=== PATIENT | male | born 1965 | race Caucasian/White ===

== ENCOUNTER → 2017-01-09 | Outpatient (REF) | payer MEDICAID, OTHER ==
[~2017-01-09] MED LIST: No Home Meds; OXYC-299 PO; PERCOCET PO; TYLE325T5 PO; aspirin PO
== END ==
LOC: M LAB REF 12:21
PROVIDERS: ATTEND Psychiatry & Neurology Psychiatry
DX: Z51.81 Encounter for therapeutic drug level monitoring (principal)

== ENCOUNTER → 2017-09-05 | Outpatient (CLI) | payer MEDICAID, OTHER ==
[~2017-09-05] MED LIST changes: +OXYC-141 PO; -OXYC-299 PO
[2017-09-05 12:06] LABS: BASO # 0.1 10^3/uL (0.0-0.2); BASO % 0.7 % (0.0-1.0); EOS # 0.6 10^3/uL (0.0-0.50); EOS % 6.8 % (0.0-3.0); IMMATURE GRANULOCYTE % 0.2 % (0-0); LYMPH # 1.8 10^3/uL (1.5-4.5); LYMPH % 22.2 % (24.0-44.0); MEAN CORPUSCULAR HEMOGLOBIN 31.8 pg (27.0-33.0); MEAN CORPUSCULAR HGB CONC 33.2 g/dl (32.0-36.5); MEAN CORPUSCULAR VOLUME 95.7 fl (80.0-96.0); MONO # 0.6 10^3/uL (0.0-0.8); MONO % 6.8 % (0.0-5.0); NEUTROPHILS # 5.2 10^3/uL (1.8-7.7); NEUTROPHILS % 63.3 % (36.0-66.0); PLATELET COUNT, AUTOMATED 208 10^3/uL (150-450); RED CELL DISTRIBUTION WIDTH 12.8 % (11.5-14.5); WHITE BLOOD COUNT 8.1 10^3/uL (4.0-10.0)
[2017-09-05 12:43] LABS: ALBUMIN/GLOBULIN RATIO 1.14 (1.00-1.93); ALKALINE PHOSPHATASE 110 U/L (45-117); ALT/SGPT 19 U/L (12-78); ANION GAP 2 MEQ/L (8-16); AST/SGOT 12 U/L (15-37); BILIRUBIN,TOTAL 0.2 MG/DL (0.2-1.0); BLOOD UREA NITROGEN 6 MG/DL (7-18); CALCIUM LEVEL 9.8 MG/DL (8.5-10.1); CARBON DIOXIDE LEVEL 31 MEQ/L (21-32); CHLORIDE LEVEL 105 MEQ/L (98-107); CHOLESTEROL LEVEL 160 MG/DL (<200); CREATININE FOR GFR 0.93 MG/DL (0.70-1.30); FREE T4 0.75 NG/DL (0.76-1.46); GLOMERULAR FILTRATION RATE > 60.0 (>60); GLUCOSE, FASTING 79 MG/DL (70-105); SODIUM LEVEL 138 MEQ/L (136-145); TOTAL PROTEIN 7.5 GM/DL (6.4-8.2); TRIGLYCERIDES LEVEL 214 MG/DL (<150)
--- NOTE | 2017-09-06 03:23 | REP ---
Clinical: Chest pain . Comparison: 05/30/2016 . Technique: PA and lateral. Findings: The mediastinum and cardiac silhouette are normal. The lung tamayo are clear and without acute consolidation, effusion, or pneumothorax. The skeletal structures are intact and normal. Impression: 1. No acute cardiopulmonary process. Signed by Clinton Lopez MD 09/06/2017 03:15 A
[2017-09-08 00:06] LABS: HSV TYPE I IgM AB <1:10 titer (<1:10); HSV TYPE II IgM ABY <1:10 titer (<1:10)
== END ==
LOC: M LRY 08:01
PROVIDERS: ATTEND Nurse Practitioner Adult Health
DX: R06.02 Shortness of breath (principal); Z87.891 Personal history of nicotine dependence; F10.21 Alcohol dependence, in remission; Z79.899 Other long term (current) drug therapy; E55.9 Vitamin D deficiency, unspecified; E78.00 Pure hypercholesterolemia, unspecified; Z11.3 Encounter for screening for infections with a predominantly sexual mode of transmission

== ENCOUNTER → 2018-05-27 | Outpatient (CLI) | payer OTHER | LOC: M SLEEP HO 10:01 | DX: G47.33 Obstructive sleep apnea (adult) (pediatric) (principal) ==

== ENCOUNTER → 2018-09-03 | Outpatient (CLI) | payer OTHER | LOC: M LRY 10:44 | DX: M25.572 Pain in left ankle and joints of left foot (principal) | CPT/HCPCS: 73610 ==

== ENCOUNTER → 2019-01-16 | Outpatient (REF) | payer MEDICAID ==
[~2019-01-16] MED LIST changes: +BUSP10TA PO; +CELE20TA PO; +CITA-230 PO; +LITH1TAB PO; +LITH45TASA PO; +OLAN10TA2 PO; +OMEP20CA3 PO; +PROP10TA56 PO; +TRAZO50TA PO
[2019-01-16 18:56] LABS: ALBUMIN 4.2 GM/DL (3.2-5.2); ALT/SGPT 24 U/L (12-78); BILIRUBIN,TOTAL 0.5 MG/DL (0.2-1.0); BLOOD UREA NITROGEN 7 MG/DL (7-18); CALCIUM LEVEL 9.4 MG/DL (8.5-10.1); CARBON DIOXIDE LEVEL 28 MEQ/L (21-32); CHLORIDE LEVEL 104 MEQ/L (98-107); CHOLESTEROL LEVEL 154 MG/DL (<200); CHOLESTEROL RISK RATIO 4.812 (<5); CREATININE FOR GFR 0.88 MG/DL (0.70-1.30); GLOMERULAR FILTRATION RATE > 60.0 (>56); GLUCOSE, FASTING 83 MG/DL (70-100); HDL CHOLESTEROL 32 MG/DL (>40); LDL CHOLESTEROL 96 MG/DL (<100); NON-HDL-C 122 MG/DL; POTASSIUM SERUM 4.9 MEQ/L (3.5-5.1); SODIUM LEVEL 137 MEQ/L (136-145); TOTAL 25(OH) VITAMIN D 18.5 NG/ML (30.0-100.0); TOTAL PROTEIN 7.6 GM/DL (6.4-8.2); TRIGLYCERIDES LEVEL 132 MG/DL (<150)
== END ==
LOC: M LAB REF 16:53
PROVIDERS: ATTEND Nurse Practitioner Family
DX: Z13.9 Encounter for screening, unspecified (principal)

== ENCOUNTER → 2019-02-13 | Outpatient (CLI) | payer OTHER | LOC: M LAB 11:43 | PROVIDERS: ATTEND Registered Nurse | DX: F31.31 Bipolar disorder, current episode depressed, mild (principal); Z51.81 Encounter for therapeutic drug level monitoring; Z13.9 Encounter for screening, unspecified ==

== ENCOUNTER → 2019-09-08 | Outpatient (CLI) | payer OTHER ==
[~2019-09-08] MED LIST changes: -CITA-230 PO; +CITA20TA7 PO; -OMEP20CA3 PO; +OMEP20CA4 PO; +TRAZ1TAB10 PO; -TRAZO50TA PO
[2019-09-08 10:33] LABS: BASO # 0.1 10^3/uL (0.0-0.2); BASO % 1.1 % (0.0-1.0); EOS # 0.2 10^3/uL (0.0-0.5); EOS % 2.4 % (0.0-3.0); HEMATOCRIT 44.4 % (42.0-52.0); HEMOGLOBIN 14.7 g/dl (13.5-17.5); LYMPH # 2.3 10^3/uL (1.5-5.0); LYMPH % 23.1 % (24.0-44.0); MEAN CORPUSCULAR HEMOGLOBIN 33.5 pg (27.0-33.0); MEAN CORPUSCULAR HGB CONC 33.1 g/dl (32.0-36.5); MEAN CORPUSCULAR VOLUME 101.1 fl (80.0-96.0); MONO # 0.7 10^3/uL (0.0-0.8); MONO % 7.4 % (0.0-5.0); NEUTROPHILS # 6.4 10^3/uL (1.5-8.5); NEUTROPHILS % 65.7 % (36.0-66.0); PLATELET COUNT, AUTOMATED 319 10^3/uL (150-450); RED BLOOD COUNT 4.39 10^6/uL (4.30-6.10); WHITE BLOOD COUNT 9.8 10^3/uL (4.0-10.0)
[2019-09-08 11:04] LABS: ALBUMIN 4.2 GM/DL (3.2-5.2); ALT/SGPT 16 U/L (12-78); BILIRUBIN,DIRECT 0.1 MG/DL (0.0-0.2); BILIRUBIN,TOTAL 0.5 MG/DL (0.2-1.0); BLOOD UREA NITROGEN 10 MG/DL (7-18); CALCIUM LEVEL 10.3 MG/DL (8.5-10.1); CARBON DIOXIDE LEVEL 29 MEQ/L (21-32); CHLORIDE LEVEL 104 MEQ/L (98-107); CHOLESTEROL LEVEL 186 MG/DL (<200); CHOLESTEROL RISK RATIO 3.049 (<5); CREATININE FOR GFR 0.93 MG/DL (0.70-1.30); GLOMERULAR FILTRATION RATE > 60.0 (>56); GLUCOSE, FASTING 92 MG/DL (70-100); HDL CHOLESTEROL 61 MG/DL (>40); LDL CHOLESTEROL 105 MG/DL (<100); LITHIUM LEVEL 0.99 MEQ/L (0.60-1.20); NON-HDL-C 125 MG/DL; POTASSIUM SERUM 5.5 MEQ/L (3.5-5.1); SODIUM LEVEL 138 MEQ/L (136-145); TOTAL PROTEIN 8.1 GM/DL (6.4-8.2); TRIGLYCERIDES LEVEL 101 MG/DL (<150)
[2019-09-08 11:07] LABS: TOTAL 25(OH) VITAMIN D 48.7 NG/ML (30.0-100.0)
[2019-09-08 11:10] LABS: VITAMIN B12 LEVEL 334 PG/ML (247-911)
[2019-09-08 12:46] LABS: HEMOGLOBIN A1c 4.9 %
== END ==
LOC: M LAB 09:55
PROVIDERS: ATTEND Nurse Practitioner Psychiatric/Mental Health
DX: Z51.81 Encounter for therapeutic drug level monitoring (principal); Z13.9 Encounter for screening, unspecified

== ENCOUNTER → 2020-01-28 | Outpatient (CLI) | payer OTHER ==
[~2020-01-28] MED LIST changes: +OMEP1CAP73 PO; -OMEP20CA4 PO
[2020-01-28 11:18] LABS: BASO # 0.1 10^3/uL (0.0-0.2); BASO % 1.1 % (0.0-1.0); EOS # 0.2 10^3/uL (0.0-0.5); EOS % 2.8 % (0.0-3.0); HEMATOCRIT 39.3 % (42.0-52.0); HEMOGLOBIN 13.3 g/dl (13.5-17.5); LYMPH # 1.6 10^3/uL (1.5-5.0); LYMPH % 19.5 % (24.0-44.0); MEAN CORPUSCULAR HEMOGLOBIN 35.2 pg (27.0-33.0); MEAN CORPUSCULAR HGB CONC 33.8 g/dl (32.0-36.5); MONO # 0.6 10^3/uL (0.0-0.8); MONO % 7.8 % (0.0-5.0); NEUTROPHILS # 5.6 10^3/uL (1.5-8.5); NEUTROPHILS % 68.6 % (36.0-66.0); PLATELET COUNT, AUTOMATED 280 10^3/uL (150-450); RED BLOOD COUNT 3.78 10^6/uL (4.30-6.10); WHITE BLOOD COUNT 8.2 10^3/uL (4.0-10.0)
[2020-01-28 11:45] LABS: ALBUMIN 3.8 GM/DL (3.2-5.2); ALT/SGPT 24 U/L (12-78); BILIRUBIN,DIRECT 0.2 MG/DL (0.0-0.2); BILIRUBIN,TOTAL 0.7 MG/DL (0.2-1.0); BLOOD UREA NITROGEN 7 MG/DL (7-18); CALCIUM LEVEL 9.3 MG/DL (8.5-10.1); CARBON DIOXIDE LEVEL 28 MEQ/L (21-32); CHLORIDE LEVEL 108 MEQ/L (98-107); CHOLESTEROL LEVEL 154 MG/DL (<200); CHOLESTEROL RISK RATIO 2.369 (<5); CREATININE FOR GFR 0.69 MG/DL (0.70-1.30); GLOMERULAR FILTRATION RATE > 60.0 (>56); GLUCOSE, FASTING 74 MG/DL (70-100); HDL CHOLESTEROL 65 MG/DL (>40); LDL CHOLESTEROL 77 MG/DL (<100); NON-HDL-C 89 MG/DL; POTASSIUM SERUM 4.6 MEQ/L (3.5-5.1); SODIUM LEVEL 140 MEQ/L (136-145); THYROID STIMULATING HORMONE 0.955 uIU/ML (0.358-3.740); TOTAL PROTEIN 7.2 GM/DL (6.4-8.2); TRIGLYCERIDES LEVEL 59 MG/DL (<150)
[2020-01-28 11:46] LABS: HEMOGLOBIN A1c 4.3 %
[2020-01-28 11:47] LABS: TOTAL 25(OH) VITAMIN D 24.5 NG/ML (30.0-100.0)
[2020-01-28 11:48] LABS: VITAMIN B12 LEVEL 335 PG/ML (247-911)
== END ==
LOC: M LAB 09:25
PROVIDERS: ATTEND Nurse Practitioner Psychiatric/Mental Health
DX: F31.31 Bipolar disorder, current episode depressed, mild (principal); Z79.899 Other long term (current) drug therapy

== ENCOUNTER → 2020-05-03 | Outpatient (CLI) | payer OTHER ==
[~2020-05-03] MED LIST changes: +BUPR1TAB52 PO; +BUSP30TA PO
[2020-05-03 09:11] LABS: BASO # 0.1 10^3/uL (0.0-0.2); BASO % 1.4 % (0.0-1.0); EOS # 0.4 10^3/uL (0.0-0.5); EOS % 6.1 % (0.0-3.0); HEMATOCRIT 41.9 % (42.0-52.0); HEMOGLOBIN 13.8 g/dl (13.5-17.5); LYMPH # 1.8 10^3/uL (1.5-5.0); LYMPH % 27.7 % (24.0-44.0); MEAN CORPUSCULAR HEMOGLOBIN 32.5 pg (27.0-33.0); MEAN CORPUSCULAR HGB CONC 32.9 g/dl (32.0-36.5); MEAN CORPUSCULAR VOLUME 98.8 fl (80.0-96.0); MONO # 0.5 10^3/uL (0.0-0.8); NEUTROPHILS # 3.6 10^3/uL (1.5-8.5); NEUTROPHILS % 56.5 % (36.0-66.0); PLATELET COUNT, AUTOMATED 239 10^3/uL (150-450); RED BLOOD COUNT 4.24 10^6/uL (4.30-6.10); WHITE BLOOD COUNT 6.4 10^3/uL (4.0-10.0)
[2020-05-03 09:43] LABS: ALBUMIN 3.7 GM/DL (3.2-5.2); ALT/SGPT 328 U/L (12-78); BILIRUBIN,DIRECT 0.1 MG/DL (0.0-0.2); BILIRUBIN,TOTAL 0.3 MG/DL (0.2-1.0); BLOOD UREA NITROGEN 5 MG/DL (7-18); CALCIUM LEVEL 8.7 MG/DL (8.5-10.1); CARBON DIOXIDE LEVEL 27 MEQ/L (21-32); CHLORIDE LEVEL 109 MEQ/L (98-107); CHOLESTEROL LEVEL 123 MG/DL (<200); CHOLESTEROL RISK RATIO 3.514 (<5); CREATININE FOR GFR 0.78 MG/DL (0.70-1.30); GLOMERULAR FILTRATION RATE > 60.0 (>56); GLUCOSE, FASTING 87 MG/DL (70-100); HDL CHOLESTEROL 35 MG/DL (>40); LDL CHOLESTEROL 68 MG/DL (<100); LITHIUM LEVEL 1.03 MEQ/L (0.60-1.20); NON-HDL-C 88 MG/DL; POTASSIUM SERUM 4.2 MEQ/L (3.5-5.1); SODIUM LEVEL 141 MEQ/L (136-145); TOTAL PROTEIN 7.2 GM/DL (6.4-8.2); TRIGLYCERIDES LEVEL 98 MG/DL (<150)
[2020-05-03 10:10] LABS: HEMOGLOBIN A1c 4.6 %
[2020-05-03 10:31] LABS: TOTAL 25(OH) VITAMIN D 48.8 NG/ML (30.0-100.0); VITAMIN B12 LEVEL 709 PG/ML (247-911)
== END ==
LOC: M LAB 08:09
PROVIDERS: ATTEND Nurse Practitioner Psychiatric/Mental Health
DX: Z51.81 Encounter for therapeutic drug level monitoring (principal); Z79.899 Other long term (current) drug therapy; F31.81 Bipolar II disorder

== ENCOUNTER 2020-05-11 16:51 | Emergency (ER) | payer OTHER ==
[~2020-05-11] VITALS: Ht 180.3 cm; Wt 78.2 kg
[~2020-05-11 16:51] MED LIST changes: -BUPR1TAB52 PO; -BUSP30TA PO
[2020-05-11] MEDS ORDERED: BUSP30TA PO (17:45)
[2020-05-11] MEDS ORDERED: BUPR1TAB52 PO (17:45)
[2020-05-11 17:55] LABS: BASO # 0.1 10^3/uL (0.0-0.2); EOS # 0.6 10^3/uL (0.0-0.5); EOS % 7.4 % (0.0-3.0); HEMATOCRIT 39.6 % (42.0-52.0); HEMOGLOBIN 13.3 g/dl (13.5-17.5); LYMPH # 3.1 10^3/uL (1.5-5.0); LYMPH % 38.4 % (24.0-44.0); MEAN CORPUSCULAR HEMOGLOBIN 32.7 pg (27.0-33.0); MEAN CORPUSCULAR HGB CONC 33.6 g/dl (32.0-36.5); MEAN CORPUSCULAR VOLUME 97.3 fl (80.0-96.0); MONO # 0.6 10^3/uL (0.0-0.8); MONO % 7.2 % (0.0-5.0); NEUTROPHILS # 3.7 10^3/uL (1.5-8.5); NEUTROPHILS % 45.9 % (36.0-66.0); PLATELET COUNT, AUTOMATED 177 10^3/uL (150-450); RED BLOOD COUNT 4.07 10^6/uL (4.30-6.10)
[2020-05-11 18:09] LABS: INR 1.23; PROTHROMBIN TIME 15.2 SECONDS (11.8-14.0)
[2020-05-11 18:10] LABS: PARTIAL THROMBOPLASTIN TIME 30.6 SECONDS (25.0-38.4)
[2020-05-11 18:10] LABS: CK-MB VALUE MASS 1.2 NG/ML (<3.6); CPK CREATINE PHOSPHOKINASE 77 U/L (39-308); MB/CK RELATIVE INDEX 1.56 (< OR =4); TROPONIN I < 0.02 NG/ML (< 0.10)
[2020-05-11 18:15] VITALS: BP 114/63
[2020-05-11 18:16] LABS: ALBUMIN 3.6 GM/DL (3.2-5.2); ALT/SGPT 306 U/L (12-78); BILIRUBIN,DIRECT 0.2 MG/DL (0.0-0.2); BILIRUBIN,TOTAL 0.5 MG/DL (0.2-1.0); BLOOD UREA NITROGEN 8 MG/DL (7-18); CALCIUM LEVEL 9.3 MG/DL (8.5-10.1); CARBON DIOXIDE LEVEL 23 MEQ/L (21-32); CHLORIDE LEVEL 107 MEQ/L (98-107); CREATININE FOR GFR 0.71 MG/DL (0.70-1.30); FREE T4 0.96 NG/DL (0.76-1.46); GLOMERULAR FILTRATION RATE > 60.0 (>56); GLUCOSE, FASTING 84 MG/DL (70-100); LIPASE 547 U/L (73-393); LITHIUM LEVEL 0.85 MEQ/L (0.60-1.20); MAGNESIUM LEVEL 1.9 MG/DL (1.8-2.4); NT-PRO BNP 100 PG/ML (<125); POTASSIUM SERUM 4.1 MEQ/L (3.5-5.1); SODIUM LEVEL 140 MEQ/L (136-145); TOTAL PROTEIN 6.8 GM/DL (6.4-8.2)
--- NOTE | 2020-05-12 03:45 | REP ---
CHEST PORTABLE: REASON: Chest pain. FINDINGS: The technique utilized in obtaining the radiograph has magnified the cardiac silhouette and accentuated the interstitial markings. The superior mediastinal structures are midline. The cardiac silhouette is unremarkable in size, shape, and position. The diaphragmatic surfaces of the lungs are regular, and the costophrenic angles are clear. The pulmonary tamayo are clear. The imaged osseous structures are intact. IMPRESSION: There is no acute cardiopulmonary disease. Electronically Signed by Savage Rivera DO 05/12/2020 08:40 A
--- NOTE | 2020-05-12 09:40 | ECGEPIP ---
[facility] - ED Test Date: 2020-05-11 Pat Name: JAMIL MCDONNELL Department: Room: - Gender: Male Transport Assistant: ROSA : 1965 Requested By: GAEL Alvarez Order Number: [id number] Reading MD: Kam Simmons Measurements Intervals [place] Rate: 71 P: 55 FL: 172 QRS: 56 QRSD: 118 T: 40 QT: 428 QTc: 467 Interpretive Statements SINUS RHYTHM INCOMPLETE RIGHT BUNDLE BRANCH BLOCK SIMILAR TO 11/26/18 Electronically Signed on 05-12-2020 9:40:41 EDT by Kam Simmons
== END 2020-05-11 18:25 | disposition left against medical advice (07) ==
LOC: M ED 16:51 → EDBD 16:51 → M ED 18:25
DX: R07.9 Chest pain, unspecified (principal); R55 Syncope and collapse; I45.19 Other right bundle-branch block; J44.9 Chronic obstructive pulmonary disease, unspecified; F31.9 Bipolar disorder, unspecified; K21.9 Gastro-esophageal reflux disease without esophagitis; Z79.899 Other long term (current) drug therapy; F17.210 Nicotine dependence, cigarettes, uncomplicated

== ENCOUNTER 2020-06-17 21:15 | Emergency (ER) | payer OTHER ==
[~2020-06-17 21:15] MED LIST changes: +BUPR1TAB52 PO; +BUSP30TA PO
[2020-06-17] MEDS ORDERED: ACETAMINOPHEN 325 MG TAB As Ordered ONE (21:36)
[2020-06-17] MEDS ORDERED: IBUPROFEN 600MG TAB As Ordered ONE (21:36)
[2020-06-17] MEDS ORDERED: ONDANSETRON 4MG/2ML VIAL As Ordered ONE (21:36)
[2020-06-18] MEDS ORDERED: ISOVUE-370 76% 100ML VIAL ONE (00:43)
[2020-06-18] MEDS ORDERED: CIPROFLOXACIN/D5W 400 MG/200 ML BAG (J0744) As Ordered ONE (01:39)
[2020-06-18] MEDS ORDERED: CIPROFLOXACIN/D5W 400 MG/200 ML BAG (J0744) ONE (01:39)
[2020-07-20 14:46] LABS: INR 1.66; PARTIAL THROMBOPLASTIN TIME 42.8 SECONDS (25.0-38.4); PROTHROMBIN TIME 19.9 SECONDS (11.8-14.0)
[2020-07-20 14:59] LABS: HEMATOCRIT 37.1 % (42.0-52.0); HEMOGLOBIN 12.8 g/dl (13.5-17.5); MEAN CORPUSCULAR HGB CONC 34.5 g/dl (32.0-36.5); MEAN CORPUSCULAR VOLUME 101.4 fl (80.0-96.0); PLATELET COUNT, AUTOMATED 132 10^3/uL (150-450); RED BLOOD COUNT 3.66 10^6/uL (4.30-6.10); WHITE BLOOD COUNT 18.2 10^3/uL (4.0-10.0)
[2020-07-20 15:03] LABS: ANISOCYTOSIS 1+; LYMPHOCYTES 4 % (16-44); MONOCYTES 4 % (0-5); NEUTROPHILS 79 % (28-66); PLATELET ESTIMATE DECREASED (NORMAL)
[2020-07-25 12:24] LABS: APPEARANCE, URINE CLEAR (CLEAR); BACTERIA, URINE AUTO NEGATIVE (NEGATIVE); BILIRUBIN, URINE AUTO NEGATIVE (NEGATIVE); BLOOD, URINE BLOOD NEGATIVE (NEGATIVE); COLOR, URINE AMBER (YELLOW); GLUCOSE, URINE (UA) AUTO NEGATIVE (NEGATIVE); KETONE, URINE AUTO NEGATIVE (NEGATIVE); LEUKOCYTE ESTERASE, URINE AUTO NEGATIVE (NEGATIVE); NITRITE, URINE AUTO NEGATIVE (NEGATIVE); PROTEIN, URINE AUTO 1+ mg/dL (NEGATIVE); RBC, URINE AUTO 1 /HPF (0-3); SPECIFIC GRAVITY URINE AUTO 1.012 (1.002-1.035); SQUAMOUS EPITHELIAL CELL UR AU 0 /HPF (0-6); WBC, URINE AUTO 1 /HPF (0-3)
[2020-07-25 14:19] LABS: BASO % 0.4 % (0.0-1.0); EOS % 0.1 % (0.0-3.0); HEMATOCRIT 37.8 % (42.0-52.0); HEMOGLOBIN 12.9 g/dl (13.5-17.5); LYMPH # 0.2 10^3/uL (1.5-5.0); LYMPH % 2.2 % (24.0-44.0); MEAN CORPUSCULAR HEMOGLOBIN 34.3 pg (27.0-33.0); MEAN CORPUSCULAR HGB CONC 34.1 g/dl (32.0-36.5); MEAN CORPUSCULAR VOLUME 100.5 fl (80.0-96.0); MONO % 0.4 % (0.0-5.0); NEUTROPHILS # 6.5 10^3/uL (1.5-8.5); NEUTROPHILS % 96.6 % (36.0-66.0); PLATELET COUNT, AUTOMATED 138 10^3/uL (150-450); RED BLOOD COUNT 3.76 10^6/uL (4.30-6.10); WHITE BLOOD COUNT 6.7 10^3/uL (4.0-10.0)
[2020-08-02 12:26] LABS: ALBUMIN 3.4 GM/DL (3.2-5.2); ALT/SGPT 242 U/L (12-78); BILIRUBIN,TOTAL 1.4 MG/DL (0.2-1.0); BLOOD UREA NITROGEN 14 MG/DL (7-18); CALCIUM LEVEL 9.3 MG/DL (8.5-10.1); CARBON DIOXIDE LEVEL 25 MEQ/L (21-32); CHLORIDE LEVEL 103 MEQ/L (98-107); CREATININE FOR GFR 1.17 MG/DL (0.70-1.30); FERRITIN 705 NG/ML (26-388); FOLATE 9.4 NG/ML (>5.4); GLOMERULAR FILTRATION RATE > 60.0 (>56); GLUCOSE, FASTING 85 MG/DL (70-100); HEPATITIS A ANTIBODY IGM NEGATIVE (NEGATIVE); HEPATITIS B CORE ANTIBODY IGM NEGATIVE (NEGATIVE); HEPATITIS B SURFACE ANTIGEN NEGATIVE (NEGATIVE); HEPATITIS C VIRUS ABY INDEX > 11.0 INDEX (<0.8); IRON (FE) 10 UG/DL (65-175); PERCENT SATURATION 3.6 % (19.7-50.0); POTASSIUM SERUM 4.5 MEQ/L (3.5-5.1); SODIUM LEVEL 134 MEQ/L (136-145); TOTAL IRON BINDING CAPACITY 278 UG/DL (250-450); TOTAL PROTEIN 6.5 GM/DL (6.4-8.2); VITAMIN B12 LEVEL 743 PG/ML (247-911)
--- NOTE | 2020-08-09 10:16 | REP ---
RENAL ULTRASOUND: HISTORY: Acute renal insufficiency. TECHNIQUE: Real time, high scale and color evaluation using curved array transducer. FINDINGS: The bilateral kidneys are normal in contour, size, echogenicity and reniform shape. Increased central sinus fat suggests age related changes. No hydronephrosis, nephrolithiasis, cystic or renal mass lesion. The right kidney measures 12.6 x 5.6 x 4.4 cm. The left kidney measures 12.3 x 5.4 x 6.3 cm. The prostate gland measures 3.7 x 2.0 x 4.3 (16.2 cm2). The bladder is incompletely distended but grossly normal in appearance. IMPRESSION: Normal renal ultrasound. No hydronephrosis. MTDD
[2020-08-27 12:49] LABS: CALCIUM LEVEL 9.8 MG/DL (8.5-10.1); CREATININE FOR GFR 1.58 MG/DL (0.70-1.30); GLOMERULAR FILTRATION RATE 49.3 (>56); POTASSIUM SERUM 3.5 MEQ/L (3.5-5.1)
[2020-08-27 12:50] LABS: ALBUMIN 3.4 GM/DL (3.2-5.2); BILIRUBIN,DIRECT 1.3 MG/DL (0.0-0.2); BILIRUBIN,TOTAL 1.8 MG/DL (0.2-1.0); TOTAL PROTEIN 6.6 GM/DL (6.4-8.2)
== END 2020-06-18 07:45 | disposition left against medical advice (07) ==
LOC: M ED 21:15
DX: R50.9 Fever, unspecified (principal); D72.825 Bandemia; R16.0 Hepatomegaly, not elsewhere classified; R82.89 Other abnormal findings on cytological and histological examination of urine; L40.9 Psoriasis, unspecified; K21.9 Gastro-esophageal reflux disease without esophagitis; F32.89 Other specified depressive episodes; Z79.899 Other long term (current) drug therapy; F12.10 Cannabis abuse, uncomplicated; Z53.21 Procedure and treatment not carried out due to patient leaving prior to being seen by health care provider
CPT/HCPCS: 71046; 76705; 76775; 80048; 80053; 80076; 80307; 81001; 82270; 82607; 82728; 82746; 83550; 83605; 83690; 85025; 85046; 85610; 85730; 86705; 86709; 86803; 87040; 87086; 87340; 87521; 99285; J0744; J2405; Q9967

== ENCOUNTER → 2020-08-09 | Outpatient (CLI) | payer OTHER ==
[~2020-08-09] MED LIST changes: +CITA20TA6 PO; +LISI-542 PO; +LITH600C PO; +MED REC COMMENT; +OMEP-218 PO; +PROP20TA72 PO; +TRAZ-189 PO; +TRAZ-257 PO
[2020-08-09 10:12] LABS: BASO # 0.1 10^3/uL (0.0-0.2); BASO % 1.3 % (0.0-1.0); EOS # 0.4 10^3/uL (0.0-0.5); HEMATOCRIT 38.6 % (42.0-52.0); LYMPH # 1.8 10^3/uL (1.5-5.0); LYMPH % 32.2 % (24.0-44.0); MEAN CORPUSCULAR HEMOGLOBIN 34.5 pg (27.0-33.0); MEAN CORPUSCULAR HGB CONC 33.7 g/dl (32.0-36.5); MEAN CORPUSCULAR VOLUME 102.4 fl (80.0-96.0); MONO # 0.6 10^3/uL (0.0-0.8); MONO % 11.6 % (0.0-5.0); NEUTROPHILS # 2.6 10^3/uL (1.5-8.5); NEUTROPHILS % 47.5 % (36.0-66.0); PLATELET COUNT, AUTOMATED 199 10^3/uL (150-450); RED BLOOD COUNT 3.77 10^6/uL (4.30-6.10); WHITE BLOOD COUNT 5.4 10^3/uL (4.0-10.0)
[2020-08-09 10:27] LABS: HEMOGLOBIN A1c 4.7 %
[2020-08-09 10:45] LABS: ALBUMIN 3.8 GM/DL (3.2-5.2); ALT/SGPT 384 U/L (12-78); BILIRUBIN,DIRECT 0.2 MG/DL (0.0-0.2); BILIRUBIN,TOTAL 0.5 MG/DL (0.2-1.0); BLOOD UREA NITROGEN 7 MG/DL (7-18); CALCIUM LEVEL 9.7 MG/DL (8.5-10.1); CARBON DIOXIDE LEVEL 25 MEQ/L (21-32); CHLORIDE LEVEL 106 MEQ/L (98-107); CHOLESTEROL LEVEL 150 MG/DL (<200); CREATININE FOR GFR 0.92 MG/DL (0.70-1.30); GLOMERULAR FILTRATION RATE > 60.0 (>56); GLUCOSE, FASTING 83 MG/DL (70-100); GLUCOSE,RANDOM 83 MG/DL (LESS THAN 200); HDL CHOLESTEROL 40 MG/DL (>40); LDL CHOLESTEROL 84 MG/DL (<100); LITHIUM LEVEL 0.37 MEQ/L (0.60-1.20); NON-HDL-C 110 MG/DL; PHOSPHORUS LEVEL 3.5 MG/DL (2.5-4.9); POTASSIUM SERUM 4.3 MEQ/L (3.5-5.1); SODIUM LEVEL 139 MEQ/L (136-145); TOTAL PROTEIN 7.3 GM/DL (6.4-8.2); TRIGLYCERIDES LEVEL 128 MG/DL (<150)
--- NOTE | 2020-08-10 06:18 | ECGEPIP ---
[facility] Test Date: 2020-08-09 Pat Name: JAMIL MCDONNELL Department: Room: - Gender: Male Phlebotomy Director: SERENITY : 1965 Requested By: Adela VAZQUEZ Order Number: [id number] Reading MD: Dhruv Wellington Measurements Intervals [place] Rate: 65 P: 60 LA: 155 QRS: 74 QRSD: 114 T: 50 QT: 401 QTc: 419 Interpretive Statements Normal sinus rhythm Incomplete right bundle branch block No significant change when compared to prior tracing of 05/11/2020 Electronically Signed on 08-10-2020 6:18:20 EDT by Dhruv Wellington
== END ==
LOC: M LAB 09:24
PROVIDERS: ATTEND Registered Nurse
DX: F31.10 Bipolar disorder, current episode manic without psychotic features, unspecified (principal); I45.10 Unspecified right bundle-branch block

== ENCOUNTER 2020-09-08 21:07 | Inpatient (IN) | payer MEDICAID, OTHER ==
[~2020-09-08] VITALS: Ht 180.3 cm; Wt 77.0 kg
[~2020-09-08 21:07] MED LIST changes: -CITA20TA6 PO; -LISI-542 PO; -LITH600C PO; -MED REC COMMENT; -OMEP-218 PO; -PROP20TA72 PO; -TRAZ-189 PO; -TRAZ-257 PO
[2020-09-08] MEDS ORDERED: PROP20TA72 PO (21:28)
[2020-09-08] MEDS ORDERED: TRAZ-257 PO (21:29)
[2020-09-08] MEDS ORDERED: NICOTINE 21MG/24HR 1 EA TRANSDERMAL TD ONE (22:00)
[2020-09-08 22:43] LABS: HEMATOCRIT 34.5 % (42.0-52.0); HEMOGLOBIN 11.4 g/dl (13.5-17.5); MEAN CORPUSCULAR HEMOGLOBIN 33.7 pg (27.0-33.0); MEAN CORPUSCULAR VOLUME 102.1 fl (80.0-96.0); PLATELET COUNT, AUTOMATED 151 10^3/uL (150-450); RED BLOOD COUNT 3.38 10^6/uL (4.30-6.10); WHITE BLOOD COUNT 8.2 10^3/uL (4.0-10.0)
[2020-09-08 23:09] LABS: AMPHETAMINES LEVEL URINE NEGATIVE (NEGATIVE); BARBITURATES URINE NEGATIVE (NEGATIVE); BENZODIAZEPINES URINE NEGATIVE (NEGATIVE); CANNABINOIDS URINE POSITIVE (NEGATIVE); COCAINE METABOLITE URINE NEGATIVE (NEGATIVE); METHADONE URINE NEGATIVE (NEGATIVE); OPIATES URINE NEGATIVE (NEGATIVE); PHENCYCLIDINE URINE NEGATIVE (NEGATIVE)
[2020-09-08 23:22] LABS: ACETAMINOPHEN LEVEL < 2.0 UG/ML (10.0-30.0); ALBUMIN 3.3 GM/DL (3.2-5.2); ALT/SGPT 72 U/L (12-78); BILIRUBIN,DIRECT 0.2 MG/DL (0.0-0.2); BILIRUBIN,TOTAL 0.3 MG/DL (0.2-1.0); BLOOD UREA NITROGEN 8 MG/DL (7-18); CALCIUM LEVEL 8.7 MG/DL (8.5-10.1); CARBON DIOXIDE LEVEL 23 MEQ/L (21-32); CHLORIDE LEVEL 108 MEQ/L (98-107); CREATININE FOR GFR 0.79 MG/DL (0.70-1.30); ETHYL ALCOHOL (ETHANOL) 0.368 % (0.000-0.010); GLOMERULAR FILTRATION RATE > 60.0 (>56); GLUCOSE, FASTING 92 MG/DL (70-100); POTASSIUM SERUM 3.7 MEQ/L (3.5-5.1); SALICYLATE LEVEL < 1.7 MG/DL (5.0-30.0); SODIUM LEVEL 140 MEQ/L (136-145); TOTAL PROTEIN 6.6 GM/DL (6.4-8.2)
[2020-09-09] MEDS ORDERED: LORazepam 2 MG TAB PO PRN ×2 (07:30→11:00)
[2020-09-09] MEDS ORDERED: busPIRone 10 MG TAB PO ONE (07:45)
[2020-09-09] MEDS ORDERED: PROPRANOLOL 20 MG TAB PO ONE (07:45)
[2020-09-09] MEDS ORDERED: CitaloPRAM (CeleXA) 20 MG TAB PO ONE (07:45)
[2020-09-09] MEDS ORDERED: LITHIUM CARBONATE 600 MG CAP PO ONE (07:45)
[2020-09-09] MEDS ORDERED: OMEPRAZOLE 20 MG CAP PO ONE (07:45)
[2020-09-09] MEDS ORDERED: LITH600C PO (08:01)
[2020-09-09] MEDS ORDERED: OMEP-218 PO (08:01)
[2020-09-09] MEDS ORDERED: PROP10TA56 PO (08:01)
[2020-09-09] MEDS ORDERED: LISI-542 PO (08:01)
[2020-09-09] MEDS ORDERED: BUPR1TAB52 PO (08:01)
[2020-09-09] MEDS ORDERED: OLAN10TA2 PO (08:01)
[2020-09-09] MEDS ORDERED: lisinopriL 5 MG TAB PO ONE (08:15)
[2020-09-09] MEDS ORDERED: buPROPion (WELLBUTRIN SR) 100 MG SR TAB PO ONE (08:15)
[2020-09-09 08:18] LABS: ETHYL ALCOHOL (ETHANOL) 0.153 % (0.000-0.010)
[2020-09-09] MEDS ORDERED: THIAMINE 100 MG TAB PO SCH (09:00)
[2020-09-09] MEDS ORDERED: MULTIVITAMINS/MINERALS THERAP 1 TAB PO SCH (09:00)
[2020-09-09] MEDS ORDERED: FOLIC ACID 1 MG TAB PO SCH (09:00)
[2020-09-09] MEDS: NICOTINE 21MG/24HR 1 EA TRANSDERMAL TD SCH (09:00)
[2020-09-09] MEDS ORDERED: MOM 30ML SUSPENSION UDC PO PRN (11:00)
[2020-09-09] MEDS ORDERED: ACETAMINOPHEN TAB 650MG DOSE (2X325MG) PO PRN (11:00)
[2020-09-09] MEDS ORDERED: traZODone 50 MG TAB PO PRN (11:00)
[2020-09-09] MEDS ORDERED: MAALOX 30 ML SUSP *UDC PO PRN (11:00)
[2020-09-09 11:38] LABS: LITHIUM LEVEL 0.49 MEQ/L (0.60-1.20)
[2020-09-09] MEDS: PROPRANOLOL 10 MG TAB PO SCH ×2 (16:14→20:17)
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
[2020-09-09 19:14] VITALS: BP 136/82
[2020-09-09] MEDS: LITHIUM CARBONATE 600 MG CAP PO SCH (20:14)
[2020-09-09] MEDS: busPIRone 10 MG TAB PO SCH (20:15)
[2020-09-09] MEDS: THIAMINE 100 MG TAB PO SCH (20:15)
[2020-09-09] MEDS: OMEPRAZOLE 20 MG CAP PO SCH (20:15)
[2020-09-09] MEDS ORDERED: OLANZapine 10 MG TAB PO SCH (21:00)
[2020-09-09] MEDS ORDERED: traZODone 100 MG TAB PO SCH (21:00)
[2020-09-09 23:00] VITALS: BP 136/82
[2020-09-10 05:03] VITALS: BP 136/82
[2020-09-10 06:23] VITALS: BP 136/91
[2020-09-10] MEDS: LITHIUM CARBONATE 600 MG CAP PO SCH (08:17)
[2020-09-10] MEDS: busPIRone 10 MG TAB PO SCH (08:17)
[2020-09-10] MEDS: OMEPRAZOLE 20 MG CAP PO SCH (08:18)
[2020-09-10 08:20] VITALS: BP 136/91
[2020-09-10] MEDS: PROPRANOLOL 10 MG TAB PO SCH (08:20)
[2020-09-10] MEDS: NICOTINE 21MG/24HR 1 EA TRANSDERMAL TD SCH (08:20)
[2020-09-10] MEDS ORDERED: MULTIVITAMINS/MINERALS THERAP 1 TAB PO SCH (09:00)
[2020-09-10] MEDS ORDERED: CitaloPRAM (CeleXA) 20 MG TAB PO SCH (09:00)
[2020-09-10] MEDS ORDERED: buPROPion (WELLBUTRIN SR) 100 MG SR TAB PO SCH (09:00)
[2020-09-10] MEDS ORDERED: lisinopriL 5 MG TAB PO SCH (09:00)
[2020-09-10] MEDS ORDERED: FOLIC ACID 1 MG TAB PO SCH (09:00)
[2020-09-10] MEDS: THIAMINE 100 MG TAB PO SCH (09:20)
[2020-09-10] MEDS ORDERED: PROP10TA56 PO (10:32)
[2020-09-10] MEDS ORDERED: LITH600C PO (10:32)
[2020-09-10] MEDS ORDERED: LISI-542 PO (10:32)
[2020-09-10] MEDS ORDERED: TRAZ-257 PO (10:32)
[2020-09-10] MEDS ORDERED: BUPR1TAB52 PO (10:32)
[2020-09-10] MEDS ORDERED: OLAN10TA2 PO (10:32)
[2020-09-10] MEDS ORDERED: BUSP30TA PO (10:32)
[2020-09-10] MEDS ORDERED: OMEP-218 PO (10:32)
[2020-09-10] MEDS ORDERED: CITA20TA7 PO (10:32)
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
[2020-09-11] MEDS ORDERED: FLUBLOK(EGG FREE)(QUAD)INFLUENZA VACC 0.5ML SYRINGE 18YRS & OLDER IM ONE (09:00)
== END 2020-09-10 11:20 | disposition home or self-care (01) | DRG 753 ==
LOC: M ED 21:07 → M ED INP 09-09 10:56 → M PSY 09-09 11:32
PROVIDERS: ADMIT Psychiatry & Neurology Addiction Medicine; ATTEND Psychiatry & Neurology Psychiatry
DX: F31.9 Bipolar disorder, unspecified (principal); F10.129 Alcohol abuse with intoxication, unspecified; F10.14 Alcohol abuse with alcohol-induced mood disorder; F12.10 Cannabis abuse, uncomplicated; F17.200 Nicotine dependence, unspecified, uncomplicated; F41.9 Anxiety disorder, unspecified; I10 Essential (primary) hypertension; K21.9 Gastro-esophageal reflux disease without esophagitis; Z87.81 Personal history of (healed) traumatic fracture

== ENCOUNTER 2020-09-12 15:32 | Emergency (ER) | payer MEDICAID, OTHER ==
[~2020-09-12] VITALS: Ht 180.3 cm; Wt 78.4 kg
[~2020-09-12 15:32] MED LIST changes: +LISI-542 PO; +LITH600C PO; +OMEP-218 PO; +PROP20TA72 PO; +TRAZ-257 PO
[2020-09-12 16:27] LABS: HEMATOCRIT 39.7 % (42.0-52.0); HEMOGLOBIN 13.1 g/dl (13.5-17.5); MEAN CORPUSCULAR HEMOGLOBIN 33.7 pg (27.0-33.0); MEAN CORPUSCULAR VOLUME 102.1 fl (80.0-96.0); PLATELET COUNT, AUTOMATED 200 10^3/uL (150-450); RED BLOOD COUNT 3.89 10^6/uL (4.30-6.10); WHITE BLOOD COUNT 9.9 10^3/uL (4.0-10.0)
[2020-09-12 16:52] LABS: AMPHETAMINES LEVEL URINE NEGATIVE (NEGATIVE); BARBITURATES URINE NEGATIVE (NEGATIVE); BENZODIAZEPINES URINE NEGATIVE (NEGATIVE); CANNABINOIDS URINE NEGATIVE (NEGATIVE); COCAINE METABOLITE URINE NEGATIVE (NEGATIVE); METHADONE URINE NEGATIVE (NEGATIVE); OPIATES URINE NEGATIVE (NEGATIVE); PHENCYCLIDINE URINE NEGATIVE (NEGATIVE)
[2020-09-12 17:16] LABS: ACETAMINOPHEN LEVEL < 2.0 UG/ML (10.0-30.0); ALBUMIN 3.9 GM/DL (3.2-5.2); ALT/SGPT 53 U/L (12-78); BILIRUBIN,DIRECT 0.2 MG/DL (0.0-0.2); BILIRUBIN,TOTAL 0.4 MG/DL (0.2-1.0); BLOOD UREA NITROGEN 10 MG/DL (7-18); CALCIUM LEVEL 8.6 MG/DL (8.5-10.1); CARBON DIOXIDE LEVEL 24 MEQ/L (21-32); CHLORIDE LEVEL 104 MEQ/L (98-107); ETHYL ALCOHOL (ETHANOL) 0.372 % (0.000-0.010); GLOMERULAR FILTRATION RATE > 60.0 (>56); GLUCOSE, FASTING 79 MG/DL (70-100); POTASSIUM SERUM 4.1 MEQ/L (3.5-5.1); SALICYLATE LEVEL 1.9 MG/DL (5.0-30.0); SODIUM LEVEL 136 MEQ/L (136-145); TOTAL PROTEIN 7.8 GM/DL (6.4-8.2)
[2020-09-12] MEDS ORDERED: LORazepam 2 MG TAB PO PRN (17:30)
[2020-09-12] MEDS: THIAMINE 100 MG TAB PO SCH (17:56)
[2020-09-12] MEDS: FOLIC ACID 1 MG TAB PO SCH (17:56)
[2020-09-12] MEDS: MULTIVITAMINS/MINERALS THERAP 1 TAB PO SCH (17:56)
[2020-09-12] MEDS ORDERED: BUPR1TAB52 PO (19:00)
[2020-09-12] MEDS ORDERED: NICOTINE 21MG/24HR 1 EA TRANSDERMAL TD ONE (19:00)
[2020-09-12] MEDS ORDERED: BUSP30TA PO (19:00)
[2020-09-12] MEDS ORDERED: CITA20TA6 PO (19:01)
[2020-09-12] MEDS ORDERED: LITH600C PO (19:01)
[2020-09-12] MEDS ORDERED: LISI-542 PO (19:01)
[2020-09-12] MEDS ORDERED: PROP10TA56 PO (19:01)
[2020-09-12] MEDS ORDERED: OMEP1CAP73 PO (19:01)
[2020-09-12] MEDS ORDERED: TRAZ-189 PO (19:01)
[2020-09-12] MEDS ORDERED: OLAN10TA2 PO (19:01)
[2020-09-12] MEDS ORDERED: OLANZapine 10 MG TAB PO ONE (20:45)
[2020-09-12] MEDS ORDERED: PROPRANOLOL 20 MG TAB PO ONE (20:45)
[2020-09-12] MEDS ORDERED: busPIRone 10 MG TAB PO ONE (20:45)
[2020-09-12] MEDS ORDERED: OMEPRAZOLE 20 MG CAP PO ONE (20:45)
[2020-09-12 20:58] LABS: LITHIUM LEVEL 0.89 MEQ/L (0.60-1.20)
[2020-09-12] MEDS ORDERED: LITHIUM CARBONATE 600 MG CAP PO ONE (21:45)
[2020-09-12] MEDS ORDERED: MED REC COMMENT (21:48)
[2020-09-12 21:53] VITALS: BP 121/58
[2020-09-13] MEDS: FOLIC ACID 1 MG TAB PO SCH (09:29)
[2020-09-13] MEDS: MULTIVITAMINS/MINERALS THERAP 1 TAB PO SCH (09:29)
[2020-09-13] MEDS: THIAMINE 100 MG TAB PO SCH ×2 (09:29→20:38)
[2020-09-13 23:51] VITALS: BP 179/99
--- NOTE | 2020-09-14 09:16 | ECGEPIP ---
[place] - ED Test Date: 2020-09-13 Pat Name: JAMIL MCDONNELL Department: Room: - Gender: Male Meter Reader: rona : 1965 Requested By: Kam Cazares Order Number: [id number] Reading MD: Galina Esposito Measurements Intervals [place] Rate: 91 P: 66 MD: 154 QRS: 72 QRSD: 110 T: 62 QT: 359 QTc: 443 Interpretive Statements SINUS RHYTHM IRBBB INCREASED RATE 08/09/20 Electronically Signed on 09-14-2020 9:15:58 EDT by Galina Esposito
== END 2020-09-14 00:01 | disposition short-term general hospital (02) ==
LOC: M ED 15:32
DX: R45.851 Suicidal ideations (principal); I10 Essential (primary) hypertension; J44.9 Chronic obstructive pulmonary disease, unspecified; F33.9 Major depressive disorder, recurrent, unspecified; F17.210 Nicotine dependence, cigarettes, uncomplicated
CPT/HCPCS: 36415; 80048; 80076; 80178; 80307; 84443; 85027; 93005; 99285; G0480; U0002

== ENCOUNTER 2020-12-16 18:52 | Emergency (ER) | payer OTHER ==
[~2020-12-16] VITALS: Ht 180.3 cm; Wt 77.3 kg
[~2020-12-16 18:52] MED LIST changes: +CITA20TA6 PO; -LISI-542 PO; +LISI-898 PO; +MED REC COMMENT; +TRAZ-189 PO
--- OUTSIDE RECORDS SUMMARY | 2020-12-16 18:56 | CCD ---
Author Author [facility] Organization [facility] Address Unknown Phone Unavailable Care Team Providers Care Dining Car Hop Name Role Phone Vashti LAUREANO MD Unavailable Unavailable Vashti LAUREANO MD Unavailable Unavailable Vashti LAUREANO MD Unavailable Unavailable Vashti LAUREANO MD Unavailable Unavailable Vashti LAUREANO MD Unavailable Unavailable Vashti LAUREANO MD Unavailable Unavailable Vashti LAUREANO MD Unavailable Unavailable Vashti LAUREANO MD Unavailable Unavailable Vashti LAUREANO MD Unavailable Unavailable Vashti LAUREANO MD Unavailable Unavailable Vashti LAUREANO MD Unavailable Unavailable Vashti LAUREANO MD Unavailable Unavailable Vashti LAUREANO MD Unavailable Unavailable Vashti LAUREANO MD Unavailable Unavailable Vashti LAUREANO MD Unavailable Unavailable Vashti LAUREANO MD Unavailable Unavailable Vashti LAUREANO MD Unavailable Unavailable Vashti LAUREANO MD Unavailable Unavailable Vashti LAUREANO MD Unavailable Unavailable Yusuf, Aleja STRAP SEWER STRAP SEWER Unavailable Unavailable Ashley Schmidt MD Unavailable Unavailable Ashley Schmidt MD Unavailable Unavailable Ashley Schmidt MD Unavailable Unavailable Ashley Schmidt MD Unavailable Unavailable Ashley Schmidt MD Unavailable Unavailable Ashley Schmidt MD Unavailable Unavailable Ashley Schmidt MD Unavailable Unavailable Ashley Schmidt MD Unavailable Unavailable Ashley Schmidt MD Unavailable Unavailable Ashley Schmidt MD Unavailable Unavailable Ashley Schmidt MD Unavailable Unavailable Ashley Schmidt MD Unavailable Unavailable Ashley Schmidt MD Unavailable Unavailable Ashley Schmidt MD Unavailable Unavailable Ashley Schmidt MD Unavailable Unavailable Ashley Schmidt MD Unavailable Unavailable Ashley Schmidt MD Unavailable Unavailable Ashley Schmidt MD Unavailable Unavailable Ashley Schmidt MD Unavailable Unavailable Yusuf, A Aleja STRAP SEWER Unavailable Unavailable Yusuf, A Aleja STRAP SEWER Unavailable Unavailable Yusuf, A Aleja STRAP SEWER Unavailable Unavailable Yusuf, A Aleja STRAP SEWER Unavailable Unavailable Yusuf, A Aleja STRAP SEWER Unavailable Unavailable Yusuf, A Aleja STRAP SEWER Unavailable Unavailable Yusuf, A Aleja STRAP SEWER Unavailable Unavailable Yusuf, A Aleja STRAP SEWER Unavailable Unavailable Yusuf, A Aleja STRAP SEWER Unavailable Unavailable Yusuf, A Aleja STRAP SEWER Unavailable Unavailable Yusuf, A Aleja STRAP SEWER Unavailable Unavailable Yusuf, A Aleja STRAP SEWER Unavailable Unavailable Yusuf, A Aleja STRAP SEWER Unavailable Unavailable Yusuf, A Aleja STRAP SEWER Unavailable Unavailable Yusuf, A Aleja STRAP SEWER Unavailable Unavailable Yusuf, A Aleja STRAP SEWER Unavailable Unavailable Yusuf, A Aleja STRAP SEWER Unavailable Unavailable Yusuf, A Aleja STRAP SEWER Unavailable Unavailable Yusuf, A Aleja STRAP SEWER Unavailable Unavailable Yusuf, A Aleja STRAP SEWER Unavailable Unavailable Yusuf, A Aleja STRAP SEWER Unavailable Unavailable Yusuf, A Aleja STRAP SEWER Unavailable Unavailable Yusuf, A Aleja STRAP SEWER Unavailable Unavailable Yusuf, A Aleja STRAP SEWER Unavailable Unavailable Yusuf, A Aleja STRAP SEWER Unavailable Unavailable Yusuf, A Aleja STRAP SEWER Unavailable Unavailable Yusuf, A Aleja STRAP SEWER Unavailable Unavailable Re-disclosure Warning The records that you are about to access may contain information from federally-assisted alcohol or drug abuse programs. If such information is present, then the following federally mandated warning applies: This information has been disclosed to you from records protected by federal confidentiality rules (42 CFR part 2). The federal rules prohibit you from making any further disclosure of this information unless further disclosure is expressly permitted by the written consent of the person to whom it pertains or as otherwise permitted by 42 CFR part 2. A general authorization for the release of medical or other information is NOT sufficient for this purpose. The Federal rules restrict any use of the information to criminally investigate or prosecute any alcohol or drug abuse patient.The records that you are about to access may contain highly sensitive health information, the redisclosure of which is protected by Article 27-F of the [facility] Public Health law. If you continue you may have access to information: Regarding HIV / AIDS; Provided by facilities licensed or operated by the [facility] Office of Mental Health; or Provided by the [facility] Office for People With Developmental Disabilities. If such information is present, then the following [facility] mandated warning applies: This information has been disclosed to you from confidential records which are protected by state law. State law prohibits you from making any further disclosure of this information without the specific written consent of the person to whom it pertains, or as otherwise permitted by law. Any unauthorized further disclosure in violation of state law may result in a fine or intermediate sentence or both. A general authorization for the release of medical or other information is NOT sufficient authorization for further disc losure. Allergies and Adverse Reactions Type Description Substance Reaction Status Data Source(s ) Drug Class NO KNOWN ALLERGIES NO KNOWN ALLERGIES [facility] Family History Family Member Name Family Member Gender Family Member Status Date o f Status Description Data Source(s) Unknown Male Problem [facility] ([facility] () Unknown Female Encounters Encounter Providers Location Date Indications Data Source(s ) Inpatient Attender: SUNI LAUREANO David nder: Ashley Schmidt MDAdmitter: Ashley Schmidt MD [id number] 09/14/2020 12:00:00 AM EDT - 09/16/2020 11:24:00 AM EDT Suicidal ideation without a plan, hx bipolar [facility] Suicidal ideation without a plan, hx bip olar Patient discharged. Outpatient Attender: HERMINIA BARROS 09/10/2020 10:10:00 A M EDT [facility] Outpatient Attender: Aleja BARROS 08/21/2020 07:3 1:01 PM EDT [facility] Outpatient Attender: HERMINIA BARROS 08/21/2020 07:31:00 P M EDT [facility] Outpatient Attender: Aleja BARROS 07/23/2020 11:0 5:02 AM EDT [facility] Outpatient Attender: HERMINIA BARROS 07/23/2020 11:05:01 A M EDT [facility] Outpatient Attender: Aleja BARROS 06/14/2020 08:4 0:01 AM EDT [facility] Outpatient Attender: HERMINIA BARROS 05/25/2020 10:56:01 A M EDT [facility] Outpatient Attender: Aleja BARROS 05/24/2020 09:1 6:00 AM EDT [facility] Outpatient Attender: Aleja BARROS 05/09/2020 12:0 4:04 AM EDT [facility] Outpatient Attender: HERMINIA BARROS 05/09/2020 12:04:01 A M EDT [facility] Outpatient Attender: HERMINIA BARROS 04/27/2020 07:40:58 P M EDT [facility] Outpatient Attender: Aleja BARROS 02/15/2020 03:3 7:59 PM EDT [facility] Outpatient Attender: HERMINIA Goldberg [facility] 02/11/2020 02:11:00 P M EDT [facility] Outpatient Attender: STRAP SEWERRosalba Goldberg [facility] 02/10/2020 10:13:01 A M EDT [facility] [address] [place] [phone] 01/27/2020 12:00:00 AM EDT eCW1 (Formerly [facility]) [facility] [address] [place] [phone] 01/09/2020 12:00:00 AM EST eCW1 (Formerly [facility]) Outpatient Attender: HERMINIA Yusuf [facility] 12/17/2019 09:01:05 P M EST [facility] [address] [place] [phone] 12/10/2019 12:00:00 AM EST eCW1 (Formerly [facility]) [facility] [address] [place] [phone] 12/09/2019 12:00:00 AM EST eCW1 (Formerly [facility]) [facility] [address] [place] [phone] 12/02/2019 12:00:00 AM EST eCW1 (Formerly [facility]) Outpatient Attender: Aleja Goldberg [facility] 11/14/2019 04:0 3:59 PM EST [facility] Outpatient Attender: STRAP SEWERRosalba Goldberg [facility] 10/30/2019 01:38:01 P M [facility] [address] [place] [phone] 10/30/2019 12:00:00 AM EST eCW1 (Formerly [facility]) Medications Medication Brand Name Start Date Product Form Dose Route Admi nistrative Instructions Pharmacy Instructions Status Indications Reaction Description Data Source(s) Thiamine 100 MG Oral Tablet Thiamine HCl 100 MG Oral T ablet (B-1) Thiamine HCl 100 MG Oral Tablet (B-1) 09/16/2020 12:00:00 AM EDT 100 mg Oral active Take 1 tablet by mouth daily [facility] Tab-A-Alena/Beta Carotene Oral Tablet [id number] 09/16/2020 12:00: 00 AM EDT 1 {tbl} Oral active Take 1 tablet by mouth d [facility] Hydroxyzine Hydrochloride 50 MG Oral Tab let hydrOXYzine HCl 50 MG Oral Tablet (ATARAX) hydrOXYzine HCl 50 MG Oral Tablet (ATARAX) 09/16/2020 12:00: 00 AM EDT 50 mg Oral active Take 1 tablet by mouth every 6 (six) hours as needed for Anxiety (Sleep) for up to 10 days [facility] Folic Acid 1 MG Oral Tablet Folic Acid 1 MG Oral Table t (FOLVITE) Folic Acid 1 MG Oral Tablet (FOLVITE) 09/16/2020 12:00:00 AM EDT 1 mg Oral active Take 1 tablet by mouth daily [facility] buspirone hydrochloride 10 MG Oral Table t busPIRone HCl 10 MG Oral Tablet (BUSPAR) busPIRone HCl 10 MG Oral Tablet (BUSPAR) 09/16/2020 12:00:00 AM EDT 10 mg Oral active Take 1 tablet by mouth T hree times daily [facility] multivitamin tablet 1 tablet [id number] 09/15/2020 09:00:00 AM EDT 1 {tbl} Oral active 1 tablet, Oral , Daily Standard, First dose on Sun09/15/20 at 0900, For 30 days [facility] Medication administered onsite Thiamine 100 MG Oral Tablet thiamine (B-1) tablet 100 mg thiamine (B-1) tablet 100 mg 09/15/2020 09:00:00 AM EDT 100 mg Oral active 100 mg, Oral, Daily Standard, First dose on Sun09/15/20 at 0900, For 30 days [facility] Medication administered onsite Folic Acid 1 MG Oral Tablet folic acid (FOLVITE) table t 1 mg folic acid (FOLVITE) tablet 1 mg 09/15/2020 09:00:00 AM EDT 1 mg Oral active 1 mg, Oral, Daily Standard, First dose on Sun09/15/20 at 0900, For 30 days [facility] Medication administered onsite olanzapine 10 MG Oral Tablet OLANZapine (ZYPREXA) tabl et 10 mg OLANZapine (ZYPREXA) tablet 10 mg 09/14/2020 10:00:00 PM EDT 10 mg Oral active 10 mg, Oral, Nightly, First dose on Sun09/14/20 at 2200, For 30 days [facility] Medication administered onsite Trazodone Hydrochloride 100 MG Oral Tablet trazodone ( DESYREL) tablet 200 mg trazodone (DESYREL) tablet 200 mg 09/14/2020 10:00:00 PM EDT 200 mg Oral active 200 mg, Oral, Nightl y, First dose on Sun09/14/20 at 2200, For 30 days [facility] Medication administered onsite [place] Carbonate 300 MG Oral Capsule lithium carbonat e capsule 300 mg lithium carbonate capsule 300 mg 09/14/2020 02:30:00 PM EDT 300 mg Oral active 300 mg, Oral, 2 Times Daily With Meals, First dose on Sun09/14/20 at 1430, For 30 days [facility] Medication administered onsite Citalopram 20 MG Oral Tablet citalopram (CELEXA) table t 20 mg citalopram (CELEXA) tablet 20 mg 09/14/2020 02:30:00 PM EDT 20 mg Oral active 20 mg, Oral, Daily Standard, First dose on Sun09/14/20 at 1430, For 30 days [facility] Medication administered onsite Propranolol Hydrochloride 20 MG Oral Tablet propranolo l (INDERAL) tablet 20 mg propranolol (INDERAL) tablet 20 mg 09/14/2020 02:30:00 PM EDT 20 mg Oral active 20 mg, Oral, Three Times Daily Standard, First dose on Sun09/14/20 at 1430, For 30 days
Check vital signs before administering
[facility] Medication administered onsite 12 HR Bupropion Hydrochloride 100 MG Ext ended Release Oral Tablet buPROPion (WELLBUTRIN SR) 12 hr tablet 100 mg buPROPion (WELLBUTRIN SR) 12 hr tablet 1 00 mg 09/14/2020 02:30:00 PM EDT 100 mg Oral active 100 mg, Oral, Daily Standard, First dose on Sun09/14/20 at 1430, For 30 days
Do not crush or chew
[facility] Medication administered onsite Lisinopril 20 MG Oral Tablet lisinopril (ZESTRIL) tabl et 40 mg lisinopril (ZESTRIL) tablet 40 mg 09/14/2020 09:00:00 AM EDT 40 mg Oral active 40 mg, Oral, Daily Standard, First dose on Sun09/14/20 at 0900, For 30 doses [facility] Medication administered onsite buspirone hydrochloride 10 MG Oral Tablet busPIRone (B USPAR) tablet 10 mg busPIRone (BUSPAR) tablet 10 mg 09/14/2020 09:00:00 AM EDT 10 mg O ral active 10 mg, Oral, Three Times Daily Standard, First dose on Sun09/14/20 at 0900, For 30 days [facility] Medication administered onsite pantoprazole 40 MG Delayed Release Oral Tablet pantoprazole (PROTONIX) EC tablet 40 mg pantoprazole (PROTONIX) EC tablet 40 mg 09/14/2020 09:00:00 AM E DT 40 mg Oral active 40 mg, Ora l, Daily Standard, First dose on Sun09/14/20 at 0900, For 30 days
Do not crush or chew The order for omperazole has been substituted with this P&T Committee approved formulary equivalent.
[facility] Medication administered onsite 24 HR Nicotine 0.875 MG/HR Transdermal P atch nicotine (NICODERM CQ) 21 MG/24HR 1 patch nicotine (NICODERM CQ) 21 MG/24HR 1 patch 09/14/2020 02:30:00 AM EDT 1 {patch} Transdermal active 1 patch, Transdermal, Administer over 24 Hours, Every 24 hours, First dose on Sun09/14/20 at 0230, For 30 days [facility] Medication administered onsite Hydroxyzine Hydrochloride 50 MG Oral Tablet hydrOXYzin e (ATARAX) tablet 50 mg hydrOXYzine (ATARAX) tablet 50 mg 09/14/2020 02:20:05 AM EDT 50 mg Oral active 50 mg, Oral, Every 6 hours PRN, Anxiety, Sleep, Starting Sun09/14/20 at 0220, For 30 days [facility] Medication administered onsite acetaminophen (TYLENOL) tablet 650 mg 09/14/2020 02:19:58 AM EDT 650 mg Oral active [Order 1 Start ] Name: acetaminophen (TYLENOL) tablet 650 mg Signed Summary: 650 mg, Oral, Every 4 hours PRN, Mild Pain (Pain Scale Score 1-3), Headaches, Starting Sun09/14/20 at 0219, For 30 days
MDD 4
[Order 1 End] [Order 2 Start] Name: acetaminophen (TYLENOL) tablet 650 mg Signed Summary: 650 mg, Oral, Every 4 hours PRN, Moderate Pain (Pain Scale Score 4- 6), Starting Sun09/14/20 at 021, For 30 days
MDD 4
[Order 2 End] [Order 3 Start] Name: acetaminophen (TYLENOL) tablet 650 mg Signed Summary: 650 mg, Oral, Every 4 hours PRN, Severe Pain (Pain Scale Score 7-10), Starting Sun09/14/20 at 0219, For 30 days
MDD 4
[Order 3 End] [facility] Medication administered onsite Folic Acid 1 MG Oral Tablet Folic Acid 1 MG 12/10/2019 12:00:00 AM EST active 1 tablet [facility]) Methotrexate 2.5 MG Oral Tablet Methotrexate 2.5 MG 12/10/2019 1 2:00:00 AM EST active as directed eCW1 ([facility]) Acitretin 25 MG Oral Capsule Acitretin 25 MG 12/09/2019 12:00:00 AM EST active 1 capsule with a meal eCW1 ( [facility]) Triamcinolone Acetonide 40 MG/ML UNK 12/02/2019 12:00:00 AM EST active 1.5 mL eCW ([facility]) [place] Tar 20 % UNK 12/02/2019 12:00:00 AM EST acti ve as directed eCW1 ([facility]) buspirone hydrochloride 30 MG Oral Tablet busPIRone (B USPAR) 30 MG tablet busPIRone (BUSPAR) 30 MG tablet 30 mg Oral aborte d Take 30 mg by mouth Two Times Daily [facility] 24 HR Nicotine 0.875 MG/HR Transdermal P atch Nicotine 21 MG/24HR Transdermal Patch 24 Hour (NICODERM CQ) Nicotine 21 MG/24HR Transdermal Patch 24 Hour (NICODERM CQ) 1 {patch} Transdermal aborted Place 1 patch onto the skin every 24 (twenty-four) hours [facility] Insurance Providers Payer name Policy type / Coverage type Policy ID Covered green party ID Covered green party's relationship to magallon Policy [place] Plan Information [facility] COMMUNITY PLAN [facility] [id number] [facility] I [id number] Self [id number] [facility] I [id number] Self [id number] [facility] RACIEL [id number] SP [id number] UNHC COMMUNITY PLAN MCDHMO [id number] SP [id number] Managed Care - [facility] Community Plan P [id number] S [id number] Medicaid S [id number] S [id number] [facility](MCAID) O [id number] S [id number] Managed Care - [facility] P [id number] S [id number] Medicaid S [id number] S [id number] [facility] RACIEL [id number] SP [id number] MEDICAID [id number] SP [id number] MEDICAID M [id number] S [id number] UNHC COMMUNITY PLAN MCDHMO [id number] SP [id number] Medicaid [facility] Healthcare S D [id number] SELF [id number] Managed Care - [facility] P [id number] S [id number] [facility](MCAID) O [id number] S [id number] Medicaid S [id number] S [id number] [facility] COMMUNITY PLAN MCDHMO [id number] SP [id number] [facility] Community Plan Commercial [id number] Self [id number] Medicaid Dental S [id number] S [id number] Managed Care [facility] P [id number] S [id number] UN COMMUNITY PLAN MCDHMO [id number] SP [id number] SELF PAY ONLY UNAVAILABLE SP UNAV AILABLE [facility] [id number] SP [id number] [facility] COMMUNITY PLAN MCDO [id number] SP [id number] MEDICAID [id number] SP [id number] SELF PAY ONLY [id number] SP [id number] [facility] Community Plan Commercial Self SELF PAY UNAVAILABLE SP UNAVAILA BLE [id number] Problems, Conditions, and Diagnoses Code Display Name Description Problem Type Effective Dates Data Source(s) L40.9 5257560 Psoriasis Problem 10/30/2019 12:00:00 AM ES T eCW1 ([facility]) Suicidal ideation without a plan, hx bip olar Suicidal ideation without a plan, hx bipolar Diagnosis 09/14/2020 01:41:00 AM [facility] Surgeries/Procedures Procedure Description Date Indications Data Source(s) DRUG SCREEN QUALITATIVE LITHIUM LITHIUM LEVEL Routine 020 6:10 AM EDT 09/15/2020 06:10:00 AM EDT [facility] COVID-19 PCR COVID-19 PCR Routine 09/14/2020 3:33 PM EDT 09/14/2020 03:33:00 PM EDT [facility] Injection, triamcinolone acetonide, not otherwise specified , 10 mg 12/02/2019 12:00:00 AM EST eCW1 ([facility]) THER/PROPH/DIAG INJ, SC/IM 12/02/2019 12:00:00 AM EST eCW1 ([facility]) Results ID Date Data Source [id number] 09/17/2020 11:49:24 AM EDT [facility] Name Value Range Interpretation Code Description Data Angelina rce(s) Supporting Document(s) Discharge Summary [facility] [id number]/[id number]L6CYaBPhWtOqRpLPEj lbm [file] ICAgICAgICAgICAgICAgICAgICAgICAgICAgICAgICAgICAgICAgICAgICAgICAgICAgICAgICAgICAg QBElVFIeOSHkXMCtSUGlXLFuEJBfIT0OOZXjHYQzMNZuAXSgGFXtQFEcTVTaHLWaYLIzJXPxNFQxMACm ICAgICAgICAgICAgICAgICAgICAgICAgICAgICAgIC WvIKQlROOpPMGcKMKzGPDjMTKmKFBhKPNiOGSrQTRkHF1RHKNlXUFkOGJaFUCjERViTDAnBBJdFDOdXW AgICAgICAgICAgICAgICAgICAgICAgICAgICAgICAgICAgICAgICAgICAgICAgICAgICAgICAgICAgIC OwHNKpLHHjYATtMEYwKT0DLPApUBYaZLBfUXFmSVCh ICAgICAgICAgICAgICAgICAgICAgICAgICAgICAgICAgICAgICAgICAgICAgICAgICAgICAgICAgICAg RNFfFSZmWCInEWWjNYAeEFVeEMQaZXGbDZ8KCRZqMXRaHKExREKaLAToSBBxDTOuFTBrZSXqNCOoJUYw ICAgICAgICAgICAgICAgICAgICAgICAgICAgICAgIC NrGVKaVUEtLVMnZMIhFYUmRNLiCQGlCYJhNUUpSMKvLSAkWK4YGCPeBSTfGTEhSVQiYUUzECCaZKGwHK AgICAgICAgICAgICAgICAgICAgICAgICAgICAgICAgICAgICAgICAgICAgICAgICAgICAgICAgICAgIC TxVOQwFWIcMUWvAUCtLPThXR6WKBHxEEYnBXRsRXBs ICAgICAgICAgICAgICAgICAgICAgICAgICAgICAgICAgICAgICAgICAgICAgICAgICAgICAgICAgICAg GKHzOOBpNQUwYVSkXJIpVIWfUQYcKGJwQDXzMV9UHUInGAVzMHWfBOTzCFLbUBJiQAEpFABaKIIlUGHr ICAgICAgICAgICAgICAgICAgICAgICAgICAgICAgIC CbXTOuNAFcCHGyKLZtGDDgUYSlCHRxFMMuBSOiEOZfZZGqSNOtLX8ZNMJqXQWdVSEmSKVbVUTwDECwNJ AgICAgICAgICAgICAgICAgICAgICAgICAgICAgICAgICAgICAgICAgICAgICAgICAgICAgICAgICAgIC PvDXLgFIVvDNYjBCJwVBCxNXWxYW6KHLFsXDDkMEGa ICAgICAgICAgICAgICAgICAgICAgICAgICAgICAgICAgICAgICAgICAgICAgICAgICAgICAgICAgICAg NVUlFCClXXZxGGYuPJSrDKUjQBFbPEDvIEBzVFStGY4UCA25nHOxc3R8YPOwMQ9sske/Ej8USBcpexKa yMQtKG1UKtEuQL0njy7EQbPbXJ4pbt8BVGgIRkJyG3 F5zKRkAQLtDSYDFtTkD76wOLuaFx79PAwaYOTnLaXlUSl3Jo0RHfTjL0ebWBZuJjF6NOZdHbJ8MHQdFv J2UOOfVuWmHILwTMJcIAKpXGRVIKR4GNXtKuVjDrKsWZKlWSrlOGGZDHLzPWKiKmHhPvChJHCuFX7ZLR DrD143eaGsXYUOFg6+BNwxqrTeFolVQcO3IIOyh2Qq UOn0KD8YFNQqTihuu9VcFqNvKSCVQWwjLU2QWUO3WADvVDRcVc1FAOCjL526hmHaDW5PNj9PIlHfXM4f ct3MKtMpJSZcVniXEqt7DJcbVT5QnRWfBZhZsLGfoONxS2NmF9DpvCCklTKaeRMOnF2zSR8gGYSwAPwd TlAgYXQgMTAvMjkvMjAyMCAxMToyNCBBTSkNCiAgL0 Zef1FwVhB7FCUaJkXhEAtqRWNwIyD3AI33rDfdKF7MNNSgYOXwBH85JOY6UWEtPq6HXz9JPnEkUG2rwv 5FKuGqBNFkSjpYFgo3ABvrKX3AzBBaO0XlzQNjg3tDWhFxF6JTEQT8PJNuWk1VQBCpMfDoXOOmLLzzYY 4vTNJjYKERnKyltdC7IN3UKZ3uguUaFF3CQhFqGi5n Jh9VYnTjB2GoG3JsMZIfOXJKUYsrVM5YHTdcBV7wAJ6Ul6GZmSMugM6guo8SROPpUAIqIbnajb5PVigm N1N7fYkzTIIiOSslIKQZOCadEY8TDTGqUAM5CLU2RPGqKDZLOhCpR54qSG3ZI2Qvc86aXhX7OPCzIsPl CCqwNK92gAhmqfPfnGCcuDrwTL7FSd6+DQplbmRvYm zXFnprPDOXJeDsWqURCjQrNCJgFBJbBHSdCtV7TvXgSq7WXSVySLHoAVHhPhHbYJTeJDGgPMlkBKCcFN doMjXmIOZkBVCsTX3RFyXbLDLeAbRbPExnDYYxHNLbeo0NHDEbZYGqZVA6DhKpQOAtOMBjSVbzSQSiAG F4ZDl8IOYkMVYkGS3FRaBuSQXvDXLhDWdpVVEhLVIl ii7FTTGbTSBjVzN6ErUfXVXbUOMfWVujMJIxJTD7TUOfFKPwIKWtLT1HMlKrUYSrFJH4BanmTUEeIMDa oa5TEOGeUTGrAETwVGZyEBUaSIQpNLxuALRiIHQ3PMk5QVNbLIChVD3ZSvXkQNCkGSGxXJBcWLLlZQNx mf7JVHZxWMBhLFq1AcJjSDCeMABvFEnjJAZxHJT3LL DwWUIgGJOaUS7WFyFsBTBwRaG6LDHpHEHsDBKpln6KPXHvKINwMeniOpHvSGNmQHRrQCydGZBoELA3Dl WkHCBtREBsEH9QFiPjVYJyTpC9OTWqRNPkHGXpcq2WEJRrIJZuUHZ8IZWoNVMzDEFoTTwnCXIqAVB5SO W8DZPzFZRrFK3EMvWbZSQsVrO9QMddDSFjQNTpag9Q ZMVrGYZnZmifVPLvBMHdMOLrHTrlJJJcUFPhNZyvMYWhLIGqXF3JNaSvLGWoEtI0JebaXGYnJQEaya1Y IYOiSHJzEYHpGNTxQRFqZZVdCUsqCAMrVTT1XRX4VKGzDXQgNU0ZOyJqGSSdPqWzFUvvAPOeEWGxro7V GXFxRWSqHQc8HaDvOWMdWXSqMVeaROBpIJQ5UWp3QX RnTMAjBM8WQwPpJOLyYeFdJvifPZEpLTJtuy4KGKOjSJTwMzIeEvBjSAHcMLBkJTqrWWQkNWU2PTM6CV WbFQFdQY6GTyXaVFGsKcd7PXahRGXaUDVwbs2LRNIhPYZ7HKX4VbGbKWJoAQEoPDhwBMEyNQP7FBWkGE HaYVMcIX3EAgTrDGWlQSh6OWmsBJCuMLRtxw5FVTQm JYR9GLl4RAKwOLVaDPHzGSjqCIFtHJTeTVT1URFzMXLnLG5MUfYpTCMiUPU3ZBsqMNStFNJqfh4AAVEr TWW4TEBxMoHfVRTjEWLfRAgzECRpDLSyLuI7MHGsSKHxLT1FAqKyKSOnSvZ6YIysVXUeGYJdkr5RDPNz UGM6JyDqRtDzKUXiFKIiOFeuTJLzAOYmCfC9WMEpSP LjME0ENbUiNMJsEhI7CaCmCZJjRJYpsz5OBHUrPOY1FyAnTEAjOUMsPJXoBCygUHNyFPE7XJO8MGGvGV MaFS4FEgHsJTWgFgT6PFjtWVGnMFGiql5WLUAyBFW3RUkfTSMjCFCtRJKwZPcrLAOpKIV3Nqd1BMIbBP RzGY3MPnRnGYDdGaSbWRhuSWFjGDAhta1NJPFjLMM1 GUZqWIAnXGHcXOJpEJyfYEHhJRelGFvoIOKqEERfTX5AEfMzSAVrEjI1TaMmIGPjBLSzku6LFZMnHPG1 WHbgUQZeKQOwLDKkQKvaYOKzDSdcLFq6XQCwWLYqTQ8ZHmOrHXYuVlVeGvJwXHOuTKWozn9LMOUjMEU0 KUjyUAPwXKOdSPHyPJlaANQpOAroSsP1BWPlOUFqVI 5BTuGhULMsTgMdLWmkWQNnYYBfdm5GAHGoMOP1TcDgGRFwKRMtBMJmCIa4bpSnkBBbTRu8TQ8QL4Tpmr OmTdDROo1Af144QMKjNVWuQu9LC6pySm0jEAOeQOEJHv7OAYc2TSTqEQBkKaPvUHWpKOA7SEBzLSOaKK HaU6V2S0WiKGm+EZhcVQQ4CuIzK7K2IEO6YnSfXARc EtPxXeIzFSH9ZkJ9HC9nEBVLNa6+KCfsaMPvpSdvTPQODrucEhtlJPaeMFBTZf0C ID Date Data Source [id number] 09/15/2020 07:19:41 AM EDT [facility] Name Value Range Interpretation Code Description Data Angelina rce(s) Supporting Document(s) [place] [Moles/volume] in Serum or Plasma 0.52 mmol/L 0.60-1.20 L [facility] ID Date Data Source [id number] 09/14/2020 04:53:37 PM EDT [facility] Name Value Range Interpretation Code Description Data Angelina rce(s) Supporting Document(s) History and Physical [facility] FWXLGr7mXpFEAtGd16/XJUywJVPav3CvSOinVMy2OEuyABIzB7TeXGT5wD6eCHK1ULrLXsEoRqWiFAB9 lbm [file] ICAgICAgICAgICAgICAgICAgICAgICAgICAgICAgICAgICAgICAgICAgICAgICAgICAgICAgICAgICAg ICAgICAgICAgICANCiAgICAgICAgICAgICAgICAgIC AgICAgICAgICAgICAgICAgICAgICAgICAgICAgICAgICAgICAgICAgICAgICAgICAgICAgICAgICAgIC AgICAgICAgICAgICAgICAgICAgICANCiAgICAgICAgICAgICAgICAgICAgICAgICAgICAgICAgICAgIC AgICAgICAgICAgICAgICAgICAgICAgICAgICAgICAg ICAgICAgICAgICAgICAgICAgICAgICAgICAgICAgICANCiAgICAgICAgICAgICAgICAgICAgICAgICAg ICAgICAgICAgICAgICAgICAgICAgICAgICAgICAgICAgICAgICAgICAgICAgICAgICAgICAgICAgICAg ICAgICAgICAgICAgICANCiAgICAgICAgICAgICAgIC AgICAgICAgICAgICAgICAgICAgICAgICAgICAgICAgICAgICAgICAgICAgICAgICAgICAgICAgICAgIC AgICAgICAgICAgICAgICAgICAgICAgICANCiAgICAgICAgICAgICAgICAgICAgICAgICAgICAgICAgIC AgICAgICAgICAgICAgICAgICAgICAgICAgICAgICAg ICAgICAgICAgICAgICAgICAgICAgICAgICAgICAgICAgICANCiAgICAgICAgICAgICAgICAgICAgICAg ICAgICAgICAgICAgICAgICAgICAgICAgICAgICAgICAgICAgICAgICAgICAgICAgICAgICAgICAgICAg ICAgICAgICAgICAgICAgICANCiAgICAgICAgICAgIC AgICAgICAgICAgICAgICAgICAgICAgICAgICAgICAgICAgICAgICAgICAgICAgICAgICAgICAgICAgIC AgICAgICAgICAgICAgICAgICAgICAgICAgICANCiAgICAgICAgICAgICAgICAgICAgICAgICAgICAgIC AgICAgICAgICAgICAgICAgICAgICAgICAgICAgICAg ICAgICAgICAgICAgICAgICAgICAgICAgICAgICAgICAgICAgICANCiAgICAgICAgICAgICAgICAgICAg ICAgICAgICAgICAgICAgICAgICAgICAgICAgICAgICAgICAgICAgICAgICAgICAgICAgICAgICAgICAg ICAgICAgICAgICAgICAgICAgICANCjw/tIUaC3macA TgtcH5T4njLi5QCu7OQD0fg3AaFRQfWIgczaXwVunPXcMeUUKuGxgNLfc7CQwjBL2QpPOpF0NaW8QdTP wsNY3LKNBwADBkpPUuFZMqARDrOuR8ZJLcDDgtUP6KfKBoZCtwVGZsCYSiIsOcTGFxWPYvSZOqUIYvNX FDVZFuXHHtYuDzCLEoYYYzPMskEDNWDFF0MBNfLzKc AJBbKNEoMtIhXVECQX3KCwGgU9LgtY44JJFfZZa+Jy9PPA8px8AjHCb2FGLtJJ3nqa5ZSBnOHoLsM0Vs imJ9CNI6QLPwXf2OTLSkRVOpeVB6BIPiFCWDBiBsF4NetG73PBYZDv5+OAiotpGpLraPTzQ1HMLjk4Rh ZTc3UX6FESUzMLf4jDCsJDWFAEV5PPl3vh9uEFIJHJ fwCYBYCSXstYEsVZ9nPa4zYPCkRBDjCdC4EOOCAN0HUYUxQPXvqHPgZWYzPHYXGP1JMRpyUFU3CFIgxv JkcEGoMIbpTM9JIEEntlXaRVAeKITDWRm+Ib9LLR2on0IpMJq6EeAeIH2pce2YRDhUHhXhT0X4nKFsG4 U6OSehHy8NISPpAWJhZEFzSYVACMfnDY1IGU4tnzS8 KB3LjLJhSMZrUFKeqSDgGFm4I11bbQPgYJkcEE4PELT+Arturo+Mc2JZVYfRPKyJZHnHhEsVAQTMcKaA8Up Q2CRd3YfW6PvGO20tIvnneXuNRvyEB6IYX4hQMNsTCYABA6YiTCrsS9fktA2GDAnOWZJHpQcS47llIEo LJPjRDBoGOZyGc2XFAQbV0YprnDpqOctbrYqUHYkVP QWRF4XYCxvilMjwUSzkBwgFE59rPvdDA2CGs4WHwAyOM9jxw3IqBRqRl6BQCR9Pa1FXLQuMUHvCXHyHK Z8OAErPqMgWEmdUMUeOPYpMOQ4UJZiNYBgWO4MCvChYGEbFJsoCicnUBIaNXRimb2PQVFlPLJ1IZA6EM QcRJEsPXGcJSqaXUAfEPRnHEX6JKPbMCIjBN7YAxDr BTLiMSF9ExjeBZUcFFVrwe0FXWVxOAUwKgq0BdVdHODfHPCnZKwiGTWcLUA4KcZ2MPXjATCeLX6PXjOf XKSdSJW1OWOzJZPjKFPywl9ZMTNtPFMyVAC3KlLjVIMzAUPoYSwmHTObITMuRqd3QHPvMWPuSX6VFuGx ERAfWACdAtddWWAhJMCwaw2ODLBuMJXlPkN8IwFdHW CjSHVsVHnzKCQrIIK3Rue7FQFlJWKdKL4NBfRvCFEcQLQ7JNWlBIMlGEGilh0QKPHlAGFmWYt8GNNeQL SgAZDaPNujPVJiTZCuASk5ICBqUKYsAL2SVlKsJJChZxH3HSzrPXPxDXAtyv1VPBYpSHPfGbznDKYtQW OcYROlNPmvKCFyGDN9TAk4PAQfSXZlOQ3NPxEwZZNb Lyu0YCLjRVQuZWKmqi5PIKWqAUBaPYQ8HTLmAGUkEEDtTPqiUANnGEFzSrp5ZNZqOBZjVW7MBcCsZSMd XoE6WDHmHTCqVIJrvv7YNHDaOFZjVmLzXTVoPEWlXHNuOIyiIIOkUYWdLKelZPMfBWVtBF4TKnEpRNPc SrAwNmpxEBBoTDQgwo7TEDPvAKLtNOT2QQZsIJOvXZ XnMCdqIBQtVXF7CmKfRWRkDZMbUQ1YAtOoSLMoZwB3DHEaJWVxSVVdsl2UKWBxJSMcNJgsGKRjICIbZA YgDCnuWKMhZKB5HuUgQRYdMBFaMS2GRxFmZUEkOjC6EOruMFPgRNXffo0ZNRSjVAGgGpT0ZPHuZZOqMU AiAEtaUMDbXIK3ENM1YQFqQPAsGD2OYnLlCBZtOEa8 WOEfVTGbGDZtfg3BGQZvJOM4CWo2WhSuCUMyBVPkIGstLBGvQGD5BBovKNWcUPRuJY5JDyBhCJPfIUvq TmzbTKUaGUBppl1AKSCkTTI4NXR6VATbJHNdPSElAXzwSJFoYMUlWPQ3WKSbEILmED5JOcBjUFObIMY1 MRhkUATsWSHuhl4ORSLyAEZ5WLW2RJYdKBGeVJQeQY flACLzQAKqFiubLFRpAGCfUT3VIaXvAGNrANL0KzCuTWUsWZGznx3WXUOhWLA4XpjoBgZlTLHlKOKtJV huKOZdBCT0BYY0OIOsAQKrBC7HEsBmAHFkFGllUlXyUDXoOPPsry8QQOHxVTC5LxCzPpViEHUyBBNuSJ hhIEYiOIT5PzO1LIRaXYBuUN1NXtEwOCMfNCx0TrYj USVhUANtyk5NASInZNX3IRYyPKRoZKOaTRClEYhtKVPhHAE1YkC1TAQeQGFnLO2MRaXiVPKaBYi3Hxvl KXMxOQMrjm6YRPShYHQ8VGYbRTVoGMLqGTJhXLubSQSwJOHbJNU9DZVkSMZrFV0TFbPgGXQxOiA7IEYj PNLsGZAwld4UnCYhpUnndt1CHGkPJz7UxTiwDNT9VJ omVv6qtZU4MhEdRREEVp5IyaEiAVDgREUEEQypCLUdUKO2YlXgOZGoTvD1YNU6TCVhS3QpTlKeIQRiVp B0CTycNfU4FZhpRxMzCoL6UpZ1MlBpJuYxMIS5B7WhRPMhOCVnRZC+LY0mHBs+Ww3Eh1EzfoG6doMbBC m3MXb4MP7FUMAZO4FSBy== ID Date Data Source [id number] 09/15/2020 06:07:53 AM EDT [facility] Name Value Range Interpretation Code Description Data Angelina rce(s) Supporting Document(s) Specimen source [Identifier] of Unspecified specimen [facility] SARS-CoV-2 RNA 2018 nCoV Real-Time RT-PCR: NOT DETECTED [facility] Assay Performed [facility] Patients first test for [facility] Patient employed in healthcare setting [facility] Patient has symptoms related to [facility] When did you start to experience these symptoms [Date and time] [Phen X] [facility] Patient was hospitalized because of this condition [facility] patient was admitted to ICU for [facility] Patient resides in a congregate care setting [facility] status [facility] ID Date Data Source [id number] 09/14/2020 03:33:00 PM EDT [facility] Name Value Range Interpretation Code Description Data Angelina rce(s) Supporting Document(s) SARS-CoV-2 RNA [facility] This lab was ordered by [facility] and reported by [facility]. ID Date Data Source [id number] 09/14/2020 01:56:32 PM EDT [facility] Name Value Range Interpretation Code Description Data Angelina rce(s) Supporting Document(s) History and Physical [facility] WCQWDy3bFpNSAoTa98/XTWdpGNCwr1FcGFzfXVt8CZxzQDBkS0TqEWK6tR1rYJO1ITkPOeJuCnVoQGE2 [facility] [file] AgICAgICAgICAgICAgICAgICAgICAgICAgICAgICAgICAgICAgICAgICAgICAgICAgICAgICAgICAgIC AgICAgICAgDQogICAgICAgICAgICAgICAgICAgICAg ICAgICAgICAgICAgICAgICAgICAgICAgICAgICAgICAgICAgICAgICAgICAgICAgICAgICAgICAgICAg ICAgICAgICAgICAgICAgICAgDQogICAgICAgICAgICAgICAgICAgICAgICAgICAgICAgICAgICAgICAg ICAgICAgICAgICAgICAgICAgICAgICAgICAgICAgIC AgICAgICAgICAgICAgICAgICAgICAgICAgICAgDQogICAgICAgICAgICAgICAgICAgICAgICAgICAgIC AgICAgICAgICAgICAgICAgICAgICAgICAgICAgICAgICAgICAgICAgICAgICAgICAgICAgICAgICAgIC AgICAgICAgICAgDQogICAgICAgICAgICAgICAgICAg ICAgICAgICAgICAgICAgICAgICAgICAgICAgICAgICAgICAgICAgICAgICAgICAgICAgICAgICAgICAg ICAgICAgICAgICAgICAgICAgICAgDQogICAgICAgICAgICAgICAgICAgICAgICAgICAgICAgICAgICAg ICAgICAgICAgICAgICAgICAgICAgICAgICAgICAgIC AgICAgICAgICAgICAgICAgICAgICAgICAgICAgICAgDQogICAgICAgICAgICAgICAgICAgICAgICAgIC AgICAgICAgICAgICAgICAgICAgICAgICAgICAgICAgICAgICAgICAgICAgICAgICAgICAgICAgICAgIC AgICAgICAgICAgICAgDQogICAgICAgICAgICAgICAg ICAgICAgICAgICAgICAgICAgICAgICAgICAgICAgICAgICAgICAgICAgICAgICAgICAgICAgICAgICAg ICAgICAgICAgICAgICAgICAgICAgICAgDQogICAgICAgICAgICAgICAgICAgICAgICAgICAgICAgICAg ICAgICAgICAgICAgICAgICAgICAgICAgICAgICAgIC AgICAgICAgICAgICAgICAgICAgICAgICAgICAgICAgICAgDQogICAgICAgICAgICAgICAgICAgICAgIC AgICAgICAgICAgICAgICAgICAgICAgICAgICAgICAgICAgICAgICAgICAgICAgICAgICAgICAgICAgIC NaDHHsHTWaOOGfQPLaUPPiMRz4N4arQVUoWWUkTE4c YFu0Ya2+JZbRZyIoHEG3vnPqdI1YBB6bp6ImUBcmJGRmm7CfYQy5BD2GXXLyYKsiOU7TAVvpck4ZAYXu ZVJojHKQv1tmEuLpPDB8AUPhRgefCU0UIYCzH1rufcOsQNCrCKRVUYllYTJWHOpuBQMNZCXgIXEbOxLo DSobTJ2Up7EfxTI0IBd+Hq0ZNE9ez7RrYUhuYMReLE 9dsi5QKWaXDyVeK9WaypQ2JUB8TBLtOv8CFYNcZDKapFRhRIHuSXTNIbUbJ6EfvC31NIQIDi3+DQplbm VkYyhYUhO6OSNev3QrMOp7OY7WOSUaUZf7xUHpOOKFOSB0CMIiCG1eWYWPeLHqOZGvEQVEBNX4KHFbNm F2ZwIdZqLlNCE7YEPrCK2yRZpeWN6RNKK1HFdnOXBz HDZcB3cHIqIaLRLfUzYycBvhFT1SSbSpL9SsqgRicOKeHNChHLEPCr1+PAuqrjMpDjiRFsS7UEJrf1Bl EIt1HZ3YMCMxHNilMU3QLQBoaV4oYSngRJ2QUsRgGyExMSJWFsPhE10xfCUyQTx1K7VoQaOqWOOqKxvv ZXMgPDwvTmFtZXMgWyBdDQogID4+ID4+FJhbQW1BUX xvqhVcZXAeVn7JQNYkSIFdZX4fUAHmZJWlY0K7pXyxSYKLJbRuV5bjmjznRC6xYRZnO748iNyhokJoIB A9CVAwId3UMVLmVGD4IHFreRBnOyXrNIETYEbsQL3TxZAmXRA6qC5pISqeTHEuMLYyC8hYMhGyuDicKX 51bGwgbnVsbCBdDQo+Yi7ABB4wn5LlQNl0heMdHIzv CZF8QFjdVTYaPXWjVNLsXOL0AEU2ZHMCUsWuUAMqKWHqCKpkMKVgHSRjxf4DXLWdHLEpNAG1HQAkOZOo LIKyFMbqXSMhSERzSFM2NLSePQWwXM4UUfFqOIFaKIBxESuqFVMnHRQtyp9WZNRhJRFmYkGkXpRrDEWv MHOoLYfeSJPaSCKxWzPcQXVmEINnZR2XAoWwEKNgMC XqKjztTUVbLFJwwi5ZLJXsXELeRxZ7ItDrGRDqZATaPCgeWDOdRCC2FKbdLMZgJVCvDB9TIuArYAJjEQ a1FELnLNBySHQsye0QWRJjXLYnRyTfSgQkROYtSCJeEPloQCGmBNZuCdOsHWNeCUMwKV7BUxVmEZCeIK AmWlPkGTXkQHFhew9QEBKfYNPrNlN8WSBnQPUiNOCs XKzeZCHaWAWfWwNdLDLiXDAlWV4JGxBoEXNyKTR3JDMsQHWwKUVfrs6OTCAtCWEmIZliCnUiSSQeMLFm TCsdFWBbRBF0ECMgSAGnMKUfVX1HWhHhFKFbIOD2HlZeNODgESQoue2MSTAhGIDqEvJ4UMJeOJMzGZIv WSfxUOOiAHA8TlAgDYNnGKEmAU4RBeYiNXOmHsa6Jl JaCRBdOYBwmi9AZEQnAUWpOTG1TINcIUVaULDzNYndGTCkBNY7BjYcABExFVRxXY2SAoOnXAByVam1QY RuTOClERLwux2FRXMeKKAuTGDyHRLgRMJuKLAeHZqsAPCmSGM9LEosWDMsRFLbFP9DLcQtXSYzYpq3Hf DtKAQcSAXvgp0NCRMnMVZgHZq4MYKbMSDfWSIsWNoc CJJoZNLxDRtsNJBgVWHjZA0EMaFeIKMtRlKrBFHlXDDuTAQjch4GMGYgSPJrICV0YbPlVXUeBURzFJdf DWWiPPLjKpN8UKGtFFUuQU5YNsZaWNAdYlEtBuMwIZPoSRTjkj6EYEXrICNlVoM1HLOgSLYiLZFrSDrf TPXpIQBiXarePVWbOLZtZK0NGxXvCDgxYEAHNln5SX akH5d5RSMeDo5BH1Rwt0YfZuZhMWXGRAtpWE6xskDyELVbBm8KM3jCEqjeJNx3PIY4RsQeXxK5PQxkVN FuUxF4GuvdZzq2ZDI5Kl9gBZCzRCH8MKGhSvHsLUKfHCIcMIWjArPsPLTtESznHxZ0WtXbXF4SSb3LCt R6JTD2wAWmJe5EHuH7HjWCUaCyXE7SHPy= ID Date Data Source [id number] 08/09/2020 09:33:00 AM EDT [facility] Name Value Range Interpretation Code Description Data Angelina rce(s) Supporting Document(s) HCT 38.6 % 42.0-52.0 L [facility] HGB 13.0 g/dL 13.5-17.5 L [facility] MCH 33.7 G/DL pg 32.0-36.5 N [facility] MCHC 34.5 PG % 27.0-33.0 H [facility] PLATELETS 199 10 10*3/mm3 150-450 N [facility] RBC 3.77 10 10*6/mm3 4.30-6.10 L [facility] RDW 12.3 % 11.5-14.5 N [facility] WBC TOTAL 5.4 4.0-10.0 N [facility] ID Date Data Source [id number] 08/09/2020 09:33:00 AM EDT [facility] Name Value Range Interpretation Code Description Data Angelina rce(s) Supporting Document(s) HGBA1C 4.7 % N [facility] ID Date Data Source [id number] 08/09/2020 09:33:00 AM EDT [facility] Name Value Range Interpretation Code Description Data Angelina rce(s) Supporting Document(s) VIT D25 TOT 54.0 ng/mL 30.0-100.0 N [facility] BG FASTING 83 mg/dL 70-100 N [facility] BG RANDOM 83 mg/dL LESS THAN 200 N [facility] TSH 2.350 microintl units/mL 0.358-3.740 N [facility] ID Date Data Source [id number] 07/10/2020 02:05:00 AM EDT [facility] Name Value Range Interpretation Code Description Data Angelina rce(s) Supporting Document(s) HCV RNA [facility] Qualitative Positive Negative Abnormal (applies to non-numeric results) [facility] Positive: HCV RNA Detected ID Date Data Source [id number] 07/10/2020 02:05:00 AM EDT [facility] Name Value Range Interpretation Code Description Data Angelina rce(s) Supporting Document(s) Please note [facility] The date recorded on the requisition ind icates the sample(s) receivedwere greater than 72 hours old upon arrival in our laboratory. ID Date Data Source [id number] 05/03/2020 08:27:00 AM EDT [facility] Name Value Range Interpretation Code Description Data Angelina rce(s) Supporting Document(s) VIT D25 TOT 48.8 ng/mL 30.0-100.0 N [facility] BG FASTING 87 mg/dL 70-100 N [facility] TSH 1.470 microintl units/mL 0.358-3.740 N [facility] ID Date Data Source [id number] 05/03/2020 08:27:00 AM EDT [facility] Name Value Range Interpretation Code Description Data Angelina rce(s) Supporting Document(s) HCT 41.9 % 42.0-52.0 L [facility] HGB 13.8 g/dL 13.5-17.5 N [facility] MCH 32.9 G/DL pg 32.0-36.5 N [facility] MCHC 32.5 PG % 27.0-33.0 N [facility] PLATELETS 239 10 10*3/mm3 150-450 N [facility] RBC 4.24 10 10*6/mm3 4.30-6.10 L [facility] RDW 12.0 % 11.5-14.5 [facility] WBC TOTAL 6.4 4.0-10.0 N [facility] ID Date Data Source [id number] 05/03/2020 08:27:00 AM EDT [facility] Name Value Range Interpretation Code Description Data Angelina rce(s) Supporting Document(s) HGBA1C 4.6 % N [facility] ID Date Data Source HEPATITIS PROFILE ACUTE 12/02/2019 12:00:00 AM EST eCW1 ([facility]) Name Value Range Interpretation Code Description Data Angelina rce(s) Supporting Document(s) NEGATIVE NEGATIVE HEPATITIS B CORE ANTIBODY IGM eCW1 ([facility]) NEGATIVE NEGATIVE HEPATITIS B SURFACE ANTIG EN eCW1 ([facility]) NEGATIVE NEGATIVE HEPATITIS A ANTIBODY IGM eCW1 ([facility]) ID Date Data Source HEPATITIS C ANTIBODY INDEX 12/02/2019 12:00:00 AM EST eCW1 ( [facility]) Name Value Range Interpretation Code Description Data Angelina rce(s) Supporting Document(s) < 0.0 <0.8 HEPATITIS C VIRUS ELIZABET IND EX eCW1 ([facility]) ID Date Data Source Comprehensive Metabolic Profile (CMP) 12/02/2019 12:00:00 AM EST eCW1 ([facility]) Name Value Range Interpretation Code Description Data Angelina rce(s) Supporting Document(s) 103 70-100 GLUCOSE, FASTING eCW1 ([facility]) 1.02 0.70-1.30 CREATININE FOR GFR eCW1 ([facility]) 6 7-18 BLOOD UREA NITROGEN eCW1 ([facility]) 4.3 3.5-5.1 POTASSIUM SERUM eCW1 ([facility]) 138 136-145 SODIUM LEVEL eCW1 ([facility]) > 60.0 >56 GLOMERULAR FILTRATION RATE eCW 1 ([facility]) 105 98-107 CHLORIDE LEVEL eCW1 ([facility]) 11 7-37 AST/SGOT eCW1 ([facility]) 20 12-78 ALT/SGPT eCW1 ([facility]) 9.5 8.5-10.1 CALCIUM LEVEL eCW1 ([facility]) 26 21-32 CARBON DIOXIDE LEVEL eCW1 ([facility]) 68 45-117 ALKALINE PHOSPHATASE eCW1 ([facility]) 7.9 6.4-8.2 TOTAL PROTEIN eCW1 ([facility]) 0.3 0.2-1.0 BILIRUBIN,TOTAL eCW1 ([facility]) 4.6 3.2-5.2 ALBUMIN eCW1 ([facility]) 1.39 1.00-1.93 ALBUMIN/GLOBULIN RATIO eCW1 ([facility]) ID Date Data Source CBC with Differential 12/02/2019 12:00:00 AM EST eCW1 ([facility]) Name Value Range Interpretation Code Description Data Angelina rce(s) Supporting Document(s) 14.5 13.5-17.5 HEMOGLOBIN eCW1 ([facility]) 8.3 4.0-10.0 WHITE BLOOD COUNT eCW1 ([facility]) 4.15 4.30-6.10 RED BLOOD COUNT eCW1 ([facility]) 102.7 80.0-96.0 MEAN CORPUSCULAR VOLUME e CW1 ([facility]) 34.9 27.0-33.0 MEAN CORPUSCULAR HEMOGLOB IN eCW1 ([facility]) 34.0 32.0-36.5 MEAN CORPUSCULAR HGB CONC eCW1 ([facility]) 42.6 42.0-52.0 HEMATOCRIT eCW1 ([facility]) 254 150-450 PLATELET COUNT, AUTOMATED eCW1 ([facility]) 56.7 36.0-66.0 NEUTROPHILS % eCW1 ([facility]) 11.4 11.5-14.5 RED CELL DISTRIBUTION WID TH eCW1 ([facility]) 30.5 24.0-44.0 LYMPH % eCW1 ([facility]) 3.6 0.0-3.0 EOS % eCW1 ([facility]) 7.8 0.0-5.0 MONO % eCW1 ([facility]) 1.0 0.0-1.0 BASO % eCW1 ([facility]) 0.3 0.0-0.5 EOS # eCW1 ([facility]) 0.6 0.0-0.8 MONO # eCW1 ([facility]) 2.5 1.5-5.0 LYMPH # eCW1 ([facility]) 4.7 1.5-8.5 NEUTROPHILS # eCW1 ([facility]) 0.1 0.0-0.2 BASO # eCW1 ([facility]) Procedure Social History Code Duration Value Status Description Data Source(s ) Alcohol intake 09/14/2020 12:00:00 AM EDT Current drinker of al cohol (finding) completed Current drinker of alcohol (finding) [facility] Cigarette pack-years 09/14/2020 12:00:00 AM EDT UNK completed [facility] Cigarettes smoked current (pack per day) - Reported 09/14/20 12:00:00 AM EDT UNK completed [facility] Smoking 09/14/2020 12:00:00 AM EDT Current every day smoker co mpleted Current every day smoker [facility] Vital Signs ID Date Data Source UNK Name Value Range Interpretation Code Description Data Source(s) Diastolic blood pressure 84 mm[Hg] 84 mm[Hg] eCW1 ([facility]) Systolic blood pressure 152 mm[Hg] 152 mm[Hg] e CW1 ([facility]) Body temperature 97.9 [degF] 97.9 [degF] eCW1 ( [facility]) Respiratory rate 18 /min 18 /min eCW1 ([facility]) Heart rate 82 /min 82 /min eCW1 ([facility]) Body mass index (BMI) [Ratio] 22.51 kg/m2 22.51 kg/m2 eCW1 ([facility]) Body height 71 [in_us] 71 [in_us] eCW1 ([facility] Body weight Measured 161.4 [lb_av] 161.4 [lb_av ] eCW1 ([facility]) ID Date Data Source [id number] 09/17/2020 11:49:24 AM [facility] Name Value Range Interpretation Code Description Data Source(s) WEIGHT RECORDED 169.6 lb 169.6 lb [facility] Body height Measured 71 in 71 in [facility] TRANSFER FROM [facility] Patient Treatment Plan of Care Planned Activity Planned Date Details Description Data Source (s) Thiamine 100 MG Oral Tablet 09/16/2020 12:00:00 AM [facility] Tab-A-Alena/Beta Carotene Oral Tablet 09/16/2020 12:00:00 AM [facility] Hydroxyzine Hydrochloride 50 MG Oral Tablet 09/16/2020 12:00:00 AM [facility] Folic Acid 1 MG Oral Tablet 09/16/2020 12:00:00 AM [facility] buspirone hydrochloride 10 MG Oral Tablet 09/16/2020 12:00:00 AM [facility] acetaminophen (TYLENOL) tablet 650 mg 09/14/2020 02:19:58 AM [facility] Folic Acid 1 MG Oral Tablet 12/10/2019 12:00:00 AM EST eCW1 ([facility]) Methotrexate 2.5 MG Oral Tablet 12/10/2019 12:00:00 AM EST eCW1 ([facility]) Acitretin 25 MG Oral Capsule 12/09/2019 12:00:00 AM EST eCW1 ([facility]) Triamcinolone Acetonide 40 MG/ML 12/02/2019 12:00:00 AM EST eCW1 ([facility]) [place] Tar 20 % 12/02/2019 12:00:00 AM EST eCW1 ([facility]) 24 HR Nicotine 0.875 MG/HR Transdermal Patch [facility] buspirone hydrochloride 30 MG Oral Tablet [facility]
[2020-12-16 20:13] LABS: HEMATOCRIT 40.3 % (42.0-52.0); HEMOGLOBIN 13.4 g/dl (13.5-17.5); MEAN CORPUSCULAR HEMOGLOBIN 33.8 pg (27.0-33.0); MEAN CORPUSCULAR HGB CONC 33.3 g/dl (32.0-36.5); MEAN CORPUSCULAR VOLUME 101.8 fl (80.0-96.0); PLATELET COUNT, AUTOMATED 186 10^3/uL (150-450); RED BLOOD COUNT 3.96 10^6/uL (4.30-6.10); WHITE BLOOD COUNT 9.6 10^3/uL (4.0-10.0)
[2020-12-16 20:55] LABS: ACETAMINOPHEN LEVEL < 2.0 UG/ML (10.0-30.0); ALT/SGPT 182 U/L (12-78); BILIRUBIN,DIRECT 0.2 MG/DL (0.0-0.2); BILIRUBIN,TOTAL 0.4 MG/DL (0.2-1.0); BLOOD UREA NITROGEN 5 MG/DL (7-18); CALCIUM LEVEL 9.5 MG/DL (8.5-10.1); CARBON DIOXIDE LEVEL 27 MEQ/L (21-32); CHLORIDE LEVEL 102 MEQ/L (98-107); CREATININE FOR GFR 0.85 MG/DL (0.70-1.30); ETHYL ALCOHOL (ETHANOL) 0.389 % (0.000-0.010); GLOMERULAR FILTRATION RATE > 60.0 (>56); GLUCOSE, FASTING 88 MG/DL (70-100); POTASSIUM SERUM 3.9 MEQ/L (3.5-5.1); SALICYLATE LEVEL < 1.7 MG/DL (5.0-30.0); SODIUM LEVEL 136 MEQ/L (136-145); TOTAL PROTEIN 7.7 GM/DL (6.4-8.2)
[2020-12-16] MEDS: THIAMINE 100 MG TAB PO SCH (21:00)
[2020-12-16] MEDS ORDERED: MULT-90 (21:05)
[2020-12-16] MEDS ORDERED: FOLI1TAB11 (21:05)
[2020-12-16] MEDS ORDERED: OMEP-218 PO (21:05)
[2020-12-16] MEDS ORDERED: TRAZ-257 PO (21:05)
[2020-12-16 21:10] LABS: AMPHETAMINES LEVEL URINE NEGATIVE (NEGATIVE); BARBITURATES URINE NEGATIVE (NEGATIVE); BENZODIAZEPINES URINE NEGATIVE (NEGATIVE); CANNABINOIDS URINE POSITIVE (NEGATIVE); COCAINE METABOLITE URINE NEGATIVE (NEGATIVE); METHADONE URINE NEGATIVE (NEGATIVE); OPIATES URINE NEGATIVE (NEGATIVE); PHENCYCLIDINE URINE NEGATIVE (NEGATIVE)
[2020-12-16] MEDS ORDERED: LORazepam 2 MG TAB PO PRN (23:45)
--- OUTSIDE RECORDS SUMMARY | 2020-12-17 03:04 | CCD ---
Author Author [facility] Organization [facility] Address Unknown Phone Unavailable Care Team Providers Care Transport Operations Inspector Name Role Phone Vashti LAUREANO MD Unavailable [...] Vashti LAUREANO MD Unavailable Unavailable Yusuf, Aleja JEWEL CORNER BRUSHING MACHINE OPERATOR JEWEL CORNER BRUSHING MACHINE OPERATOR Unavailable Unavailable Ashley Schmidt MD Unavailable Unavailable [...] Unavailable Unavailable Ashley Schmidt MD Unavailable Unavailable Aslhey Schmidt MD Unavailable Unavailable Ashley Schmidt MD Unavailable Unavailable Ashley Schmidt MD Unavailable Unavailable Ashley Schmidt MD Unavailable Unavailable Ashley Schmidt MD Unavailable Unavailable Yusuf, A Aleja JEWEL CORNER BRUSHING MACHINE OPERATOR Unavailable Unavailable Yusuf, A Aleja JEWEL CORNER BRUSHING MACHINE OPERATOR Unavailable Unavailable Yusuf, A Aleja JEWEL CORNER BRUSHING MACHINE OPERATOR Unavailable Unavailable Yusuf, A Aleja JEWEL CORNER BRUSHING MACHINE OPERATOR Unavailable Unavailable Yusuf, A Aleja JEWEL CORNER BRUSHING MACHINE OPERATOR Unavailable Unavailable Yusuf, A Aleja JEWEL CORNER BRUSHING MACHINE OPERATOR Unavailable Unavailable Yusuf, A Aleja JEWEL CORNER BRUSHING MACHINE OPERATOR Unavailable Unavailable Yusuf, A Aleja JEWEL CORNER BRUSHING MACHINE OPERATOR Unavailable Unavailable Yusuf, A Aleja JEWEL CORNER BRUSHING MACHINE OPERATOR Unavailable Unavailable Yusuf, A Aleja JEWEL CORNER BRUSHING MACHINE OPERATOR Unavailable Unavailable Yusuf, A Aleja JEWEL CORNER BRUSHING MACHINE OPERATOR Unavailable Unavailable Yusuf, A Aleja JEWEL CORNER BRUSHING MACHINE OPERATOR Unavailable Unavailable Yusuf, A Aleja JEWEL CORNER BRUSHING MACHINE OPERATOR Unavailable Unavailable Yusuf, A Aleja JEWEL CORNER BRUSHING MACHINE OPERATOR Unavailable Unavailable Yusuf, A Aleja JEWEL CORNER BRUSHING MACHINE OPERATOR Unavailable Unavailable Yusuf, A Aleja JEWEL CORNER BRUSHING MACHINE OPERATOR Unavailable Unavailable Yusuf, A Aleja JEWEL CORNER BRUSHING MACHINE OPERATOR Unavailable Unavailable Yusuf, A Aleja JEWEL CORNER BRUSHING MACHINE OPERATOR Unavailable Unavailable Yusuf, A Aleja JEWEL CORNER BRUSHING MACHINE OPERATOR Unavailable Unavailable Yusuf, A Aleja JEWEL CORNER BRUSHING MACHINE OPERATOR Unavailable Unavailable Yusuf, A Aleja JEWEL CORNER BRUSHING MACHINE OPERATOR Unavailable Unavailable Yusuf, A Aleja JEWEL CORNER BRUSHING MACHINE OPERATOR Unavailable Unavailable Yusuf, A Aleja JEWEL CORNER BRUSHING MACHINE OPERATOR Unavailable Unavailable Yusuf, A Aleja JEWEL CORNER BRUSHING MACHINE OPERATOR Unavailable Unavailable Yusuf, A Aleja JEWEL CORNER BRUSHING MACHINE OPERATOR Unavailable Unavailable Yusuf, A Aleja JEWEL CORNER BRUSHING MACHINE OPERATOR Unavailable Unavailable Yusuf, A Aleja JEWEL CORNER BRUSHING MACHINE OPERATOR Unavailable Unavailable Re-disclosure Warning The records that [...] is protected by Article 27-F of the [facility] Public Health law. If you continue you may have access to information: Regarding HIV / AIDS; Provided by facilities licensed or operated by the [facility] Office of Mental Health; or Provided by the [facility] Office for People With Developmental Disabilities. If such information is present, then the following [facility] mandated warning applies: This information has been [...] law may result in a fine or senior living sentence or both. A general authorization for the release of medical or other information is NOT sufficient authorization for further disc losure. Allergies and Adverse Reactions Type Description Substance Reaction Status Data Source(s ) Drug Class NO KNOWN ALLERGIES NO KNOWN ALLERGIES [facility] Family History Family Member Name Family Member [...] Suicidal ideation without a plan, hx bipolar [facility] Suicidal ideation without a plan, hx bip olar Patient discharged. Outpatient Attender: HERMINIA BARROS 09/10/2020 10:10:00 A M EDT [facility] Outpatient Attender: Aleja BARROS 08/21/2020 07:3 1:01 PM EDT [facility] Outpatient Attender: HERMINIA BARROS 08/21/2020 07:31:00 P M EDT [facility] Outpatient Attender: Aleja BARROS 07/23/2020 11:0 5:02 AM EDT [facility] Outpatient Attender: HERMINIA BARROS 07/23/2020 11:05:01 A M EDT [facility] Outpatient Attender: Aleja BARROS 06/14/2020 08:4 0:01 AM EDT [facility] Outpatient Attender: HERMINIA BARROS 05/25/2020 10:56:01 A M EDT [facility] Outpatient Attender: Aleja BARROS 05/24/2020 09:1 6:00 AM EDT [facility] Outpatient Attender: Aleja BARROS 05/09/2020 12:0 4:04 AM EDT [facility] Outpatient Attender: HERMINIA BARROS 05/09/2020 12:04:01 A M EDT [facility] Outpatient Attender: HERMINIA BARROS 04/27/2020 07:40:58 P M EDT [facility] Outpatient Attender: Aleja BARROS 02/15/2020 03:3 7:59 PM EDT [facility] Outpatient Attender: HERMINIA Goldberg [facility] 02/11/2020 02:11:00 P M EDT [facility] Outpatient Attender: JEWEL CORNER BRUSHING MACHINE OPERATORRosalba Goldberg [facility] 02/10/2020 10:13:01 A M EDT [facility] [address] [place] [phone] 01/27/2020 12:00:00 AM EDT eCW1 ([facility]) [facility] [address] [place] [phone] 01/09/2020 12:00:00 AM EST eCW1 ([facility]) Outpatient Attender: HERMINIA Yusuf [facility] 12/17/2019 09:01:05 P M EST [facility] [address] [place] [phone] 12/10/2019 12:00:00 AM EST eCW1 ([facility]) [facility] [address] [place] [phone] 12/09/2019 12:00:00 AM EST eCW1 ([facility]) [facility] [address] [place] [phone] 12/02/2019 12:00:00 AM EST eCW1 ([facility]) Outpatient Attender: Aleja Goldberg [facility] 11/14/2019 04:0 3:59 PM EST [facility] Outpatient Attender: JEWEL CORNER BRUSHING MACHINE OPERATORRosalba Goldberg [facility] 10/30/2019 01:38:01 P M [facility] [address] [place] [phone] 10/30/2019 12:00:00 AM EST eCW1 ([facility]) Medications Medication Brand Name Start Date Product Form Dose Route Admi nistrative Instructions Pharmacy Instructions Status Indications Reaction Description Data Source(s) Thiamine 100 MG Oral Tablet Thiamine HCl 100 MG Oral T ablet (B-1) Thiamine HCl 100 MG Oral Tablet (B-1) 09/16/2020 12:00:00 AM EDT 100 mg Oral active Take 1 tablet by mouth daily [facility] Tab-A-Alena/Beta Carotene Oral Tablet [id number] 09/16/2020 12:00: 00 AM EDT 1 {tbl} Oral active Take 1 tablet by mouth d [facility] Hydroxyzine Hydrochloride 50 MG Oral Tab let hydrOXYzine HCl 50 MG Oral Tablet (ATARAX) hydrOXYzine HCl 50 MG Oral Tablet (ATARAX) 09/16/2020 12:00: 00 AM EDT 50 mg Oral active Take 1 tablet by mouth every 6 (six) hours as needed for Anxiety (Sleep) for up to 10 days [facility] Folic Acid 1 MG Oral Tablet Folic Acid 1 MG Oral Table t (FOLVITE) Folic Acid 1 MG Oral Tablet (FOLVITE) 09/16/2020 12:00:00 AM EDT 1 mg Oral active Take 1 tablet by mouth daily [facility] buspirone hydrochloride 10 MG Oral Table t busPIRone HCl 10 MG Oral Tablet (BUSPAR) busPIRone HCl 10 MG Oral Tablet (BUSPAR) 09/16/2020 12:00:00 AM EDT 10 mg Oral active Take 1 tablet by mouth T hree times daily [facility] multivitamin tablet 1 tablet [id number] 09/15/2020 09:00:00 AM EDT 1 {tbl} Oral active 1 tablet, Oral , Daily Standard, First dose on Sun09/15/20 at 0900, For 30 days [facility] Medication administered onsite Thiamine 100 MG Oral Tablet thiamine (B-1) tablet 100 mg thiamine (B-1) tablet 100 mg 09/15/2020 09:00:00 AM EDT 100 mg Oral active 100 mg, Oral, Daily Standard, First dose on Sun09/15/20 at 0900, For 30 days [facility] Medication administered onsite Folic Acid 1 MG Oral Tablet folic acid (FOLVITE) table t 1 mg folic acid (FOLVITE) tablet 1 mg 09/15/2020 09:00:00 AM EDT 1 mg Oral active 1 mg, Oral, Daily Standard, First dose on Sun09/15/20 at 0900, For 30 days [facility] Medication administered onsite olanzapine 10 MG Oral Tablet OLANZapine (ZYPREXA) tabl et 10 mg OLANZapine (ZYPREXA) tablet 10 mg 09/14/2020 10:00:00 PM EDT 10 mg Oral active 10 mg, Oral, Nightly, First dose on Sun09/14/20 at 2200, For 30 days [facility] Medication administered onsite Trazodone Hydrochloride 100 MG Oral Tablet trazodone ( DESYREL) tablet 200 mg trazodone (DESYREL) tablet 200 mg 09/14/2020 10:00:00 PM EDT 200 mg Oral active 200 mg, Oral, Nightl y, First dose on Sun09/14/20 at 2200, For 30 days [facility] Medication administered onsite [employer] Carbonate 300 MG Oral Capsule lithium carbonat e capsule 300 mg lithium carbonate capsule 300 mg 09/14/2020 02:30:00 PM EDT 300 mg Oral active 300 mg, Oral, 2 Times Daily With Meals, First dose on Sun09/14/20 at 1430, For 30 days [facility] Medication administered onsite Citalopram 20 MG Oral Tablet citalopram (CELEXA) table t 20 mg citalopram (CELEXA) tablet 20 mg 09/14/2020 02:30:00 PM EDT 20 mg Oral active 20 mg, Oral, Daily Standard, First dose on Sun09/14/20 at 1430, For 30 days [facility] Medication administered onsite Propranolol Hydrochloride 20 MG Oral Tablet propranolo l (INDERAL) tablet 20 mg propranolol (INDERAL) tablet 20 mg 09/14/2020 02:30:00 PM EDT 20 mg Oral active 20 mg, Oral, Three Times Daily Standard, First dose on Sun09/14/20 at 1430, For 30 days
Check vital signs before administering
[facility] Medication administered onsite 12 HR Bupropion Hydrochloride 100 MG Ext ended Release Oral Tablet buPROPion (WELLBUTRIN SR) 12 hr tablet 100 mg buPROPion (WELLBUTRIN SR) 12 hr tablet 1 00 mg 09/14/2020 02:30:00 PM EDT 100 mg Oral active 100 mg, Oral, Daily Standard, First dose on Sun09/14/20 at 1430, For 30 days
Do not crush or chew
[facility] Medication administered onsite Lisinopril 20 MG Oral Tablet lisinopril (ZESTRIL) tabl et 40 mg lisinopril (ZESTRIL) tablet 40 mg 09/14/2020 09:00:00 AM EDT 40 mg Oral active 40 mg, Oral, Daily Standard, First dose on Sun09/14/20 at 0900, For 30 doses [facility] Medication administered onsite buspirone hydrochloride 10 MG Oral Tablet busPIRone (B USPAR) tablet 10 mg busPIRone (BUSPAR) tablet 10 mg 09/14/2020 09:00:00 AM EDT 10 mg O ral active 10 mg, Oral, Three Times Daily Standard, First dose on Sun09/14/20 at 0900, For 30 days [facility] Medication administered onsite pantoprazole 40 MG Delayed [...] with this P&T Committee approved formulary equivalent.
[facility] Medication administered onsite 24 HR Nicotine 0.875 MG/HR Transdermal P atch nicotine (NICODERM CQ) 21 MG/24HR 1 patch nicotine (NICODERM CQ) 21 MG/24HR 1 patch 09/14/2020 02:30:00 AM EDT 1 {patch} Transdermal active 1 patch, Transdermal, Administer over 24 Hours, Every 24 hours, First dose on Sun09/14/20 at 0230, For 30 days [facility] Medication administered onsite Hydroxyzine Hydrochloride 50 MG Oral Tablet hydrOXYzin e (ATARAX) tablet 50 mg hydrOXYzine (ATARAX) tablet 50 mg 09/14/2020 02:20:05 AM EDT 50 mg Oral active 50 mg, Oral, Every 6 hours PRN, Anxiety, Sleep, Starting Sun09/14/20 at 0220, For 30 days [facility] Medication administered onsite acetaminophen (TYLENOL) tablet 650 [...] 30 days
MDD 4
[Order 3 End] [facility] Medication administered onsite Folic Acid 1 MG Oral Tablet Folic Acid 1 MG 12/10/2019 12:00:00 AM EST active 1 tablet eCW1 ([facility]) Methotrexate 2.5 MG Oral Tablet Methotrexate 2.5 MG 12/10/2019 1 2:00:00 AM EST active as directed eCW1 ([facility]) Acitretin 25 MG Oral Capsule Acitretin 25 MG 12/09/2019 12:00:00 AM EST active 1 capsule with a meal eCW1 ( [facility]) Triamcinolone Acetonide 40 MG/ML UNK 12/02/2019 12:00:00 AM EST active 1.5 mL eCW ([facility]) [place] Tar 20 % UNK 12/02/2019 12:00:00 AM EST acti ve as directed eCW1 ([facility]) buspirone hydrochloride 30 MG Oral Tablet busPIRone (B USPAR) 30 MG tablet busPIRone (BUSPAR) 30 MG tablet 30 mg Oral aborte d Take 30 mg by mouth Two Times Daily [facility] 24 HR Nicotine 0.875 MG/HR Transdermal P atch Nicotine 21 MG/24HR Transdermal Patch 24 Hour (NICODERM CQ) Nicotine 21 MG/24HR Transdermal Patch 24 Hour (NICODERM CQ) 1 {patch} Transdermal aborted Place 1 patch onto the skin every 24 (twenty-four) hours [facility] Insurance Providers Payer name Policy type / Coverage type Policy ID Covered green party ID Covered green party's relationship to magallon Policy Mag[place]on Plan Information [facility] COMM[facility]ITY PLAN [facility] [id number] [facility] I [id number] Self [id number] [facility] I [id number] Self [id number] [facility] RACIEL [id number] SP [id number] UNHC COMMUNITY PLAN MCDHMO [id number] SP [id number] Managed Care - [facility] Community Plan P [id number] S [id number] Medicaid S [id number] S [id number] [facility]) O [id number] S [id number] Managed Care - [facility] P [id number] S [id number] Medicaid S [id number] S [id number] [facility] RACIEL [id number] SP [id number] MEDICAID [id number] SP [id number] MEDICAID M [id number] S [id number] UNHC COMMUNITY PLAN MCDHMO [id number] SP [id number] Medicaid [facility] Healthcare S D [id number] SELF [id number] Managed Care - [facility] P [id number] S [id number] [facility]) O [id number] S [id number] Medicaid S [id number] S [id number] [facility] COMMUNITY PLAN MCDHMO [id number] SP [id number] [facility] Community Plan Commercial [id number] Self [id number] Medicaid Dental S [id number] S [id number] Managed Care [facility] P [id number] S [id number] UN COMMUNITY PLAN MCDHMO [id number] SP [id number] SELF PAY ONLY UNAVAILABLE SP UNAV AILABLE [facility] [id number] SP [id number] [facility] COMMUNITY PLAN MCDO [id number] SP [id number] MEDICAID [id number] SP [id number] SELF PAY ONLY [id number] SP [id number] [facility] Community Plan Commercial Self SELF PAY UNAVAILABLE SP UNAVAILA BLE [id number] Problems, Conditions, and Diagnoses Code Display Name Description Problem Type Effective Dates Data Source(s) L40.9 [id number] Psoriasis Problem 10/30/2019 12:00:00 AM ES T eCW1 ([facility]) Suicidal ideation without a plan, hx bip olar Suicidal ideation without a plan, hx bipolar Diagnosis 09/14/2020 01:41:00 AM [facility] Surgeries/Procedures Procedure Description Date Indications Data Source(s) DRUG SCREEN QUALITATIVE LITHIUM LITHIUM LEVEL Routine 020 6:10 AM EDT 09/15/2020 06:10:[address] [facility] COVID-19 PCR COVID-19 PCR Routine 09/14/2020 3:33 PM EDT 09/14/2020 03:33:00 PM EDT [facility] Injection, triamcinolone acetonide, not otherwise specified , 10 mg 12/02/2019 12:00:00 AM EST eCW1 ([facility]) THER/PROPH/DIAG INJ, SC/IM 12/02/2019 12:00:00 AM EST eCW1 ([facility]) Results ID Date Data Source [id number] 09/17/2020 11:49:[address] [facility] Name Value Range Interpretation Code Description Data Angelina rce(s) Supporting Document(s) Discharge Summary [facility] YAANSz7nVxBVGbYv54/TTBxnGVAhg5AjCTgjBFu9HTfxZYKxG6OfRER7dW4wNSO9MLdGTsNcSmXoCCDc lbm [file] ICAgICAgICAgICAgICAgICAgICAgICAgICAgICAgICAgICAgICAgICAgICAgICAgICAgICAgICAgICAg OLVjONCvGOWxTNJfXAVaHNWpRXTbFX5JOTXuPWNvQGYcJYXaWPZwZERaEGKnZJWmAQDcEKQhXJXgDZJe ICAgICAgICAgICAgICAgICAgICAgICAgICAgICAgIC WkKTUpWIFcZUFsEGBoIRUlKAHfGUJlJQOuDAGwUCYqSM9DBARfBVTbYVAvRGAjRASbWPZmVCWjZAEaVG AgICAgICAgICAgICAgICAgICAgICAgICAgICAgICAgICAgICAgICAgICAgICAgICAgICAgICAgICAgIC FiWZQkEWCrAKUcBHOmZQ6PEYIzLCOpMKMeWMLaORHg ICAgICAgICAgICAgICAgICAgICAgICAgICAgICAgICAgICAgICAgICAgICAgICAgICAgICAgICAgICAg HICpITErZUBpGTOyNESeBBBgBRWbZYHtPB2BZXJuYQHyYVJoUVBrIOXdJQOlAAUqOGEwZYJsWLEeKINb ICAgICAgICAgICAgICAgICAgICAgICAgICAgICAgIC QaFTXjNKRvMMJiYVMnADHzYKVaAVTwVQEaBMUqUWVgUARdCY3LXNUfVTIxQPZvYRMtXOHhAGJzIRRuJC AgICAgICAgICAgICAgICAgICAgICAgICAgICAgICAgICAgICAgICAgICAgICAgICAgICAgICAgICAgIC JmDROgNBAcNWDyGKNzVOQqBJ5VWYRfONIcMSWbESVd ICAgICAgICAgICAgICAgICAgICAgICAgICAgICAgICAgICAgICAgICAgICAgICAgICAgICAgICAgICAg ELXyNFRxNFHkIBUiEYMtHSEoAMEiOYVzTYIjVS7FVAEiCWLuVTYsTFAgLEMdIMZzDDZxGFCfTARzOEYw ICAgICAgICAgICAgICAgICAgICAgICAgICAgICAgIC BzWBQgMRWtKJErNDVqKTXoRVWpSIHwPQBrBBOxGYTiUUVjRFDrYV7LURWzJJIxKSHlUDEjWQDuEWHrZF AgICAgICAgICAgICAgICAgICAgICAgICAgICAgICAgICAgICAgICAgICAgICAgICAgICAgICAgICAgIC HqRHRtXKFcCGWvTXLdREAhFSHlMS5AMWPzEVLzQUHc ICAgICAgICAgICAgICAgICAgICAgICAgICAgICAgICAgICAgICAgICAgICAgICAgICAgICAgICAgICAg RNVrPAUoJKBvBQGnMNKmXRPvEMPiHNRkSDGyPHAiCG7YFH36qSTyz4V1JUAjKW2dtuq/Lv3XXAvdrnTy kPGmMI0GYgXuCU7phw0ILwEbDL1kgl5JWAkDEsWcC1 E8tODgGJUwIGDKYvSrK06sMFwuGq40BVddUOEmXtHdJJf3Lu3SPgEdU5vbFILwAvE9ABEtLfG9HDGiDf Q1ZPTiLwOkTKRfYVHpJHAfDVGWWWS8PHCwAhBmBlRwRLJdARndCESBPRCyKVLfJdVcYkLrKFJvEY4KSK CjF173ycQnPEFDRp8+DVoytiObQjvNMkV4RBCog7Pr WIl3MC7WMRVnLvyxu1AmUnOvITIITLqoZS5YABK4XABjMULtSz9FBGScV990eaAxPC5KOg1KJeBdDE8t yl7JDhBvKMJwPnoKDux7QIkeVE3QpWWrGYqTlBStzFGsI7PdX9NvwBHcqIFheYQGtL5uWZ2qSEUqWNpu TlAgYXQgMTAvMjkvMjAyMCAxMToyNCBBTSkNCiAgL0 Ytw7KfUfQ6HOCeOlOhSBknHOFoOuX5UE76pYisBO8WRBLjPJRhLP18ANW4SSLfHo8NIb0PRhGrMX8sof 4ITaZiICSoEekDPbe2YYsyPO8KlYLoN8WeuXXvj5vPWdYzA5NRONZ4DJTyLs3GGIIiVsHyEHLrMFcqWL 6kKKJbKWNWuAiolpA6KK7RDH1hizHyME0OCoNzGx0e Wm3ZGeZpS5AuW4BcEJWmRDBFZSecYR3TAStvZG5fKC9Tf1IZuPEgsV6qdv6WIPFqJSBsHzydtv7NNdkk Y2T6xFdbVGMfWGsrZUIHOQtuPA5BYTXiYZW2TWH8HCJeXYORWhKgM41cRV5ZA7Odc28sPpL2SGPzCwUm AEorZR97hVuozvYbwFGvoBrnZK3MSu1+DQplbmRvYm nHYuvrLMMCOwUxKbTNBiLoJALnIHAiBFWoSoN2PqAfBg4CYPSuOZOnESCpQjYcHGJqYGKiCEsoQVUeXM nlJtKyROVyNKLxCP0ENpFcMFVdJbIjLIceOMKkFDBwdw1MCWHcEVMdFCD4CkIbABZjBQHvHWtbBFVsUD Y3GUa3ZPOgIEYlYW3BZnUnTNIiQTJyDLvsNCSvFZNn xd5BSJMdTYQyUfR9PaDuEVWgJPEyULhzKUIhGJG2CQWoEKOfBPIfYG4DExXzDUXgRZJ5MnpvMTOnNHHq bz2OQJUmSVDkNVIfVLXpXJAbCDSdOOetXPIrVQJ6BQu9FWOrAANiKH2UGbFmVRCqLSTfFKOnTPUwOXQr ns3DNLQhWPBgMRn8HpEdRQUrPMWvAJtiJSKeHRO8IR WtDJNtTOKzYQ2QYeCgYSAnZjP0FBRwGHHqITNbau7SEEMaCNPjBibuNyUvIUCaWQDkUAjhAFUlKNI5Ho FpHAIoPLEsRR4PCyLrGURhIcT7BDZqXFEcXGGakv7UWKLiOAZzZSU2UDRgMSVmODVkXMluFQPjDTT3QT N7SWIkHSFqGF2UTrTaWFAaVzQ8FKzxIGWhRNUbsk7A WRYqVYTzCqjgCOVzMJGuVQFhGWjgCBRdMZRzHZzdJPVdVJOuRR9ZZxFsWIAjBlR2JudcXDUuNTQkma4V WXHwDCJtWCIoJMGsGPDpGZZnGLrgSGFfYOT5XIV4XTAcHDWzCR1HTwAiNIBbCoFrJHbmFLHrOASlcp3V ZLBvVHVeBOc8HkVcTLQkEWGmISypFLLaQEJ2DOa8MN QsOLNkMM1WNhHlYULmEmCwBadiOWShNLMhhm4DPRIcUHJmDmEuLfUaXSBhDHRjWMdcKAPhCEM5XDX9GU XuDDMyRA3LIkDiEEHyDwu3NFadLSLpBBAhzy1FBINcTEV1AUG5PpWiMROnKFTnCXchDTZvGQO7DGKfCO GuEEVzPV8ZCkUqDETnPPt9KZkpGEZfXTPete7MMXSf AHR2ICz1CDNzXELqHOBhKPhvRCLeAZIbUSI9VBYoLRYzJZ4CSuHoTFCvAYD9MAbcHRTeBBZmsa7JPEIe PEK8LNZlPqSgJSJlFLRwNZexYFNdHUAjTnJ2VMWdMKKpGR2BIdMhXQIwChQ3QWcgLPPiYAEhju8EALHw FMU6ScQpJoMxDDSiYRIwRCsdPWKwEYGmJxR4WBCaXM CkLC1QQnIoOUDoZfV4UlCmWJThPFXgrr2JAMEvGBT6QuPzILOaLDTmVVQeAQdrAIPqNYM4UKO1MZNxWD ZoVT9HZhXsQASuTzV8DYzdLKZcUZEckk7KPRUkSAO9TWtoRLWoIFVaUSChIDsqNTArHQG7Cwp4KTRwAO ZwYK4YIoKkDAFuYyZpOYhsMGIyJOHobt1GDUVqFRJ8 XAYxIHWhQSRaALQsPSghZVKjWZtoYKniZHKmYFLnXB6LMmDeRIKoVxM9WlXzLLAwCARtxc2WRPMqTMI6 NUpgMQFsVUBbMHJtJTwrSPPhYEapFMz6QZKbISPuMI0GCpXaQPEnCtPnZkYbBYSoULKxdv4QREAwPDI9 WOijFPPnKDFxFTWtVRxjLZUcDEpaFqJ2BDHfQYIxQP 6EFrQzXWSuGuBiYLciTOSeZFRfyc2UIUZeBFT8LsKcFTHhTGFmLLJkVWm8xcEjuQBpNQy8VX5FT3Eyqp QvHlLDBh6Fy501MLTyJDFyTj1CN6shDu4yKHKdTJSUEg2BLAs5QSTbJBKbOzPaKNAbLET8KYWkWBQdDK XhB5C0S7PeJIy+EAwdKCH7NsDiZ3Y8FRU5FhHgTZBu LoCiQxPoIOM6JfM7ID3aZLDXMi0+YXaktHPrrHuqSMDBRmbcYbjjFHnoWGKAXr8Y ID Date Data Source [id number] 09/15/2020 07:19:[address] [facility] Name Value Range Interpretation Code Description Data Angelina rce(s) Supporting Document(s) [employer] [Moles/volume] in Serum or Plasma 0.52 mmol/L 0.60-1.20 L [facility] ID Date Data Source [id number] 09/14/2020 04:53:[address] [facility] Name Value Range Interpretation Code Description Data Angelina rce(s) Supporting Document(s) History and Physical [facility] FKEHYw6tGgABRgWd53/WLErtHVCix2AhIAwmRUp0HTcoNTWjQ2WvXLE0tQ9yQTX9DViTCbJdRqSbQYP7 lbm [file] ICAgICAgICAgICAgICAgICAgICAgICAgICAgICAgICAgICAgICAgICAgICAgICAgICAgICAgICAgICAg ICAgICAgICAgICANCiAgICAgICAgICAgICAgICAgIC AgICAgICAgICAgICAgICAgICAgICAgICAgICAgICAgICAgICAgICAgICAgICAgICAgICAgICAgICAgIC AgICAgICAgICAgICAgICAgICAgICANCiAgICAgICAgICAgICAgICAgICAgICAgICAgICAgICAgICAgIC AgICAgICAgICAgICAgICAgICAgICAgICAgICAgICAg ICAgICAgICAgICAgICAgICAgICAgICAgICAgICAgICANCiAgICAgICAgICAgICAgICAgICAgICAgICAg ICAgICAgICAgICAgICAgICAgICAgICAgICAgICAgICAgICAgICAgICAgICAgICAgICAgICAgICAgICAg ICAgICAgICAgICAgICANCiAgICAgICAgICAgICAgIC AgICAgICAgICAgICAgICAgICAgICAgICAgICAgICAgICAgICAgICAgICAgICAgICAgICAgICAgICAgIC AgICAgICAgICAgICAgICAgICAgICAgICANCiAgICAgICAgICAgICAgICAgICAgICAgICAgICAgICAgIC AgICAgICAgICAgICAgICAgICAgICAgICAgICAgICAg ICAgICAgICAgICAgICAgICAgICAgICAgICAgICAgICAgICANCiAgICAgICAgICAgICAgICAgICAgICAg ICAgICAgICAgICAgICAgICAgICAgICAgICAgICAgICAgICAgICAgICAgICAgICAgICAgICAgICAgICAg ICAgICAgICAgICAgICAgICANCiAgICAgICAgICAgIC AgICAgICAgICAgICAgICAgICAgICAgICAgICAgICAgICAgICAgICAgICAgICAgICAgICAgICAgICAgIC AgICAgICAgICAgICAgICAgICAgICAgICAgICANCiAgICAgICAgICAgICAgICAgICAgICAgICAgICAgIC AgICAgICAgICAgICAgICAgICAgICAgICAgICAgICAg ICAgICAgICAgICAgICAgICAgICAgICAgICAgICAgICAgICAgICANCiAgICAgICAgICAgICAgICAgICAg ICAgICAgICAgICAgICAgICAgICAgICAgICAgICAgICAgICAgICAgICAgICAgICAgICAgICAgICAgICAg ICAgICAgICAgICAgICAgICAgICANCjw/rJWdY7wwjF QyavM7N9awZl2GOu4YCV7ol6MyWTQbOPxcfnShImqOJiHgBSTmLggYPyg4KFvdSP0YbWErX8GzG0QwVI zpXR9ICMCpEAKkbJTaPWOwNQBuPoO0MFOeHNchNX2TrXXcNAwdJTVvECUbRrZmURSqUQTcNSIpZPYkZK TPXOFnAFQeFvCsSZMiGEKtVLnjSWYDKGW1YGUhAgLd OUTcOZHvKtGpJKIQWF6MCqSkM8NhjO00EUIdNYn+Ph1ATV0fy8RtRKd4OWVdEE6xqq3QYTiPEmWkB6Eu dfJ3IXP8UKNqFh3IFSMyQMSmqNF2ZJFvIWDFKqHtT9JsoE55ISOCNr4+SWraciCeEwlBEhJ2CMNnv4If CMr8PX9IYXFfMHf6tYDwOREGCBV2DMb8zf6aBIEVQK tdVPGWAGTlkJSqHK9cZx7sEDPcKSOpYwC5TJDVWH3SACQaATKkqRRvUUMiCFSKBQ9OBRfgVZK5UTQwwj FocQVdCFtzTE9HAHDlvuCfNIYgEJOTELk+Zf4LCA4xt5QoBCx6UyWhMJ7fio0GUOlLGfNcO1W7tSEvX9 I2CJkkTd8KXBVvPENfKYWvDWQFDErzBT2MZW6iomE3 MG2LgSLfEZUiBBGorOZjGAb4S27ifYOfEZinRV5CBBP+Arturo+Lx1OFUGeOZEqKWYhNiNvCZXPRjBqG4Zj K6WZj0JgB8KvUK15qOmepfDaGUmgAX1RIR0pIQXjJAGMKP1EcFInbQ7gitZ0SXWuMKKIWdVdX44ztDHz ZSYpXWStZRFpZw9ZQVNhB1ShsvDpcXuiqzMzLUSwGO FBQV8XHPihfxGifTLqpUcrFA25zJuyJQ9LYu5LScJmOO9alw4SdZLmTd1HPEL5Fo0DOVGnZTSbQPVkZI G0WKJjIqFvXUebBOPzGKApCPT5KXNxXWSqGO2CKcCcHKDmQOefCjlnVEGnGELdis4SFDKuTRD0RHO8VQ EqPVMmENLfNRsuVIFgXYFvNIH8WWWpULGdXK6UPkZj QVGkEGV3VkujNCOoSBZdim5DCIPpLLQkYxv1InTxQOHrQVVkVUjjGEVeVSH8SzP8HHJnDWTjBN6AYpQz KUZiCSG8VHUgEHJoJQYegm9PSQVnFQZcMWY8IeOnENKrERZmCTpuRFGpIKRzKws7IDReMBFyJW9IFnLs IVKkCAXoObzdSUBkGBVsfm5GPMMuTXAeFqH8GbXcVR WhXIEaRBfpCMPcJXL3Nkq5KCRfHVGjVJ5UBzPfXSPeKKN8SDNuYRAkRDOlol3AVURsCHYmAUq7RHBrJX HnXNKlBLfhCFIyAAVfLHu0NUZmNLDcLE2GDtZcKRNdLeP6FVixKTSfHJUqta6QZESwLZEbLopxUJFqQU BdNBDnOVwmKRIyJDS8OQr3IEKbEUSvHV8PNlDnCSHy Aaz0RXLtDRXsSIQrih8WPSOmGXTlCET3BGCrEUEcIYPtLRimSHAmTGTvFko6SOKkVCOlKG9ZRtMgYMNa GwH3CDIkUXMsPQEpeq6OTSMjJREeViWlDXGqVPWoDQRoKWrfNJZuCOJaCVdkWKYcKQFnOD6KDtFoFDWx KxCaJibyEIQoMNRcql7VTCYpFXIkETO3IYChLJPrAS YqENosWXNqLPQ0ZnStALCfKURpIY6CUrFfHVUqLcP3UGEkMMKrNKRaqk8RJJDmNORmCNtgAOXxTIDfGL PgEIioTHJjRPU3FmFpNJAzFSOrTL0KZyHpBLDvRuA3FQkxEFUnQMUjjs1BWCNbTEHuAwT0GNMoUQIyGH AgCNkiULRtIMI2NZN7ZTVvHHJdKJ3YOqYySDNtUJb3 YVBpJGOhNMJquj9LXNMrHIS6PWx5AbGfKZCcWNNrPEayCSFxDGT9GFdlJRHqHKDhJH2DFsZlJGOzLEhj QewiDECmHKOzgc7CLLJeWKI0ORG6AYXdAGZbTSDqWYsmMWGrJNTmLQR6PAIiOSMqLI5PIwDzKRPaCEM8 XJsgMFUdRTNagf7UHNXiJUB7QDZ7XTWkAEMnXCEpRO cnITQvYTEeZjehHOFkTMBgOO3OQfBrHQKiCGE5NvVkHMCeTAJthh0ECBUzGPD4DmueGmMlQKLhXWXbZC hzNBEnNGB2KVQ6ISGiZIXlGP6NVgOkJVHlRWzlWbKdLLAsZWPhml4ROVBoNQZ0VlEiHlGuMCQmAHUmLQ mePLHuUKA3QiG0UXVpWUMpCY3WMrJfEKOyRMg2BuVe ZWNsHQPgbm9MXLQzZQU1TESwZPWyVQAySWOqZRlfSHCgSFC8FpU5GBKiJCIyPO3TVzDgVGXhSYy8Mtdn VVHuDUJczh6FHCTyRAF2YJVwSWMoJYRdSUUvXFicUATcAUWpFWM9IJUrOBPlDR1IRuJyHEKnBvR6DPIp URIoRKRzkr9XkKZfbFtbmr5YJOxQNd9IuJljYZQ7XR cmTj9yqHZ6HzJoJVPKQb8IvzMhYFSzFSVTGLxrLTRvYYX0JuMvKBQyOqK6YWR0GJPlZ9FzJiGyTBDdOf E8SPxcBaU1KHaiIyPwCmS9SiG3SxAsWsSsVTK9J4FmFUKiFLVbUSZ+HO2gDEr+Bb3Wt3FvnaB6ahXoDE x6IBz9IR1IYVOJM1OSXr== ID Date Data Source [id number] 09/15/2020 06:07:[address] [facility] Name Value Range Interpretation Code Description Data Angelina rce(s) Supporting Document(s) Specimen source [Identifier] of Unspecified specimen [facility] SARS-CoV-2 RNA 2018 nCoV Real-Time RT-PCR: NOT DETECTED [facility] Assay Performed [facility] Patients first test for [facility] Patient employed in healthcare setting [facility] Patient has symptoms related to [facility] When did you start to experience these symptoms [Date and time] [Phen X] [facility] Patient was hospitalized because of this condition [facility] patient was admitted to ICU for [facility] Patient resides in a congregate care setting [facility] status [facility] ID Date Data Source [id number] 09/14/2020 03:33:[address] [facility] Name Value Range Interpretation Code Description Data Angelina rce(s) Supporting Document(s) SARS-CoV-2 RNA [facility] This lab was ordered by [facility] and reported by [facility]. ID Date Data Source [id number] 09/14/2020 01:56:[address] [facility] Name Value Range Interpretation Code Description Data Angelina rce(s) Supporting Document(s) History and Physical [facility] ACIWDf9zXpEVHjTf02/ICDqpJPBin3JrRPtyHPx3KMxuKLLkG2WlNFC0mX8xUYV6MCzEPhUvYnWvEBC3 [facility] [file] AgICAgICAgICAgICAgICAgICAgICAgICAgICAgICAgICAgICAgICAgICAgICAgICAgICAgICAgICAgIC AgICAgICAgDQogICAgICAgICAgICAgICAgICAgICAg ICAgICAgICAgICAgICAgICAgICAgICAgICAgICAgICAgICAgICAgICAgICAgICAgICAgICAgICAgICAg ICAgICAgICAgICAgICAgICAgDQogICAgICAgICAgICAgICAgICAgICAgICAgICAgICAgICAgICAgICAg ICAgICAgICAgICAgICAgICAgICAgICAgICAgICAgIC AgICAgICAgICAgICAgICAgICAgICAgICAgICAgDQogICAgICAgICAgICAgICAgICAgICAgICAgICAgIC AgICAgICAgICAgICAgICAgICAgICAgICAgICAgICAgICAgICAgICAgICAgICAgICAgICAgICAgICAgIC AgICAgICAgICAgDQogICAgICAgICAgICAgICAgICAg ICAgICAgICAgICAgICAgICAgICAgICAgICAgICAgICAgICAgICAgICAgICAgICAgICAgICAgICAgICAg ICAgICAgICAgICAgICAgICAgICAgDQogICAgICAgICAgICAgICAgICAgICAgICAgICAgICAgICAgICAg ICAgICAgICAgICAgICAgICAgICAgICAgICAgICAgIC AgICAgICAgICAgICAgICAgICAgICAgICAgICAgICAgDQogICAgICAgICAgICAgICAgICAgICAgICAgIC AgICAgICAgICAgICAgICAgICAgICAgICAgICAgICAgICAgICAgICAgICAgICAgICAgICAgICAgICAgIC AgICAgICAgICAgICAgDQogICAgICAgICAgICAgICAg ICAgICAgICAgICAgICAgICAgICAgICAgICAgICAgICAgICAgICAgICAgICAgICAgICAgICAgICAgICAg ICAgICAgICAgICAgICAgICAgICAgICAgDQogICAgICAgICAgICAgICAgICAgICAgICAgICAgICAgICAg ICAgICAgICAgICAgICAgICAgICAgICAgICAgICAgIC AgICAgICAgICAgICAgICAgICAgICAgICAgICAgICAgICAgDQogICAgICAgICAgICAgICAgICAgICAgIC AgICAgICAgICAgICAgICAgICAgICAgICAgICAgICAgICAgICAgICAgICAgICAgICAgICAgICAgICAgIC VkWGYjSTHcZIQfUXOzZULiUHo2K5olRACmVOSxTN9e JJs3Xt7+CDbWUiEpOCS1tzUclN7XUP8sy4RkGAcqFLUet2AmZNt0JP3XHKEoAPerBT6LFGuput6LQBOo EIBmwQBGx2qpBvZvYXP6YHIfYvgsNQ1CMPYpU3jbckJyUUXuPPFGGQmqMFPLQMgySNTSQURhPFTnDvQi WXmbEM6Ou2KbrMP2XId+Et7LXH7df9IzGNgbFGMqSG 8pob9XNJwNTnSaK8UizeS8ZVX4XJTcFd2UFZRvUKWbcUUkZJIbKKGBEzQnD3HeuB42ADFKDy3+DQplbm PbUulLOnS6IZHnz4NkYRn5AP5JGHToLQs3bMSvTLYIDYG8RBYcKN8nTVIRaNTbCVMkZEDOBLF3MRFrOc W5RdRpLzGlIGF3IJMsVL5qCBszZT9PBNA4AIkhUMAa VTZpB4dOZfRePGYiKhOxtEtxCK1BIaKnL4AfuhGspIBpHFUuPZUYFa2+HMiwvbKfCgrDUdV8CTDck2Sd DOv4UL9MPBWmVVkxPU2NCPQgaW6xYNcuXS5HHlXoKeWyXXZXWdJwV29vkCXpAKk1I2GqGoGeLNTuPeru ZXMgPDwvTmFtZXMgWyBdDQogID4+ID4+ZKdfSG1DGW ccgjVuHCReAn0XMHLeDTWwJN0mFXIkCCQeF9H6sWwuKOZLToGqI4tieplaEC8lZNRgO517eVvifqSdPK K2PGMjOv3QNFLnKOT6OMQvvVOcVzXtFDDJUXjlYJ5UrPZzJPA5pK4tEByhCGCyVHRoI1eCNhYoqTbeWM 51bGwgbnVsbCBdDQo+Tj7RAL7tj4IyWPk8knJrNLdf CNW0HCrhAYTgPSXlNYDbWPO9EUV6HUTVVkNpBYQgWCLkNFheKWQsVKNehh0LMQQtPFPfHGU6EUKaRKOt GFEiTEprAYTsPRJbRFW6BTXmIUMdAG1ZKaPtMZTkFGEjIMenJBHiGKCxkh1RGHFbWSBeQyDlNiRhOJVe YMTuLItaMDHoKVVbKdRtKLGrZIZvMD7ABeFqGIVjUK JqBdcvOSKnEHEmkf6WTGXuKMSiGmD2DrToKVFzITMpMFafNLWjFGG6GQhySRKwEPMvNS8ZCrEmTKXcXJ n9IRQiCWVuKUJvxx7HGJCqZIUwAsPpYfGtUPCiXJJcQYzrZFFvVVNiUaCjOQAlHDFrVF6WItWyJKTwLA AwVzGtOQRaHFYkyh5GBXExDYShUdD3FUSyPCOxZFVt ORbvBYZtMQFkIlAqXDHjOPRmTU0KPnQaYOJnVRW2LEUhBYZrUOSwcw3IAPAtMQUkTTdpHjNgBOBlRGBk TLiwWXAjSQK7JGBlUAWxWZDlKN4UKyOuUSMrMHR2HiIoKDVtYALrpq4BFOUhWMAqUcY0GAVnMIJoSPKe XSyfBLLfKCD0FsOnDZOhBJPsJM5FHsCyUMNtSbw4Zk YfJZJnYOMesc3WYGZxUBTxWCG7SNOwVTWeCCMpFClfVDHxICE2MdPlPCGfFRYtUP7ETxTmQPQmPme2CU JdDQNpPEAmup7ANADuULZlAYLaEMRmNXFrFJGgBVjwVMLyHJF2ISeiFKTkDZUaAE7TEtSjOGRdYab2To BuCCBePBXuff7ZJFNfUDHzXMl3KOMaTWFuBPOkNYso COWrKOXhCTiqFSRgOFMrJO4KRpWoBHGvNiMiKJFuUKOrKEAwti1BQYAyVEQsRXK6WgIeBPZkFNCrZSop IOFtPUJhPsI6EAIlZSSgBO0FSzBlEUNnBqWyTnGfTEEzFZBejr8EDDYzTMRyIjD0ECWwGAWvTQJjDZcw TDZzXLGzNnskFCMiPWExYE0GFbUgFNpeUQWCPsb4OY yvF4g8CCOkWm8WJ9Ywy9QyBtHiMBCUDWdmPM7mheVnAZSvWe4IY1lKAsqcNQl2FZH2ZnHhAzP5SDnvPK LcAqA7JlvyHkb0UET6Iy4bSHZyHHX9DZGcBrExLTMoCNPqTJIxIwSsKJQzDRqsFcT4NvHaZK3JNr5IAr R7ZJB5lRBdJl0MDvW7EuWASgRzLV1GFHe= ID Date Data Source [id number] 08/09/2020 09:33:00 AM EDT [facility] Name Value Range Interpretation Code Description Data Angelina rce(s) Supporting Document(s) HCT 38.6 % 42.0-52.0 L [facility] HGB 13.0 g/dL 13.5-17.5 L [facility] MCH 33.7 G/DL pg 32.0-36.5 N [facility] MCHC 34.5 PG % 27.0-33.0 H [facility] PLATELETS 199 10 10*3/mm3 150-450 N [facility] RBC 3.77 10 10*6/mm3 4.30-6.10 L [facility] RDW 12.3 % 11.5-14.5 N [facility] WBC TOTAL 5.4 4.0-10.0 N [facility] ID Date Data Source [id number] 08/09/2020 09:33:00 AM EDT [facility] Name Value Range Interpretation Code Description Data Angelina rce(s) Supporting Document(s) HGBA1C 4.7 % N [facility] ID Date Data Source [id number] 08/09/2020 09:33:00 AM EDT [facility] Name Value Range Interpretation Code Description Data Angelina rce(s) Supporting Document(s) VIT D25 TOT 54.0 ng/mL 30.0-100.0 N [facility] BG FASTING 83 mg/dL 70-100 N [facility] BG RANDOM 83 mg/dL LESS THAN 200 N [facility] TSH 2.350 microintl units/mL 0.358-3.[address] [facility] ID Date Data Source [id number] 07/10/2020 02:05:00 AM EDT [facility] Name Value Range Interpretation Code Description Data Angelina rce(s) Supporting Document(s) HCV RNA MAYNOR Qualitative Positive Negative Abnormal (applies to non-numeric results) [facility] Positive: HCV RNA Detected ID Date Data Source [id number] 07/10/2020 02:05:00 AM EDT [facility] Name Value Range Interpretation Code Description Data Angelina rce(s) Supporting Document(s) Please note [facility] The date recorded on the requisition ind icates the sample(s) receivedwere greater than 72 hours old upon arrival in our laboratory. ID Date Data Source [id number] 05/03/2020 08:27:00 AM EDT [facility] Name Value Range Interpretation Code Description Data Angelina rce(s) Supporting Document(s) VIT D25 TOT 48.8 ng/mL 30.0-100.0 N [facility] BG FASTING 87 mg/dL 70-100 N [facility] TSH 1.470 microintl units/mL 0.358-3.[address] [facility] ID Date Data Source [id number] 05/03/2020 08:27:00 AM EDT [facility] Name Value Range Interpretation Code Description Data Angelina rce(s) Supporting Document(s) HCT 41.9 % 42.0-52.0 L [facility] HGB 13.8 g/dL 13.5-17.5 N [facility] MCH 32.9 G/DL pg 32.0-36.5 N [facility] MCHC 32.5 PG % 27.0-33.0 N [facility] PLATELETS 239 10 10*3/mm3 150-450 N [facility] RBC 4.24 10 10*6/mm3 4.30-6.10 L [facility] RDW 12.0 % 11.5-14.5 [facility] WBC TOTAL 6.4 4.0-10.0 N [facility] ID Date Data Source [id number] 05/03/2020 08:27:00 AM EDT [facility] Name Value Range Interpretation Code Description Data Angelina rce(s) Supporting Document(s) HGBA1C 4.6 % N [facility] ID Date Data Source HEPATITIS PROFILE ACUTE 12/02/2019 12:00:00 AM EST eCW1 ([facility]) Name Value Range Interpretation Code Description Data Angelina rce(s) Supporting Document(s) NEGATIVE NEGATIVE HEPATITIS B CORE ANTIBODY IGM eCW1 ([facility]) NEGATIVE NEGATIVE HEPATITIS B SURFACE ANTIG EN eCW1 ([facility]) NEGATIVE NEGATIVE HEPATITIS A ANTIBODY IGM eCW1 ([facility]) ID Date Data Source HEPATITIS C ANTIBODY INDEX 12/02/2019 12:00:00 AM EST eCW1 ( [facility]) Name Value Range Interpretation Code Description Data Angelina rce(s) Supporting Document(s) < 0.0 <0.8 HEPATITIS C VIRUS ELIZABET IND EX eCW1 ([facility]) ID Date Data Source Comprehensive Metabolic Profile (CMP) 12/02/2019 12:00:00 AM EST eCW1 ([facility]) Name Value Range Interpretation Code Description Data Angelina rce(s) Supporting Document(s) 103 70-100 GLUCOSE, FASTING eCW1 ([facility]) 1.02 0.70-1.30 CREATININE FOR GFR eCW1 ([facility]) 6 7-18 BLOOD UREA NITROGEN eCW1 ([facility]) 4.3 3.5-5.1 POTASSIUM SERUM eCW1 ([facility]) 138 136-145 SODIUM LEVEL eCW1 ([facility]) > 60.0 >56 GLOMERULAR FILTRATION RATE eCW 1 ([facility]) 105 98-107 CHLORIDE LEVEL eCW1 ([facility]) 11 7-37 AST/SGOT eCW1 ([facility]) 20 12-78 ALT/SGPT eCW1 ([facility]) 9.5 8.5-10.1 CALCIUM LEVEL eCW1 ([facility]) 26 21-32 CARBON DIOXIDE LEVEL eCW1 ([facility]) 68 45-117 ALKALINE PHOSPHATASE eCW1 ([facility]) 7.9 6.4-8.2 TOTAL PROTEIN eCW1 ([facility]) 0.3 0.2-1.0 BILIRUBIN,TOTAL eCW1 ([facility]) 4.6 3.2-5.2 ALBUMIN eCW1 ([facility]) 1.39 1.00-1.93 ALBUMIN/GLOBULIN RATIO eCW1 ([facility]) ID Date Data Source CBC with Differential 12/02/2019 12:00:00 AM EST eCW1 ([facility]) Name Value Range Interpretation Code Description Data Angelina rce(s) Supporting Document(s) 14.5 13.5-17.5 HEMOGLOBIN eCW1 ([facility]) 8.3 4.0-10.0 WHITE BLOOD COUNT eCW1 ([facility]) 4.15 4.30-6.10 RED BLOOD COUNT eCW1 ([facility]) 102.7 80.0-96.0 MEAN CORPUSCULAR VOLUME e CW1 ([facility]) 34.9 27.0-33.0 MEAN CORPUSCULAR HEMOGLOB IN eCW1 ([facility]) 34.0 32.0-36.5 MEAN CORPUSCULAR HGB CONC eCW1 ([facility]) 42.6 42.0-52.0 HEMATOCRIT eCW1 ([facility]) 254 150-450 PLATELET COUNT, AUTOMATED eCW1 ([facility]) 56.7 36.0-66.0 NEUTROPHILS % eCW1 ([facility]) 11.4 11.5-14.5 RED CELL DISTRIBUTION WID TH eCW1 ([facility]) 30.5 24.0-44.0 LYMPH % eCW1 ([facility]) 3.6 0.0-3.0 EOS % eCW1 ([facility]) 7.8 0.0-5.0 MONO % eCW1 ([facility]) 1.0 0.0-1.0 BASO % eCW1 ([facility]) 0.3 0.0-0.5 EOS # eCW1 ([facility]) 0.6 0.0-0.8 MONO # eCW1 ([facility]) 2.5 1.5-5.0 LYMPH # eCW1 ([facility]) 4.7 1.5-8.5 NEUTROPHILS # eCW1 ([facility]) 0.1 0.0-0.2 BASO # eCW1 ([facility]) Procedure Social History Code Duration Value Status Description Data Source(s ) Alcohol intake 09/14/2020 12:00:00 AM EDT Current drinker of al cohol (finding) completed Current drinker of alcohol (finding) [facility] Cigarette pack-years 09/14/2020 12:00:00 AM EDT UNK completed [facility] Cigarettes smoked current (pack per day) - Reported 09/14/20 12:00:00 AM EDT UNK completed [facility] Smoking 09/14/2020 12:00:00 AM EDT Current every day smoker co mpleted Current every day smoker [facility] Vital Signs ID Date Data Source UNK Name Value Range Interpretation Code Description Data Source(s) Diastolic blood pressure 84 mm[Hg] 84 mm[Hg] eCW1 ([facility]) Systolic blood pressure 152 mm[Hg] 152 mm[Hg] e CW1 ([facility]) Body temperature 97.9 [degF] 97.9 [degF] eCW1 ( [facility]) Respiratory rate 18 /min 18 /min eCW1 ([facility] Heart rate 82 /min 82 /min eCW1 ([facility]) Body mass index (BMI) [Ratio] 22.51 kg/m2 22.51 kg/m2 eCW1 ([facility]) Body height 71 [in_us] 71 [in_us] eCW1 ([facility]) Body weight Measured 161.4 [lb_av] 161.4 [lb_av ] eCW1 ([facility]) ID Date Data Source [id number] 09/17/2020 11:49:24 AM [facility] Name Value Range Interpretation Code Description Data Source(s) WEIGHT RECORDED 169.6 lb 169.6 lb [facility] Body height Measured 71 in 71 in [facility] TRANSFER FROM [facility] Patient Treatment Plan of Care Planned Activity Planned Date Details Description Data Source (s) Thiamine 100 MG Oral Tablet 09/16/2020 12:00:00 AM [facility] Tab-A-Alena/Beta Carotene Oral Tablet 09/16/2020 12:00:00 AM [facility] Hydroxyzine Hydrochloride 50 MG Oral Tablet 09/16/2020 12:00:00 AM [facility] Folic Acid 1 MG Oral Tablet 09/16/2020 12:00:00 AM [facility] buspirone hydrochloride 10 MG Oral Tablet 09/16/2020 12:00:00 AM [facility] acetaminophen (TYLENOL) tablet 650 mg 09/14/2020 02:19:58 AM [facility] Folic Acid 1 MG Oral Tablet 12/10/2019 12:00:00 AM EST eCW1 ([facility]) Methotrexate 2.5 MG Oral Tablet 12/10/2019 12:00:00 AM EST eCW1 ([facility]) Acitretin 25 MG Oral Capsule 12/09/2019 12:00:00 AM EST eCW1 ([facility]) Triamcinolone Acetonide 40 MG/ML 12/02/2019 12:00:00 AM EST eCW1 ([facility]) [place] 20 % 12/02/2019 12:00:00 AM EST eCW1 ([facility]) 24 HR Nicotine 0.875 MG/HR Transdermal Patch [facility] buspirone hydrochloride 30 MG Oral Tablet [facility]
[2020-12-17 06:54] LABS: ETHYL ALCOHOL (ETHANOL) 0.144 % (0.000-0.010); LITHIUM LEVEL 0.71 MEQ/L (0.60-1.20)
[2020-12-17] MEDS ORDERED: NICOTINE 21MG/24HR 1 EA TRANSDERMAL TD ONE (08:00)
[2020-12-17] MEDS ORDERED: MULTIVITAMINS/MINERALS THERAP 1 TAB PO SCH (09:00)
[2020-12-17] MEDS ORDERED: FOLIC ACID 1 MG TAB PO SCH (09:00)
[2020-12-17] MEDS ORDERED: PROPRANOLOL 10 MG TAB PO ONE (09:15)
[2020-12-17] MEDS ORDERED: LITHIUM CARBONATE 600MG CAP PO ONE (09:15)
[2020-12-17] MEDS ORDERED: OMEPRAZOLE 20 MG CAP PO ONE (09:15)
[2020-12-17] MEDS ORDERED: lisinopriL 5 MG TAB PO ONE (09:15)
[2020-12-17] MEDS ORDERED: busPIRone 10 MG TAB PO ONE (09:15)
[2020-12-17 09:26] VITALS: BP 147/83
[2020-12-17 09:38] VITALS: BP 147/83
[2020-12-17] MEDS: THIAMINE 100 MG TAB PO SCH (09:38)
[2020-12-17] MEDS ORDERED: buPROPion (WELLBUTRIN SR) 100 MG SR TAB PO SCH (10:30)
== END 2020-12-17 13:08 | disposition home or self-care (01) ==
LOC: M ED 18:52
DX: F10.229 Alcohol dependence with intoxication, unspecified (principal); Y90.1 Blood alcohol level of 20-39 mg/100 ml; J44.9 Chronic obstructive pulmonary disease, unspecified; K21.9 Gastro-esophageal reflux disease without esophagitis; Z79.899 Other long term (current) drug therapy; F17.210 Nicotine dependence, cigarettes, uncomplicated
CPT/HCPCS: 36415; 80048; 80076; 80178; 80307; 84443; 85027; 99284; G0480

== ENCOUNTER 2021-03-16 18:19 | Emergency (ER) | payer OTHER ==
[~2021-03-16] VITALS: Ht 180.3 cm; Wt 75.0 kg
[~2021-03-16 18:19] MED LIST changes: +FOLI1TAB11; +MULT-90
[2021-03-16 18:37] LABS: HEMATOCRIT 42.2 % (42.0-52.0); HEMOGLOBIN 14.2 g/dl (13.5-17.5); MEAN CORPUSCULAR HEMOGLOBIN 33.6 pg (27.0-33.0); MEAN CORPUSCULAR HGB CONC 33.6 g/dl (32.0-36.5); PLATELET COUNT, AUTOMATED 208 10^3/uL (150-450); RED BLOOD COUNT 4.22 10^6/uL (4.30-6.10); WHITE BLOOD COUNT 10.2 10^3/uL (4.0-10.0)
[2021-03-16 18:56] LABS: AMPHETAMINES LEVEL URINE POSITIVE (NEGATIVE); BARBITURATES URINE NEGATIVE (NEGATIVE); BENZODIAZEPINES URINE NEGATIVE (NEGATIVE); CANNABINOIDS URINE POSITIVE (NEGATIVE); COCAINE METABOLITE URINE NEGATIVE (NEGATIVE); METHADONE URINE NEGATIVE (NEGATIVE); OPIATES URINE NEGATIVE (NEGATIVE); PHENCYCLIDINE URINE NEGATIVE (NEGATIVE)
[2021-03-16 19:07] LABS: ACETAMINOPHEN LEVEL < 2.0 UG/ML (10.0-30.0); ALBUMIN 3.9 GM/DL (3.2-5.2); ALT/SGPT 409 U/L (12-78); BILIRUBIN,DIRECT 0.2 MG/DL (0.0-0.2); BILIRUBIN,TOTAL 0.6 MG/DL (0.2-1.0); BLOOD UREA NITROGEN 13 MG/DL (7-18); CALCIUM LEVEL 9.8 MG/DL (8.5-10.1); CARBON DIOXIDE LEVEL 21 MEQ/L (21-32); CHLORIDE LEVEL 106 MEQ/L (98-107); CREATININE FOR GFR 0.83 MG/DL (0.70-1.30); ETHYL ALCOHOL (ETHANOL) 0.296 % (0.000-0.010); GLOMERULAR FILTRATION RATE > 60.0 (>56); GLUCOSE, FASTING 90 MG/DL (70-100); POTASSIUM SERUM 4.1 MEQ/L (3.5-5.1); SODIUM LEVEL 136 MEQ/L (136-145); TOTAL PROTEIN 7.9 GM/DL (6.4-8.2)
[2021-03-17] MEDS ORDERED: LORazepam 2 MG TAB PO PRN (01:40)
[2021-03-17 06:20] VITALS: BP 140/90
[2021-03-17] MEDS ORDERED: MULTIVITAMINS/MINERALS THERAP 1 TAB PO SCH (09:00)
[2021-03-17] MEDS ORDERED: FOLIC ACID 1 MG TAB PO SCH (09:00)
[2021-03-17] MEDS ORDERED: THIAMINE 100 MG TAB PO SCH (09:00)
== END 2021-03-17 06:22 | disposition home or self-care (01) ==
LOC: M ED 18:19
DX: F10.129 Alcohol abuse with intoxication, unspecified (principal); Y90.1 Blood alcohol level of 20-39 mg/100 ml; F17.210 Nicotine dependence, cigarettes, uncomplicated; F12.20 Cannabis dependence, uncomplicated; F15.20 Other stimulant dependence, uncomplicated

== ENCOUNTER → 2021-03-30 | Outpatient (CLI) | payer OTHER ==
[2021-03-30 15:47] LABS: HEMATOCRIT 42.4 % (42.0-52.0); HEMOGLOBIN 14.1 g/dl (13.5-17.5); MEAN CORPUSCULAR HEMOGLOBIN 32.9 pg (27.0-33.0); MEAN CORPUSCULAR HGB CONC 33.3 g/dl (32.0-36.5); MEAN CORPUSCULAR VOLUME 99.1 fl (80.0-96.0); PLATELET COUNT, AUTOMATED 208 10^3/uL (150-450); RED BLOOD COUNT 4.28 10^6/uL (4.30-6.10); WHITE BLOOD COUNT 9.2 10^3/uL (4.0-10.0)
[2021-03-30 16:09] LABS: HEMOGLOBIN A1c 4.7 %
[2021-03-30 16:12] LABS: ATYPICAL LYMPH 7 % (0-5); BASOPHILS 2 % (0-1); EOSINOPHILS 13 % (0-3); LYMPHOCYTES 37 % (16-44); MONOCYTES 5 % (0-5); NEUTROPHILS 35 % (28-66)
[2021-03-30 16:13] LABS: PLATELET ESTIMATE NORMAL (NORMAL)
[2021-03-30 16:32] LABS: ALBUMIN 3.9 GM/DL (3.2-5.2); ALT/SGPT 524 U/L (12-78); BILIRUBIN,DIRECT 0.2 MG/DL (0.0-0.2); BILIRUBIN,TOTAL 0.4 MG/DL (0.2-1.0); BLOOD UREA NITROGEN 8 MG/DL (7-18); CALCIUM LEVEL 9.4 MG/DL (8.5-10.1); CARBON DIOXIDE LEVEL 26 MEQ/L (21-32); CHLORIDE LEVEL 108 MEQ/L (98-107); CHOLESTEROL LEVEL 164 MG/DL (<200); CHOLESTEROL RISK RATIO 5.857 (<5); CREATININE FOR GFR 0.79 MG/DL (0.70-1.30); GLOMERULAR FILTRATION RATE > 60.0 (>56); GLUCOSE, FASTING 91 MG/DL (70-100); HDL CHOLESTEROL 28 MG/DL (>40); LDL CHOLESTEROL 86 MG/DL (<100); LITHIUM LEVEL 0.65 MEQ/L (0.60-1.20); NON-HDL-C 136 MG/DL; POTASSIUM SERUM 4.4 MEQ/L (3.5-5.1); SODIUM LEVEL 138 MEQ/L (136-145); TOTAL 25(OH) VITAMIN D 28.7 NG/ML (30.0-100.0); TOTAL PROTEIN 8.2 GM/DL (6.4-8.2); TRIGLYCERIDES LEVEL 248 MG/DL (<150)
== END ==
LOC: M LAB 15:08
PROVIDERS: ATTEND Registered Nurse
DX: F31.31 Bipolar disorder, current episode depressed, mild (principal); Z79.899 Other long term (current) drug therapy

== ENCOUNTER 2021-04-29 20:40 | Emergency (ER) | payer OTHER ==
[~2021-04-29] VITALS: Ht 172.7 cm; Wt 75.0 kg
[2021-04-29 21:47] LABS: HEMOGLOBIN 14.2 g/dl (13.5-17.5); MEAN CORPUSCULAR HEMOGLOBIN 33.4 pg (27.0-33.0); MEAN CORPUSCULAR HGB CONC 33.8 g/dl (32.0-36.5); MEAN CORPUSCULAR VOLUME 98.8 fl (80.0-96.0); PLATELET COUNT, AUTOMATED 162 10^3/uL (150-450); RED BLOOD COUNT 4.25 10^6/uL (4.30-6.10); WHITE BLOOD COUNT 8.3 10^3/uL (4.0-10.0)
[2021-04-29 22:09] LABS: AMPHETAMINES LEVEL URINE NEGATIVE (NEGATIVE); BARBITURATES URINE NEGATIVE (NEGATIVE); BENZODIAZEPINES URINE NEGATIVE (NEGATIVE); CANNABINOIDS URINE POSITIVE (NEGATIVE); COCAINE METABOLITE URINE NEGATIVE (NEGATIVE); METHADONE URINE NEGATIVE (NEGATIVE); OPIATES URINE NEGATIVE (NEGATIVE); PHENCYCLIDINE URINE NEGATIVE (NEGATIVE)
[2021-04-29 22:29] LABS: ACETAMINOPHEN LEVEL < 2.0 UG/ML (10.0-30.0); ALT/SGPT 33 U/L (12-78); BILIRUBIN,DIRECT 0.1 MG/DL (0.0-0.2); BILIRUBIN,TOTAL 0.3 MG/DL (0.2-1.0); BLOOD UREA NITROGEN 8 MG/DL (7-18); CALCIUM LEVEL 8.7 MG/DL (8.5-10.1); CARBON DIOXIDE LEVEL 24 MEQ/L (21-32); CHLORIDE LEVEL 111 MEQ/L (98-107); CREATININE FOR GFR 0.82 MG/DL (0.70-1.30); ETHYL ALCOHOL (ETHANOL) 0.392 % (0.000-0.010); GLOMERULAR FILTRATION RATE > 60.0 (>56); GLUCOSE, FASTING 91 MG/DL (70-100); POTASSIUM SERUM 3.7 MEQ/L (3.5-5.1); SALICYLATE LEVEL 4.7 MG/DL (5.0-30.0); SODIUM LEVEL 143 MEQ/L (136-145); TOTAL PROTEIN 8.3 GM/DL (6.4-8.2)
[2021-04-29] MEDS ORDERED: LORazepam 2 MG TAB PO PRN (23:10)
[2021-04-29] MEDS ORDERED: THIAMINE 100 MG TAB PO SCH (23:15)
[2021-04-30 08:31] VITALS: BP 154/89
[2021-04-30] MEDS ORDERED: FOLIC ACID 1 MG TAB PO SCH (09:00)
[2021-04-30] MEDS ORDERED: MULTIVITAMINS/MINERALS THERAP 1 TAB PO SCH (09:00)
== END 2021-04-30 08:32 | disposition home or self-care (01) ==
LOC: M ED 20:40
DX: F10.229 Alcohol dependence with intoxication, unspecified (principal); Y90.1 Blood alcohol level of 20-39 mg/100 ml; Z79.899 Other long term (current) drug therapy

== ENCOUNTER 2021-08-31 18:48 | Emergency (ER) | payer OTHER ==
[~2021-08-31] VITALS: Ht 182.9 cm; Wt 79.4 kg
[~2021-08-31 18:48] MED LIST changes: -OLAN10TA2 PO; +OLAN1TAB20 PO
--- OUTSIDE RECORDS SUMMARY | 2021-08-31 18:52 | CCD ---
Author Author [facility] Organization [facility] Address Unknown Phone Unavailable Care Team Providers Care Electronic Data Interchange Specialist Name Role Phone Laurita Jorgensen MD Unavailable Unavailable Laurita Jorgensen MD Unavailable Unavailable Laurita Jorgensen MD Unavailable Unavailable Laurita Jorgensen MD Unavailable Unavailable Laurita Jorgensen MD Unavailable Unavailable Laurita Jorgensen MD Unavailable Unavailable Laurita Jorgensen MD Unavailable Unavailable Laurita Jorgensen MD Unavailable Unavailable Laurita Jorgensen MD Unavailable Unavailable Laurita Jorgensen MD Unavailable Unavailable Laurita Jorgensen MD Unavailable Unavailable Laurita Jorgensen MD Unavailable Unavailable Laurita Jorgensen MD Unavailable Unavailable Laurita Jorgensen MD Unavailable Unavailable Laurita Jorgensen MD Unavailable Unavailable Laurita Jorgensen MD Unavailable Unavailable Laurita Jorgensen MD Unavailable Unavailable Laurita Jorgensen MD Unavailable Unavailable Laurita Jorgensen MD Unavailable Unavailable Laurita Jorgensen MD Unavailable Unavailable Laurita Jorgensen MD Unavailable Unavailable Laurita Jorgensen MD Unavailable Unavailable Laurita Jorgensen MD Unavailable Unavailable Laurita Jorgensen MD Unavailable Unavailable Laurita Jorgensen MD Unavailable Unavailable Laurita Jorgensen MD Unavailable Unavailable Laurita Jorgensen MD Unavailable Unavailable Laurita Jorgensen MD Unavailable Unavailable Laurita Jorgensen MD Unavailable Unavailable Laurita Jorgensen MD Unavailable Unavailable Laurita Jorgensen MD Unavailable Unavailable Laurita Jorgensen MD Unavailable Unavailable Laurita Jorgensen MD Unavailable Unavailable Laurita Jorgensen MD Unavailable Unavailable Laurita Jorgensen MD Unavailable Unavailable Laurita Jorgensen MD Unavailable Unavailable Laurita Jorgensen MD Unavailable Unavailable Laurita Jorgensen MD Unavailable Unavailable Laurita Jorgensen MD Unavailable Unavailable Laurita Jorgensen MD Unavailable Unavailable Laurita Jorgensen MD Unavailable Unavailable Laurita Jorgensen MD Unavailable Unavailable Laurita Jorgensen MD Unavailable Unavailable Laurita Jorgensen MD Unavailable Unavailable Laurita Jorgensen MD Unavailable Unavailable Laurita Jorgensen MD Unavailable Unavailable Laurita Jorgensen MD Unavailable Unavailable Laurita Jorgensen MD Unavailable Unavailable Laurita Jorgensen MD Unavailable Unavailable Laurita Jorgensen MD Unavailable Unavailable Laurita Jorgensen MD Unavailable Unavailable Laurita Jorgensen MD Unavailable Unavailable Laurita Jorgensen MD Unavailable Unavailable Laurita Jorgensen MD Unavailable Unavailable Laurita Jorgensen MD Unavailable Unavailable Laurita Jorgensen MD Unavailable Unavailable Laurita Jorgensen MD Unavailable Unavailable Laurita Jorgensen MD Unavailable Unavailable Laurita Jorgensen MD Unavailable Unavailable Laurita Jorgensen MD Unavailable Unavailable Laurita Jorgensen MD Unavailable Unavailable Laurita Jorgensen MD Unavailable Unavailable Laurita Jorgensen MD Unavailable Unavailable Laurita Jorgensen MD Unavailable Unavailable Laurita Jorgensen MD Unavailable Unavailable Laurita Jorgensen MD Unavailable Unavailable Laurita Jorgensen MD Unavailable Unavailable Laurita Jorgensen MD Unavailable Unavailable Laurita Jorgensen MD Unavailable Unavailable Laurita Jorgensen MD Unavailable Unavailable Laurita Jorgensen MD Unavailable Unavailable Laurita Jorgensen MD Unavailable Unavailable Laurita Jorgensen MD Unavailable Unavailable Laurita Jorgensen MD Unavailable Unavailable Laurita Jorgensen MD Unavailable Unavailable Laurita Jorgensen MD Unavailable Unavailable Laurita Jorgensen MD Unavailable Unavailable Laurita Jorgensen MD Unavailable Unavailable Laurita Jorgensen MD Unavailable Unavailable Laurita Jorgensen MD Unavailable Unavailable Laurita Jorgensen MD Unavailable Unavailable Laurita Jorgensen MD Unavailable Unavailable Laurita Jorgensen MD Unavailable Unavailable Laurita Jorgensen MD Unavailable Unavailable Laurita Jorgensen MD Unavailable Unavailable Laurita Jorgensen MD Unavailable Unavailable Laurita Jorgensen MD Unavailable Unavailable Laurita Jorgensen MD Unavailable Unavailable Laurita Jorgensen MD Unavailable Unavailable Laurita Jorgensen MD Unavailable Unavailable Laurita Jorgensen MD Unavailable Unavailable Laurita Jorgensen MD Unavailable Unavailable Laurita Jorgensen MD Unavailable Unavailable Aleja Goldberg PRODUCTION WEIGHER PRODUCTION WEIGHER Unavailable Unavailable Ashley Schmidt MD Unavailable Unavailable [...] Unavailable Unavailable Ashley Schmidt MD Unavailable Unavailable Vashti LAUREANO MD Unavailable [...] Unavailable Unavailable Vashti LAUREANO MD Unavailable Unavailable NIZAR, Vashti CULP MD Unavailable Unavailable Yusuf, A Aleja PRODUCTION WEIGHER Unavailable Unavailable Yusuf, A Aleja PRODUCTION WEIGHER Unavailable Unavailable Yusuf, A Aleja PRODUCTION WEIGHER Unavailable Unavailable Yusuf, A Aleja PRODUCTION WEIGHER Unavailable Unavailable Yusuf, A Aleja PRODUCTION WEIGHER Unavailable Unavailable Yusuf, A Aleja PRODUCTION WEIGHER Unavailable Unavailable Yusuf, A Aleja PRODUCTION WEIGHER Unavailable Unavailable Yusuf, A Aleja PRODUCTION WEIGHER Unavailable Unavailable Yusuf, A Aleja PRODUCTION WEIGHER Unavailable Unavailable Yusuf, A Aleja PRODUCTION WEIGHER Unavailable Unavailable Yusuf, A Aleja PRODUCTION WEIGHER Unavailable Unavailable Yusuf, A Aleja PRODUCTION WEIGHER Unavailable Unavailable Yusuf, A Aleja PRODUCTION WEIGHER Unavailable Unavailable Yusuf, A Aleja PRODUCTION WEIGHER Unavailable Unavailable Yusuf, A Aleja PRODUCTION WEIGHER Unavailable Unavailable Yusuf, A Aleja PRODUCTION WEIGHER Unavailable Unavailable Yusuf, A Aleja PRODUCTION WEIGHER Unavailable Unavailable Yusuf, A Aleja PRODUCTION WEIGHER Unavailable Unavailable Yusuf, A Aleja PRODUCTION WEIGHER Unavailable Unavailable Yusuf, A Aleja PRODUCTION WEIGHER Unavailable Unavailable Yusuf, A Aleja PRODUCTION WEIGHER Unavailable Unavailable Yusuf, A Aleja PRODUCTION WEIGHER Unavailable Unavailable Yusuf, A Aleja PRODUCTION WEIGHER Unavailable Unavailable Yusuf, A Aleja PRODUCTION WEIGHER Unavailable Unavailable Yusuf, A Aleja PRODUCTION WEIGHER Unavailable Unavailable Yusuf, A Aleja PRODUCTION WEIGHER Unavailable Unavailable Yusuf, A Aleja PRODUCTION WEIGHER Unavailable Unavailable Yusuf, A Aleja PRODUCTION WEIGHER Unavailable Unavailable Yusuf, A Aleja PRODUCTION WEIGHER Unavailable Unavailable Yusuf, A Aleja PRODUCTION WEIGHER Unavailable Unavailable Yusuf, A Aleja PRODUCTION WEIGHER Unavailable Unavailable Re-disclosure Warning The records that [...] is protected by Article 27-F of the [facility] Public Health law. If you continue you may have access to information: Regarding HIV / AIDS; Provided by facilities licensed or operated by the [facility] Office of Mental Health; or Provided by the [facility] Office for People With Developmental Disabilities. If such information is present, then the following [facility] mandated warning applies: This information has [...] law may result in a fine or prison sentence or both. A general authorization for the release of medical or other information is NOT sufficient authorization for further disc losure. Allergies and Adverse Reactions Type Description Substance Reaction Status Data Source(s ) Propensity to adverse reactions NO KNOWN ALLERGIES NO KNOWN ALLERGIES [facility] Allergy to substance Allergy to substance Allergy to substance [place] ([facility]) Family History Family Member Name Family Member Gender Family Member Status Date o f Status Description Data Source(s) Unknown Male Problem [facility] ([facility] () Unknown Female Encounters Encounter Providers Location Date Indications Data Source(s ) Telehealth Physchotherapy 30 Minutes with Patient [facility] 05/20/2021 12:00:00 AM EDT [place] ([facility]) Gerry Jorgensen MD: [address] [place] [phone], Ph. Attender: Gerry Jorgensen MD [facility] Medical 03/30/2021 12:00:00 AM EDT [facility] ([facility]) non-billable [facility] 03/22/2021 12:00:00 AM EDT [place] ([facility]) Inpatient Attender: SUNI Hernandez nder: Ashley Schmidt MDAdmitter: Ashley Schmidt MD [id number] 09/14/2020 12:00:00 AM EDT - 09/16/2020 11:24:00 AM EDT Suicidal ideation without a plan, hx bipolar [facility] Suicidal ideation without a plan, hx bip olar Patient discharged. Outpatient Attender: HERMINIA Goldberg [facility] 09/10/2020 10:10:00 A M EDT [facility] Outpatient Attender: Aleja Goldberg [facility] 08/21/2020 07:3 1:01 PM EDT [facility] Outpatient Attender: HERMINIA Goldberg [facility] 08/21/2020 07:31:00 P M EDT [facility] Outpatient Attender: Aleja Goldberg [facility] 07/23/2020 11:0 5:02 AM EDT [facility] Outpatient Attender: HERMINIA Goldberg [facility] 07/23/2020 11:05:01 A M EDT [facility] Immunizations Vaccine Date Status Description Data Source(s) COVID-19 VACCINE [facility] 03/31/2021 12:00:00 AM EDT completed [facility] Vaccine Series Complete: YESThis Data wa s Submitted to [facility] Via [employer]. Medications Medication Brand Name Start Date Product Form Dose Route Admi nistrative Instructions Pharmacy Instructions Status Indications Reaction Description Data Source(s) Tab-A-Alena/Beta Carotene Oral Tablet [id number] 09/16/2020 12:00: 00 AM EDT 1 {tbl} Oral active Take 1 tablet by mouth d [facility] Thiamine 100 MG Oral Tablet Thiamine HCl 100 MG Oral T ablet (B-1) Thiamine HCl 100 MG Oral Tablet (B-1) 09/16/2020 12:00:00 AM EDT 100 mg Oral active Take 1 tablet by mouth daily [facility] Hydroxyzine Hydrochloride 50 MG Oral Tab let hydrOXYzine HCl 50 MG Oral Tablet (ATARAX) hydrOXYzine HCl 50 MG Oral Tablet (ATARAX) 09/16/2020 12:00: 00 AM EDT 50 mg Oral active Take 1 tablet by mouth every 6 (six) hours as needed for Anxiety (Sleep) for up to 10 days [facility] Folic Acid 1 MG Oral Tablet Folic Acid 1 MG Oral Table t (FOLVITE) Folic Acid 1 MG Oral Tablet (FOLVITE) 09/16/2020 12:00:00 AM EDT 1 mg Oral active Take 1 tablet by mouth daily [facility] buspirone hydrochloride 10 MG Oral Table t busPIRone HCl 10 MG Oral Tablet (BUSPAR) busPIRone HCl 10 MG Oral Tablet (BUSPAR) 09/16/2020 12:00:00 AM EDT 10 mg Oral active Take 1 tablet by mouth T hree times daily [facility] Thiamine 100 MG Oral Tablet thiamine (B-1) tablet 100 mg thiamine (B-1) tablet 100 mg 09/15/2020 09:00:00 AM EDT 100 mg Oral active 100 mg, Oral, Daily Standard, First dose on Sun09/15/20 at 0900, For 30 days [facility] Medication administered onsite Folic Acid 1 MG Oral Tablet folic acid (FOLVITE) table t 1 mg folic acid (FOLVITE) tablet 1 mg 09/15/2020 09:00:00 AM EDT 1 mg Oral active 1 mg, Oral, Daily Standard, First dose on Sun09/15/20 at 0900, For 30 days [facility] Medication administered onsite multivitamin tablet 1 tablet [id number] 09/15/2020 09:00:00 AM EDT 1 {tbl} Oral active 1 tablet, Oral , Daily Standard, First dose on Sun09/15/20 at 0900, For 30 days [facility] Medication administered onsite Trazodone Hydrochloride 100 MG Oral Tablet trazodone ( DESYREL) tablet 200 mg trazodone (DESYREL) tablet 200 mg 09/14/2020 10:00:00 PM EDT 200 mg Oral active 200 mg, Oral, Nightl y, First dose on Sun09/14/20 at 2200, For 30 days [facility] Medication administered onsite olanzapine 10 MG Oral Tablet OLANZapine (ZYPREXA) tabl et 10 mg OLANZapine (ZYPREXA) tablet 10 mg 09/14/2020 10:00:00 PM EDT 10 mg Oral active 10 mg, Oral, Nightly, First dose on Sun09/14/20 at 2200, For 30 days [facility] Medication administered onsite Pratt Carbonate 300 MG Oral Capsule lithium carbonat e capsule 300 mg lithium carbonate capsule 300 mg 09/14/2020 02:30:00 PM EDT 300 mg Oral active 300 mg, Oral, 2 Times Daily With Meals, First dose on Sun09/14/20 at 1430, For 30 days [facility] Medication administered onsite Citalopram 20 MG Oral Tablet citalopram (CELEXA) table t 20 mg citalopram (CELEXA) tablet 20 mg 09/14/2020 02:30:00 PM EDT 20 mg Oral active 20 mg, Oral, Daily Standard, First dose on Sun09/14/20 at 1430, For 30 days [facility] Medication administered onsite Propranolol Hydrochloride 20 MG Oral Tablet propranolo l (INDERAL) tablet 20 mg propranolol (INDERAL) tablet 20 mg 09/14/2020 02:30:00 PM EDT 20 mg Oral active 20 mg, Oral, Three Times Daily Standard, First dose on Sun09/14/20 at 1430, For 30 days
Check vital signs before administering
[facility] Medication administered onsite 12 HR Bupropion Hydrochloride 100 MG Ext ended Release Oral Tablet buPROPion (WELLBUTRIN SR) 12 hr tablet 100 mg buPROPion (WELLBUTRIN SR) 12 hr tablet 1 00 mg 09/14/2020 02:30:00 PM EDT 100 mg Oral active 100 mg, Oral, Daily Standard, First dose on Sun09/14/20 at 1430, For 30 days
Do not crush or chew
[facility] Medication administered onsite pantoprazole 40 MG Delayed [...] with this P&T Committee approved formulary equivalent.
[facility] Medication administered onsite Lisinopril 20 MG Oral Tablet lisinopril (ZESTRIL) tabl et 40 mg lisinopril (ZESTRIL) tablet 40 mg 09/14/2020 09:00:00 AM EDT 40 mg Oral active 40 mg, Oral, Daily Standard, First dose on Sun09/14/20 at 0900, For 30 doses [facility] Medication administered onsite buspirone hydrochloride 10 MG Oral Tablet busPIRone (B USPAR) tablet 10 mg busPIRone (BUSPAR) tablet 10 mg 09/14/2020 09:00:00 AM EDT 10 mg O ral active 10 mg, Oral, Three Times Daily Standard, First dose on Sun09/14/20 at 0900, For 30 days [facility] Medication administered onsite 24 HR Nicotine 0.875 MG/HR Transdermal P atch nicotine (NICODERM CQ) 21 MG/24HR 1 patch nicotine (NICODERM CQ) 21 MG/24HR 1 patch 09/14/2020 02:30:00 AM EDT 1 {patch} Transdermal active 1 patch, Transdermal, Administer over 24 Hours, Every 24 hours, First dose on Sun09/14/20 at 0230, For 30 days [facility] Medication administered onsite Hydroxyzine Hydrochloride 50 MG Oral Tablet hydrOXYzin e (ATARAX) tablet 50 mg hydrOXYzine (ATARAX) tablet 50 mg 09/14/2020 02:20:05 AM EDT 50 mg Oral active 50 mg, Oral, Every 6 hours PRN, Anxiety, Sleep, Starting Sun09/14/20 at 0220, For 30 days [facility] Medication administered onsite acetaminophen (TYLENOL) tablet 650 [...] Scale Score 4- 6), Starting Sun09/14/20 at 0219, For 30 days
MDD 4
[Order 2 End] [Order 3 Start] Name: acetaminophen (TYLENOL) tablet 650 mg Signed Summary: 650 mg, Oral, Every 4 hours PRN, Severe Pain (Pain Scale Score 7-10), Starting Sun09/14/20 at 0219, For 30 days
MDD 4
[Order 3 End] [facility] Medication administered onsite buspirone hydrochloride 30 MG Oral Tablet busPIRone (B USPAR) 30 MG tablet busPIRone (BUSPAR) 30 MG tablet 30 mg Oral aborte d Take 30 mg by mouth Two Times Daily [facility] 24 HR Nicotine 0.875 MG/HR Transdermal P atch Nicotine 21 MG/24HR Transdermal Patch 24 Hour (NICODERM CQ) Nicotine 21 MG/24HR Transdermal Patch 24 Hour (NICODERM CQ) 1 {patch} Transdermal aborted Place 1 patch onto the skin every 24 (twenty-four) hours [facility] Insurance Providers Payer name Policy type / Coverage type Policy ID Covered republican ID Covered republican's relationship to magallon Policy [place] Plan Information Medicaid Dental S [id number] [facility] Community Plan Commercial [id number] Self [facility] COMM[facility] PLAN [facility] [id number] SP [id number] Medicaid [facility] Healthcare S D [id number] SELF [id number] Managed Care - [facility] P [id number] S [id number] Medicaid S [id number] Managed Care - [facility] Plan P [id number] S [id number] Managed Care - [facility] P [id number] S [id number] Medicaid S [id number] S [id number] [facility] I [id number] Self [id number] [facility] I [id number] Self [id number] D Managed Care [facility] P [id number] S [id number] [facility] COMMUNITY PLAN [facility] [id number] SP [id number] SELF PAY ONLY UNAVAILABLE SP UNAV AILABLE [facility] [id number] SP [id number] [facility] COMMUNITY PLAN [facility] [id number] SP [id number] MEDICAID [id number] SP [id number] SELF PAY ONLY [id number] SP [id number] SELF PAY UNAVAILABLE SP UNAVAILA BLE [facility] COMMUNITY PLAN MCDO [id number] SP [id number] [facility] [id number] SP [id number] [facility] [id number] SP [id number] [facility](MCAID) O [id number] S [id number] [facility] [id number] SP [id number] MEDICAID [id number] SP [id number] MEDICAID M [id number] S [id number] [facility](MCAID) O [id number] S [id number] Medicaid S [id number] S [id number] [facility] COMMUNITY PLAN [facility] [id number] [facility] Community Plan Commercial [id number] Self [id number] Problems, Conditions, and Diagnoses Code Display Name Description Problem Type Effective Dates Data Source(s) Suicidal ideation without a plan, hx bip olar Suicidal ideation without a plan, hx bipolar Diagnosis 09/14/2020 01:41:00 AM EDT [facility] [id number] Tobacco use Tobacco use Condition 09/23/2020 12:00:00 AM EST [facility] ([facility]) [id number] Tobacco use Tobacco use Condition 09/23/2020 12:00:00 AM EST [facility] ([facility]) Surgeries/Procedures Procedure Description Date Indications Data Source(s) Individual psychotherapy (regime/therapy) 05/20/2021 1 2:00:00 AM EDT [facility] ([facility]) Evaluation AND/OR management - established patient (procedur e) 05/16/2021 12:00:00 AM EDT [facility]) Evaluation AND/OR management - established patient (procedur e) 03/14/2021 12:00:00 AM EDT [facility] ([facility]) Evaluation AND/OR management - established patient (procedur e) 03/14/2021 12:00:00 AM EDT [facility] ([facility]) Individual psychotherapy (regime/therapy) 03/09/2021 1 2:00:00 AM EDT [facility] ([facility]) Individual psychotherapy (regime/therapy) 03/09/2021 1 2:00:00 AM EDT [facility] ([facility]) Evaluation AND/OR management - established patient (procedur e) 01/24/2021 12:00:00 AM EST [facility] ([facility]) Evaluation AND/OR management - established patient (procedur e) 01/24/2021 12:00:00 AM EST [facility]) Evaluation AND/OR management - established patient (procedur e) 12/27/2020 12:00:00 AM EST [facility] ([facility]) Evaluation AND/OR management - established patient (procedur e) 12/27/2020 12:00:00 AM EST [facility] ([facility]) Evaluation AND/OR management - established patient (procedur e) 11/24/2020 12:00:00 AM EST [facility] ([facility]) Evaluation AND/OR management - established patient (procedur e) 11/24/2020 12:00:00 AM EST [facility] ([facility]) Individual psychotherapy (regime/therapy) 11/22/2020 1 2:00:00 AM EST [facility] ([facility]) Individual psychotherapy (regime/therapy) 11/22/2020 1 2:00:00 AM EST [facility] ([facility]) Evaluation AND/OR management - established patient (procedur e) 10/11/2020 12:00:00 AM EST [facility] ([facility]) Evaluation AND/OR management - established patient (procedur e) 10/11/2020 12:00:00 AM EST [facility] ([facility]) Diagnostic psychiatric interview (procedure) 0 12:00:00 AM EST [facility] ([facility]) Diagnostic psychiatric interview (procedure) 0 12:00:00 AM EST [facility] ([facility]) Individual psychotherapy (regime/therapy) 09/21/2020 1 2:00:00 AM EST [facility] ([facility]) Individual psychotherapy (regime/therapy) 09/21/2020 1 2:00:00 AM [facility] DRUG SCREEN QUALITATIVE LITHIUM <td>LITHIUM LEVEL</td><td>Routine</td><td>09/15/2020 6:10 AM EDT</td><td></td><td> </td> 09/15/2020 06:10:00 AM [facility] COVID-19 PCR <td>COVID-19 PCR</td><td>Rou leah</td><td>09/14/2020 3:33 PM EDT</td><td></td><td> </td> 09/14/2020 03:33:00 PM EDT [facility] Evaluation AND/OR management - established patient (procedur e) 07/28/2020 12:00:00 AM EDT [facility] ([facility]) Evaluation AND/OR management - established patient (procedur e) 07/28/2020 12:00:00 AM EDT [facility] ([facility]) Results ID Date Data Source [id number] 09/17/2020 11:49:24 AM EDT [facility] Name Value Range Interpretation Code Description Data Angelina rce(s) Supporting Document(s) Discharge Summary [facility] [id number]/KWJipVPJae3LbQGlySLq0ZShxTYIqI5PyIBF4uO7gNNF9JUzGWiUwRdKnWBMu lbm [file] ICAgICAgICAgICAgICAgICAgICAgICAgICAgICAgICAgICAgICAgICAgICAgICAgICAgICAgICAgICAg ZNJrJGMeLDCuPUYqXQGyFFHwCSXrTO2NZXDtMCVsTPJcPDVcLOKpKOJgGKFfYYJcUCUtSNWkSPIhTMSd ICAgICAgICAgICAgICAgICAgICAgICAgICAgICAgIC BqTGTdEEDeFLWhQQFfWJFmMXKyWASrKPSgDJRhDDKtWQ4FCPJsQZPyJFWeHUAuVZFzNLHoXGUwXDPeYN AgICAgICAgICAgICAgICAgICAgICAgICAgICAgICAgICAgICAgICAgICAgICAgICAgICAgICAgICAgIC MyUAMjNLCnKTBuGZOsIW5TOSQpEEVuDWUbOORaNXVa ICAgICAgICAgICAgICAgICAgICAgICAgICAgICAgICAgICAgICAgICAgICAgICAgICAgICAgICAgICAg NYGaZYAwUILhZBOgIWRpUUGeNQAdQNQzFH4LPYMxFQRbYNZbALSaSVObAGGsIPQsXQOxNDNnODBvUNLp ICAgICAgICAgICAgICAgICAgICAgICAgICAgICAgIC RiQRAnLVZgRJWsYSSlHKUcMSKdLVGlDOYdNHRtANLpAEOmQD8RWKVbFWAvCNUpYAMdFVIzVODvNWJvLV AgICAgICAgICAgICAgICAgICAgICAgICAgICAgICAgICAgICAgICAgICAgICAgICAgICAgICAgICAgIC BrWETiQDSkXTUdZETcSYGuLH9UTGZvAAXmYRLeXXJk ICAgICAgICAgICAgICAgICAgICAgICAgICAgICAgICAgICAgICAgICAgICAgICAgICAgICAgICAgICAg GCTiQWDsAVYpDBLqKYWjLYKzIHRrXALxFYOeYZ5TJHCtANFgSPRdNBVqVRFdRNJgEWVpBNHmHWMfZHVb ICAgICAgICAgICAgICAgICAgICAgICAgICAgICAgIC LqTNBdISAuFPRuEUFbQWAiEGWwEFJwHKKqQDXeNDScLDHkVKQwSV7RTMAqKVGdOIOwLITzXAYmSTSoAE AgICAgICAgICAgICAgICAgICAgICAgICAgICAgICAgICAgICAgICAgICAgICAgICAgICAgICAgICAgIC OsFDKlOVGuMXWkBLBtIAFoBWAdRM5DYSCcYKHcGTVz ICAgICAgICAgICAgICAgICAgICAgICAgICAgICAgICAgICAgICAgICAgICAgICAgICAgICAgICAgICAg RENyVJWaBEGmGPFtEMOjFNBtIUOlIXOxPRFeYHYfEY9AXO26qEDjh1X5FOMsXX2gpge/Ek2EVJpredPi gAAcFV8MEjTcSP4xne4THfRcFZ6efc2PWHpORnNsT2 Y1sTLsEEDiJOANRmOgS80kVPceHc30GFebJIArZgNnOFn7Bi7ZSjZmC8enLHVwNnO4XRPdPsC4JTAsPw R0WTGvEwKgMMFhJKZgLSPnZXUXFGS7NYUvUrZrBzOeYSXpJUjyQWTCEQXrGDCcRcWxXiTuVGSaNE1AFA IoY934fwQvGQGENg9+RKkgwoQgIccCTrA7YLWmn7Xq HOt7LK6MPXDyCjggx5HhYiYhTROGXStfJM6JCPU1UKRgYLJdBh9OFUWoZ983jrDuMC3XTb3YImWoYX4n ue4WJiXpFOLsUtwTMug6JXdgWC4TeNMxHIcRkXBdtUCuZ3QxI3AdmMWzjLJicUUUwW5fLC3uXOZmNSwp TlAgYXQgMTAvMjkvMjAyMCAxMToyNCBBTSkNCiAgL0 Irm8YwZtH4VRFuXpYeXDokKUSeCqD4EB86zFulUG4QKQNdTQYbCB74JHJ3ADVmOl3JXa1MLeZkSG6idd 4HXoEwEGObOgrUOil8VXnyEL6IjNYoS1JrxHGsw6dUDkEtK4SYXSZ8RLArKx6USBUaEaEvRMNzEKawWL 2xAFNtDXDNzFryhsA9JL7AOI3tidNsJT9ZCmExOy6s Qh5BVsNbQ7YrB4PaQZWnQBLDSYryOX1YSBpmAX2zMP5Fg8HEfQYcbL1nfg4GEAHxOIQzZdmxyg2UJzif P5I7aYfmLJAfBVcrRQPMEVnuQM7JYFJkXAP7FIE6EMDoRVIFZdKqD42fGR8TG5Zna61uKgC2CASpTeYp UGhhFK18mVmiurOwkZVagBjkEQ8NMh1+DQplbmRvYm fVVpwfBZYSAqSjNaBTAsJdUREmGULaFGCwPyM0LiKyEs4WLZBaKTHhRZCbXyGaHHGyUXIwDSsaXCFkUD htAeZfFGClTLZyVY9NGeGsXYFeWxNdKIlpQZAoSWWweg1ZOSEgHFPxPKA1UpWbERCzBREyBVuoGXQmSD Z8JXe9FYUuVZIxLE8JOtJyHWAgHPHlIKmzIFTjBVQp sj2EFKRePOIhIeW1PaFfZGZbWKCxRMusCJLgTUN7IDIjLDCpOMJnJK5KFdOkBQOiMBH1IqfcXBGtHXNj gf4ZOBUaRQWpQMKpVVUlMOYuSEVaPPleFDAsFJH7WEq6EABvVXEhQQ6SHzItWDPuHLFlFWLaUUOwAQYb ap2HIBXvAHAeRKc6TjSdCDVvMRQiWDufCPVoUQE5PC MsAMKfEATrEU4VTvUnUMOvJeA0HLOuUDDhXSZqjx2HTAIoBVRxQswpXdJnBSPeHLOkVFxfHZNpVHC6Ta AbNURxQXBrEI4NUwVjNFNgOnA5EKUrATTbODYtec2ZRCYfOKJeLFH0EKCkZZIeLNOwRDqfREIuMCC4PZ B1PEXmAMPvXT9CBbGwVNWhYkW2DDysKLTtWRUkoe2A LQXsGMQuXwpoOHRjXWDhJCLtZIlhJMOgPYGfBXzgDGReCLTlZC7JKnEmACXxWhB9GuumUVCpPPJqxe4O DBJyHSYzOOEpZVFwDHKtKYFyQLceWWGiZRW8WJQ6SJXiWCUmON8YRtTwJOQqXbSiMCseTTMzMIDqjb7J WPTiYJGhINi6QvNlFLRsROUcOIshFXGhBSM1WGf8SO IlFDXdJW1XBlQsGHSqOyOlWywwJCNoTCPpyx6OPCKlDGGgEhOkMcTqPWWuTEIzJCdhMUJjXSK6CYV6LJ QfTZVeEB7YJeNsNELdXzi8ENbgODDpGFRfyg6LHDVdJAR4EVD4PlZeGWPtCAFoFSibVUHgSNU1QCRkVV EoAOYlEH2BUxPdLRJfZHy1VJynNXMrPMUwus0TGDJg CFR7SSc5NCFhHXOhBQWeLCzsLKYbCOYuGZT6FCFiASYxVF3HCbXeCAJkLNC5FQibFREaVVDzsp2UNDVx IQN3WXFkPeCiLQXqUNVpMUatAOMpPIGmGmL7WQUcAKJtBP6XHkBwJUHcMnO2HGujLUKpXPEvqg1UWHLn DVU6FbCeDjZgVAFkJZTeRRhbYMKtTXMnLzN0EUGdXK AtGF8SZtMtTOFxJfU4OgAaOGMfJXBuoy4QUDEqAWA5DcHfQKHqMYWcEIFfMEilHKOyITO7GEF9SKVzNJ IlXL5CWuXcGPNuFdA0NExgXLOlAOIqhv2NJUPcFBW7PWkwYMViQBSeOUGoGTuuLLDoLEY8Iax3HLPyCM BhFT5HVtHcDVTiBkMqNFssCSZcVDOxqa1TBMRpKRN5 RBBzWKEwMONbKNOlPPlrPOEmZUfqPZaaLWJfFAUrRH5EWzThPSFqOoS3KsWwBHCeWOEjwj3NGWEkCTQ7 EIppXXFxSZCfGHGhTEmdKKLgBZbaTIz6ISCsVJViKC2OMvSlJYZcEwVlScLkAOHvPTQgtb1XDFSmYFO1 SIdnJXApDIVwCMHsWIwkFLSrTLqiQdX2IKDqDKCpVC 8ENyXcLPZuVsGdDOseYBRxGQGhtw2KOFChBJE3MhUoTQKlBCEkGDXuXVp3wrFwbUHwBMt5JN5FK2Mste RrJlFLJm3Xo248GVDrOFQgUr4RW6agMc9bAXWrQXKKBh7KQUo8PEOtRQEdQcWeIHKuUPM6WNCiQBNpES JjU1H0C8StYTy+ZYbjUBC5BjOkL6V2EWD0TfUyVTNq XjAyXqBgXHW3EfO2FV6eWXRZCg4+PNinvWSooFndEVWTNloqKprnWTrrRVOJPc2R ID Date Data Source [id number] 09/15/2020 07:19:41 AM EDT [facility] Name Value Range Interpretation Code Description Data Angelina rce(s) Supporting Document(s) Pratt [Moles/volume] in Serum or Plasma 0.52 mmol/L 0.60-1.20 L [facility] ID Date Data Source [id number] 09/14/2020 04:53:37 PM EDT [facility] Name Value Range Interpretation Code Description Data Angelina rce(s) Supporting Document(s) History and Physical [facility] MTFVLd6lXzVLZkVi63/MNSaeESMzo5CpEVkyZDz0PEjkGETdV2RiEMM2eJ1iMTB7DMvYAwMkYuKhEXM0 lbm [file] ICAgICAgICAgICAgICAgICAgICAgICAgICAgICAgICAgICAgICAgICAgICAgICAgICAgICAgICAgICAg ICAgICAgICAgICANCiAgICAgICAgICAgICAgICAgIC AgICAgICAgICAgICAgICAgICAgICAgICAgICAgICAgICAgICAgICAgICAgICAgICAgICAgICAgICAgIC AgICAgICAgICAgICAgICAgICAgICANCiAgICAgICAgICAgICAgICAgICAgICAgICAgICAgICAgICAgIC AgICAgICAgICAgICAgICAgICAgICAgICAgICAgICAg ICAgICAgICAgICAgICAgICAgICAgICAgICAgICAgICANCiAgICAgICAgICAgICAgICAgICAgICAgICAg ICAgICAgICAgICAgICAgICAgICAgICAgICAgICAgICAgICAgICAgICAgICAgICAgICAgICAgICAgICAg ICAgICAgICAgICAgICANCiAgICAgICAgICAgICAgIC AgICAgICAgICAgICAgICAgICAgICAgICAgICAgICAgICAgICAgICAgICAgICAgICAgICAgICAgICAgIC AgICAgICAgICAgICAgICAgICAgICAgICANCiAgICAgICAgICAgICAgICAgICAgICAgICAgICAgICAgIC AgICAgICAgICAgICAgICAgICAgICAgICAgICAgICAg ICAgICAgICAgICAgICAgICAgICAgICAgICAgICAgICAgICANCiAgICAgICAgICAgICAgICAgICAgICAg ICAgICAgICAgICAgICAgICAgICAgICAgICAgICAgICAgICAgICAgICAgICAgICAgICAgICAgICAgICAg ICAgICAgICAgICAgICAgICANCiAgICAgICAgICAgIC AgICAgICAgICAgICAgICAgICAgICAgICAgICAgICAgICAgICAgICAgICAgICAgICAgICAgICAgICAgIC AgICAgICAgICAgICAgICAgICAgICAgICAgICANCiAgICAgICAgICAgICAgICAgICAgICAgICAgICAgIC AgICAgICAgICAgICAgICAgICAgICAgICAgICAgICAg ICAgICAgICAgICAgICAgICAgICAgICAgICAgICAgICAgICAgICANCiAgICAgICAgICAgICAgICAgICAg ICAgICAgICAgICAgICAgICAgICAgICAgICAgICAgICAgICAgICAgICAgICAgICAgICAgICAgICAgICAg ICAgICAgICAgICAgICAgICAgICANCjw/qVHtZ1isqX WohrT7Q8btRt2UNc5NVU1ij0NtQFZcJAstioUkYthGHyGmMKJmNiuKHbm2EEdcTM8UlDAlU5EbU5TsTL jxMY3TFKWkEAGfqLErZGMySLObHlU4LCMxKLsmVT4BuINfDJhdHMJuZCRuTmZiBZLyKDXlUQOwCBPaLB CYZVCxYXAhKkDeQBTuMIDgAQvkONFWCYA6UVLgBtDs HBOhKBBqGePjSDJZHP0ZHbIsU2LmuE55VXQeYLw+Lh1AML5xw0HyECi7DZPuTC5zyu2IJAbCMuMeZ2En poD9NSF6OKUyAb7BFAYhPMTclJR9OUQlJSHXPtRbD8EhrO99FKUOSw5+XThcoyWrCnkJTlW4FQMhj5Av FYf5WL1GGEVlNBu4mOEaBBCFLKI4NLo3uu0uDYHTTH cqBHBNJHUzrPQcIR6aBy4rBHScYNFoFfX4NIBPYQ0TYCBgLOXyqEZpDOFpHLBGSN5XPTonGOQ8PQAlzz OoxDYtNZheHX5QKROnjrPmQXJqHVEXYMq+Gv0UGX2ep2LqJCg8WnJzAS7etl2ZVRdWHeFiS3M6kVCbV0 Q6SXljZc1CAHBwMZKiCJPtUKHFLCeyET1HYW6ppcN7 OZ3JkVFwQNUpUMSuzWKmNCg8E87jaPTrMQjnSP3ISIV+Arturo+Ez6WUYZiACNoZZJxMqEuVLNAJpPoV5Oy B9VPs9JkQ4ChRK45zVsngdAnHXtdQY8XCP2fAGHzHFSAEO8VyRVpnK1ojmD5LKFaNQHHZxThY79gfXSu ZAZuMALqAIHwNd5DBNJnK9PfnaRwkLjrqsOnBDVoDV NHGI9VLGdabfThkYGaeVjjPK43pZoyFJ2UYh5KErXcVX1syf0PhINhMo8PBOT2Nq6YTJCnQTNxFXCmNV F1VMUsJoAqGAdmNTRzIBZdGUU1GCBaGZGpZB2TTnXiNMGjRAryZrbtEKLvGSNkjw7PYMVcAZD3UHI5YY EdOHBzCTAbEPrcVYGmAYDjQPB6DRTqIOZlFA4MTiGp XJVcLZO1RfcjUXZdQOVfmr3FQUXoMLWwJvl9ZuTfSOSkQCJhLOebNYFoTZK3ZzW8MQFxRVJbMJ3NNuCj KWFeGFG6GQIzEYCkXQNups6NTKXsWRLlQPE4QsHyHAMrHKPwFRdvBMZcFTNpNsp1DZZtASXrQU3WQeVd SKDrWAUaIrgyPLIyWYJslp7CHYYiQYUaZqA2OjTlFG GnVUMpVQpnNDVrRTX0Rga4MGJxFZAcXL6WCaOjFIWfMJW6SRJvHQAkSDKcbl8CVYOrUDJhHQm8AZTaXV OwTHSjPIedFAMpFWUjKRl4YIZzEDPdXU2SXgGfLIYgSjQ2THlaXSZnNDRzrh4PIEYwUSFiDdjuSHNyZA BtAKEiPCjsLZIhBED1AGt5IDQqURFjWI5WEfKnSJHm Xsx7WZHnAERzZDQpqn0DPKKtCVDoFJQ1NBRwEZSzWHQqPFbuVUXeVZEnUeg8GKDaATZlWB4QGzJoAAQa MtQ1LLPwSKCxGTDxnq6NNEOrHCCdXvHtVAVuMBLxFYAgDXilHGXcBESzUZpxXJHbHFIzLG3BCgRvXBVn WgEnIxbqFXKmBDQhkh5SGJAnRLUlHVA4XKMpXCRkNP WoOUibWZJiBPD3EfVhTYCuJWNkTC2LXmVeRXFfBfL6YSNfYKXrOIGkct4AJQCdUIFnSNroFTVkBUQrJY YjOAngJDBwGIA9CeWmFHFbQOJoIP6AHtVtCETpHfQ0BWuxLXJqIXJaie7WOAQzKANbDsH8RORlVDUfNK XqJWwuLVAmUHC9TPX8FEUhHFQkCB8NOjEdVRRtAQd3 ZTFbLSSsBGDlqz7JAKPcIZL4YXf5ThXwZNQfOUBnPHcsLAKrETK6WUnpCYYuXFPcYF0UOpRwRIVcNSxj XopuOHSaHFWsdu8ZVTMqVGM4XAB8CFScXLIwICYaJMjgESQzQKZtQDO0LCDyYZZhTF9AZnSnOBLkYHQ3 MQccBNOsSMGsex6RHURdAFH7WMI4IYEoDHQdJCIyCV lmYAPwGNAbOdclZCYdTZSlGA7LEpMrPAXpCNQ7DcDqCUIzKAIbvi7JMUXzHYQ5AtloElQtIEQaJLSnOF qdYHGkIPO5UQD3KGOyLPXyUK8XOiQrSYHzXIrkHzLpOHDnKBBbfj3LQUIfFQL4OxFpFxTeGUWbCPUnPK nyKKTaPNF5QbZ9XQBbAZHwWW6OAcTuIGYlJZj2BwDc HJFaMBUixg6QXTNnSPM3UGAcJGZxYFThYAKdQCpdMYVpTCM1UaW8UCVzMHYuNP1NSnJqOMRnKIi3Qakd XTSeYWDkqd7FRBYmOSZ3ZJBrKKPqGFPuWPTtKJezOZSrBPTtSPC9IQTrWGNnLQ4UTxDhAKVvYtU8PVNq SFQsKYRzbm5QvCZuoRquae8BOCbTAe6BmYzzRRU8UR ydRj6spQD2KlHnAUYRYu3RaxSsDFKpUOUMHPncIOCsSGE3BgHzJXDiOnR2UYA7NEFqF6FvJxBxVSWhBn Q8NOimDsY9JHfkLgPcFmU4OmS4NdPbTdPsQJG5Z6AoJAPzXEZbKXT+VS5dQSe+Zy5Od3HrkaE8xnQoET n7NYf1RM0SRZMSQ9XATn== ID Date Data Source [id number] 09/15/2020 06:07:53 AM EDT [facility] Name Value Range Interpretation Code Description Data Angelina rce(s) Supporting Document(s) Specimen source [Identifier] of Unspecified specimen [facility] SARS-CoV-2 RNA 2019 nCoV Real-Time RT-PCR: NOT DETECTED [facility] Assay Performed [facility] Patients first test for [facility] Patient employed in healthcare setting [facility] Patient has symptoms related to [facility] When did you start to experience these symptoms [Date and time] [Phen X] [facility] Patient was hospitalized because of this condition [facility] patient was admitted to ICU for [facility] Patient resides in a congregate care setting [facility] status [facility] ID Date Data Source [id number] 09/14/2020 03:33:00 PM EDT [facility] Name Value Range Interpretation Code Description Data Angelina rce(s) Supporting Document(s) SARS-CoV-2 RNA [facility] This lab was ordered by [facility] and reported by [facility]. ID Date Data Source [id number] 09/14/2020 01:56:32 PM EDT [facility] Name Value Range Interpretation Code Description Data Angelina rce(s) Supporting Document(s) History and Physical [facility] XYVZTn4mIqXTYlIx11/UIReyRLOin1VxTFycQKu1HUblMBMyJ4FkPBN4yL9wSUS7VHeAGwBzKiIbTVR4 [facility] [file] AgICAgICAgICAgICAgICAgICAgICAgICAgICAgICAgICAgICAgICAgICAgICAgICAgICAgICAgICAgIC AgICAgICAgDQogICAgICAgICAgICAgICAgICAgICAg ICAgICAgICAgICAgICAgICAgICAgICAgICAgICAgICAgICAgICAgICAgICAgICAgICAgICAgICAgICAg ICAgICAgICAgICAgICAgICAgDQogICAgICAgICAgICAgICAgICAgICAgICAgICAgICAgICAgICAgICAg ICAgICAgICAgICAgICAgICAgICAgICAgICAgICAgIC AgICAgICAgICAgICAgICAgICAgICAgICAgICAgDQogICAgICAgICAgICAgICAgICAgICAgICAgICAgIC AgICAgICAgICAgICAgICAgICAgICAgICAgICAgICAgICAgICAgICAgICAgICAgICAgICAgICAgICAgIC AgICAgICAgICAgDQogICAgICAgICAgICAgICAgICAg ICAgICAgICAgICAgICAgICAgICAgICAgICAgICAgICAgICAgICAgICAgICAgICAgICAgICAgICAgICAg ICAgICAgICAgICAgICAgICAgICAgDQogICAgICAgICAgICAgICAgICAgICAgICAgICAgICAgICAgICAg ICAgICAgICAgICAgICAgICAgICAgICAgICAgICAgIC AgICAgICAgICAgICAgICAgICAgICAgICAgICAgICAgDQogICAgICAgICAgICAgICAgICAgICAgICAgIC AgICAgICAgICAgICAgICAgICAgICAgICAgICAgICAgICAgICAgICAgICAgICAgICAgICAgICAgICAgIC AgICAgICAgICAgICAgDQogICAgICAgICAgICAgICAg ICAgICAgICAgICAgICAgICAgICAgICAgICAgICAgICAgICAgICAgICAgICAgICAgICAgICAgICAgICAg ICAgICAgICAgICAgICAgICAgICAgICAgDQogICAgICAgICAgICAgICAgICAgICAgICAgICAgICAgICAg ICAgICAgICAgICAgICAgICAgICAgICAgICAgICAgIC AgICAgICAgICAgICAgICAgICAgICAgICAgICAgICAgICAgDQogICAgICAgICAgICAgICAgICAgICAgIC AgICAgICAgICAgICAgICAgICAgICAgICAgICAgICAgICAgICAgICAgICAgICAgICAgICAgICAgICAgIC WeNVOlYZNsNHSdHNKaKADaACd2H1zjZRStAXXjDT4z MQj4Pt4+KUoSGkBuGIS4drKeqL7EQC3sf8LhLNzbVAQcz3WqZZt9QO6ZUKMnIQztQL7SWErgzi0NVKLg ZBJdiONEq0qbXjYdAIV4PHVdGwjgNW3DRHYcX3mzgvDkQLIqICDKQRcvQVGYSDoyIUVXBQMmVZPjPqYg KMphZV5Vy7KtuFS1JKc+Qz5INH2ft4LsZEliOEOoKA 4hnb0QDCbJLxFqW1HfrmC2CMI5IMKdYc0QPBVyPSJllAFtPACdINBMBsAzS2CzeX96XEOVRz8+DQplbm JbRuvUYiV1NAZuq4WxPQx8EJ7PSXUwAOa7aDUoFPBGWEA0WFQaGV7iZGYWhVJiKJZkDKTXHXP1GWGjSy B5EdFyCpTzXSV6ABRgZI7jKJvaFO2ZVON0KPhnMKPc SIVvZ8bTKjLlRBEuCqEplPgyAX2KUtOaX6ExyeAwjIEeFNKyAFSFSb5+UTgmcpMlJizOWcH3HYMvz2Of EUg3OY4DTYAlRBgbEN5ERTVvmV5uABquRR6AVrFwKyGfUNTVDtKfY01pcEVaYIm9E4OxSsVuLWDcMpfa ZXMgPDwvTmFtZXMgWyBdDQogID4+ID4+XKnyXF0VIH gjrxFyHEFxQb5XNVTuZARyTL3vCTBxQPOcL0H6eFmvKDSURzEpV4hhtkzvEV6rUVWgV077pBuqiyEtEN L2SRQxCx5CJTSnZLV2EHNuyNJiShXlHKOAUJfaTK9OnHKnGYY5jZ4aRYuuIOTjZZYeJ7oZQcEwvGufWY 51bGwgbnVsbCBdDQo+Gj0SBO3zg1MzLAf7giOeOAab WNA6PTdiJXZpZAAjXEEmMXP6LND1WFECBrJzVLQdUKJkARawRKYmYCXolf4XEGHmOISkBWE7BDQwZYBk HSHzHPncGWSnFNQvATY1MWThYIChMR5DQgZcIUIyVSZgSOzoHMSdUXKkin9CSSPyYARiZdUlUwVpIZWo JIJkTJspQAThMWOzMjRlARJdRTHmWY8ULtKxMFAuPY HoHtuaJKMlGLQfwt7KWFHeMUImXkP2QeJpPJHcYVYmARvmMDGjDNF3EIxeYIQaIJRcUK1WMaFjJXPpTO b5THLrUDFkUNCazl6JMJJxUBChYcTcGdEvPJGqAIYmVBrjWAJlLMBxXqXbOJMxEFZcHU3ZHaSvMSMvBM VrUgReURSxQFJxil1AFWXgTOQaAtY1JZGtUXFqXZNs ATmmPPNtFJOmFkUxAXMwTBLjMP6TWuImCUIcIEW5HXQvBKVgKCVcty0ZNNNnVJBkUMceVdFkYJCdJJYx HAbiHKKbORG8RINeTBBgRLLkVM3CUpUjWMNbCAO6AtYqEIUnTJTezk5QJOTbVLBsBfK4RXLwBJPuINIv JMrjDHGdQAA0BzMkTROxKIMxIN0VKsQyBKReWaf9Vs YzMBAyKMOtvn6EQVAuFHUxQGI6XPMoHFOiMSJiXVruCWRsZCS5BtTuALJoVEEtVI5XIpDjWPAhViq5NS KnUFCbIMNbhc3AQDZhHZDvUUVkCHVvPQNwXIOrSUsyWFLsNJO3UIewILUlNPVrTE2EVzAsYWAtLty4Ap IsEPFhRPUwar9JUOAsGKXcTYr8XQJqLIMiKDTeGSsq KSOjSIGeICbdNGLzDVIkYL4CRlYqUCVqRbCaAINwGNAdVGFmkq6IBGZlQBStYCP3ToKxRIJeFUYdMBrd TPGoJSPsGfB7QKNyMKZuQV9PFbCsCXVlIlAeKkCjSAPoQGZvgv5CEPUvBFQkVpX1TWBfTDWvZVPtYKrs KKHjHOYkJzfdOXIzURFeQG9TTpBvJByuOUKBSqx0KZ rjH9h9DWRfVy3WJ4Xzx8FaRcPkNXAXXUhiEP9fllSgBKAtFc8HO9vJEjkbEAt6YGE4JnNnWoD7CYzhGQ IfGtR6BedxCsc1ZVT1Ag8rLHAnDIH7GBObEqJhWGRjGVXyQCUpMoXzGGPgTScmVuV7VfSnVW9VEo5JSr O4MNI9nDUqTn1XOvC9XqXAUjLsNC6KRDc= ID Date Data Source [id number] 09/13/2020 09:57:00 PM EDT [facility]) Name Value Range Interpretation Code Description Data Angelina rce(s) Supporting Document(s) sars covid-19 amplification negative negative Sars Cov id-19 Amplification [facility]) ID Date Data Source [id number] 09/12/2020 04:05:00 PM EDT [facility]) Name Value Range Interpretation Code Description Data Angelina rce(s) Supporting Document(s) lithium level 0.89 mEq/L 0.60-1.20 Pratt Level [facility]) ID Date Data Source [id number] 09/12/2020 04:05:00 PM EDT [facility]) Name Value Range Interpretation Code Description Data Angelina rce(s) Supporting Document(s) thyroid stimulating hormone 1.850 uIU/mL 0.358-3.740 Thyroid Stimulating Hormone [facility]) ID Date Data Source [id number] 09/12/2020 04:05:00 PM EDT [place] ([facility]) Name Value Range Interpretation Code Description Data Angelina rce(s) Supporting Document(s) acetaminophen level < 2.0 10.0-30.0 Below low normal Acetaminop hen Level [facility]) ID Date Data Source [id number] 09/12/2020 04:05:00 PM EDT [facility]) Name Value Range Interpretation Code Description Data Angelina rce(s) Supporting Document(s) salicylate level 1.9 mg/dL 5.0-30.0 Below low normal Salicylate [place] [facility]) ID Date Data Source [id number] 09/12/2020 04:05:00 PM EDT [place] ([facility]) Name Value Range Interpretation Code Description Data Angelina rce(s) Supporting Document(s) ethyl alcohol (ethanol) 0.372 % 0.000-0.010 Above high normal Ethyl Alcohol (Ethanol) [place] ([facility]) ID Date Data Source [id number] 09/12/2020 04:05:00 PM EDT [facility]) Name Value Range Interpretation Code Description Data Angelina rce(s) Supporting Document(s) blood urea nitrogen 10 mg/dL 7-18 Blood Urea Nitro gen RAY ([facility]) glomerular filtration rate > 60.0 >56 Glomerula r Filtration Rate R[facility] ([facility]) glucose, fasting 79 mg/dL 70-100 Glucose, Fasting AT BERTA ([facility]) creatinine for GFR 0.90 mg/dL 0.70-1.30 Creatinine for GF R [facility] ([facility]) carbon dioxide level 24 mEq/L 21-32 Carbon Dioxide Level [place] ([facility]) potassium serum 4.1 mEq/L 3.5-5.1 Potassium Serum ATH NA ([facility]) sodium level 136 mEq/L 136-145 Sodium Level RAY (No [facility]) chloride level 104 mEq/L 98-107 Chloride Level RAY ([facility]) calcium level 8.6 mg/dL 8.5-10.1 Calcium Level RAY ( [facility]) anion gap 8 mEq/L 8-16 Anion Gap [facility] ([facility]) ID Date Data Source [id number] 09/12/2020 04:05:00 PM EDT [facility] ([facility]) Name Value Range Interpretation Code Description Data Angelina rce(s) Supporting Document(s) alkaline phosphatase 81 U/L 45-117 Alkaline Phosph atase [facility] ([facility]) ALT/SGPT 53 U/L 12-78 ALT/SGPT [facility] ([facility]) AST/SGOT 19 U/L 7-37 AST/SGOT [facility] ([facility]) albumin 3.9 gm/dL 3.2-5.2 Albumin [facility] ([facility]) bilirubin,total 0.4 mg/dL 0.2-1.0 Bilirubin,total ATHE ([facility]) bilirubin,direct 0.2 mg/dL 0.0-0.2 Bilirubin,direct AT BERTA [facility]) total protein 7.8 gm/dL 6.4-8.2 Total Protein RAY ( [facility]) albumin/globulin ratio Albumin/globu chidi Ratio RAY ([facility]) ID Date Data Source [id number] 09/12/2020 04:05:00 PM EDT [facility] ([facility]) Name Value Range Interpretation Code Description Data Angelian rce(s) Supporting Document(s) amphetamines level urine negative negative Amphetamine s Level Urine [facility] ([facility]) barbiturates urine negative negative Barbiturates Urin e RAY ([facility]) cannabinoids urine negative negative Cannabinoids Urin e RAY ([facility]) benzodiazepines urine negative negative Benzodiazepine s Urine R[facility] ([facility]) cocaine metabolite urine negative negative Cocaine Met abolite Urine [facility] ([facility]) phencyclidine urine negative negative Phencyclidine Ur ine RAY ([facility]) opiates urine negative negative Opiates Urine RAY ( [facility]) methadone urine negative negative Methadone Urine ATHE ([facility]) ID Date Data Source [id number] 09/12/2020 04:05:00 PM EDT [place] ([facility]) Name Value Range Interpretation Code Description Data Angelina rce(s) Supporting Document(s) white blood count 9.9 10 4.0-10.0 White Blood Count [facility] ([facility]) hemoglobin 13.1 g/dL 13.5-17.5 Below low normal Hemoglobin R[facility] ( [facility]) red blood count 3.89 10 4.30-6.10 Below low normal Red Blood Coun t RAY ([facility]) hematocrit 39.7 % 42.0-52.0 Below low normal Hematocrit [facility] ( [facility]) mean corpuscular HGB conc 33.0 g/dL 32.0-36.5 Mean Corpu scular HGB Conc [facility] ([facility]) mean corpuscular hemoglobin 33.7 pg 27.0-33.0 Above high no rmal Mean Corpuscular Hemoglobin [facility] ([facility]) mean corpuscular volume 102.1 fL 80.0-96.0 Above high normal Mean Corpuscular Volume [facility] ([facility]) red cell distribution width 12.0 % 11.5-14.5 Red Cell Distribution Width [facility] ([facility]) nucleated red blood cell % 0.0 % 0-0 Nucleated Red Blood Cell % [facility] ([facility]) platelet count, automated 200 10 150-450 Platelet C ount, Automated [facility] ([facility]) ID Date Data Source [id number] 08/09/2020 09:33:00 AM EDT [facility] Name Value Range Interpretation Code Description Data Angelina rce(s) Supporting Document(s) HCT 38.6 % 42.0-52.0 L [facility] HGB 13.0 g/dL 13.5-17.5 L [facility] MCH 33.7 G/DL pg 32.0-36.[address] [facility] MCHC 34.5 PG % 27.0-33.0 H [facility] PLATELETS 199 10 10*3/mm3 150-450 N [facility] RBC 3.77 10 10*6/mm3 4.30-6.10 L [facility] RDW 12.3 % 11.5-14.5 N [facility] WBC TOTAL 5.4 4.0-10.0 N [facility] ID Date Data Source [id number] 08/09/2020 09:33:00 AM EDT [facility] Name Value Range Interpretation Code Description Data Angelina rce(s) Supporting Document(s) HGBA1C 4.7 % N [facility] ID Date Data Source [id number] 08/09/2020 09:33:00 AM EDT [facility] Name Value Range Interpretation Code Description Data Angelina rce(s) Supporting Document(s) VIT D25 TOT 54.0 ng/mL 30.0-100.[address] [facility] BG FASTING 83 mg/dL 70-100 N [facility] BG RANDOM 83 mg/dL LESS THAN [address] [facility] TSH 2.350 microintl units/mL 0.358-3.740 N [facility] Procedure Social History Code Duration Value Status Description Data Source(s ) Alcohol intake 09/14/2020 12:00:00 AM EDT Current drinker of al cohol (finding) completed Current drinker of alcohol (finding) [facility] Cigarette pack-years 09/14/2020 12:00:00 AM EDT UNK [facility] Cigarettes smoked current (pack per day) - Reported 10/27/20 20 12:00:00 AM EDT UNK completed [facility] Smoking 09/14/2020 12:00:00 AM EDT Current every day smoker co mpleted Current every day smoker [facility] Vital Signs ID Date Data Source [id number] 09/17/2020 11:49:24 AM T [facility] Name Value Range Interpretation Code Description Data Source(s) WEIGHT RECORDED 169.6 lb 169.6 lb [facility] Body height Measured 71 in 71 in [facility] TRANSFER FROM [facility] Patient Treatment Plan of Care Planned Activity Planned Date Details Description Data Source (s) Thiamine 100 MG Oral Tablet 09/16/2020 12:00:00 AM [facility] Tab-A-Alena/Beta Carotene Oral Tablet 09/16/2020 12:00:00 AM [facility] Hydroxyzine Hydrochloride 50 MG Oral Tablet 09/16/2020 12:00:00 AM [facility] Folic Acid 1 MG Oral Tablet 09/16/2020 12:00:00 AM [facility] buspirone hydrochloride 10 MG Oral Tablet 09/16/2020 12:00:00 AM [facility] acetaminophen (TYLENOL) tablet 650 mg 09/14/2020 02:19:58 AM [facility] 24 HR Nicotine 0.875 MG/HR Transdermal Patch [facility] buspirone hydrochloride 30 MG Oral Tablet [facility]
--- OUTSIDE RECORDS SUMMARY | 2021-08-31 18:52 | CCD ---
Author Author Gilmer Ram Organization [facility] Address Unknown Phone Unavailable Care Team Providers [employer] Name Role Phone Mary Ram PCP Unavailable Allergies, Adverse Reactions, Alerts Allergy Substance Code C odeSystem Reaction Severity Critic ality Status Start Date nkda Moderate Active Medications Medication Medication Code Medication CodeSystem Start Date Stop Date Route Dose Status Fill Instructions propranolol 915733 RxNorm 2019-11-18 2020-01-12 oral 10 mg tablet completed for 30 day(s) Zyprexa 210765 RxNorm 2018-03-21 2018-05-20 oral 10 mg tablet completed for 30 day(s) trazodone 434093 RxNorm 2019-04-30 2019-05-30 oral 50 mg tablet completed for 30 day(s) lithium carbonate 19780722 RxNorm 2019-03-11 2019-04-10 or al 600 mg capsule completed for 30 day(s) propranolol 356265 RxNorm 2019-04-18 2019-05-18 oral 10 mg tablet completed for 30 day(s) Zyprexa 693829 RxNorm 2018-05-27 2018-07-26 oral 10 mg tablet completed for 30 day(s) propranolol 217063 RxNorm 2019-03-11 2019-04-10 oral 10 mg tablet completed for 30 day(s) lithium carbonate 19780722 RxNorm 2019-05-28 2019-08-13 or al 600 mg capsule completed for 30 day(s) propranolol 451197 RxNorm 2020-01-12 2020-02-11 oral 10 mg tablet completed for 30 day(s) trazodone 712739 RxNorm 2019-11-18 2020-04-11 oral 50 mg tablet active for 30 day(s) Celexa 202313 RxNorm 2020-01-12 2020-04-11 oral 20 mg tablet active for 30 day(s) olanzapine 944875 RxNorm 2019-03-11 2020-04-11 oral 10 mg tablet active for 30 day(s) trazodone 973358 RxNo 2019-06-25 2019-08-13 oral 50 mg tablet completed for 30 day(s) trazodone 583142 RxNorm 2019-03-11 2019-04-10 oral 50 mg tablet completed for 30 day(s) nicotine 020082 RxNorm 2019-02-11 2019-03-11 TD 21 mg/24 hr patch 24 hour completed for 30 day(s) lithium carbonate 19780722 RxNo 2019-04-18 2019-05-18 or al 600 mg capsule completed for 30 day(s) Celexa 713594 RxNo 2019-04-18 2020-01-12 oral 10 mg tablet completed for 30 day(s) [facility] 2019-11-07 oral 10 mg tablet completed for 30 day(s) lithium carbonate [facility]80722 [facility] 2019-11-18 2020-04-11 or al 600 mg capsule active for 30 day(s) buspirone 944751 [facility] 2018-09-24 2018-10-24 oral 10 mg tablet completed for 30 day(s) Wellbutrin SR 101870 [facility] 2019-12-08 2020-04-11 or al 100 mg tablet sustained-release 12 hr active for 30 day(s) bupropion HCl 889786 [facility] 2019-10-08 2019-11-07 or al 75 mg tablet completed for 30 day(s) buspirone 095998 RxNo 2018-05-27 2018-07-26 oral 10 mg tablet completed for 30 day(s) olanzapine 370452 [facility] 2018-09-24 2018-10-24 oral 10 mg tablet completed for 30 day(s) citalopram 219911 RxNo 2018-03-21 2019-03-11 oral 20 mg tablet completed buspirone 626791 RxNo 2019-02-11 2020-04-11 oral 30 mg tablet active for 30 day(s) bupropion HCl 203090 [facility] 2019-11-18 2019-12-08 or al 75 mg tablet completed for 30 day(s) citalopram 067090 RxNo 2019-03-11 2019-04-10 oral 10 mg tablet completed for 30 day(s) buspirone 925896 RxNorm 2018-03-21 2018-05-20 oral 10 mg tablet completed for 30 day(s) lithium carbonate 19780722 RxNorm 2019-10-08 2019-11-07 or al 600 mg capsule completed for 30 day(s) propranolol 301882 RxNorm 2019-05-28 2019-08-13 oral 10 mg tablet completed for 30 day(s) trazodone 204776 RxNorm 2019-10-08 2019-11-07 oral 50 mg tablet completed for 30 day(s) lithium carbonate 19780721 RxNorm 2018-03-21 2019-03-11 or al 450 mg tablet extended release com pleted trazodone 360717 RxNorm 2019-04-18 2019-04-30 oral 50 mg tablet completed for 30 day(s) Problems Problem Name Code CodeSy stem Alternate Code Alternate CodeSystem Start Date End Date Status Narrative Alcohol dependence, uncomplicated 7 33022307 SNOMED-CT 2018-01-28 Active Bipolar II disorder 97742473 SNOMED-CT 2018-01-28 Active Cannabis use disorder, Moderate 127137374 SNOMED-CT 2018-03-21 Active Bipolar disorder, current episode depressed, mild 05725229 SNOMED-CT 2019-01-08 Active Cannabis use disorder, Moderate 328147482 SNOMED-CT 2018-03-21 Active Tobacco use 446547270 S NOMED-CT 2020-09-23 Active Alcohol dependence, uncomplicated 7 59970562 SNOMED-CT 2018-01-28 Active Bipolar II disorder 50956107 SNOMED-CT 2018-01-28 Active Bipolar disorder, current episode depressed, mild 54740128 SNOMED-CT 2019-01-08 Active Relevant diagnostic tests/laboratory data Narrative No Information Procedures Procedure Name Code Code System Target Site Date of Procedure Status Service Delivery Location Device Cod e Device Name Device UID Psychotherapy, 45 minutes with patient [id number] SNOMED-CT () 2018-02-[address], [id number] Psychotherapy, 45 minutes with patient [id number] SNOMED-CT () 2018-03-[address], [id number] Psychotherapy, 45 minutes with patient [id number] SNOMED-CT () 2018-05-[address], [id number] Psychotherapy, 45 minutes with patient [id number] SNOMED-CT () 2018-08-[address], [id number] [id number] Psychotherapy, 45 minutes with patient [id number] SNOMED-CT () 2018-09-[address], [id number] Psychotherapy, 45 minutes with patient [id number] SNOMED-CT () 2018-10-[address], [id number] Psychotherapy, 45 minutes with patient [id number] SNOMED-CT () 2019-12-[address], [id number] Initial Psychiatric Evaluation [id number] SNOMED-CT () 2018-03-[address], [id number] [id number] Health Monitoring / Risk Reduction Counseling - Brief [id number] SNOMED-CT () 2018-12-[address], [id number] [id number] Health Monitoring / Risk Reduction Counseling - Interm ediate [id number] SNOMED-CT () 2018-03-[address], [id number] [id number] Health Monitoring / Risk Reduction Counseling - Interm ediate 420702612 SNOMED-CT () 2019-04-[address], [id number] [id number] Health Monitoring / Risk Reduction Counseling - Interm ediate 164184352 SNOMED-CT () 2019-10-[address], [id number] [id number] Est. Patient - E&M Intermediate [id number] SNOMED-CT () 2019-01-[address], [id number] [id number] Est. Patient - E&M Intermediate [id number] SNOMED-CT () 2019-02-[address], [id number] [phone] Est. Patient - E&M Intermediate [id number] SNOMED-CT () 2019-04-[address], [id number] [id number] Est. Patient - E&M Intermediate [id number] SNOMED-CT () 2019-05-[address], [id number] [id number] Est. Patient - E&M Intermediate [id number] SNOMED-CT () 2019-07-[address], [id number] [id number] Est. Patient - E&M Intermediate [id number] SNOMED-CT () 2019-10-[address], [id number] [id number] Est. Patient - E&M Intermediate 510472803 SNOMED-CT () 2019-12-[address], [id number] Est. Patient - E&M Intermediate [id number] SNOMED-CT () 2020-01-[address], [id number] [id number] Est. Patient - E&M Intermediate [id number] SNOMED-CT () 2021-03-[address], [id number] [id number] Est. Patient - E&M Intermediate [id number] SNOMED-CT () 2021-05-[address], [id number] [id number] Est. Patient - E&M Brief 107859833 SNOMED-CT () 2018-05-[address], [id number] Est. Patient - E&M Brief 070700630 SNOMED-CT () 2019-08-[address], [id number] [id number] Est. Patient - E&M Brief [id number] SNOMED-CT () 2020-05-[address], [id number] [id number] Est. Patient - E&M Brief [id number] SNOMED-CT () 2020-07-[address], [id number] [id number] Est. Patient - E&M Brief [id number] SNOMED-CT () 2020-10-[address], [id number] [phone] Est. Patient - E&M Brief [id number] SNOMED-CT () 2020-11-[address], [id number] [phone] Est. Patient - E&M Brief [id number] SNOMED-CT () 2020-12-[address], 393073201 [id number] Est. Patient - E&M Expanded [id number] SNOMED-CT () 2021-01-[address], [id number] [id number] Individual Psychotherapy [id number] SNOMED-CT () 2018-04-[address], [id number] [id number] Individual Psychotherapy [id number] SNOMED-CT () 2018-12-[address], [id number] [id number] Individual Psychotherapy [id number] SNOMED-CT () 2020-09-[address], [id number] [phone] Individual Psychotherapy [id number] SNOMED-CT () 2020-11-[address], [id number] [id number] Individual Psychotherapy [id number] SNOMED-CT () 2021-03-[address], 535574682 [id number] Individual Psychotherapy [id number] SNOMED-CT () 2021-05-[address], [id number] [phone] Individual Psychotherapy [id number] SNOMED-CT () 2018-02-[address], [id number] [id number] Individual Psychotherapy [id number] SNOMED-CT () 2018-03-[address], 402651175 [id number] Individual Psychotherapy [id number] SNOMED-CT () 2018-05-[address], [id number] Individual Psychotherapy [id number] SNOMED-CT () 2018-08-[address], 277724267 [id number] Individual Psychotherapy [id number] SNOMED-CT () 2018-09-24 [address], [id number] [id number] Individual Psychotherapy [id number] SNOMED-CT () 2018-10-[address], [id number] [id number] Individual Psychotherapy [id number] SNOMED-CT () 2019-12-[address], [id number] [id number] Psychiatric Diagnostic Evaluation without medical serv ices 556416184 SNOMED-CT () 2018-01-[address], [id number] [id number] Psychiatric Diagnostic Evaluation without medical serv ices [id number] SNOMED-CT () 2020-09-[address], [id number] SNOMED-CT () 2018-11-[address], 053491205 [id number] SNOMED-CT () 2018-12-[address], 209805786 [id number] SNOMED-CT () 2020-12-[address], [id number] SNOMED-CT () 2018-01-[address], [id number] [id number] Encounters/Encounter Diagnoses Encounter Name Encounter Code Diagnosis Code Diagnosis Name Diagnosis CodeSystem Date of Diagnosis Service Delivery L ocation Telehealth Physchotherapy 30 Minutes with Patient 29639 [id number] Bipolar disorder, current e pisode depressed, mild SNOMED-CT 2021-05-20 [facility] [address] [place] [address], [id number] Vital Signs Code CodeSystem Vitals Date Value 69737-4 LOINC BMI 2019-10-08 23.85 (lb/in2) 8302-2 LOINC Height 2019-10-08 71 [in_i] 8867-4 [facility] Heart Rate 2019-10-08 60 /min 80707-1 [facility] Weight 2019-10-08 171 [lb_av] 8462-4 [facility] Blood Press ure-Diastolic 2019-10-08 150 mm[HG] 8480-6 [facility] Blood Press ure-Systolic 2019-10-08 90 mm[HG] Social History Element Description Description Start Date End Date Code CodeSystem AdditionalInfo SexAssignedAtBirth Male 1965 M AdministrativeGender Hospital Discharge Instructions * Reason For Referral Medical Equipment * FDA Assessments * Goals Section Goals Planned DateTime Gilmer will effectively cope with stressors 2020-11-22
[2021-08-31] MEDS ORDERED: busPIRone 10 MG TAB PO ONE (19:45)
[2021-08-31 19:48] LABS: AMPHETAMINES LEVEL URINE NEGATIVE (NEGATIVE); BARBITURATES URINE NEGATIVE (NEGATIVE); BENZODIAZEPINES URINE NEGATIVE (NEGATIVE); CANNABINOIDS URINE POSITIVE (NEGATIVE); COCAINE METABOLITE URINE NEGATIVE (NEGATIVE); METHADONE URINE NEGATIVE (NEGATIVE); OPIATES URINE NEGATIVE (NEGATIVE); PHENCYCLIDINE URINE NEGATIVE (NEGATIVE)
[2021-08-31 20:41] LABS: HEMATOCRIT 42.5 % (42.0-52.0); HEMOGLOBIN 14.7 g/dl (13.5-17.5); MEAN CORPUSCULAR HEMOGLOBIN 33.3 pg (27.0-33.0); MEAN CORPUSCULAR HGB CONC 34.6 g/dl (32.0-36.5); MEAN CORPUSCULAR VOLUME 96.4 fl (80.0-96.0); PLATELET COUNT, AUTOMATED 187 10^3/uL (150-450); RED BLOOD COUNT 4.41 10^6/uL (4.30-6.10); WHITE BLOOD COUNT 10.2 10^3/uL (4.0-10.0)
[2021-08-31 21:03] LABS: ANISOCYTOSIS 1+; ATYPICAL LYMPH 16 % (0-5); BASOPHILS 1 % (0-1); EOSINOPHILS 5 % (0-3); LYMPHOCYTES 40 % (16-44); MONOCYTES 8 % (0-5); NEUTROPHILS 30 % (28-66); PLATELET ESTIMATE NORMAL (NORMAL)
[2021-08-31 21:05] LABS: HCG, SERUM QUALITATIVE NEGATIVE
--- OUTSIDE RECORDS SUMMARY | 2021-08-31 21:10 | CCD ---
Author Author [facility] Organization [facility] Address Unknown Phone Unavailable Care Team Providers Care Marine Architect Name Role Phone Laurita Jorgensen MD Unavailable [...] Unavailable Unavailable Laurita Jorgensen MD Unavailable Unavailable Lauriat Jorgensen MD Unavailable Unavailable Laurita Jorgensen MD Unavailable Unavailable Laurita Jorgensen MD Unavailable Unavailable Laurita Jorgensen MD Unavailable Unavailable Laurita Jorgensen MD Unavailable Unavailable Laurita Jorgensen MD Unavailable Unavailable Laurita Jorgensen MD Unavailable Unavailable Laurita Jorgensen MD Unavailable Unavailable Laurita Jorgensen MD Unavailable Unavailable Laurita Jorgensen MD Unavailable Unavailable Aleja Goldberg STUDENT FINANCE ADVISOR STUDENT FINANCE ADVISOR Unavailable Unavailable Ashley Schmidt MD Unavailable Unavailable [...] CULP MD Unavailable Unavailable Yusuf, A Aleja STUDENT FINANCE ADVISOR Unavailable Unavailable Yusuf, A Aleja STUDENT FINANCE ADVISOR Unavailable Unavailable Yusuf, A Aleja STUDENT FINANCE ADVISOR Unavailable Unavailable Yusuf, A Aleja STUDENT FINANCE ADVISOR Unavailable Unavailable Yusuf, A Aleja STUDENT FINANCE ADVISOR Unavailable Unavailable Yusuf, A Aleja STUDENT FINANCE ADVISOR Unavailable Unavailable Yusuf, A Aleja STUDENT FINANCE ADVISOR Unavailable Unavailable Yusuf, A Aleja STUDENT FINANCE ADVISOR Unavailable Unavailable Yusuf, A Aleja STUDENT FINANCE ADVISOR Unavailable Unavailable Yusuf, A Aleja STUDENT FINANCE ADVISOR Unavailable Unavailable Yusuf, A Aleja STUDENT FINANCE ADVISOR Unavailable Unavailable Yusuf, A Aleja STUDENT FINANCE ADVISOR Unavailable Unavailable Yusuf, A Aleja STUDENT FINANCE ADVISOR Unavailable Unavailable Yusuf, A Aleja STUDENT FINANCE ADVISOR Unavailable Unavailable Yusuf, A Aleja STUDENT FINANCE ADVISOR Unavailable Unavailable Yusuf, A Aleja STUDENT FINANCE ADVISOR Unavailable Unavailable Yusuf, A Aleja STUDENT FINANCE ADVISOR Unavailable Unavailable Yusuf, A Aleja STUDENT FINANCE ADVISOR Unavailable Unavailable Yusuf, A Aleja STUDENT FINANCE ADVISOR Unavailable Unavailable Yusuf, A Aleja STUDENT FINANCE ADVISOR Unavailable Unavailable Yusuf, A Aleja STUDENT FINANCE ADVISOR Unavailable Unavailable Yusuf, A Aleja STUDENT FINANCE ADVISOR Unavailable Unavailable Yusuf, A Aleja STUDENT FINANCE ADVISOR Unavailable Unavailable Yusuf, A Aleja STUDENT FINANCE ADVISOR Unavailable Unavailable Yusuf, A Aleja STUDENT FINANCE ADVISOR Unavailable Unavailable Yusuf, A Aleja STUDENT FINANCE ADVISOR Unavailable Unavailable Yusuf, A Aleja STUDENT FINANCE ADVISOR Unavailable Unavailable Yusuf, A Aleja STUDENT FINANCE ADVISOR Unavailable Unavailable Yusuf, A Aleja STUDENT FINANCE ADVISOR Unavailable Unavailable Yusuf, A Aleja STUDENT FINANCE ADVISOR Unavailable Unavailable Yusuf, A Aleja STUDENT FINANCE ADVISOR Unavailable Unavailable Re-disclosure Warning The records that [...] is protected by Article 27-F of the [place] [facility] law. If you continue you may have access to information: Regarding HIV / AIDS; Provided by facilities licensed or operated by the [facility] Office of Mental Health; or Provided by the [facility] Office for People With Developmental Disabilities. If such information is present, then the following [facility] mandated warning applies: This information has been [...] law may result in a fine or nursing home sentence or both. A general authorization for the release of medical or other information is NOT sufficient authorization for further disc losure. Allergies and Adverse Reactions Type Description Substance Reaction Status Data Source(s ) Propensity to adverse reactions NO KNOWN ALLERGIES NO KNOWN ALLERGIES [facility] Allergy to substance Allergy to substance Allergy to substance SEBEKA ([facility]) Family History Family Member Name Family Member Gender Family Member Status Date o f Status Description Data Source(s) Unknown Male Problem MEDENT ([facility] () Unknown Female Encounters Encounter Providers Location Date Indications Data Source(s ) Telehealth Physchotherapy 30 Minutes with Patient [facility] 05/20/2021 12:00:00 AM EDT Nilesh ([facility]) Gerry Jorgensen MD: [address] [place] [phone], Ph. Attender: Gerry Jorgensen MD [facility] Medical 03/30/2021 12:00:00 AM EDT RAY ([facility]) non-billable [facility] 03/22/2021 12:00:00 AM EDT [place]h ([facility]) Inpatient Attender: SUNI Hernandez nder: Ashley Schmidt MDAdmitter: Ashley Schmidt MD [id number] 09/14/2020 12:00:00 AM EDT - 09/16/2020 11:24:00 AM EDT Suicidal ideation without a plan, hx bipolar [facility] Suicidal ideation without a plan, hx bip olar Patient discharged. Outpatient Attender: HERMINIA Goldberg [facility] 09/10/2020 10:10:00 A M EDT [facility] Outpatient Attender: Aleja Goldberg [facility] 08/21/2020 07:3 1:01 PM EDT [facility] Outpatient Attender: HERMINIA Goldberg [facility] 08/21/2020 07:31:00 P M EDT [facility] Outpatient Attender: Aleja Goldberg [facility] 07/23/2020 11:0 5:02 AM EDT [facility] Outpatient Attender: HERMINIA Goldberg [facility] 07/23/2020 11:05:01 A M EDT [facility] Immunizations Vaccine Date Status Description Data Source(s) COVID-19 VACCINE [facility] 03/31/2021 12:00:00 AM EDT completed [employer] Vacc[employer] Series Complete: YESThis Data wa s Submitted to [facility] Via [employer]. Medications Medication Brand Name Start Date Product Form Dose Route Admi nistrative Instructions Pharmacy Instructions Status Indications Reaction Description Data Source(s) Tab-A-Alena/Beta Carotene Oral Tablet [id number] 09/16/2020 12:00: 00 AM EDT 1 {tbl} Oral active Take 1 tablet by mouth d [facility] Thiamine 100 MG Oral Tablet Thiamine HCl 100 MG Oral T ablet (B-1) Thiamine HCl 100 MG Oral Tablet (B-1) 09/16/2020 12:00:00 AM EDT 100 mg Oral active Take 1 tablet by mouth daily [facility] Hydroxyzine Hydrochloride 50 MG Oral Tab let hydrOXYzine HCl 50 MG Oral Tablet (ATARAX) hydrOXYzine HCl 50 MG Oral Tablet (ATARAX) 09/16/2020 12:00: 00 AM EDT 50 mg Oral active Take 1 tablet by mouth every 6 (six) hours as needed for Anxiety (Sleep) for up to 10 days [facility] Folic Acid 1 MG Oral Tablet Folic Acid 1 MG Oral Table t (FOLVITE) Folic Acid 1 MG Oral Tablet (FOLVITE) 09/16/2020 12:00:00 AM EDT 1 mg Oral active Take 1 tablet by mouth daily [facility] buspirone hydrochloride 10 MG Oral Table t busPIRone HCl 10 MG Oral Tablet (BUSPAR) busPIRone HCl 10 MG Oral Tablet (BUSPAR) 09/16/2020 12:00:00 AM EDT 10 mg Oral active Take 1 tablet by mouth T hree times daily [facility] Thiamine 100 MG Oral Tablet thiamine (B-1) tablet 100 mg thiamine (B-1) tablet 100 mg 09/15/2020 09:00:00 AM EDT 100 mg Oral active 100 mg, Oral, Daily Standard, First dose on Sun09/15/20 at 0900, For 30 days [facility] Medication administered onsite Folic Acid 1 MG Oral Tablet folic acid (FOLVITE) table t 1 mg folic acid (FOLVITE) tablet 1 mg 09/15/2020 09:00:00 AM EDT 1 mg Oral active 1 mg, Oral, Daily Standard, First dose on Sun09/15/20 at 0900, For 30 days [facility] Medication administered onsite multivitamin tablet 1 tablet [id number] 09/15/2020 09:00:00 AM EDT 1 {tbl} Oral active 1 tablet, Oral , Daily Standard, First dose on Sun09/15/20 at 0900, For 30 days [facility] Medication administered onsite Trazodone Hydrochloride 100 MG Oral Tablet trazodone ( DESYREL) tablet 200 mg trazodone (DESYREL) tablet 200 mg 09/14/2020 10:00:00 PM EDT 200 mg Oral active 200 mg, Oral, Nightl y, First dose on Sun09/14/20 at 2200, For 30 days [facility] Medication administered onsite olanzapine 10 MG Oral Tablet OLANZapine (ZYPREXA) tabl et 10 mg OLANZapine (ZYPREXA) tablet 10 mg 09/14/2020 10:00:00 PM EDT 10 mg Oral active 10 mg, Oral, Nightly, First dose on Sun09/14/20 at 2200, For 30 days [facility] Medication administered onsite Peculiar Carbonate 300 MG Oral Capsule lithium carbonat e capsule 300 mg lithium carbonate capsule 300 mg 09/14/2020 02:30:00 PM EDT 300 mg Oral active 300 mg, Oral, 2 Times Daily With Meals, First dose on Sun09/14/20 at 1430, For 30 days [facility] Medication administered onsite Citalopram 20 MG Oral Tablet citalopram (CELEXA) table t 20 mg citalopram (CELEXA) tablet 20 mg 09/14/2020 02:30:00 PM EDT 20 mg Oral active 20 mg, Oral, Daily Standard, First dose on Sun09/14/20 at 1430, For 30 days [facility] Medication administered onsite Propranolol Hydrochloride 20 MG Oral Tablet propranolo l (INDERAL) tablet 20 mg propranolol (INDERAL) tablet 20 mg 09/14/2020 02:30:00 PM EDT 20 mg Oral active 20 mg, Oral, Three Times Daily Standard, First dose on Sun09/14/20 at 1430, For 30 days
Check vital signs before administering
[facility] Medication administered onsite 12 HR Bupropion Hydrochloride 100 MG Ext ended Release Oral Tablet buPROPion (WELLBUTRIN SR) 12 hr tablet 100 mg buPROPion (WELLBUTRIN SR) 12 hr tablet 1 00 mg 09/14/2020 02:30:00 PM EDT 100 mg Oral active 100 mg, Oral, Daily Standard, First dose on Sun09/14/20 at 1430, For 30 days
Do not crush or chew
[facility] Medication administered onsite pantoprazole 40 MG [...] P&T Committee approved formulary equivalent.
[facility] Medication administered onsite Lisinopril 20 MG Oral Tablet lisinopril (ZESTRIL) tabl et 40 mg lisinopril (ZESTRIL) tablet 40 mg 09/14/2020 09:00:00 AM EDT 40 mg Oral active 40 mg, Oral, Daily Standard, First dose on Sun09/14/20 at 0900, For 30 doses [facility] Medication administered onsite buspirone hydrochloride 10 MG Oral Tablet busPIRone (B USPAR) tablet 10 mg busPIRone (BUSPAR) tablet 10 mg 09/14/2020 09:00:00 AM EDT 10 mg O ral active 10 mg, Oral, Three Times Daily Standard, First dose on Sun09/14/20 at 0900, For 30 days [facility] Medication administered onsite 24 HR Nicotine 0.875 MG/HR Transdermal P atch nicotine (NICODERM CQ) 21 MG/24HR 1 patch nicotine (NICODERM CQ) 21 MG/24HR 1 patch 09/14/2020 02:30:00 AM EDT 1 {patch} Transdermal active 1 patch, Transdermal, Administer over 24 Hours, Every 24 hours, First dose on Sun09/14/20 at 0230, For 30 days [facility] Medication administered onsite Hydroxyzine Hydrochloride 50 MG Oral Tablet hydrOXYzin e (ATARAX) tablet 50 mg hydrOXYzine (ATARAX) tablet 50 mg 09/14/2020 02:20:05 AM EDT 50 mg Oral active 50 mg, Oral, Every 6 hours PRN, Anxiety, Sleep, Starting Sun09/14/20 at 0220, For 30 days [facility] Medication administered onsite acetaminophen (TYLENOL) tablet [...]
MDD 4
[Order 3 End] [facility] Medication administered onsite buspirone hydrochloride 30 MG Oral Tablet busPIRone (B USPAR) 30 MG tablet busPIRone (BUSPAR) 30 MG tablet 30 mg Oral aborte d Take 30 mg by mouth Two Times Daily [facility] 24 HR Nicotine 0.875 MG/HR Transdermal P atch Nicotine 21 MG/24HR Transdermal Patch 24 Hour (NICODERM CQ) Nicotine 21 MG/24HR Transdermal Patch 24 Hour (NICODERM CQ) 1 {patch} Transdermal aborted Place 1 patch onto the skin every 24 (twenty-four) hours [facility] Insurance Providers Payer name Policy type / Coverage type Policy ID Covered green party ID Covered green party's relationship to magallon Policy [place] Plan Information Medicaid Dental S [id number] S [id number] [facility] Community Plan Commercial [id number] Self [facility] [id number] SP [id number] Medicaid [facility] Healthcare S D [id number] SELF [id number] Managed Care - [facility] P [id number] S [id number] Medicaid S [id number] S [id number] Managed Care - [facility] Plan P [id number] S [id number] Managed Care - [facility] P [id number] S [id number] Medicaid S [id number] S [id number] [facility] I [id number] Self [id number] [facility] I [id number] Self [id number] D Managed Care [facility] P [id number] S [id number] [facility] COMMUNITY PLAN [facility] [id number] SP [id number] SELF PAY ONLY UNAVAILABLE SP UNAV AILABLE [facility] RACIEL [id number] SP [id number] [facility] COMM[facility]ITY PLAN [facility] [id number] SP [id number] MEDICAID [id number] SP [id number] SELF PAY ONLY [id number] SP [id number] SELF PAY UNAVAILABLE SP UNAVAILA BLE [facility] COMMUNITY PLAN MCDO [id number] SP [id number] [facility] RACIEL [id number] SP [id number] [facility] PLAN [facility] [id number] SP [id number] [facility](MCAID) O [id number] S [id number] [facility] RACIEL [id number] SP [id number] MEDICAID [id number] SP [id number] MEDICAID M [id number] S [id number] [facility](MCAID) O [id number] S [id number] Medicaid S [id number] S [id number] [facility] COMMUNITY PLAN [facility] [id number] [facility] Community Plan Commercial [id number] Self [id number] Problems, Conditions, and Diagnoses Code Display Name Description Problem Type Effective Dates Data Source(s) Suicidal ideation without a plan, hx bip olar Suicidal ideation without a plan, hx bipolar Diagnosis 09/14/2020 01:41:00 AM EDT [facility] [id number] Tobacco use Tobacco use Condition 09/23/2020 12:00:00 AM EST [employer] ([facility]) [id number] Tobacco use Tobacco use Condition 09/23/2020 12:00:00 AM EST [employer] ([facility]) Surgeries/Procedures Procedure Description Date Indications Data Source(s) Individual psychotherapy (regime/therapy) 05/20/2021 1 2:00:00 AM EDT [facility] ([facility]) Evaluation AND/OR management - established patient (procedur e) 05/16/2021 12:00:00 AM EDT [facility] Evaluation AND/OR management - established patient (procedur e) 03/14/2021 12:00:00 AM EDT [facility] ([facility]) Evaluation AND/OR management - established patient (procedur e) 03/14/2021 12:00:00 AM EDT [facility] ([facility]) Individual psychotherapy (regime/therapy) 03/09/2021 1 2:00:00 AM EDT [facility] ([facility]) Individual psychotherapy (regime/therapy) 03/09/2021 1 2:00:00 AM EDT [facility] ([facility]) Evaluation AND/OR management - established patient (procedur e) 01/24/2021 12:00:00 AM EST [employer] ([facility]) Evaluation AND/OR management - established patient (procedur e) 01/24/2021 12:00:00 AM [facility]) Evaluation AND/OR management - established patient (procedur e) 12/27/2020 12:00:00 AM EST [employer] ([facility]) Evaluation AND/OR management - established patient (procedur e) 12/27/2020 12:00:00 AM EST [employer] ([facility]) Evaluation AND/OR management - established patient (procedur e) 11/24/2020 12:00:00 AM EST [employer] ([facility]) Evaluation AND/OR management - established patient (procedur e) 11/24/2020 12:00:00 AM EST [employer] ([facility]) Individual psychotherapy (regime/therapy) 11/22/2020 1 2:00:00 AM EST [employer] ([facility]) Individual psychotherapy (regime/therapy) 11/22/2020 1 2:00:00 AM EST [employer] ([facility]) Evaluation AND/OR management - established patient (procedur e) 10/11/2020 12:00:00 AM EST [employer] ([facility]) Evaluation AND/OR management - established patient (procedur e) 10/11/2020 12:00:00 AM EST [employer] ([facility]) Diagnostic psychiatric interview (procedure) 0 12:00:00 AM EST [facility] ([facility]) Diagnostic psychiatric interview (procedure) 0 12:00:00 AM EST [facility] ([facility]) Individual psychotherapy (regime/therapy) 09/21/2020 1 2:00:00 AM EST [employer] ([facility]) Individual psychotherapy (regime/therapy) 09/21/2020 1 2:00:00 AM [facility] DRUG SCREEN QUALITATIVE LITHIUM <td>LITHIUM LEVEL</td><td>Routine</td><td>09/15/2020 6:10 AM EDT</td><td></td><td> </td> 09/15/2020 06:10:00 AM [facility] COVID-19 PCR <td>COVID-19 PCR</td><td>Rou leah</td><td>09/14/2020 3:33 PM EDT</td><td></td><td> </td> 09/14/2020 03:33:00 PM EDT [facility] Evaluation AND/OR management - established patient (procedur e) 07/28/2020 12:00:00 AM EDT [facility] ([facility]) Evaluation AND/OR management - established patient (procedur e) 07/28/2020 12:00:00 AM EDT [facility] ([facility]) Results ID Date Data Source [id number] 09/17/2020 11:49:24 AM EDT [facility] Name Value Range Interpretation Code Description Data Angelina rce(s) Supporting Document(s) Discharge Summary [facility] YVCGXs4qDdHXNhMk17/JAWjpJTUak0LuCUanGFo5FRsrVZFcM1CcQVW1mC3lYHM5QYvCKgUmDdAhONRi lbm [file] ICAgICAgICAgICAgICAgICAgICAgICAgICAgICAgICAgICAgICAgICAgICAgICAgICAgICAgICAgICAg KJJcWAVfDZTxYDFlOPKdYSXpGZYnFL8EXWKqGFOwTXFbAMZjSUWqRRBtPLWiGEWiCRQdTSGvQQNkBIAj ICAgICAgICAgICAgICAgICAgICAgICAgICAgICAgIC KaJSFzDQMwIRKnXXPjGPPcXVHfWXSoUMVvACIiFXYbUA6RAZLwBRXrVOXdQOKeCIUqDGHiXWPmGIDmJW AgICAgICAgICAgICAgICAgICAgICAgICAgICAgICAgICAgICAgICAgICAgICAgICAgICAgICAgICAgIC YbETUnTNEdCOUcNMYpUI4NSYRdZWEvNAIjCXUbZGPu ICAgICAgICAgICAgICAgICAgICAgICAgICAgICAgICAgICAgICAgICAgICAgICAgICAgICAgICAgICAg YAVuSUUgYEPvTHTnLHFxJYXcQAVwCXVtEA0OPXMeWFKgMCUkILCoVFVnTYEnZWFnBKIpMZFsCFZcAMCd ICAgICAgICAgICAgICAgICAgICAgICAgICAgICAgIC DvRGUnDWQpRQYgOTKfKHQkNZUbHTHrOBFvNUXcHXUdHYFaBD6SBXWxUBTbTCBiFORnABFrGZJlOFUwFJ AgICAgICAgICAgICAgICAgICAgICAgICAgICAgICAgICAgICAgICAgICAgICAgICAgICAgICAgICAgIC RmQDVmGMSiKOHfHPGoDGVoBK0IRLWzNFNyOHZrZOWt ICAgICAgICAgICAgICAgICAgICAgICAgICAgICAgICAgICAgICAgICAgICAgICAgICAgICAgICAgICAg TWAvMUUvTKFcOLVnPAXoPOLfWBLsFIPiCKYsGM8TLKLxNGOzTLWnZUPzUQHeYMAmOTFxNFOmHDQsGIYe ICAgICAgICAgICAgICAgICAgICAgICAgICAgICAgIC JySYOyNPUlNKDhUXJsICDfNJLvOBPxOBWuYORgOSEvMSBmAZDhUH0BBZQzGYFnULVuLZErCIBiDUWmDQ AgICAgICAgICAgICAgICAgICAgICAgICAgICAgICAgICAgICAgICAgICAgICAgICAgICAgICAgICAgIC NfQAAyIHAyQWSgBIFiLJPgYPKnGF4XAQRmBETeFXWp ICAgICAgICAgICAgICAgICAgICAgICAgICAgICAgICAgICAgICAgICAgICAgICAgICAgICAgICAgICAg QCBuQRKsEFFaSBArOXNeLQEbUMAgSHQtWSVpJQWcAC1MWB78qZGem7A2AANqCT3ljkm/Vt9HIJbudvSt vYKyBT0XGuAkUP4ged8SXqUeGV9gpy2GILfWIvZwQ9 I7gBZqBVDiVADOZxOmI87bEIyzCn78PFweUJQpNoUbICh5Ae9WBvOaS1hcEWWyZuF6VMBePoS9WGScDu C2MZWgZhYiCIKvPZBiTKWzLGWFVSK2DJUfUhVtEsKlYEXmHFgcHZBXVIJlCMTqRlCsBkOyHRQdPZ2ROI KxN542jpUoKBRTYp6+MJutsbVpDheNIqC2AHZiw3Ia YOf0IG1NAEKuVsqyq0TqFvGwBZYKQGqpGM6UTRX1DNKrQXFhSa3FPXYyC690mwUsLG5MEc0EFkRfXF0z te3AYbPuSLChTcuNWgl0HIveZT2WzMTqXDtGiTFwlRTmE2EyC0CvgMRmzYEtaMNReX3cWW0nWSXtRGcj TlAgYXQgMTAvMjkvMjAyMCAxMToyNCBBTSkNCiAgL0 Wfw9TnIjU8EHJoFlZjDCwtVRBqTkO2HH79lXhxIX4OQPRoWLGeEO36HVK0WEIiEa0LVt6SHeChHX1msy 7NIyYzCCClTgnIUao7AOeuOJ8WyEQwL3AeoVRhw2cJOoBvI5NVFJS9QHJtJe7RPHXgXrAkBQQdHWhmGV 7yJZVnLGCVtCafctF2KG6QKL3sclIoIF4OCdUmQw6e Pf4KGfXlT8FbX1KeWWZaAXLASYeqEI6STBahCY4gLS2Lg3LKlQReeG3kmy6JCDWpACCqKixaun1CYubv D1E8mJsuIVBdOMefEJQDUJvzVN6HLOWxPPO1NHA5IWHcSSKMXxJcS73rSF4YO0Yys44lNaM6ZNOqHwAz PVagWY39bErjynQqvXBbtPwjUH0HFb2+DQplbmRvYm iRVyxlDDTFKoAeUoLYGyKeIMItTFTwSIKfEuF6DwWkTt6LBCSrWTWwHGOiClWyEQLcATZtOPrjASZxRN gqGqBqLKJiALDpLT8CPbSxIPQsPpEoMBlzTAYrPQOqjj7PADUgRZUoGNA0UaZzTVSjYJCsWTnfCVIaRW E6YEw8KPAvQUSpFN8QCgCqIKNmWMZfOTbjSFZcVSOp jp7PARLtXFKxAdI5RzVzGVIoYORvGTobKAYbTGG9QJXrDPYmLMZjJB1ALuXvCJDkJEJ6JchoJEMxUGEh iz9VVNYjQLLeHARsPXZpRJOsGSGxWFqsJRBcQWZ9KWk8NCWlDHHfYE5WMkBgCUXlGFNtLAAzDCEoLESv cy6PEOBoIRGeMNo7ViPqHTFiTHFuNJexFMQsSNZ2QR ByBZExGZVyHX6WUtPeFFKnEtT9SKFqDJWtIFExfu9GPMGtLPKeAbfvFeGyPWBpQLSiFAhpOSRmRLR6Ff RqAZKmZBNkEU4FXwLvYKGlEyO6OGDdJQAuCZOfbj0UJCEdICKbLLP9MUAlJYTiEYPnBLhbXKJvMTE7JA J6FVVrSFAnYJ1CCjUgZYGaTbS1NUgcSRKeDUMkau5G LXAbLUIyCknbLOJkDBZoXXKiAQniNEEdVTTdEPzzFOQqHXWgOP7LVmFgLQOfInN3NltuJQOtQKWxcv3E EEFfBPCxXECzUTMgNLOwINFlIHjjGWWuSAW0UNU5CCVcVWOrFH3YGdYyAKFsPaKiYEbiSGTpWIGenb8E GRPuZUPoHJf5JfXvUCOoPHSyKAqpZYBnKJL8TXt7SG LmWXFvPX7DKfDkPZFqGkJsShgdHYPwKNNpod3MCVGzFIPjXbZmTnQbGWZdMERvNZytLXCbNQI9OMI7WG AwKVHrKP5AVqAsYVYkEni2NGmnIGHdKJSjmq1OQDSeLRR9XXT6AwSpTNNdGLDyAApmDZUfOSC9PADtAC VoZDJzBH2KUoWaIXQaFJf8DGklNUMlRIRvqu6YUJYg VZD7WFj0PAMiWNUaESQuNKbaLCHlDIVwBHJ3IUBpRTJwIL7VHtExSPSmKLU6XVegQPEyKTJnbf2APGMm XMW6IKFuIhWiMPCtFWPoSGlmKSFdNSGlYyS3HFTuAKEyHD3IIkXvVSXwNqX0PRatKFDxOORqxz0OVFWf QNB0JmBkXgSmJPFfKAWkGEpcOFXhWWBfArL5MZIcCS KdXH0BFzWhEWOsPiW8BtMdRZXeSJUuxb6ZGEAmDDW2SeTeAHJwGCPiWHMmZTsjVVVvNRW0EFO8FSMvLX CdJO2PXdQgNMRgGdE4UOwsMNYiWEZgza7BCZXzJZC7RFnhEQZbOAUrKDFvSQuqWTVfGWH3Tfk9IQRgFA HtIC4JUsBwFUKrVeEjAFowZFTsCUJryf1PSVIcGPU0 QEDbKFJiDESvIPNrZCvkRFLmHWrgZVruLJQtIUOaYB3QQgYeBNQgCuF2BvHbTYCvHSOkch6HUUUfCBU1 OTwbXRDlMMIvFLXfQRfaXFIeKJgqYHz8NJShAUSePO9NFmScSCMiRkAjJeRyUCGcFQDwgo4YJFMrKNA6 SZrzJKXgNNEmDJRqEBfqEPXxKMwoUnD7ADUjVCMnCI 7TGoPmCIRiPtRsXPqtHUFnZNKuib4IDCFcAJO6IgQmLAWmIALeJAQzNNc5myRnlXJkPIr9CF6PJ3Fhjw ImMqEYDl5Fz179IJJkWAHoKn4GU9yhIh2mUCIsGSSTPk0STGk9SNOoJNCrGuZdVPUwKQV2GTAvYMQsYY VhV3H1I3OpJYb+HHgeQBG6UyVyG9N6CVT2SrRcKIVx AyPoLuSiFZC7KiL1GH4oJJHTIf6+SQotvJNssOerWDXCEhjuQysaEPhiQAXHIl9I ID Date Data Source [id number] 09/15/2020 07:19:41 AM EDT [facility] Name Value Range Interpretation Code Description Data Angelina rce(s) Supporting Document(s) Peculiar [Moles/volume] in Serum or Plasma 0.52 mmol/L 0.60-1.20 L [facility] ID Date Data Source [id number] 09/14/2020 04:53:37 PM EDT [facility] Name Value Range Interpretation Code Description Data Angelina rce(s) Supporting Document(s) History and Physical [facility] DHNDUx8eScLLWtUy74/LAZqxEJOfb8PfDMtxKSi1KNokJKPsA6MzRGK0oQ8eIIA8RFtTKzLwKkClFEW4 lbm [file] ICAgICAgICAgICAgICAgICAgICAgICAgICAgICAgICAgICAgICAgICAgICAgICAgICAgICAgICAgICAg ICAgICAgICAgICANCiAgICAgICAgICAgICAgICAgIC AgICAgICAgICAgICAgICAgICAgICAgICAgICAgICAgICAgICAgICAgICAgICAgICAgICAgICAgICAgIC AgICAgICAgICAgICAgICAgICAgICANCiAgICAgICAgICAgICAgICAgICAgICAgICAgICAgICAgICAgIC AgICAgICAgICAgICAgICAgICAgICAgICAgICAgICAg ICAgICAgICAgICAgICAgICAgICAgICAgICAgICAgICANCiAgICAgICAgICAgICAgICAgICAgICAgICAg ICAgICAgICAgICAgICAgICAgICAgICAgICAgICAgICAgICAgICAgICAgICAgICAgICAgICAgICAgICAg ICAgICAgICAgICAgICANCiAgICAgICAgICAgICAgIC AgICAgICAgICAgICAgICAgICAgICAgICAgICAgICAgICAgICAgICAgICAgICAgICAgICAgICAgICAgIC AgICAgICAgICAgICAgICAgICAgICAgICANCiAgICAgICAgICAgICAgICAgICAgICAgICAgICAgICAgIC AgICAgICAgICAgICAgICAgICAgICAgICAgICAgICAg ICAgICAgICAgICAgICAgICAgICAgICAgICAgICAgICAgICANCiAgICAgICAgICAgICAgICAgICAgICAg ICAgICAgICAgICAgICAgICAgICAgICAgICAgICAgICAgICAgICAgICAgICAgICAgICAgICAgICAgICAg ICAgICAgICAgICAgICAgICANCiAgICAgICAgICAgIC AgICAgICAgICAgICAgICAgICAgICAgICAgICAgICAgICAgICAgICAgICAgICAgICAgICAgICAgICAgIC AgICAgICAgICAgICAgICAgICAgICAgICAgICANCiAgICAgICAgICAgICAgICAgICAgICAgICAgICAgIC AgICAgICAgICAgICAgICAgICAgICAgICAgICAgICAg ICAgICAgICAgICAgICAgICAgICAgICAgICAgICAgICAgICAgICANCiAgICAgICAgICAgICAgICAgICAg ICAgICAgICAgICAgICAgICAgICAgICAgICAgICAgICAgICAgICAgICAgICAgICAgICAgICAgICAgICAg ICAgICAgICAgICAgICAgICAgICANCjw/eCJxX5nmqW UdxmK2B5ruLr8QUq6GUL0cr1XrTUJjPGcmzyMfZqpAYqKhWMUcSayVLcs3BCgkDI4KgMQrN5IyZ7CxHX vxBZ0GACDcTOGlwTMpVKXvQEIjEcV3SUKwIAnuRL3ZzGWxLBdvXYImYOSjThXvKGRtDZLqCMCuFGQkUE GKJBPrSSPqSiWrWWTwUDUiUNfhEXZPAUV6GDDwHjCz RHXaLXMySpLsCGRTKM1DBkAmS6RtaG33ADJtBJc+Fg6ZXM5ol0ZbKFm6BOZbQS4qgp3SNWhEErFyB6Yd kxK3TFB6LUNnCh1WUQUrXHGxoRD1HEKbNZJCQvOaU5UyoT17FNJOUn3+KLlnroUzSkyEGwU9BWSfq9Rw YSg7HY7GJGJxEWp1xBBjQYNJUTE7ORd1tk8sONMOUW yxNTZLHIDaiSNaTD3zLo7dETNxGUQxVeK5LXQVSO0MGXZzHJVliBEeJRFhWZHNYZ8JKDsyFAZ1QFEelv RpaVUbDNscGH9KBYPysuGpGVRsSWXLXFd+Bl8XXU6wm0XmTHy2OeHbPF2qeo9HGQaKHdQmG1N8nQZhP4 W7AYhpAf6WEYVdEIRrGUBjIFEWZKksBX8YXM2aayU6 GD0RcSGmEVWvUNDafSMkAGh0Q85qnEJeHNwqSL7JIKU+Arturo+Qe1GQCIgNFIwLDZeKdArTAPTQxNjZ8Zr U4ECg8RqB7OsVF23nXnabtWvIHqtJK6QNV4fDCCzUNEIPZ6XwAVdpX4oceV0KSGsLXHDTxSfZ26isKDr HMNcFIRpSIDoFf5FHKLzN2QscdFgxUuyjcLiHPNpRC UJAD3UGVhgziVquLKwvEjvYM86lHskFZ6JFp1CSvTgPA9xwi3MwAMsSm6NKAC8Ju4VJYLjXCIiDWSeGK O0UHKjHmJlGTawPTPyIKZoJBP5UUMyOQTmSN5TVsZxRLPjTRjhSqszCHFgTZHhqi2WNSExASG7QBI6GY AwNXDbSEAiOFlrHSPyTUYrPFH7QYApOHDjGS9EUnCb WFGbBOU4YafnMDDwEZPbij8PEQGrICFtIwc8TdKvGENpCFAiWGzyZLEhWKH8QzX6FVJrQIPyIE1LOiZl ZYFgZTL9PVEcVFKbGQMuhy1XGQVuPUBwGOC7XsYwCQEuIEFjXPsjMTHzRQPdUbv4RZVvUHOuDX5ZLkOp DLOrWLOyMvwbRVGiKBVqcz5MJVQhWBVyMzW1ElUcFK PsEADuKMnzNTVfRWL1Zua3RHVmQXGoLS7YHrWuOOAqAJV6MVWsGXDrBGZbzx6FFOZsDRCsCYn3MTAmLO DkEFXnUHwgPQWrWNToASk8QZOfOWLbLI1ZHfAlIMWbMjX1JOdxFLCvBOXaoe8KYBTxCGMmQbjrFUCeBV VxHTOtVXhjNGJeTDF4PDu9GZEdEVInKZ9SQfGuKOBd Wfw6VOWxKUYmXLZjtl2VVIQhAYKqLPL4LUSsOWMcBHHqKTypTSRnKIFpQct8PORfLMNrSD9KFiKjICRn ZlG4VQOtZFZlIWBidn7KVULlNPVjNbQoCPEjJKFrJHScQArhZMVuKDQwZUxgEIXoISXwTO8WEqFoRRMl AfSwEnfvOLBtTXHhry3CWNXaRGXrHJE7ZKKdVFFwIP NgCHewPCZwTOO7IbEjUUFkOKEqDR6YUdBwAZEhBnQ8BJUjOUErSSOrwh1DRKEsVEWnCVncAANoLUThAI ZiHHixOPLuNKF5UuLgBNQyKRLhGH6KJzFaVEUvZcA2MKfeAQNqGNQizz9PGWFvBEScQvE9HKVcOHBiXS OvVCglPMEdBXE6SUE5UCFeGZHlYZ4AQqSzFEKzGJe2 WNInHYMmQMWcbl3ETNHbVRE9YQo6XaIfGAMiSVAfZVltQFXvAMC9GBaoFAEyGHKePA2FGiTyHVSoXIyo LiwzHLZlQMMvue0DRTSqYDK1GHY0GJVyEHYvHTMuBVcjQZOnNYQqPAN7ADIiEMDeTU7DWqHjWACsABK1 VMmgRCIcEHLpfr3KGXIyOHN2WBG6MCHyZIWdTAFxIK grYIBtKYDfXleiUOWhMCFiLC5OBkWfANTcFNE4HdEaRCRzNJNdsw6KYIGoYOK1KdgnGmMdSCFjEDXzAH loEZZpMFG2BNV9KPEqHHIaBC6WIeRrAMJwZJhfWfQuRSTcZCPspq6XYRNmCSI0OgKbMqNcNKQvTGXgEQ eeZJTuEST7HkJ6TQXkOYJnNG2XHpNjRMQgCWk4JwTc KAEyGVPzyh9HCPYhVYU2MLQbJABzCZQeCUZyMRmwHWEdWPN1QqR1YNAtOYXsRB1RQmWqYELwWNy0Zejk HVEiONTnjc6TUVRmOXU5OHGrDMRsWKPsZLRhNTzfOROtCEUzGHN5BWWcVUMmNJ2ZXwGvGWNlEuE3PYSi RZDzSQXlbk7AmKPolUwghg9GIPqCFw6UgPwjYQH2EK zdKf8rkOZ2DnUsZDFNPe0XaiZfAZNyMYEYXGhsLIBhBPK1QqRgBNQtHhL8XZF3KJGuP5CyLzZdCUUfDc M9UHaiZxM1VTnyZxJvOaU3QlV7RwSrLsJyFYX1I1QjVEUdAZEtOUG+GM4nVUp+Vl0Nq0JqwjH8ohTdCA g8NAa7HQ7AVTSVX7GNDm== ID Date Data Source [id number] 09/15/2020 06:07:53 AM EDT [facility] Name Value Range Interpretation Code Description Data Angelina rce(s) Supporting Document(s) Specimen source [Identifier] of Unspecified specimen [facility] SARS-CoV-2 RNA 2019 nCoV Real-Time RT-PCR: NOT DETECTED [facility] Assay Performed [facility] Patients first test for [facility] Patient employed in healthcare setting [facility] Patient has symptoms related to [facility] When did you start to experience these symptoms [Date and time] [Phen X] [facility] Patient was hospitalized because of this condition [facility] patient was admitted to ICU for [facility] Patient resides in a congregate care setting [facility] status [facility] ID Date Data Source [id number] 09/14/2020 03:33:00 PM EDT [facility] Name Value Range Interpretation Code Description Data Angelina rce(s) Supporting Document(s) SARS-CoV-[address] [facility] This lab was ordered by [facility] and reported by [facility]. ID Date Data Source [id number] 09/14/2020 01:56:32 PM EDT [facility] Name Value Range Interpretation Code Description Data Angelina rce(s) Supporting Document(s) History and Physical [facility] CSTBVt2nHxNXZjKl76/LQVrlHCNpp9DaPGynLVc2IEgrCGPmQ7ZdHJD5dI6lXSE4GFbHCtPhNnOaBXX3 [facility] [file] AgICAgICAgICAgICAgICAgICAgICAgICAgICAgICAgICAgICAgICAgICAgICAgICAgICAgICAgICAgIC AgICAgICAgDQogICAgICAgICAgICAgICAgICAgICAg ICAgICAgICAgICAgICAgICAgICAgICAgICAgICAgICAgICAgICAgICAgICAgICAgICAgICAgICAgICAg ICAgICAgICAgICAgICAgICAgDQogICAgICAgICAgICAgICAgICAgICAgICAgICAgICAgICAgICAgICAg ICAgICAgICAgICAgICAgICAgICAgICAgICAgICAgIC AgICAgICAgICAgICAgICAgICAgICAgICAgICAgDQogICAgICAgICAgICAgICAgICAgICAgICAgICAgIC AgICAgICAgICAgICAgICAgICAgICAgICAgICAgICAgICAgICAgICAgICAgICAgICAgICAgICAgICAgIC AgICAgICAgICAgDQogICAgICAgICAgICAgICAgICAg ICAgICAgICAgICAgICAgICAgICAgICAgICAgICAgICAgICAgICAgICAgICAgICAgICAgICAgICAgICAg ICAgICAgICAgICAgICAgICAgICAgDQogICAgICAgICAgICAgICAgICAgICAgICAgICAgICAgICAgICAg ICAgICAgICAgICAgICAgICAgICAgICAgICAgICAgIC AgICAgICAgICAgICAgICAgICAgICAgICAgICAgICAgDQogICAgICAgICAgICAgICAgICAgICAgICAgIC AgICAgICAgICAgICAgICAgICAgICAgICAgICAgICAgICAgICAgICAgICAgICAgICAgICAgICAgICAgIC AgICAgICAgICAgICAgDQogICAgICAgICAgICAgICAg ICAgICAgICAgICAgICAgICAgICAgICAgICAgICAgICAgICAgICAgICAgICAgICAgICAgICAgICAgICAg ICAgICAgICAgICAgICAgICAgICAgICAgDQogICAgICAgICAgICAgICAgICAgICAgICAgICAgICAgICAg ICAgICAgICAgICAgICAgICAgICAgICAgICAgICAgIC AgICAgICAgICAgICAgICAgICAgICAgICAgICAgICAgICAgDQogICAgICAgICAgICAgICAgICAgICAgIC AgICAgICAgICAgICAgICAgICAgICAgICAgICAgICAgICAgICAgICAgICAgICAgICAgICAgICAgICAgIC HyZQGmYQMdARJsVWGuHSCvCTn9D9gcALDxRRJbTY8m EXb2Gt9+AOvONiUhMDX3pzNtuZ3INQ4hi4XvYNyoUCWua6VbANw5QK0NSMNlUKsjYG2YTBgfug5SZNDu WYVjlKLFa1bfBbYsZRF1SOEwWjcsKX1AOLEmF6kqlhMsHNGmETREDOqcYFOUUOfdLSKFRDDqFHFlKlFz FHsqTO3Ql0IbhFO0KIz+Eu8UHS0ki0SrIQpbMNZeTS 9zpg4VHLtVAvVmG3ChnvS0QCY6DPQtNq5DLDSeIVDkpJFeDYDzFUYXZtXzZ6UfyT15PXCXNp0+DQplbm ZjRgxPRaT0ZSDrc1HhTDk3FK9DJMYvGVv3xAHqHIGOUGD8PVLcYO2vQOUDrNCzKNCuVMHXTRU0RGZpAn X2PaMyCyGjEZD0WCDjCI2nXEpmSV7CNDC5TEwiNQQf MQPnU9qTPpYmSHTjVkAxoUywCD3YZlUvH7XazhQwgWZuZFMhOFNAPf6+KFsolaOwRyuIGtD7TWHlv8Oo VMb4LD5QUBXqNNlkJI7ZPDLuxZ7jPLajYJ9AAlTvYcVvRVFDSwQlM80avBNgQFo5T8VtZiOyGEFpWdiv ZXMgPDwvTmFtZXMgWyBdDQogID4+ID4+KVafKB3ITT jjxvRqXYOnKf4LYFUfXYSmTH4cNGSrXDZkS7T3pDcwFATSKvRlZ9frmfwlWU2tLTKaG494vImcjvWpAM Q5INSbQq8VEGCpFUV8RFCcyKIbZyQnKVOHBQqrSQ7TwTFwWBU3kV9eNRcxJXAlUVOaH5fOCxRcuFdmBG 51bGwgbnVsbCBdDQo+Nn1TDX8yf7ZnDEi2tyRrVKch TFO4IUzkIOYwCZKsHCWxVZD5LPL4UQDSUfZkEFBwPMXlFSkuIQDhJAXtiu3JQHRrHFRpHWL0ZIHmGLAo XRHkXAhsMGDxQLQnMHZ6CFImDEWsHM3DIdCfNBQjPJVcNAwpTEZtOFYoaw9DYYCoWYKlPsJnXxSjTFWf IUQqOGseOVVoBQTwXxOuFNZyNAHyZN3HIsHkPRZjDL LhRxdtUWNaPYKcgk6GNAIdRUAaVuE9RqMrXKLoJVHrKQteTXVjVZB9MVmkEZAtSWReAI1TLhYaPMDdEN k2IVVlOLXmZRPeeq9GMEFsTRVrXgAzJrPeTDIcCSEmXFovCNSaNWUvXpPxIZNtDERfPJ7FWjJqGSAtQM CpJoPxHGBoAVLgnm7VFKGcNNBtAmJ3ATKhVDEmZPPx YAjfWFIzPHLkXdTsSBPcUJTdBY1PSzJgNBYpKKW0HAMkCRYlYYAexn4EEKIjKSZtLQsnRrXcNVGyZFNt NSrkYBOiKQZ6DVOxYPMfHLTqWJ9TZzQpZLOmPRP7GxNdAHBiFWCavt6KXUMqUDMyWdT8BDDiLZCnTUKw RCgkEJMdCRG5FsJbYEKjHJGnEF1XCtIjWRXfSia4We LoLUAaRWDpiu1FLCPtVTBiFRC1GNLsNOMuYPEzBOtpAQBwMWV9CpNeNUWlFFSkTQ3PDqDuPHUhAhj3XU IwRMJfTXArki2GBUDwXJVjBIOmMKEcJNSrCXKhQBplJWHhRKQ7BYocRDSaUIUlYN8DBpYqBWWsOrn8Sa LgQLLlJABzmd1ESSNjGLDrUDu7XNXaEQPuIMLcMAvw EBSqVKBhGGtdPILdCDKtBM2EYhIgCZHpLxOwKCFyAAUnATZtyj0XJOKrTHLnCVS2YwUhQHCrHQBoSCwg JKJbREVhXwA7ANRnKDDiTZ7AErVbBCOhMuBlUlVsGLGjSIZisc8DLVSpTUHlZjE8FXWrWLPpUYAxJBur KPAzPEUhKzznXHYiCIVeZL6SPqPfOVdyLZRRTdx2LD zoK1u5TGKzFn8YN5Kvj1GnEcMxELASTOgkCL0cbzDbOLGzJj5XL7zJVgesAEx5DMY1MwOzQrG3EBemYY OgGcD7UlnqMrc7HZH8Nu0xWUWgPSH1QKJhYwLzIJLlUQSeHKKxCgVrZCLkVTmcUbT8YdPpCL5IZe6LTw X8TGI2mMPwZq8DJjZ1FpIMFeLvDL8QPIl= ID Date Data Source [id number] 09/13/2020 09:57:00 PM EDT [facility]) Name Value Range Interpretation Code Description Data Angelina rce(s) Supporting Document(s) sars covid-19 amplification negative negative Sars Cov id-19 Amplification [facility]) ID Date Data Source [id number] 09/12/2020 04:05:00 PM EDT [facility]) Name Value Range Interpretation Code Description Data Angelina rce(s) Supporting Document(s) lithium level 0.89 mEq/L 0.60-1.20 Peculiar Level [facility]) ID Date Data Source [id number] 09/12/2020 04:05:00 PM EDT [facility]) Name Value Range Interpretation Code Description Data Angelina rce(s) Supporting Document(s) thyroid stimulating hormone 1.850 uIU/mL 0.358-3.740 Thyroid Stimulating Hormone [facility]) ID Date Data Source [id number] 09/12/2020 04:05:00 PM EDT [facility] ([facility]) Name Value Range Interpretation Code Description Data Angelina rce(s) Supporting Document(s) acetaminophen level < 2.0 10.0-30.0 Below low normal Acetaminop hen Level [facility]) ID Date Data Source [id number] 09/12/2020 04:05:00 PM EDT [facility]) Name Value Range Interpretation Code Description Data Angelina rce(s) Supporting Document(s) salicylate level 1.9 mg/dL 5.0-30.0 Below low normal Salicylate [place] [facility]) ID Date Data Source [id number] 09/12/2020 04:05:00 PM EDT [facility] ([facility]) Name Value Range Interpretation Code Description Data Angelina rce(s) Supporting Document(s) ethyl alcohol (ethanol) 0.372 % 0.000-0.010 Above high normal Ethyl Alcohol (Ethanol) [facility] ([facility]) ID Date Data Source [id number] 09/12/2020 04:05:00 PM EDT [facility]) Name Value Range Interpretation Code Description Data Angelina rce(s) Supporting Document(s) blood urea nitrogen 10 mg/dL 7-18 Blood Urea Nitro gen RAY ([facility]) glomerular filtration rate > 60.0 >56 Glomerula r Filtration Rate RAY ([facility]) glucose, fasting 79 mg/dL 70-100 Glucose, Fasting AT BERTA ([facility]) creatinine for GFR 0.90 mg/dL 0.70-1.30 Creatinine for GF R RAY ([facility]) carbon dioxide level 24 mEq/L 21-32 Carbon Dioxide Level [place] ([facility]) potassium serum 4.1 mEq/L 3.5-5.1 Potassium Serum ATH NA ([facility]) sodium level 136 mEq/L 136-145 Sodium Level RAY (No [facility]) chloride level 104 mEq/L 98-107 Chloride Level RAY ([facility]) calcium level 8.6 mg/dL 8.5-10.1 Calcium Level RAY ( [facility]) anion gap 8 mEq/L 8-16 Anion Gap RAY ([facility]) ID Date Data Source [id number] 09/12/2020 04:05:00 PM EDT RAY ([facility]) Name Value Range Interpretation Code Description Data Angelina rce(s) Supporting Document(s) alkaline phosphatase 81 U/L 45-117 Alkaline Phosph atase RAY ([facility]) ALT/SGPT 53 U/L 12-78 ALT/SGPT RAY ([facility]) AST/SGOT 19 U/L 7-37 AST/SGOT RAY ([facility]) albumin 3.9 gm/dL 3.2-5.2 Albumin RAY ([facility]) bilirubin,total 0.4 mg/dL 0.2-1.0 Bilirubin,total ATHE ([facility]) bilirubin,direct 0.2 mg/dL 0.0-0.2 Bilirubin,direct AT BERTA [facility]) total protein 7.8 gm/dL 6.4-8.2 Total Protein RAY ( [facility]) albumin/globulin ratio Albumin/globu chidi Ratio RAY ([facility]) ID Date Data Source [id number] 09/12/2020 04:05:00 PM EDT RAY ([facility]) Name Value Range Interpretation Code Description Data Angelina rce(s) Supporting Document(s) amphetamines level urine negative negative Amphetamine s Level Urine RAY ([facility]) barbiturates urine negative negative Barbiturates Urin e RAY ([facility]) cannabinoids urine negative negative Cannabinoids Urin e RAY ([facility]) benzodiazepines urine negative negative Benzodiazepine s Urine RAY ([facility]) cocaine metabolite urine negative negative Cocaine Met abolite Urine RAY ([facility]) phencyclidine urine negative negative Phencyclidine Ur ine RAY ([facility]) opiates urine negative negative Opiates Urine RAY ( [facility]) methadone urine negative negative Methadone Urine ATHE ([facility]) ID Date Data Source [id number] 09/12/2020 04:05:00 PM EDT [facility] ([facility]) Name Value Range Interpretation Code Description Data Angelina rce(s) Supporting Document(s) white blood count 9.9 10 4.0-10.0 White Blood Count RAY ([facility]) hemoglobin 13.1 g/dL 13.5-17.5 Below low normal Hemoglobin RAY ( [facility]) red blood count 3.89 10 4.30-6.10 Below low normal Red Blood Coun t RAY ([facility]) hematocrit 39.7 % 42.0-52.0 Below low normal Hematocrit RAY ( [facility]) mean corpuscular HGB conc 33.0 g/dL 32.0-36.5 Mean Corpu scular HGB Conc RAY ([facility]) mean corpuscular hemoglobin 33.7 pg 27.0-33.0 Above high no rmal Mean Corpuscular Hemoglobin RAY ([facility]) mean corpuscular volume 102.1 fL 80.0-96.0 Above high normal Mean Corpuscular Volume RAY ([facility]) red cell distribution width 12.0 % 11.5-14.5 Red Cell Distribution Width RAY ([facility]) nucleated red blood cell % 0.0 % 0-0 Nucleated Red Blood Cell % RAY ([facility]) platelet count, automated 200 10 150-450 Platelet C ount, Automated RAY ([facility]) ID Date Data Source [id number] 08/09/2020 09:33:00 AM EDT [facility] Name Value Range Interpretation Code Description Data Angelina rce(s) Supporting Document(s) HCT 38.6 % 42.0-52.0 L [facility] HGB 13.0 g/dL 13.5-17.5 L [facility] MCH 33.7 G/DL pg 32.0-36.[address] [facility] MCHC 34.5 PG % 27.0-33.0 H [facility] PLATELETS 199 10 10*3/mm3 150-450 N [facility] RBC 3.77 10 10*6/mm3 4.30-6.10 L [facility] RDW 12.3 % 11.5-14.5 N [facility] WBC TOTAL 5.4 4.0-10.0 N [facility] ID Date Data Source [id number] 08/09/2020 09:33:00 AM EDT [facility] Name Value Range Interpretation Code Description Data Angelina rce(s) Supporting Document(s) HGBA1C 4.7 % N [facility] ID Date Data Source [id number] 08/09/2020 09:33:00 AM EDT [facility] Name Value Range Interpretation Code Description Data Angelina rce(s) Supporting Document(s) VIT D25 TOT 54.0 ng/mL 30.0-100.0 N [facility] BG FASTING 83 mg/dL 70-100 N [facility] BG RANDOM 83 mg/dL LESS THAN 200 N [facility] TSH 2.350 microintl units/mL 0.358-3.740 N [facility] Procedure Social History Code Duration Value Status Description Data Source(s ) Alcohol intake 09/14/2020 12:00:00 AM EDT Current drinker of al cohol (finding) completed Current drinker of alcohol (finding) [facility] Cigarette pack-years 09/14/2020 12:00:00 AM EDT UNK [facility] Cigarettes smoked current (pack per day) - Reported 10/27/20 20 12:00:00 AM EDT UNK completed [facility]spital Smoking 09/14/2020 12:00:00 AM EDT Current every day smoker co mpleted Current every day smoker [facility] Vital Signs ID Date Data Source [id number] 09/17/2020 11:49:24 AM T [facility] Name Value Range Interpretation Code Description Data Source(s) WEIGHT RECORDED 169.6 lb 169.6 lb [facility] Body height Measured 71 in 71 in [facility]st [facility] TRANSFER FROM [facility] Patient Treatment Plan of Care Planned Activity Planned Date Details Description Data Source (s) Thiamine 100 MG Oral Tablet 09/16/2020 12:00:00 AM [facility] Tab-A-Alena/Beta Carotene Oral Tablet 09/16/2020 12:00:00 AM [facility] Hydroxyzine Hydrochloride 50 MG Oral Tablet 09/16/2020 12:00:00 AM [facility] Folic Acid 1 MG Oral Tablet 09/16/2020 12:00:00 AM [facility] buspirone hydrochloride 10 MG Oral Tablet 09/16/2020 12:00:[address] [facility] acetaminophen (TYLENOL) tablet 650 mg 09/14/2020 02:19:58 AM [facility] 24 HR Nicotine 0.875 MG/HR Transdermal Patch [facility] buspirone hydrochloride 30 MG Oral Tablet [facility]
[2021-08-31 21:13] LABS: ACETAMINOPHEN LEVEL < 2.0 UG/ML (10.0-30.0); ALBUMIN 3.7 GM/DL (3.2-5.2); ALT/SGPT 238 U/L (12-78); BILIRUBIN,DIRECT 0.3 MG/DL (0.0-0.2); BILIRUBIN,TOTAL 0.6 MG/DL (0.2-1.0); BLOOD UREA NITROGEN 6 MG/DL (7-18); CALCIUM LEVEL 8.5 MG/DL (8.5-10.1); CARBON DIOXIDE LEVEL 23 MEQ/L (21-32); CHLORIDE LEVEL 106 MEQ/L (98-107); CPK CREATINE PHOSPHOKINASE 118 U/L (39-308); CREATININE FOR GFR 0.94 MG/DL (0.70-1.30); ETHYL ALCOHOL (ETHANOL) 0.375 % (0.000-0.010); GLOMERULAR FILTRATION RATE > 60.0 (>56); GLUCOSE, FASTING 97 MG/DL (70-100); POTASSIUM SERUM 3.7 MEQ/L (3.5-5.1); SALICYLATE LEVEL 3.6 MG/DL (5.0-30.0); SODIUM LEVEL 137 MEQ/L (136-145); TOTAL PROTEIN 8.3 GM/DL (6.4-8.2)
[2021-09-01] MEDS ORDERED: LITHIUM CARBONATE 600MG CAP PO SCH (09:00)
[2021-09-01] MEDS ORDERED: PROPRANOLOL 10 MG TAB PO SCH (09:00)
[2021-09-01] MEDS ORDERED: busPIRone 10 MG TAB PO SCH (09:00)
[2021-09-01] MEDS ORDERED: LITHIUM CARBONATE 300 MG CAP PO SCH (09:39)
[2021-09-01 09:47] VITALS: BP 150/96
[2021-09-01] MEDS ORDERED: MIRT-62 PO (11:32)
[2021-09-01] MEDS ORDERED: LITH300T2 PO (11:32)
[2021-09-01] MEDS ORDERED: HOME MED LIST COMPLETE! XX SCH (11:35)
[2021-09-01 12:05] VITALS: BP 157/96
== END 2021-09-01 12:08 | disposition home or self-care (01) ==
LOC: M ED 18:48
DX: F10.129 Alcohol abuse with intoxication, unspecified (principal); Y90.1 Blood alcohol level of 20-39 mg/100 ml; F31.9 Bipolar disorder, unspecified; Z79.899 Other long term (current) drug therapy

== ENCOUNTER 2021-09-07 08:28 | Inpatient (IN) | payer OTHER ==
[~2021-09-07] VITALS: Ht 180.3 cm; Wt 91.6 kg
[~2021-09-07 08:28] MED LIST changes: +LITH300T2 PO; +MIRT-62 PO
--- OUTSIDE RECORDS SUMMARY | 2021-09-07 08:34 | CCD ---
Author Author [facility] Organization [facility] Address Unknown Phone Unavailable Care Team Providers Care Director Stars Name Role Phone Laurita Jorgensen MD Unavailable [...] Unavailable Laurita Jorgensen MD Unavailable Unavailable Laurita Jogrensen MD Unavailable Unavailable Laurita Jorgensen MD Unavailable [...] Laurita Jorgensen MD Unavailable Unavailable Aleja Goldberg TREE WORKER TREE WORKER Unavailable Unavailable Ashley Schmidt MD Unavailable Unavailable [...] CULP MD Unavailable Unavailable Yusuf, A Aleja TREE WORKER Unavailable Unavailable Yusuf, A Aleja TREE WORKER Unavailable Unavailable Yusuf, A Aleja TREE WORKER Unavailable Unavailable Yusuf, A Aleja TREE WORKER Unavailable Unavailable Yusuf, A Aleja TREE WORKER Unavailable Unavailable Yusuf, A Aleja TREE WORKER Unavailable Unavailable Yusuf, A Aleja TREE WORKER Unavailable Unavailable Yusuf, A Aleja TREE WORKER Unavailable Unavailable Yusuf, A Aleja TREE WORKER Unavailable Unavailable Yusuf, A Aleja TREE WORKER Unavailable Unavailable Yusuf, A Aleja TREE WORKER Unavailable Unavailable Yusuf, A Aleja TREE WORKER Unavailable Unavailable Yusuf, A Aleja TREE WORKER Unavailable Unavailable Yusuf, A Aleja TREE WORKER Unavailable Unavailable Yusuf, A Aleja TREE WORKER Unavailable Unavailable Yusuf, A Aleja TREE WORKER Unavailable Unavailable Yusuf, A Aleja TREE WORKER Unavailable Unavailable Yusuf, A Aleja TREE WORKER Unavailable Unavailable Yusuf, A Aleja TREE WORKER Unavailable Unavailable Yusuf, A Aleja TREE WORKER Unavailable Unavailable Yusuf, A Aleja TREE WORKER Unavailable Unavailable Yusuf, A Aleja TREE WORKER Unavailable Unavailable Yusuf, A Aleja TREE WORKER Unavailable Unavailable Yusuf, A Aleja TREE WORKER Unavailable Unavailable Yusuf, A Aleja TREE WORKER Unavailable Unavailable Yusuf, A Aleja TREE WORKER Unavailable Unavailable Yusuf, A Aleja TREE WORKER Unavailable Unavailable Yusuf, A Aleja TREE WORKER Unavailable Unavailable Yusuf, A Aleja TREE WORKER Unavailable Unavailable Yusuf, A Aleja TREE WORKER Unavailable Unavailable Yusuf, A Aleja TREE WORKER Unavailable Unavailable Re-disclosure Warning The records that [...] is protected by Article 27-F of the [facility] Public Health law. If you continue you may have access to information: Regarding HIV / AIDS; Provided by facilities licensed or operated by the [facility] Office of Mental Health; or Provided by the [facility] Office for People With Developmental Disabilities. If such information is present, then the following [facility] mandated warning applies: This information has been [...] law may result in a fine or fpc sentence or both. A general authorization for the release of medical or other information is NOT sufficient authorization for further disc losure. Allergies and Adverse Reactions Type Description Substance Reaction Status Data Source(s ) Propensity to adverse reactions NO KNOWN ALLERGIES NO KNOWN ALLERGIES [facility] Allergy to substance Allergy to substance Allergy to substance [facility] ([facility]) Family History Family Member Name Family Member Gender Family Member Status Date o f Status Description Data Source(s) Unknown Male Problem [facility] ([facility] () Unknown Female Encounters Encounter Providers Location Date Indications Data Source(s ) Telehealth Physchotherapy 30 Minutes with Patient [facility] 05/20/2021 12:00:00 AM EDT [place] ([facility]) Gerry Jorgensen MD: [address] [place] [address] [phone], Ph. Attender: Gerry Jorgensen MD [facility] Medical 03/30/2021 12:00:00 AM EDT RAY ([facility]) non-billable [facility] 03/22/2021 12:00:00 AM EDT [facility] ([facility]) Inpatient Attender: SUNI Hernandez nder: Ashley Schmidt MDAdmitter: Ashley Schmidt MD [id number] 09/14/2020 12:00:00 AM EDT - 09/16/2020 11:24:00 AM EDT Suicidal ideation without a plan, hx bipolar [facility] Suicidal ideation without a plan, hx bip olar Patient discharged. Outpatient Attender: HERMINIA Goldberg [facility] 09/10/2020 10:10:00 A M EDT [facility] Outpatient Attender: Aleja Goldberg [facility] 08/21/2020 07:3 1:01 PM EDT [facility] Outpatient Attender: HERMINIA Goldberg [facility] 08/21/2020 07:31:00 P M EDT [facility] Outpatient Attender: Aleja Goldberg [facility] 07/23/2020 11:0 5:02 AM EDT [facility] Outpatient Attender: HERMINIA Goldberg [facility] 07/23/2020 11:05:01 A M EDT [facility] Immunizations Vaccine Date Status Description Data Source(s) COVID-19 VACCINE [facility] 03/31/2021 12:00:00 AM EDT completed [employer] Vaccine Series Complete: YESThis Data wa s Submitted to [facility] [employer]. Medications Medication Brand Name Start Date Product Form Dose Route Admi nistrative Instructions Pharmacy Instructions Status Indications Reaction Description Data Source(s) Tab-A-Alena/Beta Carotene Oral Tablet [id number] 09/16/2020 12:00: 00 AM EDT 1 {tbl} Oral active Take 1 tablet by mouth d [facility] Thiamine 100 MG Oral Tablet Thiamine HCl 100 MG Oral T ablet (B-1) Thiamine HCl 100 MG Oral Tablet (B-1) 09/16/2020 12:00:00 AM EDT 100 mg Oral active Take 1 tablet by mouth daily [facility] Hydroxyzine Hydrochloride 50 MG Oral Tab let hydrOXYzine HCl 50 MG Oral Tablet (ATARAX) hydrOXYzine HCl 50 MG Oral Tablet (ATARAX) 09/16/2020 12:00: 00 AM EDT 50 mg Oral active Take 1 tablet by mouth every 6 (six) hours as needed for Anxiety (Sleep) for up to 10 days [facility] Folic Acid 1 MG Oral Tablet Folic Acid 1 MG Oral Table t (FOLVITE) Folic Acid 1 MG Oral Tablet (FOLVITE) 09/16/2020 12:00:00 AM EDT 1 mg Oral active Take 1 tablet by mouth daily [facility] buspirone hydrochloride 10 MG Oral Table t busPIRone HCl 10 MG Oral Tablet (BUSPAR) busPIRone HCl 10 MG Oral Tablet (BUSPAR) 09/16/2020 12:00:00 AM EDT 10 mg Oral active Take 1 tablet by mouth T hree times daily [facility] Thiamine 100 MG Oral Tablet thiamine (B-1) tablet 100 mg thiamine (B-1) tablet 100 mg 09/15/2020 09:00:00 AM EDT 100 mg Oral active 100 mg, Oral, Daily Standard, First dose on Sun09/15/20 at 0900, For 30 days [facility] Medication administered onsite Folic Acid 1 MG Oral Tablet folic acid (FOLVITE) table t 1 mg folic acid (FOLVITE) tablet 1 mg 09/15/2020 09:00:00 AM EDT 1 mg Oral active 1 mg, Oral, Daily Standard, First dose on Sun09/15/20 at 0900, For 30 days [facility] Medication administered onsite multivitamin tablet 1 tablet [id number] 09/15/2020 09:00:00 AM EDT 1 {tbl} Oral active 1 tablet, Oral , Daily Standard, First dose on Sun09/15/20 at 0900, For 30 days [facility] Medication administered onsite Trazodone Hydrochloride 100 MG Oral Tablet trazodone ( DESYREL) tablet 200 mg trazodone (DESYREL) tablet 200 mg 09/14/2020 10:00:00 PM EDT 200 mg Oral active 200 mg, Oral, Nightl y, First dose on Sun09/14/20 at 2200, For 30 days [facility] Medication administered onsite olanzapine 10 MG Oral Tablet OLANZapine (ZYPREXA) tabl et 10 mg OLANZapine (ZYPREXA) tablet 10 mg 09/14/2020 10:00:00 PM EDT 10 mg Oral active 10 mg, Oral, Nightly, First dose on Sun09/14/20 at 2200, For 30 days [facility] Medication administered onsite Latimer Carbonate 300 MG Oral Capsule lithium carbonat e capsule 300 mg lithium carbonate capsule 300 mg 09/14/2020 02:30:00 PM EDT 300 mg Oral active 300 mg, Oral, 2 Times Daily With Meals, First dose on Sun09/14/20 at 1430, For 30 days [facility] Medication administered onsite Citalopram 20 MG Oral Tablet citalopram (CELEXA) table t 20 mg citalopram (CELEXA) tablet 20 mg 09/14/2020 02:30:00 PM EDT 20 mg Oral active 20 mg, Oral, Daily Standard, First dose on Sun09/14/20 at 1430, For 30 days [facility] Medication administered onsite Propranolol Hydrochloride 20 MG Oral Tablet propranolo l (INDERAL) tablet 20 mg propranolol (INDERAL) tablet 20 mg 09/14/2020 02:30:00 PM EDT 20 mg Oral active 20 mg, Oral, Three Times Daily Standard, First dose on Sun09/14/20 at 1430, For 30 days
Check vital signs before administering
[facility] Medication administered onsite 12 HR Bupropion Hydrochloride 100 MG Ext ended Release Oral Tablet buPROPion (WELLBUTRIN SR) 12 hr tablet 100 mg buPROPion (WELLBUTRIN SR) 12 hr tablet 1 00 mg 09/14/2020 02:30:00 PM EDT 100 mg Oral active 100 mg, Oral, Daily Standard, First dose on Sun09/14/20 at 1430, For 30 days
Do not crush or chew
[facility] Medication administered onsite pantoprazole 40 MG [...] with this P&T Committee approved formulary equivalent.
[facility] Medication administered onsite Lisinopril 20 MG Oral Tablet lisinopril (ZESTRIL) tabl et 40 mg lisinopril (ZESTRIL) tablet 40 mg 09/14/2020 09:00:00 AM EDT 40 mg Oral active 40 mg, Oral, Daily Standard, First dose on Sun09/14/20 at 0900, For 30 doses [facility] Medication administered onsite buspirone hydrochloride 10 MG Oral Tablet busPIRone (B USPAR) tablet 10 mg busPIRone (BUSPAR) tablet 10 mg 09/14/2020 09:00:00 AM EDT 10 mg O ral active 10 mg, Oral, Three Times Daily Standard, First dose on Sun09/14/20 at 0900, For 30 days [facility] Medication administered onsite 24 HR Nicotine 0.875 MG/HR Transdermal P atch nicotine (NICODERM CQ) 21 MG/24HR 1 patch nicotine (NICODERM CQ) 21 MG/24HR 1 patch 09/14/2020 02:30:00 AM EDT 1 {patch} Transdermal active 1 patch, Transdermal, Administer over 24 Hours, Every 24 hours, First dose on Sun09/14/20 at 0230, For 30 days [facility] Medication administered onsite Hydroxyzine Hydrochloride 50 MG Oral Tablet hydrOXYzin e (ATARAX) tablet 50 mg hydrOXYzine (ATARAX) tablet 50 mg 09/14/2020 02:20:05 AM EDT 50 mg Oral active 50 mg, Oral, Every 6 hours PRN, Anxiety, Sleep, Starting Sun09/14/20 at 0220, For 30 days [facility] Medication administered onsite acetaminophen (TYLENOL) tablet [...] 30 days
MDD 4
[Order 3 End] [facility] Medication administered onsite buspirone hydrochloride 30 MG Oral Tablet busPIRone (B USPAR) 30 MG tablet busPIRone (BUSPAR) 30 MG tablet 30 mg Oral aborte d Take 30 mg by mouth Two Times Daily [facility] 24 HR Nicotine 0.875 MG/HR Transdermal P atch Nicotine 21 MG/24HR Transdermal Patch 24 Hour (NICODERM CQ) Nicotine 21 MG/24HR Transdermal Patch 24 Hour (NICODERM CQ) 1 {patch} Transdermal aborted Place 1 patch onto the skin every 24 (twenty-four) hours [facility] Insurance Providers Payer name Policy type / Coverage type Policy ID Covered republican ID Covered republican's relationship to magallon Policy [place] Plan Information Medicaid Dental S [id number] [facility] Community Plan Commercial [id number] Self [facility] [id number] SP [id number] Medicaid [facility] S D [id number] SELF [id number] Managed Care - [facility] P [id number] S [id number] Medicaid S [id number] S [id number] Managed Care - [facility] Plan P [id number] S [id number] Managed Care - [facility] P [id number] S [id number] Medicaid S [id number] S [id number] [facility] I [id number] Self [id number] [facility] I [id number] Self [id number] D Managed Care [facility] P [id number] S [id number] [facility] COMM[facility] [id number] SP [id number] SELF PAY ONLY UNAVAILABLE SP UNAV AILABLE [facility]EL [id number] SP [id number] [facility] COMMUNITY PLAN [facility] [id number] SP [id number] MEDICAID [id number] SP [id number] SELF PAY ONLY [id number] SP [id number] SELF PAY UNAVAILABLE SP UNAVAILA BLE [facility] COMMUNITY PLAN MCDO [id number] SP [id number] [facility] RACIEL [id number] SP [id number] [facility] PLAN [facility] [id number] SP [id number](MCAID) O [id number] S [id number] [facility] RACIEL [id number] SP [id number] MEDICAID [id number] SP [id number] MEDICAID M [id number] S [id number] [facility](MCAID) O [id number] S [id number] Medicaid S [id number] S [id number] [facility] COMMUNITY [facility]AN [facility] [id number] [facility] Community Plan Commercial [id number] Self [id number] Problems, Conditions, and Diagnoses Code Display Name Description Problem Type Effective Dates Data Source(s) Suicidal ideation without a plan, hx bip olar Suicidal ideation without a plan, hx bipolar Diagnosis 09/14/2020 01:41:00 AM EDT [facility] [id number] Tobacco use Tobacco use Condition 09/23/2020 12:00:00 AM EST [employer] ([facility]) [id number] Tobacco use Tobacco use Condition 09/23/2020 12:00:00 AM EST [employer] ([facility]) Surgeries/Procedures Procedure Description Date Indications Data Source(s) Individual psychotherapy (regime/therapy) 05/20/2021 1 2:00:00 AM EDT [facility] ([facility]) Evaluation AND/OR management - established patient (procedur e) 05/16/2021 12:00:00 AM EDT [facility] Evaluation AND/OR management - established patient (procedur e) 03/14/2021 12:00:00 AM EDT [facility] ([facility]) Evaluation AND/OR management - established patient (procedur e) 03/14/2021 12:00:00 AM EDT [facility] ([facility]) Individual psychotherapy (regime/therapy) 03/09/2021 1 2:00:00 AM EDT [facility] ([facility]) Individual psychotherapy (regime/therapy) 03/09/2021 1 2:00:00 AM EDT [facility] ([facility]) Evaluation AND/OR management - established patient (procedur e) 01/24/2021 12:00:00 AM EST [facility] ([facility]) Evaluation AND/OR management - established patient (procedur e) 01/24/2021 12:00:00 AM EST [facility] ([facility]) Evaluation AND/OR management - established patient (procedur e) 12/27/2020 12:00:00 AM EST [employer] ([facility]) Evaluation AND/OR management - established patient (procedur e) 12/27/2020 12:00:00 AM EST [facility] ([facility]) Evaluation AND/OR management - established patient (procedur e) 11/24/2020 12:00:00 AM EST [facility] ([facility]) Evaluation AND/OR management - established patient (procedur e) 11/24/2020 12:00:00 AM EST [facility] ([facility]) Individual psychotherapy (regime/therapy) 11/22/2020 1 2:00:00 AM EST [employer] ([facility]) Individual psychotherapy (regime/therapy) 11/22/2020 1 2:00:00 AM EST [facility] ([facility]) Evaluation AND/OR management - established patient (procedur e) 10/11/2020 12:00:00 AM EST [facility] ([facility]) Evaluation AND/OR management - established patient (procedur e) 10/11/2020 12:00:00 AM EST [facility] ([facility]) Diagnostic psychiatric interview (procedure) 0 12:00:00 AM EST [facility] ([facility]) Diagnostic psychiatric interview (procedure) 0 12:00:00 AM EST [facility] ([facility]) Individual psychotherapy (regime/therapy) 09/21/2020 1 2:00:00 AM EST [facility] ([facility]) Individual psychotherapy (regime/therapy) 09/21/2020 1 2:00:00 AM [facility] DRUG SCREEN QUALITATIVE LITHIUM <td>LITHIUM LEVEL</td><td>Routine</td><td>09/15/2020 6:10 AM EDT</td><td></td><td> </td> 09/15/2020 06:10:00 AM [facility] COVID-19 PCR <td>COVID-19 PCR</td><td>Rou leah</td><td>09/14/2020 3:33 PM EDT</td><td></td><td> </td> 09/14/2020 03:33:00 PM EDT [facility] Evaluation AND/OR management - established patient (procedur e) 07/28/2020 12:00:00 AM EDT [facility] ([facility]) Evaluation AND/OR management - established patient (procedur e) 07/28/2020 12:00:00 AM EDT [facility] ([facility]) Results ID Date Data Source [id number] 09/17/2020 11:49:24 AM EDT [facility] Name Value Range Interpretation Code Description Data Angelina rce(s) Supporting Document(s) Discharge Summary [facility] MMSGQt4nLjHOZhBf11/WNWmdQZJhh2JfRBoiENi7CLawCEPyO0CdJNF4mP5kKNR2KSpWNwSfAqWdGTXf lbm [file] ICAgICAgICAgICAgICAgICAgICAgICAgICAgICAgICAgICAgICAgICAgICAgICAgICAgICAgICAgICAg KPNvHMAsPMFlVEUwYNPsRXMcAQLxQR8ORCBoZWWrCGEbIRNkDFIzHLUyKTSyIMTaSDXsEJHnXKHyJTWm ICAgICAgICAgICAgICAgICAgICAgICAgICAgICAgIC EtUDRzWMSnLPYjZTAkTOUqAUDfPYWtLJCoOTUxZKGbUT7CVQGtIKUeHBDyNKXnBPMsDAFwOBYwVCKnQJ AgICAgICAgICAgICAgICAgICAgICAgICAgICAgICAgICAgICAgICAgICAgICAgICAgICAgICAgICAgIC EpSTToBIFzIBNhCMJdWP3PTZKdSOAcSJTsRBSxSNTz ICAgICAgICAgICAgICAgICAgICAgICAgICAgICAgICAgICAgICAgICAgICAgICAgICAgICAgICAgICAg XQKvNXTrAFKxMACrGWXgVDYiVCYuQMAvEO9GRNDxOYSoVUJtIYXtXQXkDCGqYINhCWSqPXVqJOCvRAUf ICAgICAgICAgICAgICAgICAgICAgICAgICAgICAgIC LdTTXoJIBzLYNvUFHdPMKmAPOcSIIqDEUpJPGbYFPzIKYpZP9IWSXzTOJfKSWeQGGtMKBgRXUiQIDrMK AgICAgICAgICAgICAgICAgICAgICAgICAgICAgICAgICAgICAgICAgICAgICAgICAgICAgICAgICAgIC ZiBOZiSDHyZKSrHHNuQTSmEI1NEIFoGCStHEYoMALn ICAgICAgICAgICAgICAgICAgICAgICAgICAgICAgICAgICAgICAgICAgICAgICAgICAgICAgICAgICAg XHGrJVSlCNSiRKUrBXMfEJPkOOVqICCqXMAdED9WQTIoFVCaQMLaBDJwEGWqTBEvGBItZYCcRWQfHYNz ICAgICAgICAgICAgICAgICAgICAgICAgICAgICAgIC AfUITbGIMoRBAdNQYsXHSqXPJoBYLlRBXdAEAeSJQlAUCoIVUqAQ9QMCWaUCBnIYMeCWPzHTEpCHNlZC AgICAgICAgICAgICAgICAgICAgICAgICAgICAgICAgICAgICAgICAgICAgICAgICAgICAgICAgICAgIC BwXBWaYEPkEYUlOSGrMQDiIUEjJP9TTDJoNGZhYUFv ICAgICAgICAgICAgICAgICAgICAgICAgICAgICAgICAgICAgICAgICAgICAgICAgICAgICAgICAgICAg RIVzWWHtPVVmWGAlZGWwHRHeZLKeRESmRWCmTFBaOS9HGI05sXMmp7S7TKSzPQ4udej/Hu3CBCkavuUv pXGaGE1HCoTaCJ7nmh5CVqQeKX8rom4NHZkWQyUyI0 W8bPIiVLHyKSQATiOpH18jPLsoXc91TBwgDZYtFhVeBYx3Ey3LZyYvD6yoSOOnIoG5EFSxWaD4CGRdHm M5YQTmAbNcQHClSZUhVMCyMLLCFQQ3IVJaCtSbNxTjJMDfYYrkPIXCYPAtCRSnWsSnAiHhTEIlBJ3WNU QmC191ehXfWHTQPr3+XKyffaUcYweZBrW5HSRjh6Fp IOs0WE2NAGDgXrvge4YfMdJnMJJXDKccMM1UXBB7KBCyHDNhGu7UKYPbG820sdZkDR3CKe0CDnRdPT0b dm7RDqPoSXReMsmLNoi9BEmgXU2ZnAGgJHjTcYKqwMZfE4FzH1UyrATdyWTmpSKQlW4kSI9wBEKyDIon TlAgYXQgMTAvMjkvMjAyMCAxMToyNCBBTSkNCiAgL0 Xrl1NaBiR6JECoLqXtTIclAENzLwB7QK09cSzySQ2WQXOzZMNaIQ28HVQ2DWSkEs4ZKe0ZPiEpRT4yyq 1RLlZlBVTnKkdXAch7JFvmIV6AyIHjK4IuoCFbg1rFDxZaX7YOBTH4KBPmUo6ESYUuYaObDOEaFYeaDF 7pGZSyZRVFeDaesjD3OX6WXC1kwiMiPG5YNzCwDx5i Ci4VRaXzJ4UiR2YbNVHgPOYEYYgnLO1FLWvuNH7vXW2Su2VPuVCrgP0zyd4TXEHkEFJsCnfmot1YJjxe V5T3wHtmXFElJMnoZIGLGXtgNB5PGAGlZZR2SGJ4PYJzXIVMRkWrM01zGP8QZ6Bzh36qVuK8QHMbAfBa JWafGB09nSokisAbbDBfbGtgIT3PGk3+DQplbmRvYm bIVkjcJPBATbMzWwWQXsBmWWKuEDTiJKKdFhA1XnFpFa3OVKGxEAGaVRRiXqXvBNUnVTOcDAkfANMcNO rbUkPnSDQmIUXwIK7VNeMaWPExDaRrWGpyXPNbMZUrus8YIYRiVMOgBWA3UsAlJKCuMAXaMVocWQNaGX C3JHk2AEQoTIIvAL2WIbWrNGBvZSRqBUukDDDnQNIw ia1EXQNpAWJnUsN5ApFuQUYrSADsVEjsWHZhABZ8FRNwVJIeXZPoQA7DDfMfAMOrFTD7PqemSGNrNZRp gp0SNCJcEUHaQAXlUKOcZATpKXIqUMevRHCsVHV4ECy8PUTdSIVjLR1UYmTeBVXdXTUeBYYcPWHaAPTv it9HOMWiRPZgVOa0VeZvZWElXNWkEBohTNWuEOO3HF NkHSNkFKCdXZ8GYpJeNSPbSsW5KYTdJZOrLRCbvk3BHOBfZGWwRdziHaTqULTiNLGwEWhzJQCzTKH3Ic JaLTCdIJTfJD7OJwPwNOMcIqW6JEWwCNAeBCXist6ETOVhWYPbSDP4ATLpYVNzDLVdRRdpSEGoKBF7OW Y3FLBuFCInDK1LCiBtYQJoYyQ4LFhdDDKpUJSkkg0B RADcLSXuTjbyNEKbBKJwWZCcUXqoGYFcRATqKLgxREQtYKZnPV3WViAnJQNhFmW5QdpbQPAfSOZhen1R MIQwNKVrLJEqXXRjFOTcFBDuYVbpXSOjVMU4SVC4MUMhEWAvEP2GUcScUULaOlYfZXjrSUDjNYYxjv0Z XRJpSCPjGFd9KiUgQDToHCIqORchPKSpHUI6FDn0LY VzHJJeRQ1PUoMjXRAkCbHvYgxtRPVgVHGdmb6PAMEdXERnYiNgOuVtENSzEPHkYCleQIWwTTH2KRV5VN VwKMNiGW6UYoIrKJAnBhv3QRjnOWDuUCEapd4PIDMfURS4ILP7RbPeBJAcEBAsKIqnKWFdZMO9OGChAP CuCPNgGI9DNsFdKVShRIc1PFteISBtQQTvoh8OONIl GHP3USp0QWElLRUiPHZiVBurGFHoRDNdBXG4PTXzRKBlWD5XKuTvBFNgUYD0JLyiORSnUDKedt4PYRLc LJA2TMCvJeWxLUHcJZXeUMzfLQIhCHXdYeE6CODgZONmHZ3KVbIwAGAoKeZ0EWixPWPeBZFkfc0KSHJw TEN2FcOiWcXjXEAySXHaBKfuAZUcBJKrUtW7ROLmFJ AnPF3CAsGiHWWqSnM1AbOfTOQlZYZhlp2CONWhGWM6MqDmYKFgSKJiCZKoTIhdFSOjULP0FBO1UTMlXW JhRI4BSdIhRUGyUlY3MTjgHSHwIRGmoc0YIUZqSTD9CSkdLWLsFAKkWBDrFMqrTCAdJFC4Shk8ZVVzDX KfPX5BWgPiSITtXrIrDMpgAKJzXKHjnd1EYYFbQSV9 DAAvCUDyOBYnOQDaFKugLLHfDFufESkkACZzKDRmHG4BLxCdYNGhAkD9YsZiQJAzYFIsge2RQIOkAPF3 JNboSMKkVENrFXDuNWoqRRBlWAedHJf4KRQtCGUsZG9KAhDhTPOxTxLgEwPeXHEgBTSjyk4RTQYrEUY2 ESdmGYQkTSGcKFIsXUmbKWVnJZcnGwW7MLQyFAJrQY 3HLnVvSMTkXkMmODilQMBmRXSshs3DSGRcHRN3RaLyXYWxLOReSLQgXTd9evGtpEUuEKw3GD4RU6Jqjy CmGaBLQj3Ga164JZVqDEDhIh7XA2dwEq7iCNYrDCSYWc3SSXa1CZToGZVbMjRoNABbDLA1IGYyHDWuPG JuM1L8K5JbYUr+FAchBNA8HqOoM1Q7GNK8WlEiSLOf SgBhFrFfEIF0SdO0EF0rDLLCNv7+AWrbnZHeeJewIFVFSjodZsfwCUtmORQNJb3B ID Date Data Source [id number] 09/15/2020 07:19:41 AM EDT [facility] Name Value Range Interpretation Code Description Data Angelina rce(s) Supporting Document(s) Latimer [Moles/volume] in Serum or Plasma 0.52 mmol/L 0.60-1.20 L [facility] ID Date Data Source [id number] 09/14/2020 04:53:37 PM EDT [facility] Name Value Range Interpretation Code Description Data Angelina rce(s) Supporting Document(s) History and Physical [facility] NEQFEw2lZkJHMnPi55/PCStmXJYqw2WrIOsdZIe9KTtkRHEpH0EmFEB1uY3jLRW9DTcELvLkRhGgIUV2 lbm [file] ICAgICAgICAgICAgICAgICAgICAgICAgICAgICAgICAgICAgICAgICAgICAgICAgICAgICAgICAgICAg ICAgICAgICAgICANCiAgICAgICAgICAgICAgICAgIC AgICAgICAgICAgICAgICAgICAgICAgICAgICAgICAgICAgICAgICAgICAgICAgICAgICAgICAgICAgIC AgICAgICAgICAgICAgICAgICAgICANCiAgICAgICAgICAgICAgICAgICAgICAgICAgICAgICAgICAgIC AgICAgICAgICAgICAgICAgICAgICAgICAgICAgICAg ICAgICAgICAgICAgICAgICAgICAgICAgICAgICAgICANCiAgICAgICAgICAgICAgICAgICAgICAgICAg ICAgICAgICAgICAgICAgICAgICAgICAgICAgICAgICAgICAgICAgICAgICAgICAgICAgICAgICAgICAg ICAgICAgICAgICAgICANCiAgICAgICAgICAgICAgIC AgICAgICAgICAgICAgICAgICAgICAgICAgICAgICAgICAgICAgICAgICAgICAgICAgICAgICAgICAgIC AgICAgICAgICAgICAgICAgICAgICAgICANCiAgICAgICAgICAgICAgICAgICAgICAgICAgICAgICAgIC AgICAgICAgICAgICAgICAgICAgICAgICAgICAgICAg ICAgICAgICAgICAgICAgICAgICAgICAgICAgICAgICAgICANCiAgICAgICAgICAgICAgICAgICAgICAg ICAgICAgICAgICAgICAgICAgICAgICAgICAgICAgICAgICAgICAgICAgICAgICAgICAgICAgICAgICAg ICAgICAgICAgICAgICAgICANCiAgICAgICAgICAgIC AgICAgICAgICAgICAgICAgICAgICAgICAgICAgICAgICAgICAgICAgICAgICAgICAgICAgICAgICAgIC AgICAgICAgICAgICAgICAgICAgICAgICAgICANCiAgICAgICAgICAgICAgICAgICAgICAgICAgICAgIC AgICAgICAgICAgICAgICAgICAgICAgICAgICAgICAg ICAgICAgICAgICAgICAgICAgICAgICAgICAgICAgICAgICAgICANCiAgICAgICAgICAgICAgICAgICAg ICAgICAgICAgICAgICAgICAgICAgICAgICAgICAgICAgICAgICAgICAgICAgICAgICAgICAgICAgICAg ICAgICAgICAgICAgICAgICAgICANCjw/uDRhU2yrwT RvtxL4I4ucEo0VXd4XWA0ud2ZyGZIqOErdlqSuMxeTRbMiCLQaCsjZAic9SUyeEG4IyWFgU4FzL3NfPR sjJA9IMTHdRFQuxXQfCUTlLZEuNeW0USUtTZsaRY7OjYRzESzfPFZzBHJaWwTsNQCxVIDvNCNxUQLmWB ESNQOwOBQqOwAwMOSpUZNeELkbEKXRJKF9KXBhJeNz DAQoGMOoVhLqZVXDKY9AXyVyK5RbwS84ZKEpRKy+Uv8SWU5ce5BoMCq9SVIrXC3zul7HKUgBGfOrM6Us emZ6YTH9TKUnHb0GLLYgHNTeeUQ7JOEeUKTCAnTaF1UpuV04ZJKCPn1+SVulnxBnYszJNoX3XBLnd1Ri LEy1NP4HRLVcHDa3lEElEXHMWGL2ZNz0tu9eKKMQPH ayANLWVTYzcPBdAA6mVx1dQREtXOOfHbD7RTEAEG1TBWIxZSCjtLThTDFmOOJPDS0KVRfjSTB3KEFfvr KklFEwCYpdVX7SIHXuhcRjMIJpXUXLYAd+Zv2NMF8hr4XoOZt4ArSaBW6hzh8BXViKHqCwB1E1nNQqJ0 D1VYkhYc6XWPLuQIFtDGSbGIZFIFbvZH0VTE6wohW8 JM8NqIMrZNVnYXNujDZsSZh9C96szPDzVApxPJ2CLCF+Arturo+Kv7HSVIeJDIzDPOvFpHfGXRFFdWjM6Tk K6LVz2ErG9DxQI12aVgyxqVhDIzfTE8CEI6pWLWdQRBVLR4HlDYmdI7oysK5GXOuNBWPYwSqS21etKLf OUEpVFSvOTYwCn0IIHMkE5ZcfqWxkIycezBuULHzUU PVHS2MYMxxgsJtgDWfbHsqGP01fEbjYI6KGf8MZkEwZY6lui5ZqYIjVp1KGHF0Ag5NVGQiDMHbQCVzBC F1WEKmSlAfJQkrZYYdVXVhCTX3PEFyBXUxCT4HOqJkCZYeQMaqYgnnBGJmRXYosp9WPOCgLPV9GOD7MP PzRKWzTNAoHIbiGRZzENPoMMQ6ZGVuEDTzMI5INrZx KRFiSUN5JvceCJOdNXHxbh9GNHLhHKVuXms3DkLlLRWuSFLgJSyuIHJhWJS4PqJ4FHYoWXTlBL1HMvSs TYTsBGK0OXZrCDEvNLZbgg4ZSFYzPHWkLVT3UfDfXBVhCCWhICqcGAKyVCEjDcq7ZCQhVSHnHV0TBuTl BZCoASKtLfskYYAkPBUjrl0EHWIhNOPmDbT9QyXyAM JsLUMsOYtkEQAzNWV3Vfr7ROYxKKTcNY7XKaBpMIRkGKI2PWRkVKTgNRTmsa8PWSSsGYTtBFl1GCLmMV DaPRYaBTmgQCCqYXZyVYi1HVIoFNXuRX0IYgDdXTOlDnT9GVpeTIJbMVEzmr8HEMEtMEGeJnwlMIQbED PpOOAgSEqcRYVyFTM8YDd4NBJwECClCX7BPvCiZKRa Brp7QFGoPSHgLNHlpr6UTRMuEMXqOLB0MDSwZYYxUHEeSZjnEZJzADQmQao8YYHqVFBsBR3GJzZgJWUc AmI2ZRJuCTWvHFXrdz6CNATbFDVbQyQbJKByRRIvZMMaMAfdRNUwHTUtJMqjIQYyTCJjKO3VTtHyPTNu NlWaYzlbMAJjYETfmk4YDXNgSJQxYEB9TTGsMHPbGJ IzUBjdYITuOMV5VdAqNSAsESMuSH6GTnUnNIZoGpV4SXOfUBAsYEMtoo8HFHEzEAVaZKacBDWsNWTzZA JkMQuxQZWwDWP8GsXcTOWbKVJnZK9BFuWfJAEsYpG0YUtmCEIzCNUuqi1BLPKkRJIxWzL6IZHrCHWcKH SeAHyvKLNqXBA2DUF4QXQwFQEuNI8YGvUdFNXjMLp5 TAJvXNFxHHAmzy5IUOHhNNY6HHk0HwUfPRClLVZsDUwxEDNuRXX8DDneGDEmAHHjXQ3IQaCiJTCtXCrz BijeMBSeCPHncp5BSGFhPVK9VFS3OAFkWPYdYKLjUXggRCSlWRGwWNF0JYDvCEToBO1PKpZoBMMyJCG3 AZgiOOKtVVOijn5WHQZxWYW3BUD2BFSuRUJbKLCjWA hiTEQlVPGaQpbfGXGuIUTsAP2XVpEkHBMyXPR6RoNvQWCsDMKlou1NHWZzUJV8OiggGkAbXDHwGQUrPH bmGCFnCHQ0TVT2HZCkTNGfVR9LGxNnLPOqEYncRfSnVWOoHJBlxv0FSRDoBQO0SkXdMxEyOEYeKQHrQQ llTEXdIIM4QkL6NYSbFLGgVI0ZZjBrRNXaAEj5KeRw HGZoFQRlma9JBNAkMDR2UCRePZAsNPUtGVLpBLmuVVNsKDJ9SdJ7UUOsBXKyKQ5BDwPlCMWkCUr1Xvis DNQrIFAefz8HGYOiXPN5PHSkZHTtTUVvMTSxOCgnJXXyYEQqAYW9EYZoLWUvHH2XVuZnJLOmLzD7QXBt DMBhMBLymr7HnQEjfTggii8UPTbEXj2YmPjmEWK6JR uzLk5rzPR1NpMpIOVVIt6ZdiKzOQQeOALQQWbsYKOeYBJ6BaMqYXXjOoR6ABM7ZUJpQ0GuDkTcHADhMe J9OJesAgX8XFmrUwDzEaT9WiN6JpRySwKvLNU7H8BxDHAvBELkWCY+YW0cPMt+Tb4Yf7MwnfI4ycXbJQ n2ZMa2JJ3EXQBPB3WKOp== ID Date Data Source [id number] 09/15/2020 06:07:53 AM EDT [facility] Name Value Range Interpretation Code Description Data Angelina rce(s) Supporting Document(s) Specimen source [Identifier] of Unspecified specimen [facility] SARS-CoV-2 RNA 2019 nCoV Real-Time RT-PCR: NOT DETECTED [facility] Assay Performed [facility] Patients first test for [facility] Patient employed in healthcare setting [facility] Patient has symptoms related to [facility] When did you start to experience these symptoms [Date and time] [Phen X] [facility] Patient was hospitalized because of this condition [facility] patient was admitted to ICU for [facility] Patient resides in a congregate care setting [facility] status [facility] ID Date Data Source [id number] 09/14/2020 03:33:00 PM EDT [facility] Name Value Range Interpretation Code Description Data Angelina rce(s) Supporting Document(s) SARS-CoV-2 RNA [facility] This lab was ordered by [facility] and reported by [facility]. ID Date Data Source [id number] 09/14/2020 01:56:32 PM EDT [facility] Name Value Range Interpretation Code Description Data Angelina rce(s) Supporting Document(s) History and Physical [facility] WFKFWg6hAcJUSuTd09/AIEtpGEIdw6KnEWtxPOl8ZXyvLYEwT9CwGID0eV3vMCJ5RWfVRmUbYxXnODW8 [facility] [file] AgICAgICAgICAgICAgICAgICAgICAgICAgICAgICAgICAgICAgICAgICAgICAgICAgICAgICAgICAgIC AgICAgICAgDQogICAgICAgICAgICAgICAgICAgICAg ICAgICAgICAgICAgICAgICAgICAgICAgICAgICAgICAgICAgICAgICAgICAgICAgICAgICAgICAgICAg ICAgICAgICAgICAgICAgICAgDQogICAgICAgICAgICAgICAgICAgICAgICAgICAgICAgICAgICAgICAg ICAgICAgICAgICAgICAgICAgICAgICAgICAgICAgIC AgICAgICAgICAgICAgICAgICAgICAgICAgICAgDQogICAgICAgICAgICAgICAgICAgICAgICAgICAgIC AgICAgICAgICAgICAgICAgICAgICAgICAgICAgICAgICAgICAgICAgICAgICAgICAgICAgICAgICAgIC AgICAgICAgICAgDQogICAgICAgICAgICAgICAgICAg ICAgICAgICAgICAgICAgICAgICAgICAgICAgICAgICAgICAgICAgICAgICAgICAgICAgICAgICAgICAg ICAgICAgICAgICAgICAgICAgICAgDQogICAgICAgICAgICAgICAgICAgICAgICAgICAgICAgICAgICAg ICAgICAgICAgICAgICAgICAgICAgICAgICAgICAgIC AgICAgICAgICAgICAgICAgICAgICAgICAgICAgICAgDQogICAgICAgICAgICAgICAgICAgICAgICAgIC AgICAgICAgICAgICAgICAgICAgICAgICAgICAgICAgICAgICAgICAgICAgICAgICAgICAgICAgICAgIC AgICAgICAgICAgICAgDQogICAgICAgICAgICAgICAg ICAgICAgICAgICAgICAgICAgICAgICAgICAgICAgICAgICAgICAgICAgICAgICAgICAgICAgICAgICAg ICAgICAgICAgICAgICAgICAgICAgICAgDQogICAgICAgICAgICAgICAgICAgICAgICAgICAgICAgICAg ICAgICAgICAgICAgICAgICAgICAgICAgICAgICAgIC AgICAgICAgICAgICAgICAgICAgICAgICAgICAgICAgICAgDQogICAgICAgICAgICAgICAgICAgICAgIC AgICAgICAgICAgICAgICAgICAgICAgICAgICAgICAgICAgICAgICAgICAgICAgICAgICAgICAgICAgIC ImTMUiEYAwPEDgNFNhSMDcDCu4O3wpONYhRUNrPZ5m QPl6At2+GYoFQgTkVVB4vfIxyT9RSB3jr6JaYYksNPBxr6UqTFy6NL5RWPEyZShuWP3KJNqowv3UMYLa AOGdtVXWc7boRcOsIXH7LQFrFzvkRV6TECWfG9qjyjCzRGDlKUEUVFcaDCVISMygJHPTIRFdEUPsJtMn VUykTR0Yh8BtvZO4JSf+Wl8LQB0ry4LhWMymXLDwFG 7hwu3BUVaXWcYuX2SkqrG6TMJ6IIKrHw6LAIYaJEIwrZEiEDWlCJIQRyOyA6ZdfJ68JROBDr2+DQplbm QtJtwMBcR6PWIfb4AnTSj7OU7XWPHgBLw8dLUqZQRPAZY4MAZxRR6aBOUCaZOcAVXdMGFVAPQ4RVYcVs M8UjRhWgCkAQX4PASsCB8wATtbRQ2IGJH3KWziSLKh HVKhU1nOHvMxGHMrBoWkqHnoRJ5ITbRwL0FeehGsfMTqEGSbPILTDh0+XFlxkyLaTkyILiF1UUYmq9Fv RPg6OY9ZGJGdNGkiFU4GXSZbmO3sPFheRH0LMeZxQeQmWWHNIlYaW85vqIVrFCs4A2ZoBbLeTFEoKpql ZXMgPDwvTmFtZXMgWyBdDQogID4+ID4+OQvcEO9EDC jhavNbYQHiSj0MWECoBCKiXT3yJUEhFEAiM7N9yNvlHVCJChJtV1kmqwaoHN2hZLSwR411kVbhmsTgXT Y2YKHkTg6BWFKyOAD9WDMvpBZwRbLfFLJRZKfgCW7WoXOjEBG5gD0sMMieONNoXMNvS0lKDzJpsAwkZY 51bGwgbnVsbCBdDQo+Yf5PCI9br0XuRXn1bsJcPAjd IJA5WHqxTSThBZPqSBJhSDG9CYL8CATLBeIgSJOhRIWdMHjfGIQzATTnmr6ELSJaJNZgLFL4SRIbARBm ILMsCDzoYTHhQURlGIV1MAOkHVXnXK0QQpIjXUCeULZmUSsxZYBzVNJspt6ZKBErVIGwCcTrPsOzBCQz HXRfIQpzDTHlWUPnDpNfZDIkEYBnJJ9QEeWiPMZnSB OgZebhRQVcYLSuva8BMAUfWPGdHwT1DmNvBSIfYYNbUNjkDGBcAEP8ROedPBYxVCTfPU2TLaPhHXQwQP j0FWMmXMItVPCixn7NDFKiGTYyPgKvNfWgUIXyCERvHTdjOAOvDPQeNmIuFJKlMAScCY0ORcHnBGYkSH GvGvHnBTXjOHEhsr5ATBCoBRLvTsY8GLPuWUGpSAPx RTxuNKWwMCGjDwMtRPGyJNGcMV6KFdGgCFZoHMC5PHUeKIXpCSNwiu6THDAsDIGpMBugIoXjXYYxPCVb YKnyBREvRFK1ZHHgVGLzBJWyXE0BMdUkTYRxKSN9UuCfXKBzQBHnkx6XOGPvYFLjFwO4LAMyPORzWCKf JOduRYUsCEU6BpRvHKYkOUHxWS1WGgCxUJDsLnm7Nc LxRGYxXNGuws6RPXKiHEEfMXE6LHOpENCaAZGxWCzjBXKtNWW4CdTwCRHtRVVcEA2WKlHuMUHvBmc9FI CiXTPjVRQcwk4DDLWcINMbTOHuVAMsWKTfEBGeSRuwQDMlRTQ8BPcaHVQzADXjLJ8IFoSdDDTuRrk6Kt HoNYEbOXPepg6YHXUlCAPsPOw1JUQfRKHrNTRkRDyf REBgPWFiEOxwGEKtAVNgFJ4AMoWiHXKyCoEbUPXfPWShEGRsvy8ESRDxTEIlAWJ3BtLkVVKvTCLuVJbg PUJaYTZaCjG9UMIlJQAlLZ6JYhTlQQNqQeHwRtWfOQQaDDTlfi7HZYIiCYPyCgJ6DACpDFJzQJKlOCrn FBLqXWRzAqmmASUfPYAhXT6SPqBqDRmyDBUYGzu0CJ aoH7u0GQQaJz9MH1Ero0XvTuZtZRBBFNqnJC6ojyBfMLMsZo2ZK1jIHeeaWHg3ZAI1AlDsOxT2NRvyKT AhBtG1SihnJgm5KEP0Bc4eMSQrART4BRAjBkQeASRsGSDnJFTfShOrNOTkGMgdCtO7BpRjED1VTj7ZPd U8XEO8xQCoQx9NTwH4OiKYXoNpVV8HKJn= ID Date Data Source [id number] 09/13/2020 09:57:00 PM EDT [facility]) Name Value Range Interpretation Code Description Data Angelina rce(s) Supporting Document(s) sars covid-19 amplification negative negative Sars Cov id-19 Amplification [facility]) ID Date Data Source [id number] 09/12/2020 04:05:00 PM EDT [facility]) Name Value Range Interpretation Code Description Data Angelina rce(s) Supporting Document(s) lithium level 0.89 mEq/L 0.60-1.20 [place] Level [facility]) ID Date Data Source [id number] 09/12/2020 04:05:00 PM EDT [facility]) Name Value Range Interpretation Code Description Data Angelina rce(s) Supporting Document(s) thyroid stimulating hormone 1.850 uIU/mL 0.358-3.740 Thyroid Stimulating Hormone [facility]) ID Date Data Source [id number] 09/12/2020 04:05:00 PM EDT [facility] ([facility]) Name Value Range Interpretation Code Description Data Angelina rce(s) Supporting Document(s) acetaminophen level < 2.0 10.0-30.0 Below low normal Acetaminop hen Level [facility]) ID Date Data Source [id number] 09/12/2020 04:05:00 PM EDT [facility]) Name Value Range Interpretation Code Description Data Angelina rce(s) Supporting Document(s) salicylate level 1.9 mg/dL 5.0-30.0 Below low normal Salicylate [place] [facility]) ID Date Data Source [id number] 09/12/2020 04:05:00 PM EDT [facility] ([facility]) Name Value Range Interpretation Code Description Data Angelina rce(s) Supporting Document(s) ethyl alcohol (ethanol) 0.372 % 0.000-0.010 Above high normal Ethyl Alcohol (Ethanol) [facility] ([facility]) ID Date Data Source [id number] 09/12/2020 04:05:00 PM EDT [facility]) Name Value Range Interpretation Code Description Data Angelina rce(s) Supporting Document(s) blood urea nitrogen 10 mg/dL 7-18 Blood Urea Nitro gen RAY ([facility]) glomerular filtration rate > 60.0 >56 [place] r Filtration Rate RAY ([facility]) glucose, fasting 79 mg/dL 70-100 Glucose, Fasting AT BERTA ([facility]) creatinine for GFR 0.90 mg/dL 0.70-1.30 Creatinine for GF R RAY ([facility]) carbon dioxide level 24 mEq/L 21-32 Carbon Dioxide Level [place] ([facility]) potassium serum 4.1 mEq/L 3.5-5.1 Potassium Serum ATH NA ([facility]) sodium level 136 mEq/L 136-145 Sodium Level RAY ([facility]) chloride level 104 mEq/L 98-107 Chloride Level RAY ([facility]) calcium level 8.6 mg/dL 8.5-10.1 Calcium Level RAY ( [facility]) anion gap 8 mEq/L 8-16 Anion Gap [facility] ([facility]) ID Date Data Source [id number] 09/12/2020 04:05:00 PM EDT [facility] ([facility]) Name Value Range Interpretation Code Description Data Angelina rce(s) Supporting Document(s) alkaline phosphatase 81 U/L 45-117 Alkaline Phosph atase [facility] ([facility]) ALT/SGPT 53 U/L 12-78 ALT/SGPT [facility] ([facility]) AST/SGOT 19 U/L 7-37 AST/SGOT [facility] ([facility]) albumin 3.9 gm/dL 3.2-5.2 Albumin RAY ([facility]) bilirubin,total 0.4 mg/dL 0.2-1.0 Bilirubin,total ATHE ([facility]) bilirubin,direct 0.2 mg/dL 0.0-0.2 Bilirubin,direct AT BERTA [facility]) total protein 7.8 gm/dL 6.4-8.2 Total Protein RAY ( [facility]) albumin/globulin ratio Albumin/globu chidi Ratio RAY ([facility]) ID Date Data Source [id number] 09/12/2020 04:05:00 PM EDT [facility] ([facility]) Name Value Range Interpretation Code Description Data Angelina rce(s) Supporting Document(s) amphetamines level urine negative negative Amphetamine s Level Urine [facility]AY ([facility]) barbiturates urine negative negative Barbiturates Urin e RAY ([facility]) cannabinoids urine negative negative Cannabinoids Urin e RAY ([facility]) benzodiazepines urine negative negative Benzodiazepine s Urine RAY ([facility]) cocaine metabolite urine negative negative Cocaine Met abolite Urine RAY ([facility]) phencyclidine urine negative negative Phencyclidine Ur ine RAY ([facility]) opiates urine negative negative Opiates Urine RAY ( [facility]) methadone urine negative negative Methadone Urine ATHE ([facility]) ID Date Data Source [id number] 09/12/2020 04:05:00 PM EDT [place] ([facility]) Name Value Range Interpretation Code Description Data Angelina rce(s) Supporting Document(s) white blood count 9.9 10 4.0-10.0 White Blood Count R[facility] ([facility]) hemoglobin 13.1 g/dL 13.5-17.5 Below low normal Hemoglobin RAY ( [facility]) red blood count 3.89 10 4.30-6.10 Below low normal Red Blood Coun t RAY ([facility]) hematocrit 39.7 % 42.0-52.0 Below low normal Hematocrit RAY ( [facility]) mean corpuscular HGB conc 33.0 g/dL 32.0-36.5 Mean Corpu scular HGB Conc RAY ([facility]) mean corpuscular hemoglobin 33.7 pg 27.0-33.0 Above high no rmal Mean Corpuscular Hemoglobin RAY ([facility]) mean corpuscular volume 102.1 fL 80.0-96.0 Above high normal Mean Corpuscular Volume RAY ([facility]) red cell distribution width 12.0 % 11.5-14.5 Red Cell Distribution Width RAY ([facility]) nucleated red blood cell % 0.0 % 0-0 Nucleated Red Blood Cell % RAY ([facility]) platelet count, automated 200 10 150-450 Platelet C ount, Automated RAY ([facility]) ID Date Data Source [id number] 08/09/2020 09:33:00 AM EDT [facility] Name Value Range Interpretation Code Description Data Angelina rce(s) Supporting Document(s) HCT 38.6 % 42.0-52.0 L [facility] HGB 13.0 g/dL 13.5-17.5 L [facility] MCH 33.7 G/DL pg 32.0-36.5 N [facility] MCHC 34.5 PG % 27.0-33.0 H [facility] PLATELETS 199 10 10*3/mm3 150-450 N [facility] RBC 3.77 10 10*6/mm3 4.30-6.10 L [facility] RDW 12.3 % 11.5-14.5 N [facility] WBC TOTAL 5.4 4.0-10.0 N [facility] ID Date Data Source [id number] 08/09/2020 09:33:00 AM EDT [facility] Name Value Range Interpretation Code Description Data Angelina rce(s) Supporting Document(s) HGBA1C 4.7 % N [facility] ID Date Data Source [id number] 08/09/2020 09:33:00 AM EDT [facility] Name Value Range Interpretation Code Description Data Angelina rce(s) Supporting Document(s) VIT D25 TOT 54.0 ng/mL 30.0-100.0 N [facility] BG FASTING 83 mg/dL 70-100 N [facility] BG RANDOM 83 mg/dL LESS THAN 200 N [facility] TSH 2.350 microintl units/mL 0.358-3.740 N [facility] Procedure Social History Code Duration Value Status Description Data Source(s ) Alcohol intake 09/14/2020 12:00:00 AM EDT Current drinker of al cohol (finding) completed Current drinker of alcohol (finding) [facility] Cigarette pack-years 09/14/2020 12:00:00 AM EDT [facility] Cigarettes smoked current (pack per day) - Reported 10/27/20 20 12:00:00 AM EDT UNK completed [facility] Smoking 09/14/2020 12:00:00 AM EDT Current every day smoker co mpleted Current every day smoker [facility] Vital Signs ID Date Data Source [id number] 09/17/2020 11:49:24 AM T [facility] Name Value Range Interpretation Code Description Data Source(s) WEIGHT RECORDED 169.[address] [facility] Body height Measured 71 in 71 in [facility] TRANSFER FROM [facility] Patient Treatment Plan of Care Planned Activity Planned Date Details Description Data Source (s) Thiamine 100 MG Oral Tablet 09/16/2020 12:00:00 AM [facility] Tab-A-Alena/Beta Carotene Oral Tablet 09/16/2020 12:00:00 AM [facility] Hydroxyzine Hydrochloride 50 MG Oral Tablet 09/16/2020 12:00:00 AM [facility] Folic Acid 1 MG Oral Tablet 09/16/2020 12:00:00 AM [facility] buspirone hydrochloride 10 MG Oral Tablet 09/16/2020 12:00:00 AM [facility] acetaminophen (TYLENOL) tablet 650 mg 09/14/2020 02:19:58 AM [facility] 24 HR Nicotine 0.875 MG/HR Transdermal Patch [facility] buspirone hydrochloride 30 MG Oral Tablet [facility]
[2021-09-07] MEDS ORDERED: PROPRANOLOL 10 MG TAB PO ONE (08:55)
[2021-09-07] MEDS ORDERED: KETOROLAC 30 MG/ML 1ML VIAL IV ONE (08:55)
[2021-09-07] MEDS ORDERED: diazePAM 10MG/2ML SYRINGE (J3360 PER 5MG) IV ONE (08:55)
--- OUTSIDE RECORDS SUMMARY | 2021-09-07 09:18 | CCD ---
Author Author [facility] Organization [facility] Address Unknown Phone Unavailable Care Team Providers Care Screening Specialist Name Role Phone Laurita Jorgensen MD [...] Laurita Jorgensen MD Unavailable Unavailable Aleja Goldberg ASSOCIATE PROFESSOR OF ENGINEERING ASSOCIATE PROFESSOR OF ENGINEERING Unavailable Unavailable Ashley Schmidt MD Unavailable Unavailable [...] CULP MD Unavailable Unavailable Yusuf, A Aleja ASSOCIATE PROFESSOR OF ENGINEERING Unavailable Unavailable Yusuf, A Aleja ASSOCIATE PROFESSOR OF ENGINEERING Unavailable Unavailable Yusuf, A Aleja ASSOCIATE PROFESSOR OF ENGINEERING Unavailable Unavailable Yusuf, A Aleja ASSOCIATE PROFESSOR OF ENGINEERING Unavailable Unavailable Yusuf, A Aleja ASSOCIATE PROFESSOR OF ENGINEERING Unavailable Unavailable Yusuf, A Aleja ASSOCIATE PROFESSOR OF ENGINEERING Unavailable Unavailable Yusuf, A Aleja ASSOCIATE PROFESSOR OF ENGINEERING Unavailable Unavailable Yusuf, A Aleja ASSOCIATE PROFESSOR OF ENGINEERING Unavailable Unavailable Yusuf, A Aleja ASSOCIATE PROFESSOR OF ENGINEERING Unavailable Unavailable Yusuf, A Aleja ASSOCIATE PROFESSOR OF ENGINEERING Unavailable Unavailable Yusuf, A Aleja ASSOCIATE PROFESSOR OF ENGINEERING Unavailable Unavailable Yusuf, A Aleja ASSOCIATE PROFESSOR OF ENGINEERING Unavailable Unavailable Yusuf, A Aleja ASSOCIATE PROFESSOR OF ENGINEERING Unavailable Unavailable Yusuf, A Aleja ASSOCIATE PROFESSOR OF ENGINEERING Unavailable Unavailable Yusuf, A Aleja ASSOCIATE PROFESSOR OF ENGINEERING Unavailable Unavailable Yusuf, A Aleja ASSOCIATE PROFESSOR OF ENGINEERING Unavailable Unavailable Yusuf, A Aleja ASSOCIATE PROFESSOR OF ENGINEERING Unavailable Unavailable Yusuf, A Aleja ASSOCIATE PROFESSOR OF ENGINEERING Unavailable Unavailable Yusuf, A Aleja ASSOCIATE PROFESSOR OF ENGINEERING Unavailable Unavailable Yusuf, A Aleja ASSOCIATE PROFESSOR OF ENGINEERING Unavailable Unavailable Yusuf, A Aleja ASSOCIATE PROFESSOR OF ENGINEERING Unavailable Unavailable Yusuf, A Aleja ASSOCIATE PROFESSOR OF ENGINEERING Unavailable Unavailable Yusuf, A Aleja ASSOCIATE PROFESSOR OF ENGINEERING Unavailable Unavailable Yusuf, A Aleja ASSOCIATE PROFESSOR OF ENGINEERING Unavailable Unavailable Yusuf, A Aleja ASSOCIATE PROFESSOR OF ENGINEERING Unavailable Unavailable Yusuf, A Aleja ASSOCIATE PROFESSOR OF ENGINEERING Unavailable Unavailable Yusuf, A Aleja ASSOCIATE PROFESSOR OF ENGINEERING Unavailable Unavailable Yusuf, A Aleja ASSOCIATE PROFESSOR OF ENGINEERING Unavailable Unavailable Yusuf, A Aleja ASSOCIATE PROFESSOR OF ENGINEERING Unavailable Unavailable Yusuf, A Aleja ASSOCIATE PROFESSOR OF ENGINEERING Unavailable Unavailable Yusuf, A Aleja ASSOCIATE PROFESSOR OF ENGINEERING Unavailable Unavailable Re-disclosure Warning The records that [...] is protected by Article 27-F of the [place] Public Health law. If you continue you may have access to information: Regarding HIV / AIDS; Provided by facilities licensed or operated by the [place] [employer] Office of Mental Health; or Provided by the [place] [employer] Office for People With Developmental Disabilities. If such information is present, then the following [place] [employer] mandated warning applies: This information has been [...] law may result in a fine or care home sentence or both. A general authorization for the release of medical or other information is NOT sufficient authorization for further disc losure. Allergies and Adverse Reactions Type Description Substance Reaction Status Data Source(s ) Propensity to adverse reactions NO KNOWN ALLERGIES NO KNOWN ALLERGIES [facility] Allergy to substance Allergy to substance Allergy to substance [place] ([facility]) Family History Family Member Name Family Member Gender Family Member Status Date o f Status Description Data Source(s) Unknown Male Problem [facility] ([facility] () Unknown Female Encounters Encounter Providers Location Date Indications Data Source(s ) Telehealth Physchotherapy 30 [facility] with Patient [facility] 05/20/2021 12:00:00 AM EDT [facility] ([facility]) Gerry Jorgensen MD: [address] [place] [phone], Ph. Attender: Gerry Jorgensen MD [facility] Medical 03/30/2021 12:00:00 AM EDT [facility] ([facility]) non-billable [facility] 03/22/2021 12:00:00 AM EDT [facility] ([facility]) Inpatient Attender: SUNI Hernandez nder: Ashley Schmidt MDAdmitter: Ashley Schmidt MD [id number] 09/14/2020 12:00:00 AM EDT - 09/16/2020 11:24:00 AM EDT Suicidal ideation without a plan, hx bipolar [facility] Suicidal ideation without a plan, hx bip olar Patient discharged. Outpatient Attender: HERMINIA Goldberg [facility] 09/10/2020 10:10:[address] [facility] Outpatient Attender: Aleja Goldberg [facility] 08/21/2020 07:3 1:[address] [facility] Outpatient Attender: HERMINIA Goldberg [facility] 08/21/2020 07:31:[address] [facility] Outpatient Attender: Aleja Goldberg [facility] 07/23/2020 11:0 5:[address] [facility] Outpatient Attender: HERMINIA Goldberg [facility] 07/23/2020 11:05:[address] [facility] Immunizations Vaccine Date Status Description Data Source(s) COVID-19 VACCINE [facility] 03/31/2021 12:00:00 AM EDT completed [employer] Vaccine Series Complete: YESThis Data wa s Submitted to [facility] Via [employer]. Medications Medication Brand Name Start Date Product Form Dose Route Admi nistrative Instructions Pharmacy Instructions Status Indications Reaction Description Data Source(s) Tab-A-Alean/Beta Carotene Oral Tablet [id number] 09/16/2020 12:00: 00 AM EDT 1 {tbl} Oral active Take 1 tablet by mouth d [facility] Thiamine 100 MG Oral Tablet Thiamine HCl 100 MG Oral T ablet (B-1) Thiamine HCl 100 MG Oral Tablet (B-1) 09/16/2020 12:00:00 AM EDT 100 mg Oral active Take 1 tablet by mouth daily [facility] Hydroxyzine Hydrochloride 50 MG Oral Tab let hydrOXYzine HCl 50 MG Oral Tablet (ATARAX) hydrOXYzine HCl 50 MG Oral Tablet (ATARAX) 09/16/2020 12:00: 00 AM EDT 50 mg Oral active Take 1 tablet by mouth every 6 (six) hours as needed for Anxiety (Sleep) for up to 10 days [facility] Folic Acid 1 MG Oral Tablet Folic Acid 1 MG Oral Table t (FOLVITE) Folic Acid 1 MG Oral Tablet (FOLVITE) 09/16/2020 12:00:00 AM EDT 1 mg Oral active Take 1 tablet by mouth daily [facility] buspirone hydrochloride 10 MG Oral Table t busPIRone HCl 10 MG Oral Tablet (BUSPAR) busPIRone HCl 10 MG Oral Tablet (BUSPAR) 09/16/2020 12:00:00 AM EDT 10 mg Oral active Take 1 tablet by mouth T hree times daily [facility] Thiamine 100 MG Oral Tablet thiamine (B-1) tablet 100 mg thiamine (B-1) tablet 100 mg 09/15/2020 09:00:00 AM EDT 100 mg Oral active 100 mg, Oral, Daily Standard, First dose on Sun09/15/20 at 0900, For 30 days [facility] Medication administered onsite Folic Acid 1 MG Oral Tablet folic acid (FOLVITE) table t 1 mg folic acid (FOLVITE) tablet 1 mg 09/15/2020 09:00:00 AM EDT 1 mg Oral active 1 mg, Oral, Daily Standard, First dose on Sun09/15/20 at 0900, For 30 days [facility] Medication administered onsite multivitamin tablet 1 tablet [id number] 09/15/2020 09:00:00 AM EDT 1 {tbl} Oral active 1 tablet, Oral , Daily Standard, First dose on Sun09/15/20 at 0900, For 30 days [facility] Medication administered onsite Trazodone Hydrochloride 100 MG Oral Tablet trazodone ( DESYREL) tablet 200 mg trazodone (DESYREL) tablet 200 mg 09/14/2020 10:00:00 PM EDT 200 mg Oral active 200 mg, Oral, Nightl y, First dose on Sun09/14/20 at 2200, For 30 days [facility] Medication administered onsite olanzapine 10 MG Oral Tablet OLANZapine (ZYPREXA) tabl et 10 mg OLANZapine (ZYPREXA) tablet 10 mg 09/14/2020 10:00:00 PM EDT 10 mg Oral active 10 mg, Oral, Nightly, First dose on Sun09/14/20 at 2200, For 30 days [facility] Medication administered onsite [place] Carbonate 300 MG Oral Capsule lithium carbonat e capsule 300 mg lithium carbonate capsule 300 mg 09/14/2020 02:30:00 PM EDT 300 mg Oral active 300 mg, Oral, 2 Times Daily With Meals, First dose on Sun09/14/20 at 1430, For 30 days [facility] Medication administered onsite Citalopram 20 MG Oral Tablet citalopram (CELEXA) table t 20 mg citalopram (CELEXA) tablet 20 mg 09/14/2020 02:30:00 PM EDT 20 mg Oral active 20 mg, Oral, Daily Standard, First dose on Sun09/14/20 at 1430, For 30 days [facility] Medication administered onsite Propranolol Hydrochloride 20 MG Oral Tablet propranolo l (INDERAL) tablet 20 mg propranolol (INDERAL) tablet 20 mg 09/14/2020 02:30:00 PM EDT 20 mg Oral active 20 mg, Oral, Three Times Daily Standard, First dose on Sun09/14/20 at 1430, For 30 days
Check vital signs before administering
[facility] Medication administered onsite 12 HR Bupropion Hydrochloride 100 MG Ext ended Release Oral Tablet buPROPion (WELLBUTRIN SR) 12 hr tablet 100 mg buPROPion (WELLBUTRIN SR) 12 hr tablet 1 00 mg 09/14/2020 02:30:00 PM EDT 100 mg Oral active 100 mg, Oral, Daily Standard, First dose on Sun09/14/20 at 1430, For 30 days
Do not crush or chew
[facility] Medication administered onsite pantoprazole 40 MG [...] with this P&T Committee approved formulary equivalent.
[facility] Medication administered onsite Lisinopril 20 MG Oral Tablet lisinopril (ZESTRIL) tabl et 40 mg lisinopril (ZESTRIL) tablet 40 mg 09/14/2020 09:00:00 AM EDT 40 mg Oral active 40 mg, Oral, Daily Standard, First dose on Sun09/14/20 at 0900, For 30 doses [facility] Medication administered onsite buspirone hydrochloride 10 MG Oral Tablet busPIRone (B USPAR) tablet 10 mg busPIRone (BUSPAR) tablet 10 mg 09/14/2020 09:00:00 AM EDT 10 mg O ral active 10 mg, Oral, Three Times Daily Standard, First dose on Sun09/14/20 at 0900, For 30 days [facility] Medication administered onsite 24 HR Nicotine 0.875 MG/HR Transdermal P atch nicotine (NICODERM CQ) 21 MG/24HR 1 patch nicotine (NICODERM CQ) 21 MG/24HR 1 patch 09/14/2020 02:30:00 AM EDT 1 {patch} Transdermal active 1 patch, Transdermal, Administer over 24 Hours, Every 24 hours, First dose on Sun09/14/20 at 0230, For 30 days [facility] Medication administered onsite Hydroxyzine Hydrochloride 50 MG Oral Tablet hydrOXYzin e (ATARAX) tablet 50 mg hydrOXYzine (ATARAX) tablet 50 mg 09/14/2020 02:20:05 AM EDT 50 mg Oral active 50 mg, Oral, Every 6 hours PRN, Anxiety, Sleep, Starting Sun09/14/20 at 0220, For 30 days [facility] Medication administered onsite acetaminophen (TYLENOL) tablet [...] 30 days
MDD 4
[Order 3 End] [facility] Medication administered onsite buspirone hydrochloride 30 MG Oral Tablet busPIRone (B USPAR) 30 MG tablet busPIRone (BUSPAR) 30 MG tablet 30 mg Oral aborte d Take 30 mg by mouth Two Times Daily [facility] 24 HR Nicotine 0.875 MG/HR Transdermal P atch Nicotine 21 MG/24HR Transdermal Patch 24 Hour (NICODERM CQ) Nicotine 21 MG/24HR Transdermal Patch 24 Hour (NICODERM CQ) 1 {patch} Transdermal aborted Place 1 patch onto the skin every 24 (twenty-four) hours [facility] Insurance Providers Payer name Policy type / Coverage type Policy ID Covered alliance party ID Covered alliance party's relationship to magallon Policy [place] Plan Information Medicaid Dental S [id number] S [id number] [facility] Community Plan Commercial [id number] Self [facility] [id number] SP [id number] Medicaid [facility] Healthcare S D [id number] SELF [id number] Managed Care - [facility] P [id number] S [id number] Medicaid S [id number] S [id number] Managed Care - [facility] Plan P [id number] S [id number] Managed Care - [facility] P [id number] S [id number] Medicaid S [id number] S [id number] [facility] I [id number] Self [id number] [facility] I [id number] Self [id number] D Managed Care [facility] P [id number] S [id number] [facility] [id number] SP [id number] SELF PAY ONLY UNAVAILABLE SP UNAV AILABLE [facility] RACIEL [id number] SP [id number] [facility] COMM[facility] [id number] SP [id number] MEDICAID [id number] SP [id number] SELF PAY ONLY [id number] SP [id number] SELF PAY UNAVAILABLE SP UNAVAILA BLE [facility] MCDO [id number] SP [id number] [facility] RACIEL [id number] SP [id number] [facility] PLAN [facility] [id number] SP [id number] [facility](MCAID) O [id number] S [id number] [facility] RACIEL [id number] SP [id number] MEDICAID [id number] SP [id number] MEDICAID M [id number] S [id number] [facility](MCAID) O [id number] S [id number] Medicaid S [id number] S [id number] [facility] [id number] [facility] Community Plan Commercial [id number] Self [id number] Problems, Conditions, and Diagnoses Code Display Name Description Problem Type Effective Dates Data Source(s) Suicidal ideation without a plan, hx bip olar Suicidal ideation without a plan, hx bipolar Diagnosis 09/14/2020 01:41:00 AM EDT [facility] [id number] Tobacco use Tobacco use Condition 09/23/2020 12:00:00 AM EST [facility] ([facility]) [id number] Tobacco use Tobacco use Condition 09/23/2020 12:00:00 AM EST [facility] ([facility]) Surgeries/Procedures Procedure Description Date Indications Data Source(s) Individual psychotherapy (regime/therapy) 05/20/2021 1 2:00:00 AM EDT [facility] ([facility]) Evaluation AND/OR management - established patient (procedur e) 05/16/2021 12:00:00 [facility] Evaluation AND/OR management - established patient (procedur e) 03/14/2021 12:00:00 AM EDT [facility] ([facility]) Evaluation AND/OR management - established patient (procedur e) 03/14/2021 12:00:00 AM EDT [facility] ([facility]) Individual psychotherapy (regime/therapy) 03/09/2021 1 2:00:00 AM EDT [facility] ([facility]) Individual psychotherapy (regime/therapy) 03/09/2021 1 2:00:00 AM EDT [facility] ([facility]) Evaluation AND/OR management - established patient (procedur e) 01/24/2021 12:00:00 AM EST [facility] ([facility]) Evaluation AND/OR management - established patient (procedur e) 01/24/2021 12:00:00 AM EST [facility]) Evaluation AND/OR management - established patient (procedur e) 12/27/2020 12:00:00 AM EST [facility] ([facility]) Evaluation AND/OR management - established patient (procedur e) 12/27/2020 12:00:00 AM EST [facility] ([facility]) Evaluation AND/OR management - established patient (procedur e) 11/24/2020 12:00:00 AM EST [facility] ([facility]) Evaluation AND/OR management - established patient (procedur e) 11/24/2020 12:00:00 AM EST [facility] ([facility]) Individual psychotherapy (regime/therapy) 11/22/2020 1 2:00:00 AM EST [facility] ([facility]) Individual psychotherapy (regime/therapy) 11/22/2020 1 2:00:00 AM EST [facility] ([facility]) Evaluation AND/OR management - established patient (procedur e) 10/11/2020 12:00:00 AM EST [facility] ([facility]) Evaluation AND/OR management - established patient (procedur e) 10/11/2020 12:00:00 AM EST [facility] ([facility]) Diagnostic psychiatric interview (procedure) 0 12:00:00 AM EST [facility] ([facility]) Diagnostic psychiatric interview (procedure) 0 12:00:00 AM EST [facility] ([facility]) Individual psychotherapy (regime/therapy) 09/21/2020 1 2:00:00 AM EST [facility] ([facility]) Individual psychotherapy (regime/therapy) 09/21/2020 1 2:00:00 AM [facility] DRUG SCREEN QUALITATIVE LITHIUM <td>LITHIUM LEVEL</td><td>Routine</td><td>09/15/2020 6:10 AM EDT</td><td></td><td> </td> 09/15/2020 06:10:00 AM [facility] COVID-19 PCR <td>COVID-19 PCR</td><td>Rou leah</td><td>09/14/2020 3:33 PM EDT</td><td></td><td> </td> 09/14/2020 03:33:00 PM EDT [facility] Evaluation AND/OR management - established patient (procedur e) 07/28/2020 12:00:00 AM EDT [facility] ([facility]) Evaluation AND/OR management - established patient (procedur e) 07/28/2020 12:00:00 AM EDT [facility] ([facility]) Results ID Date Data Source [id number] 09/17/2020 11:49:24 AM EDT [facility] Name Value Range Interpretation Code Description Data Angelina rce(s) Supporting Document(s) Discharge Summary [facility] [id number]/XWZleGYApk1MxDDvwBAs7YZojALPgY1JcSSI7oK6cLVV0WJgWUdFpOoBlLGZp lbm [file] ICAgICAgICAgICAgICAgICAgICAgICAgICAgICAgICAgICAgICAgICAgICAgICAgICAgICAgICAgICAg HZYzCUEfLFLcSMHoJIRvFEWsIDWjEU6BZQWrRFHdMOWtBESlNFRgYRKgAVRgPGRmIGDzIXXsWSXvHJDk ICAgICAgICAgICAgICAgICAgICAgICAgICAgICAgIC CpWTZaMAOdQDEpRSPcZJHhTWFyNGFpOAFdSPEzYXJxRJ4KWVTnIFQfJLJkUGGbGSGiMBKpCQMyWRWwXJ AgICAgICAgICAgICAgICAgICAgICAgICAgICAgICAgICAgICAgICAgICAgICAgICAgICAgICAgICAgIC IcAAWjNQQqTQWkQLViKB7FVMIhVTFqBPRuLFXyNMQr ICAgICAgICAgICAgICAgICAgICAgICAgICAgICAgICAgICAgICAgICAgICAgICAgICAgICAgICAgICAg BWKqQRPiEZKbDJDsVGJcHMKwGCZmVOTiRR1RSFKvEIIuGRHcAMJxBSMxDJPgNMJmXKQgITMkPYBqOMSl ICAgICAgICAgICAgICAgICAgICAgICAgICAgICAgIC IrNTYgOVFnFTTqOSEuQUKgXZPdHCRpWSBcLIOwXLIqUZYhUS1QQQNrOXKlJRBxNPEeDLExIBFrDQLcTW AgICAgICAgICAgICAgICAgICAgICAgICAgICAgICAgICAgICAgICAgICAgICAgICAgICAgICAgICAgIC IaFYVsXEJsJHYdFPOdYNCyGV8ZTDOmZIUpQSXvHAEz ICAgICAgICAgICAgICAgICAgICAgICAgICAgICAgICAgICAgICAgICAgICAgICAgICAgICAgICAgICAg MOXeXAKvDNQoYGAvOFLoBTCwDQShYMLzWWUpKY8GQTEqZSMtAWUwXCEvZTJhNUTfAFGvKZAdOZVlZFSb ICAgICAgICAgICAgICAgICAgICAgICAgICAgICAgIC JkUYQpYNRrZHFlXBWtMIHkIAJcQVMwLJEzBBCtQEIrYETuGISdOI4ISALxQPBdOSQhUNAwJQAaJPLjMV AgICAgICAgICAgICAgICAgICAgICAgICAgICAgICAgICAgICAgICAgICAgICAgICAgICAgICAgICAgIC QlQFJpNTYaPBKgOAUaXMVoNXHsTS1USGIhPOTrGNPv ICAgICAgICAgICAgICAgICAgICAgICAgICAgICAgICAgICAgICAgICAgICAgICAgICAgICAgICAgICAg USBlQAObNDCfLTPjEZIfOXUdMMTnIBIvIUZeURYzQH7AOK02yLOzi0W1RJUpYT1oxay/Zw8GEKbnupFn wUUgXV8QWvQcKW9eol9UMoHaCK9kco2KGErWWjFhQ8 K4vTLcKJOzDLQXRjYdD76pMBtrSm85YFwoBCCaBbDlPYy1Eb6GYcYlS7ljDJRcGiV0WKZkPsF7BMHuDe Y3FJYiIjYlQORwUMRcAPOkBDAUENY6MYGiGbClLgNxDLAfPTvgFXFLQBXhBXMtCxIlSiMkKFEzLH1OCG XvA430tuSoGCESHv0+OZjeobSvNpaEUzA8SCFlf2Qu WCr4LY0IYYKoVkvei0JmNmNtDOLKXKnkPC8JXHV1DMZcLOAjMm0MJBFaO606veEaHD9XVz7ZZiMiHN4v zs5GPmUzGHEgHsmMIfv5MKvyDW3MkRBlLJnTwDHhmTKiG6TzD2VdyPEzfBOgeYWVhY7uZA6sQGRzYTet TlAgYXQgMTAvMjkvMjAyMCAxMToyNCBBTSkNCiAgL0 Htk4BtJhH5CFAvHbPaJDcmPEQqOlS9DC70xXeyFK1SKXCuHXKrPM84LHG4WWUeEn7LWe1JMzMwPC8msv 0MFcNkQYAkQaoSIcu1YYprYT9RcQGyK9YzgUHgz5uOUoKdJ4JURFD6VMVaSn9KMZDkNqApJSHpWKklJZ 5hAEZjIRZIdAobftC1ST1PUJ8mwzQiOE7FZcKjSc7r Nq9FQeQgS3AzO9ArLYAsAKYUFGtaJL7JHIdpCC9uDS4Mi8YIgYXulS1oqp2TMWYxVZOuVwjlvu8ZEsdo U0P6kIycGHNuIHtlUUOKTVguHS9AHCMjJAG3ELC9MRZqTCZEOsXxD14bBJ8RC2Exu92zIvC3DIPjUaLs INbpSA91pUbavvXmoQDruHabUC2SNj4+DQplbmRvYm gUEonrBZDFDrJuAoGVCjBpPOEwWWDiWWInNvW7ZaHcOb0KCVEdROXjGFHaMvXlKRWvRTLrRGddBSGwAL yoWgEuRZEqOKVkCR8AJoDsJBCuJfWnWMxqQSDoRYBwsd4BJVCyUJQpZBF7FdYiAEIfQSKoICuhMNJvOI R3AJl2VJIaGIZiKA8QRcSuGVAtNXOzTMfgEVAmZSDx kz1BZYJjAESfDmL9VfAxHFZeDQYlCKbkSLHpICW0TUErAKSiGEVzUL4TSyCwOTVoNKQ7SvynKWTzXTAl eb0LLUVbUBPwQANeOJEsHFPuGGMeBJufHNPgLWB8IFq3KGKyIQZmYF4DXpMyPAOaFLCnLTKcSMBsHSQa wt6GUQYqDXEpZUp0GhXsMGGgCECyZZozRIKqIAL0MA OtVXYmVDYkAW9ZSbNkTSIvWjB5LWFeGPGcWAZyul3EOEJvHVOeUqlrArJsLJBqMOWvAYjrTJXlAMZ4Ui WsQLAoFAMeUM5PNuRpARJkEyM4VREgSPYsFORvba5MUZOrUGAmRUO0WKOkDTUdEQJeEJkfOKJoIRH6UU K5VMUcUWItUP6UFyKsZNFqSxV6QWydLOPyFNPktr1F WPTbVBWpFyrmALEaLAMjLZZfKXrsXUOnGOQqJSbiPDUuYKEaYI7PAvAxDZNwLeG0BgdfICYgDBRwqu9Q HJIvAIOzGSLcUGOyGBEbHLKgQRuxAFNlFBW5QHI0QKMsGSQjET1KWvLwNOUhRoXqWJdgULAkZMInjb0L TKXrZILbKLr8PsYgWYRcAXMjZBqpYFErXNU1DZd8DY QhRSPnYT3KLzTfCCQlRcCxXhirHXGnHJSrzf5RGEWaWZWaZlAkOpQkIUSlHYGpRUmqFZHjIMN5HBR7IO CwGBVjUS3CClGlOELiQne3RFfqUTGyIFUvjs2TOCRgOSB8DOP2AeQfTIKkBWJvFZukARYjJVM1UGIpFE NhXNSuCY7RChPxKSQaMJu7VAfrHTBvODEjgk8DNPHo GAP8BDs5QXKzCUViLSCuRDbwLIYyNONeXBK8MLIoXJCgCS9OFaUgGXLwGSN4KAolLBGsKJPhma8JPPSw FBF5LMAbAcGiLNBwYKXaDWcsSKPeGQGkPfF9NCArLUAbSZ2KQgXlIKIxMeP0PUmzUYPwUHWmjt9UCWRp WNQ4HyKySzEwICUqYCSvUXdjRYQlONLlUyD3EZGiOW RlIC1HIgUfRLVoPgN0JmPgAYOvAFMwkv1PEIOePPG0TrOwMBShZUKmNNXhVZbmYOMdURQ6KEW1RGZpDQ IhFK5SYkIuCNGtGpO2BOzsLNLgHBOhpb6LMSOoWCY2FQueZBWmHFTdFTLkQKcgLJClPCC8Uzl8JAFvCX DpNY8CSnKgPKJcVtHiGTgxSRVvJBYquc3QCWFjJAQ7 GMQyYQEoYWOiBPOwVBvhSNZsTRfbBLkxUNQlLFOpOH1WFgKnGBBvIoZ9EbXfQYMlHGAtas1LEXHzTEO5 QCwiPGLeMWCzPTAhSEbiBEWlDKvcYIn3NFCuTFDePR9MXyLbRYBbTwCdZwElVBOvYYYjxk2FWBUjHWP3 GZzkPAUzDFAaFKCzPThzESLvOEwiKfD9YTLcLWXeYW 6JPwLeJZNjUxAyFCnkLXAwORZkxg0VBNGeCHZ3NyDfTUPkFWRsOVHcEXo1mpImsEIhCQa8LC5PA6Lrua LqMjDUZd6Yq230DDErDPJgAe0QO9tpFi6zYLTlMCQWEi8BZTc2ZSZbOUFxZdZqKTMuHBL7PTRbCBRoUN IsQ5A5J9CnCVo+CAnyQYO7IsKkR8U5IUF9UeVuEQMa RwOeYyWzXJY2DyW4OI2qQUOTTs7+TLeeeEAgiXptJJJAIsrgUubaEWwbQCMWTp8X ID Date Data Source [id number] 09/15/2020 07:19:41 AM EDT [facility] Name Value Range Interpretation Code Description Data Angelina rce(s) Supporting Document(s) [place] [Moles/volume] in Serum or Plasma 0.52 mmol/L 0.60-1.20 L [facility] ID Date Data Source [id number] 09/14/2020 04:53:37 PM EDT [facility] Name Value Range Interpretation Code Description Data Angelina rce(s) Supporting Document(s) History and Physical [facility] DUZTPq1fEeQFOcEf14/ZHUznECTnm9FdSIqpHNn2OMioRQGwX4JeSOT7zL2xZJV1PRwKVdUeTdItOGA5 lbm [file] ICAgICAgICAgICAgICAgICAgICAgICAgICAgICAgICAgICAgICAgICAgICAgICAgICAgICAgICAgICAg ICAgICAgICAgICANCiAgICAgICAgICAgICAgICAgIC AgICAgICAgICAgICAgICAgICAgICAgICAgICAgICAgICAgICAgICAgICAgICAgICAgICAgICAgICAgIC AgICAgICAgICAgICAgICAgICAgICANCiAgICAgICAgICAgICAgICAgICAgICAgICAgICAgICAgICAgIC AgICAgICAgICAgICAgICAgICAgICAgICAgICAgICAg ICAgICAgICAgICAgICAgICAgICAgICAgICAgICAgICANCiAgICAgICAgICAgICAgICAgICAgICAgICAg ICAgICAgICAgICAgICAgICAgICAgICAgICAgICAgICAgICAgICAgICAgICAgICAgICAgICAgICAgICAg ICAgICAgICAgICAgICANCiAgICAgICAgICAgICAgIC AgICAgICAgICAgICAgICAgICAgICAgICAgICAgICAgICAgICAgICAgICAgICAgICAgICAgICAgICAgIC AgICAgICAgICAgICAgICAgICAgICAgICANCiAgICAgICAgICAgICAgICAgICAgICAgICAgICAgICAgIC AgICAgICAgICAgICAgICAgICAgICAgICAgICAgICAg ICAgICAgICAgICAgICAgICAgICAgICAgICAgICAgICAgICANCiAgICAgICAgICAgICAgICAgICAgICAg ICAgICAgICAgICAgICAgICAgICAgICAgICAgICAgICAgICAgICAgICAgICAgICAgICAgICAgICAgICAg ICAgICAgICAgICAgICAgICANCiAgICAgICAgICAgIC AgICAgICAgICAgICAgICAgICAgICAgICAgICAgICAgICAgICAgICAgICAgICAgICAgICAgICAgICAgIC AgICAgICAgICAgICAgICAgICAgICAgICAgICANCiAgICAgICAgICAgICAgICAgICAgICAgICAgICAgIC AgICAgICAgICAgICAgICAgICAgICAgICAgICAgICAg ICAgICAgICAgICAgICAgICAgICAgICAgICAgICAgICAgICAgICANCiAgICAgICAgICAgICAgICAgICAg ICAgICAgICAgICAgICAgICAgICAgICAgICAgICAgICAgICAgICAgICAgICAgICAgICAgICAgICAgICAg ICAgICAgICAgICAgICAgICAgICANCjw/eWPcW3vikN DbzvZ2X6zlEc0DEb4ORN3oz6EmVTIoSUdsppFqZtcCPsOfSTQiXazDBpo0WLvwDQ7EgSZaL0WgZ5WxWX juYX3QERYwSBAcjAUvCYVwKDJhBgA7PUPmJWddQV2InNJwGHpuPHQtLRPtGpXdKVIoTTClCYCwSSUrPQ WHDCSjTFRgLrUzBCQrIXGlSQezENPGTOA7CSMsHbFl NMEfTHCtSoEsLRJMIX4GRfIvE3CelC05VTYxERd+Xa9MTO0mq8NnZMv2SOSoCS9dwf7SFQxZGzKwR0Hl kxX3YLX5BHEfVs0PDUQdAQNygQZ6EISlLEMHTrSbK5VipE79IAYYGj3+TRtlsoOfBvwMPkS3DQGwd7Nz EFi9RF7DSXRxUTl5wTBwCFCDMNB2PQk5nv0hHTPXLI aaTKHBKKSswCLmFC9kPg1dCHDcEQKbZjL8SIOLMA2FKLIhDFUbuSDkARUyGRTZCL4TBIjrQCY3KTWcwu BrhZWiGPsbXG4GLPIifpGeACXaLIWPSHe+Cp7DKW3vt9VtQAy9FdEiRI1rtp9JGPkVXdDhW3Z2tQTdG3 L1XHdhYj0DTQRbSKGiYWNgKMEOTJuiWM3EDR5sqlG9 VD9HmIYzNJDlIUSvvIYrLHm2H26ayVSvGRzdNP3NYWT+Arturo+Vf5NYQLtZAPbBHKhNsXaDNYYGyBjC7Px A6YWb8CtO3UfIK07rHsbiuQhALscFP6TXA0hUUJxGVXTGY1UcTKoaH9saeM5WRHjEKCCUdShQ63hkWYe QFMeDRQoLVJiBg1RTYNwG9OkmwWznGfpsvLyTJCdEC JZBX4CXRptpcSzpICtyEcaAU72wIowCK2YRn2RIhRiTA9bew3EfUEyPq5HOZY1Zy0YMJNtAHReNKEuFN Z8UBTkFrVxHVisLPTkZPWnCVK0CWCrNJWyUE8GNfDfOVLyKSwbYrtsVFEjURAdiz9HLNKiGCX3KIN6QG RkMNQcSQAgCDhfKHTdEPOdDTI4BBMkBVBvIN5MZwCg TCMbOWB3CwzyIULqVCLipq7POIWfCUErObz8EbWtFMWhLITtJNsjNTPoVFF1HcH4NSVmBPGtUT9LMdBj BBIlDVI1OFReGSUfGFPjvm0IXNFhYKGuVMD6WkUuHUGzWKJnSGszQCQhMXPuEzl0CNOcMHCaDZ9TEfVq UAUbBLQvUapyIQIfTTVspx1MDLUaYEToIcU3UlYxTZ PkCCXdFKyyGCApTVT8Seg5XFGpJDDgZM6ISmEeWFHvGYW6GZJcKNBvBHOftr1SRKIbCLRaPKj9TBEkTF GvFULcNAnePGAbBMRdJJo6PEZjLFErQY1JVeAkUPDdDaE6NPizPABsTGJkwn8XUVAzNYNvAomlDZMcIZ KkIGMxPUrkBVVtIVZ8RTi7NLPnAGVdVS9IXaPuILPj Wvl0IDGeISGgPHMvpd7NXJBgDLVoTLN2EFZhIXVxLWChSFihJFLqUSXwXzo5BHBmFPMuVJ5AStViGMFw MuZ0FVRyLHJzATGkqq3QPNVqEYQlEeBgINSdIRPjTOXiJCgjZJZjFCVtXPbwDOVxNRCqPD9EVnMtFPCk KyHuZkusGEDsCTZyrl9HQEIwRQAqIDH6LMImXRXkVD JyFPwtMSSvIHX7WhNsDILgNBRoHQ0FLqCnXIDkNsC0CSMfOGIzNMIbvl3LMUOfHAMcBMgxYXNeBMYdLK ZaQAizXSIqZFT4VzYtLGTzZBZoHW8SQmLmFTAhGhV7NQxjNKZpWQKqcy6XQWSaCEEyOzP0HCLbVBWzLN ItPNqvRTTuJLT3TXQ7ZETyZJTaCF1BUwRgUFZlAZp4 EIGfLBNcLJDhgq2UZNIpAGW2MJi0AcRsVZHxRVEbGTvnIQGjHTZ1JZfxCQSySBWzSX1IMrWmOCCpRJwq YhfzCKFaPZLgyf7YGYIfWUW4UQT2LVMbWLWrTWMuFIkyXGNfBYYjGXV9LUPhQQPjFM1VSrAuZFHnRLG9 XGyeDWJdVWVtts0ZJGYxPON2PKT3HTShLZGrWAZpNC jiSJDzWQHbJprdSYIlAEWwCL9DCoRtKBYlYEN9JlSxQGYbLFObwq0HVKIgCMB6KxaiNcCfRHIsVFHhTW fdZXIsPHY6BIS0YWKtJWLjNU4LCvRhPCMdLSegJzHaASOqJXTbet3CECMrTCN8WmRmMvRtJTQuMNBrUD wpPQGiZMN6WvO5KCQmANKcOK1BLiSgVJYeRJp2AaYe ZHQrVYIdml1DKDJtSUR3PFTsGWYtVFZaMEBhVRbaIOSbKZO1QmZ5SNXuJWAjQH7FYwLeQWGyGYt7Qqsw GENhPIRbwp8WPWTcNTU4YRGfZPJdAIDbRXGaEBxuDBRsAOSlTEM9LZCwYSRtHC3RZxPcXMRfSyX7LOIq TBQhOXSlsh8EiBZdyIvmlc6KNZcKBg7TpWfpNCA4LS urWu8wzSA6WaMrUWQCAb2FbjEoRSLoTXMNUJjmPKUqXJY7TxQqZRCdYyL7UCK8ZAYfV7UbJdTmLJZhWj F7WVvvIsH3IAdzAsHmFvZ4CbE3KsXnPmHiMSW1C8RaAHTmWCExUCO+SU3dVCb+Ve7Hd0RitvK9dvBgYD c9KCc0DY0GTDOXH0UUEv== ID Date Data Source [id number] 09/15/2020 06:07:53 AM EDT [facility] Name Value Range Interpretation Code Description Data Angelina rce(s) Supporting Document(s) Specimen source [Identifier] of Unspecified specimen [facility] SARS-CoV-2 RNA 2019 nCoV Real-Time RT-PCR: NOT DETECTED [facility] Assay Performed [facility] Patients first test for [facility] Patient employed in healthcare setting [facility] Patient has symptoms related to [facility] When did you start to experience these symptoms [Date and time] [Phen X] [facility] Patient was hospitalized because of this condition [facility] patient was admitted to ICU for [facility] Patient resides in a congregate care setting [facility] status [facility] ID Date Data Source [id number] 09/14/2020 03:33:00 PM EDT [facility] Name Value Range Interpretation Code Description Data Angelina rce(s) Supporting Document(s) SARS-CoV-2 RNA [facility] This lab was ordered by [facility] and reported by [facility]. ID Date Data Source [id number] 09/14/2020 01:56:32 PM EDT [facility] Name Value Range Interpretation Code Description Data Angelina rce(s) Supporting Document(s) History and Physical [facility] QPECDr1wBqENPtKr26/YZHycDHPoi8OmWQtwNNu4OThzEOZnE3EzBUJ4cQ5dPUJ7UYlGVgOuGsQdPFS4 [facility] [file] AgICAgICAgICAgICAgICAgICAgICAgICAgICAgICAgICAgICAgICAgICAgICAgICAgICAgICAgICAgIC AgICAgICAgDQogICAgICAgICAgICAgICAgICAgICAg ICAgICAgICAgICAgICAgICAgICAgICAgICAgICAgICAgICAgICAgICAgICAgICAgICAgICAgICAgICAg ICAgICAgICAgICAgICAgICAgDQogICAgICAgICAgICAgICAgICAgICAgICAgICAgICAgICAgICAgICAg ICAgICAgICAgICAgICAgICAgICAgICAgICAgICAgIC AgICAgICAgICAgICAgICAgICAgICAgICAgICAgDQogICAgICAgICAgICAgICAgICAgICAgICAgICAgIC AgICAgICAgICAgICAgICAgICAgICAgICAgICAgICAgICAgICAgICAgICAgICAgICAgICAgICAgICAgIC AgICAgICAgICAgDQogICAgICAgICAgICAgICAgICAg ICAgICAgICAgICAgICAgICAgICAgICAgICAgICAgICAgICAgICAgICAgICAgICAgICAgICAgICAgICAg ICAgICAgICAgICAgICAgICAgICAgDQogICAgICAgICAgICAgICAgICAgICAgICAgICAgICAgICAgICAg ICAgICAgICAgICAgICAgICAgICAgICAgICAgICAgIC AgICAgICAgICAgICAgICAgICAgICAgICAgICAgICAgDQogICAgICAgICAgICAgICAgICAgICAgICAgIC AgICAgICAgICAgICAgICAgICAgICAgICAgICAgICAgICAgICAgICAgICAgICAgICAgICAgICAgICAgIC AgICAgICAgICAgICAgDQogICAgICAgICAgICAgICAg ICAgICAgICAgICAgICAgICAgICAgICAgICAgICAgICAgICAgICAgICAgICAgICAgICAgICAgICAgICAg ICAgICAgICAgICAgICAgICAgICAgICAgDQogICAgICAgICAgICAgICAgICAgICAgICAgICAgICAgICAg ICAgICAgICAgICAgICAgICAgICAgICAgICAgICAgIC AgICAgICAgICAgICAgICAgICAgICAgICAgICAgICAgICAgDQogICAgICAgICAgICAgICAgICAgICAgIC AgICAgICAgICAgICAgICAgICAgICAgICAgICAgICAgICAgICAgICAgICAgICAgICAgICAgICAgICAgIC HsVLZrMWOuWSQlMLLmNRRqSGa8Y9snDHMyZLKsCS9a AEw7Qb3+MPtYQmNkSWA4pcUwuO5WVB9fv6XsVQqmPNPmj4OaNIe1JI6KZCWmTQtlHD6SWEbqrm5FNZTw GRVarCREu1syPuEvSDT5PWGtXilcPN4PIFBcA1qqhsFzDTPdDKJDKSjuKFCHICliMRPQJOZcKKHjYmRc GYhrVC6Ar9DdgVN6DJo+Rs6JNE1bt3IfFZkuGMJwSI 9mcx9CIMdVVuWlQ5GpzzL5RUV7IKNcJl4BFQNvNQYceRUnFVQpBCUOEaFhM6ZokP49FBRTGa2+DQplbm IfEroNOqF6HHPao4MeVMz3IB5GURYhROk9aBMxNEXUCKE4YSNmYU1wORBYrCDeSKIqEGSFWIT3AKKeCp R5SnXiMyUxARL6LTAjIG7gANfbGW3COIU1FHakREUl YPLsQ8pPRmFhATUfVgZsyHlrNW4GEzPoY8TrptXsmIZbBGEnEJMZYg9+GYeyioUlJikRRnL0CULmt3Iz LXg1VP2YHSChZQzcWT1SNXMxmP4bYNfaEK4NBnYbQrRyRJNUZvKyM37buVBsECl7B1UdAdMkGTFqVkyt ZXMgPDwvTmFtZXMgWyBdDQogID4+ID4+YFbhVO4XUI atnxNbVSBxEx6STQSfLHTwML3cIMLwALQdF1V8yWziNATMQqXhE1iditysRY6iWLTyU422sQhjgmAqEH S5HUZaSi8FEBAvHKS4KOTdjJIaIwGbABPRNLhmEK9UtPWfFOJ7qL9eRFfeSGBuKKRjU0nKDqSvmIicBU 51bGwgbnVsbCBdDQo+Kq3FKH1hb3MrGSk4fxNwXZxt HVQ7BFqdQDLjKZGxWANlGXA0CAO5TFUOUkXzSRElQJRuXGzvHRUzQIQamt2SRLMxLQNsNTK6LHFpDSWn XYRgHFexFFIkFHIyPFS1QHMdQIMmNL4AJtJyQMPiCBNoABgyAVRtQIEatl2IWCGzOCIaXnXvXkGwXUTk VEEgUFaoGJUyLGVcPlMyFOMfDDMyZJ1UAvJaJYVyQH HaVzpwTBNoRLPsdg3EOUDzGMFzVnT3FpVdBWDnCBBlTQkwQQYlQDJ8HEaiYJZbYLPlCJ1SUmPeFJOoOH f7VKQeYAZrMGYmlu9GJOHpTSReTwRrIcEnEBMgYZJtIPynDBHeFWObHhEsLBSeZBKwFE5ESaFvYTLcAR QuBrYzDGFuWJSdtv3RTYQcCBGaEaM8HUEeLEXuHKCa WTqfBTZsQJSnDmTmVJWzFXHlWP0XRmGsULPgXLO9FCQdXDQqRTBgzi9OTUAnEFOhQEyuJcHsPPVnWQCa PYaiTVCaQKV1LOIwTJXiRSEuOT3BBiMvZIUmMIO1HtAvUSGaRSNuks0KUXFkMJOoAnE2OQRdOKNzSBCl HTfvUQJhFMZ4QcVyYLDeNLVvZQ6KIoWdQXHcCok9Mk IsDCAiHEBgzs6TCXBfJJGfWJG7JBSyXWZrMIOwNGxpSBBhHEH2IhNcNWDeCSKaVQ2KNuSkWJHjHwa3AB QwGWQzWQTjti1KHBTgUSHuMDGmWUUhFBCcCYFhRTrxCSJbLIA8WQixBLEmLHUxTQ9ZEaPjDXMrPvw2Kp WgCSGdOGKjud9FUEHhNXBoSLt9OJXxFJVpCBVbRUwd HRZtFBEmCHklIGFiBVZwZC9KZrHeUIHxAzBxEYRvJXEwDFYgad2ZQZWqQDUaREK1UcTtIGZqPGSlXCgm ZHDhDSVlVwN7EMOnAAZiUG2LZnIcAFEeTqQzVsNyMTGvPKMycf2ZUDByTLYjQyS3KMGsQAMbSLOcKDqw FONfDKVkLhrrDZEdCTZoWE4ZCmXqQAqoOXZXMgz0AV roZ0y7AHUgNp4EY8Mfy1StQfWdRTBECDlyGO7jdsAlDZIbFl2HI2nEEhlwXYa1IKZ8YuChKfB6YAunXB OaBtL0DnldWwl4SUB7Fh6lRBKhSTH2EQWqXnCuQQGcQWEcVQIbIrXyOLYnGSkeAmF4LaNiNT0XCj9SGb C8ZTJ9dINjTn3LOsR8JxJXSdAaDA5QZYo= ID Date Data Source [id number] 09/13/2020 09:57:00 PM EDT [facility]) Name Value Range Interpretation Code Description Data Angelina rce(s) Supporting Document(s) sars covid-19 amplification negative negative Sars Cov id-19 Amplification [facility]) ID Date Data Source [id number] 09/12/2020 04:05:00 PM EDT [facility]) Name Value Range Interpretation Code Description Data Angelina rce(s) Supporting Document(s) lithium level 0.89 mEq/L 0.60-1.20 [place] Level [facility]) ID Date Data Source [id number] 09/12/2020 04:05:00 PM EDT [facility]) Name Value Range Interpretation Code Description Data Angelina rce(s) Supporting Document(s) thyroid stimulating hormone 1.850 uIU/mL 0.358-3.740 Thyroid Stimulating Hormone [facility]) ID Date Data Source [id number] 09/12/2020 04:05:00 PM EDT [place] [facility]) Name Value Range Interpretation Code Description Data Angelina rce(s) Supporting Document(s) acetaminophen level < 2.0 10.0-30.0 Below low normal Acetaminop hen Level [facility]) ID Date Data Source [id number] 09/12/2020 04:05:00 PM EDT [facility]) Name Value Range Interpretation Code Description Data Angelina rce(s) Supporting Document(s) salicylate level 1.9 mg/dL 5.0-30.0 Below low normal Salicylate [place] [facility]) ID Date Data Source [id number] 09/12/2020 04:05:00 PM EDT [place] ([facility]) Name Value Range Interpretation Code Description Data Angelina rce(s) Supporting Document(s) ethyl alcohol (ethanol) 0.372 % 0.000-0.010 Above high normal Ethyl Alcohol (Ethanol) [place] ([facility]) ID Date Data Source [id number] 09/12/2020 04:05:00 PM EDT [facility]) Name Value Range Interpretation Code Description Data Angelina rce(s) Supporting Document(s) blood urea nitrogen 10 mg/dL 7-18 Blood Urea Nitro gen [facility] ([facility]) glomerular filtration rate > 60.0 >56 Glomerula r Filtration Rate RAY ([facility]) glucose, fasting 79 mg/dL 70-100 Glucose, Fasting AT BERTA ([facility]) creatinine for GFR 0.90 mg/dL 0.70-1.30 Creatinine for GF R [facility] ([facility]) carbon dioxide level 24 mEq/L 21-32 Carbon Dioxide Level [place] ([facility]) potassium serum 4.1 mEq/L 3.5-5.1 Potassium Serum ATH NA ([facility]) sodium level 136 mEq/L 136-145 Sodium Level R[facility] ([facility]) chloride level 104 mEq/L 98-107 Chloride Level RAY ([facility]) calcium level 8.6 mg/dL 8.5-10.1 Calcium Level RAY ( [facility]) anion gap 8 mEq/L 8-16 Anion Gap [facility] ([facility]) ID Date Data Source [id number] 09/12/2020 04:05:00 PM EDT [facility] ([facility]) Name Value Range Interpretation Code Description Data Angelina rce(s) Supporting Document(s) alkaline phosphatase 81 U/L 45-117 Alkaline Phosph atase [facility] ([facility]) ALT/SGPT 53 U/L 12-78 ALT/SGPT [facility] ([facility]) AST/SGOT 19 U/L 7-37 AST/SGOT [facility] ([facility]) albumin 3.9 gm/dL 3.2-5.2 Albumin [facility] ([facility]) bilirubin,total 0.4 mg/dL 0.2-1.0 Bilirubin,total ATHE ([facility]) bilirubin,direct 0.2 mg/dL 0.0-0.2 Bilirubin,direct AT BERTA [facility]) total protein 7.8 gm/dL 6.4-8.2 Total Protein RAY ( [facility]) albumin/globulin ratio Albumin/globu chidi Ratio RAY ([facility]) ID Date Data Source [id number] 09/12/2020 04:05:00 PM EDT [place] ([facility]) Name Value Range Interpretation Code Description Data Angelina rce(s) Supporting Document(s) amphetamines level urine negative negative Amphetamine s Level Urine [facility] ([facility]) barbiturates urine negative negative Barbiturates Urin e [facility] ([facility]) cannabinoids urine negative negative Cannabinoids Urin e RAY ([facility]) benzodiazepines urine negative negative Benzodiazepine s Urine RAY ([facility]) cocaine metabolite urine negative negative Cocaine Met abolite Urine [facility] ([facility]) phencyclidine urine negative negative Phencyclidine Ur ine RAY ([facility]) opiates urine negative negative Opiates Urine RAY ( [facility]) methadone urine negative negative Methadone Urine ATHE ([facility]) ID Date Data Source [id number] 09/12/2020 04:05:00 PM EDT [place] ([facility]) Name Value Range Interpretation Code Description Data Angelina rce(s) Supporting Document(s) white blood count 9.9 10 4.0-10.0 White Blood Count [facility] ([facility]) hemoglobin 13.1 g/dL 13.5-17.5 Below low normal Hemoglobin RAY ( [facility]) red blood count 3.89 10 4.30-6.10 Below low normal Red Blood Coun t RAY ([facility]) hematocrit 39.7 % 42.0-52.0 Below low normal Hematocrit RAY ( [facility]) mean corpuscular HGB conc 33.0 g/dL 32.0-36.5 Mean Corpu scular HGB Conc RAY ([facility]) mean corpuscular hemoglobin 33.7 pg 27.0-33.0 Above high no rmal Mean Corpuscular Hemoglobin RAY ([facility]) mean corpuscular volume 102.1 fL 80.0-96.0 Above high normal Mean Corpuscular Volume RAY ([facility]) red cell distribution width 12.0 % 11.5-14.5 Red Cell Distribution Width R[facility] ([facility]) nucleated red blood cell % 0.0 % 0-0 Nucleated Red Blood Cell % R[facility] ([facility]) platelet count, automated 200 10 150-450 Platelet C ount, Automated RAY ([facility]) ID Date Data Source [id number] 08/09/2020 09:33:[address] [facility] Name Value Range Interpretation Code Description Data Angelina rce(s) Supporting Document(s) HCT 38.6 % 42.0-52.[address] [facility] HGB 13.0 g/dL 13.5-17.[address] [facility] MCH 33.7 G/DL pg 32.0-36.5 N [facility] MCHC 34.5 PG % 27.0-33.[address] [facility] PLATELETS 199 10 10*3/mm3 150-[address] [facility] RBC 3.77 10 10*6/mm3 4.30-6.[address] [facility] RDW 12.3 % 11.5-14.[address] [facility] WBC TOTAL 5.4 4.0-10.[address] [facility] ID Date Data Source [id number] 08/09/2020 09:33:[address] [facility] Name Value Range Interpretation Code Description Data Angelina rce(s) Supporting Document(s) HGBA1C 4.7 % N [facility] ID Date Data Source [id number] 08/09/2020 09:33:[address] [facility] Name Value Range Interpretation Code Description Data Angelina rce(s) Supporting Document(s) VIT D25 TOT 54.0 ng/mL 30.0-100.0 N [facility] BG FASTING 83 mg/dL 70-100 N [facility] BG RANDOM 83 mg/dL LESS THAN 200 N [facility] TSH 2.350 microintl units/mL 0.358-3.740 N [facility] Procedure Social History Code Duration Value Status Description Data Source(s ) Alcohol intake 09/14/2020 12:00:00 AM EDT Current drinker of al cohol (finding) completed Current drinker of alcohol (finding) [facility] Cigarette pack-years 09/14/2020 12:00:00 AM EDT [facility] Cigarettes smoked current (pack per day) - Reported 10/27/20 20 12:00:00 AM EDT [facility] completed [facility] Smoking 09/14/2020 12:00:00 AM EDT Current every day smoker co mpleted Current every day smoker [facility] Vital Signs ID Date Data Source [id number] 09/17/2020 11:49:24 AM T [facility] Name Value Range Interpretation Code Description Data Source(s) WEIGHT RECORDED 169.6 lb 169.6 lb [facility] Body height Measured 71 in 71 in [facility] TRANSFER FROM [facility] Patient Treatment Plan of Care Planned Activity Planned Date Details Description Data Source (s) Thiamine 100 MG Oral Tablet 09/16/2020 12:00:00 AM [facility] Tab-A-Alena/Beta Carotene Oral Tablet 09/16/2020 12:00:00 AM [facility] Hydroxyzine Hydrochloride 50 MG Oral Tablet 09/16/2020 12:00:00 AM [facility] Folic Acid 1 MG Oral Tablet 09/16/2020 12:00:00 AM [facility] buspirone hydrochloride 10 MG Oral Tablet 09/16/2020 12:00:[address] [facility] acetaminophen (TYLENOL) tablet 650 mg 09/14/2020 02:19:58 AM [facility] 24 HR Nicotine 0.875 MG/HR Transdermal Patch [facility] buspirone hydrochloride 30 MG Oral Tablet [facility]
[2021-09-07 09:27] LABS: HEMOGLOBIN 14.3 g/dl (13.5-17.5); MEAN CORPUSCULAR HEMOGLOBIN 33.4 pg (27.0-33.0); MEAN CORPUSCULAR VOLUME 98.1 fl (80.0-96.0); PLATELET COUNT, AUTOMATED 122 10^3/uL (150-450); RED BLOOD COUNT 4.28 10^6/uL (4.30-6.10); WHITE BLOOD COUNT 5.8 10^3/uL (4.0-10.0)
[2021-09-07 09:51] LABS: BLOOD UREA NITROGEN 6 MG/DL (7-18); CALCIUM LEVEL 8.8 MG/DL (8.5-10.1); CARBON DIOXIDE LEVEL 26 MEQ/L (21-32); CHLORIDE LEVEL 105 MEQ/L (98-107); CK-MB VALUE MASS 1.8 NG/ML (<3.6); CPK CREATINE PHOSPHOKINASE 79 U/L (39-308); CREATININE FOR GFR 0.84 MG/DL (0.70-1.30); GLOMERULAR FILTRATION RATE > 60.0 (>56); GLUCOSE, FASTING 95 MG/DL (70-100); MB/CK RELATIVE INDEX 2.28 (< OR =4); POTASSIUM SERUM 4.3 MEQ/L (3.5-5.1); SODIUM LEVEL 137 MEQ/L (136-145); TROPONIN I < 0.02 NG/ML (< 0.10)
[2021-09-07 10:16] LABS: ATYPICAL LYMPH 5 % (0-5); BASOPHILS 3 % (0-1); EOSINOPHILS 2 % (0-3); LYMPHOCYTES 32 % (16-44); MONOCYTES 11 % (0-5); NEUTROPHILS 47 % (28-66); PLATELET ESTIMATE DECREASED (NORMAL)
[2021-09-07] MEDS ORDERED: MORPHINE 4 MG/ML 1ML VIAL/SYRINGE (J2270) IV ONE ×2 (10:50→12:30)
[2021-09-07] MEDS ORDERED: NICO1PAT15 TOP (12:47)
[2021-09-07] MEDS ORDERED: HOME MED LIST COMPLETE! XX SCH (12:50)
[2021-09-07 13:28] LABS: RSV AMPLIFICATION NEGATIVE (NEGATIVE)
[2021-09-07] MEDS ORDERED: ACETAMINOPHEN TAB 650MG DOSE (2X325MG) PO PRN (13:35)
[2021-09-07] MEDS ORDERED: MOM 30ML SUSPENSION UDC PO PRN (13:35)
[2021-09-07] MEDS ORDERED: LORazepam 2 MG TAB PO PRN (13:35)
[2021-09-07] MEDS ORDERED: PERCOCET 5MG/325MG TAB PO PRN ×2 (13:35)
[2021-09-07] MEDS ORDERED: MAALOX 30 ML SUSP *UDC PO PRN (13:35)
--- NOTE | 2021-09-07 13:42 | ECGEPIP ---
[facility] - ED Test Date: 2021-09-07 Pat Name: JAMIL MCDONNELL Department: Room: - Gender: Male [employer]: JT : [id number] Requested By: CAROLINA Adams Order Number: [id number] Reading MD: Galina Esposito Measurements Intervals Adams Rate: 70 P: 52 CT: 154 QRS: 69 QRSD: 100 T: 58 QT: 404 QTc: 436 Interpretive Statements Normal sinus rhythm irbbb decreased rate 09/13/20 Electronically Signed on 09-07-2021 13:42:13 EDT by Galina Esposito
--- NOTE | 2021-09-07 14:31 | REPVR ---
PROCEDURE INFORMATION: Exam: CT Lumbar Spine Without Contrast Exam date and time: 09/07/2021 1:22 PM Age: 55 years old Clinical indication: Low back pain; Additional info: Lower back pain TECHNIQUE: Imaging protocol: Computed tomography images of the lumbar spine without contrast. Radiation optimization: All CT scans at this facility use at least one of these dose optimization techniques: automated exposure control; mA and/or kV adjustment per patient size (includes targeted exams where dose is matched to clinical indication); or iterative reconstruction. COMPARISON: MRI-Spine, L.S. without con 08/04/2016 5:29 PM FINDINGS: Vertebrae: There is no acute fracture. Mild anterolisthesis of L3 on L4 is present due to severe facet arthropathy. There is minimal retrolisthesis of L4 on L5. Discs/Spinal canal/Neural foramina: Mild degenerative changes of the cervical spine are present. There is no severe spinal canal stenosis or severe neural foraminal narrowing. Gallbladder and bile ducts: The gallbladder is severely distended or hydropic. No surrounding inflammation is seen. Soft tissues: Unremarkable. IMPRESSION: 1. Mild degenerative changes of the lumbar spine 2. The gallbladder is severely distended or hydropic. No surrounding inflammation is seen. Electronically signed by: Pilo Rosenthal On 09/07/2021 14:30:54 PM
--- OUTSIDE RECORDS SUMMARY | 2021-09-07 15:12 | CCD ---
Author Author [facility] Organization [facility] Address Unknown Phone Unavailable Care Team Providers Care Rn Advanced Name Role Phone Laurita Jorgensen MD Unavailable [...] Unavailable Unavailable Laurita Jorgensen MD Unavailable Unavailable Laruita Jorgensen MD Unavailable Unavailable Laurita Jorgensen MD [...] Unavailable Unavailable Laurita Jorgensen MD Unavailable Unavailable Lauirta Jorgensen MD Unavailable Unavailable Laurita Jorgensen MD [...] Laurita Jorgensen MD Unavailable Unavailable Aleja Goldberg SAND CUTTER SAND CUTTER Unavailable Unavailable Ashley Schmidt MD Unavailable Unavailable [...] Unavailable Unavailable Ashley Schmidt MD Unavailable Unavailable Ahsley Schmidt MD Unavailable Unavailable Ashley Schmidt MD [...] Unavailable Vashti LAUREANO MD Unavailable Unavailable Vashti LUAREANO MD Unavailable Unavailable Vashti LAUREANO MD Unavailable Unavailable Vashti LAUREANO MD Unavailable Unavailable Vashti LAUREANO MD Unavailable Unavailable Vashti LAUREANO MD Unavailable Unavailable Vashti LAUREANO MD Unavailable Unavailable Vashti LAUREANO MD Unavailable Unavailable NIZAR, Vashti CULP MD Unavailable Unavailable Yusuf, A Aleja SAND CUTTER Unavailable Unavailable Yusuf, A Aleja SAND CUTTER Unavailable Unavailable Yusuf, A Aleja SAND CUTTER Unavailable Unavailable Yusuf, A Aleja SAND CUTTER Unavailable Unavailable Yusuf, A Aleja SAND CUTTER Unavailable Unavailable Yusuf, A Aleja SAND CUTTER Unavailable Unavailable Yusuf, A Aleja SAND CUTTER Unavailable Unavailable Yusuf, A Aleja SAND CUTTER Unavailable Unavailable Yusuf, A Aleja SAND CUTTER Unavailable Unavailable Yusuf, A Aleja SAND CUTTER Unavailable Unavailable Yusuf, A Aleja SAND CUTTER Unavailable Unavailable Yusuf, A Aleja SAND CUTTER Unavailable Unavailable Yusuf, A Aleja SAND CUTTER Unavailable Unavailable Yusuf, A Aleja SAND CUTTER Unavailable Unavailable Yusuf, A Aleja SAND CUTTER Unavailable Unavailable Yusuf, A Aleja SAND CUTTER Unavailable Unavailable Yusuf, A Aleja SAND CUTTER Unavailable Unavailable Yusuf, A Aleja SAND CUTTER Unavailable Unavailable Yusuf, A Aleja SAND CUTTER Unavailable Unavailable Yusuf, A Aleja SAND CUTTER Unavailable Unavailable Yusuf, A Aleja SAND CUTTER Unavailable Unavailable Yusuf, A Aleja SAND CUTTER Unavailable Unavailable Yusuf, A Aleja SAND CUTTER Unavailable Unavailable Yusuf, A Aleja SAND CUTTER Unavailable Unavailable Yusuf, A Aleja SAND CUTTER Unavailable Unavailable Yusuf, A Aleja SAND CUTTER Unavailable Unavailable Yusuf, A Aleja SAND CUTTER Unavailable Unavailable Yusuf, A Aleja SAND CUTTER Unavailable Unavailable Yusuf, A Aleja SAND CUTTER Unavailable Unavailable Yusuf, A Aleja SAND CUTTER Unavailable Unavailable Yusuf, A Aleja SAND CUTTER Unavailable Unavailable Re-disclosure Warning The records that [...] is protected by Article 27-F of the [facility] Public Health law. If you continue you may have access to information: Regarding HIV / AIDS; Provided by facilities licensed or operated by the [facility] Office of Mental Health; or Provided by the [facility] Office for People With Developmental Disabilities. If such information is present, then the following [facility] mandated warning applies: This information has been [...] law may result in a fine or mcfp sentence or both. A general authorization for the release of medical or other information is NOT sufficient authorization for further disc losure. Allergies and Adverse Reactions Type Description Substance Reaction Status Data Source(s ) Propensity to adverse reactions NO KNOWN ALLERGIES NO KNOWN ALLERGIES [facility] Allergy to substance Allergy to substance Allergy to substance [place] ([facility]) Family History Family Member Name Family Member Gender Family Member Status Date o f Status Description Data Source(s) Unknown Male Problem [facility] ([facility] () Unknown Female Encounters Encounter Providers Location Date Indications Data Source(s ) Telehealth Physchotherapy 30 [facility] with Patient [facility] 05/20/2021 12:00:00 AM EDT [place] ([facility]) Gerry Jorgensen MD: [address] [place] [phone], Ph. Attender: Gerry Jorgensen MD [facility] Medical 03/30/2021 12:00:00 AM EDT [place] ([facility]) non-billable [facility] 03/22/2021 12:00:00 AM EDT [place] ([facility]) Inpatient Attender: SUNI Hernandez nder: Ashley Schmidt MDAdmitter: Ashley Schmidt MD [id number] 09/14/2020 12:00:00 AM EDT - 09/16/2020 11:24:00 AM EDT Suicidal ideation without a plan, hx bipolar [facility] Suicidal ideation without a plan, hx bip olar Patient discharged. Outpatient Attender: HERMINIA Goldberg [facility] 09/10/2020 10:10:00 A M EDT [facility] Outpatient Attender: Aleja Goldberg [facility] 08/21/2020 07:3 1:01 PM EDT [facility] Outpatient Attender: HERMINIA Goldberg [facility] 08/21/2020 07:31:00 P M EDT [facility] Outpatient Attender: Aleja Goldberg [facility] 07/23/2020 11:0 5:02 AM EDT [facility] Outpatient Attender: HERMINIA Goldberg [facility] 07/23/2020 11:05:01 A M EDT [facility] Immunizations Vaccine Date Status Description Data Source(s) COVID-19 VACCINE [facility] 03/31/2021 12:00:00 AM EDT completed [employer] Vacc[employer] [facility] Complete: YESThis Data wa s Submitted to [facility] Via [facility]. Medications Medication Brand Name Start Date Product Form Dose Route Admi nistrative Instructions Pharmacy Instructions Status Indications Reaction Description Data Source(s) Tab-A-Alena/Beta Carotene Oral Tablet [id number] 09/16/2020 12:00: 00 AM EDT 1 {tbl} Oral active Take 1 tablet by mouth d [facility] Thiamine 100 MG Oral Tablet Thiamine [...] Anxiety (Sleep) for up to 10 days [facility] Folic Acid 1 MG Oral Tablet Folic Acid 1 MG Oral Table t (FOLVITE) Folic Acid 1 MG Oral Tablet (FOLVITE) 09/16/2020 12:00:00 AM EDT 1 mg Oral active Take 1 tablet by mouth daily [facility] buspirone hydrochloride 10 MG Oral Table t busPIRone HCl 10 MG Oral Tablet (BUSPAR) busPIRone HCl 10 MG Oral Tablet (BUSPAR) 09/16/2020 12:00:00 AM EDT 10 mg Oral active Take 1 tablet by mouth T hree times daily [facility] Thiamine 100 MG Oral Tablet thiamine (B-1) tablet 100 mg thiamine (B-1) tablet 100 mg 09/15/2020 09:00:00 AM EDT 100 mg Oral active 100 mg, Oral, Daily Standard, First dose on Sun09/15/20 at 0900, For 30 days [facility] Medication administered onsite Folic Acid 1 MG Oral Tablet folic acid (FOLVITE) table t 1 mg folic acid (FOLVITE) tablet 1 mg 09/15/2020 09:00:00 AM EDT 1 mg Oral active 1 mg, Oral, Daily Standard, First dose on Sun09/15/20 at 0900, For 30 days [facility] Medication administered onsite multivitamin tablet 1 tablet [id number] 09/15/2020 09:00:00 AM EDT 1 {tbl} Oral active 1 tablet, Oral , Daily Standard, First dose on Sun09/15/20 at 0900, For 30 days [facility] Medication administered onsite Trazodone Hydrochloride 100 MG Oral Tablet trazodone ( DESYREL) tablet 200 mg trazodone (DESYREL) tablet 200 mg 09/14/2020 10:00:00 PM EDT 200 mg Oral active 200 mg, Oral, Nightl y, First dose on Sun09/14/20 at 2200, For 30 days [facility] Medication administered onsite olanzapine 10 MG Oral Tablet OLANZapine (ZYPREXA) tabl et 10 mg OLANZapine (ZYPREXA) tablet 10 mg 09/14/2020 10:00:00 PM EDT 10 mg Oral active 10 mg, Oral, Nightly, First dose on Sun09/14/20 at 2200, For 30 days [facility] Medication administered onsite [place] Carbonate 300 MG Oral Capsule lithium carbonat e capsule 300 mg lithium carbonate capsule 300 mg 09/14/2020 02:30:00 PM EDT 300 mg Oral active 300 mg, Oral, 2 Times Daily With Meals, First dose on Sun09/14/20 at 1430, For 30 days [facility] Medication administered onsite Citalopram 20 MG Oral Tablet citalopram (CELEXA) table t 20 mg citalopram (CELEXA) tablet 20 mg 09/14/2020 02:30:00 PM EDT 20 mg Oral active 20 mg, Oral, Daily Standard, First dose on Sun09/14/20 at 1430, For 30 days [facility] Medication administered onsite Propranolol Hydrochloride 20 MG Oral Tablet propranolo l (INDERAL) tablet 20 mg propranolol (INDERAL) tablet 20 mg 09/14/2020 02:30:00 PM EDT 20 mg Oral active 20 mg, Oral, Three Times Daily Standard, First dose on Sun09/14/20 at 1430, For 30 days
Check vital signs before administering
[facility] Medication administered onsite 12 HR Bupropion Hydrochloride 100 MG Ext ended Release Oral Tablet buPROPion (WELLBUTRIN SR) 12 hr tablet 100 mg buPROPion (WELLBUTRIN SR) 12 hr tablet 1 00 mg 09/14/2020 02:30:00 PM EDT 100 mg Oral active 100 mg, Oral, Daily Standard, First dose on Sun09/14/20 at 1430, For 30 days
Do not crush or chew
[facility] Medication administered onsite pantoprazole 40 MG [...] with this P&T Committee approved formulary equivalent.
[facility] Medication administered onsite Lisinopril 20 MG Oral Tablet lisinopril (ZESTRIL) tabl et 40 mg lisinopril (ZESTRIL) tablet 40 mg 09/14/2020 09:00:00 AM EDT 40 mg Oral active 40 mg, Oral, Daily Standard, First dose on Sun09/14/20 at 0900, For 30 doses [facility] Medication administered onsite buspirone hydrochloride 10 MG Oral Tablet busPIRone (B USPAR) tablet 10 mg busPIRone (BUSPAR) tablet 10 mg 09/14/2020 09:00:00 AM EDT 10 mg O ral active 10 mg, Oral, Three Times Daily Standard, First dose on Sun09/14/20 at 0900, For 30 days [facility] Medication administered onsite 24 HR Nicotine 0.875 MG/HR Transdermal P atch nicotine (NICODERM CQ) 21 MG/24HR 1 patch nicotine (NICODERM CQ) 21 MG/24HR 1 patch 09/14/2020 02:30:00 AM EDT 1 {patch} Transdermal active 1 patch, Transdermal, Administer over 24 Hours, Every 24 hours, First dose on Sun09/14/20 at 0230, For 30 days [facility] Medication administered onsite Hydroxyzine Hydrochloride 50 MG Oral Tablet hydrOXYzin e (ATARAX) tablet 50 mg hydrOXYzine (ATARAX) tablet 50 mg 09/14/2020 02:20:05 AM EDT 50 mg Oral active 50 mg, Oral, Every 6 hours PRN, Anxiety, Sleep, Starting Sun09/14/20 at 0220, For 30 days [facility] Medication administered onsite acetaminophen (TYLENOL) tablet [...] 30 days
MDD 4
[Order 3 End] [facility] Medication administered onsite buspirone hydrochloride 30 MG Oral Tablet busPIRone (B USPAR) 30 MG tablet busPIRone (BUSPAR) 30 MG tablet 30 mg Oral aborte d Take 30 mg by mouth Two Times Daily [facility] 24 HR Nicotine 0.875 MG/HR Transdermal P atch Nicotine 21 MG/24HR Transdermal Patch 24 Hour (NICODERM CQ) Nicotine 21 MG/24HR Transdermal Patch 24 Hour (NICODERM CQ) 1 {patch} Transdermal aborted Place 1 patch onto the skin every 24 (twenty-four) hours [facility] Insurance Providers Payer name Policy type / Coverage type Policy ID Covered alliance party ID Covered alliance party's relationship to mag[place]on Policy [place] Plan Information Medicaid Dental S [id number] S [id number] [facility] Community Plan Commercial [id number] Self [facility] COMMUNITY PLAN [facility] [id number] SP [id number] Medicaid [facility] Healthcare S D [id number] SELF [id number] Managed Care - [facility] P [id number] S [id number] Medicaid S [id number] S [id number] Managed Care - [facility] P [id number] S [id number] Managed Care - [facility] P [id number] S [id number] Medicaid S [id number] S [id number] [facility] I [id number] Self [id number] [facility] I [id number] Self [id number] D Managed Care [facility] P [id number] S [id number] [facility] COMMUNITY PLAN [facility] [id number] SP [id number] SELF PAY ONLY UNAVAILABLE SP UNAV AILABLE [facility] RACIEL [id number] SP [id number] [facility] COMMUNITY PLAN [facility] [id number] SP [id number] MEDICAID [id number] SP [id number] SELF PAY ONLY [id number] SP [id number] SELF PAY UNAVAILABLE SP UNAVAILA BLE [facility] COMMUNITY PLAN MCDO [id number] SP [id number] [facility] R[facility]EL [id number] SP [id number] [facility] [id number] SP [id number] [facility](MCAID) O [id number] S [id number] [facility] RACIEL [id number] SP [id number] MEDICAID [id number] SP [id number] MEDICAID M [id number] S [id number] [facility](MCAID) O [id number] S [id number] Medicaid S [id number] S [id number] [facility] COMMUNITY PLAN [facility] [id number] [facility] Community Plan Commercial [id number] Self [id number] Problems, Conditions, and Diagnoses Code Display Name Description Problem Type Effective Dates Data Source(s) Suicidal ideation without a plan, hx bip olar Suicidal ideation without a plan, hx bipolar Diagnosis 09/14/2020 01:41:00 AM EDT [facility] [id number] Tobacco use Tobacco use Condition 09/23/2020 12:00:00 AM EST [employer] ([facility]) [id number] Tobacco use Tobacco use Condition 09/23/2020 12:00:00 AM EST [employer] ([facility]) Surgeries/Procedures Procedure Description Date Indications Data Source(s) Individual psychotherapy (regime/therapy) 05/20/2021 1 2:00:00 AM EDT [facility] ([facility]) Evaluation AND/OR management - established patient (procedur e) 05/16/2021 12:00:00 AM EDT [facility] ([facility]) Evaluation AND/OR management - established patient (procedur e) 03/14/2021 12:00:00 AM EDT [facility] ([facility]) Evaluation AND/OR management - established patient (procedur e) 03/14/2021 12:00:00 AM EDT [facility] ([facility]) Individual psychotherapy (regime/therapy) 03/09/2021 1 2:00:00 AM EDT [facility] ([facility]) Individual psychotherapy (regime/therapy) 03/09/2021 1 2:00:00 AM EDT [facility] ([facility]) Evaluation AND/OR management - established patient (procedur e) 01/24/2021 12:00:00 AM EST [facility] ([facility]) Evaluation AND/OR management - established patient (procedur e) 01/24/2021 12:00:00 AM EST [facility]) Evaluation AND/OR management - established patient (procedur e) 12/27/2020 12:00:00 AM EST [facility] ([facility]) Evaluation AND/OR management - established patient (procedur e) 12/27/2020 12:00:00 AM EST [facility] ([facility]) Evaluation AND/OR management - established patient (procedur e) 11/24/2020 12:00:00 AM EST [facility] ([facility]) Evaluation AND/OR management - established patient (procedur e) 11/24/2020 12:00:00 AM EST [facility] ([facility]) Individual psychotherapy (regime/therapy) 11/22/2020 1 2:00:00 AM EST [facility] ([facility]) Individual psychotherapy (regime/therapy) 11/22/2020 1 2:00:00 AM EST [facility] ([facility]) Evaluation AND/OR management - established patient (procedur e) 10/11/2020 12:00:00 AM EST [facility] ([facility]) Evaluation AND/OR management - established patient (procedur e) 10/11/2020 12:00:00 AM EST [facility] ([facility]) Diagnostic psychiatric interview (procedure) 0 12:00:00 AM EST [facility] ([facility]) Diagnostic psychiatric interview (procedure) 0 12:00:00 AM EST [facility] ([facility]) Individual psychotherapy (regime/therapy) 09/21/2020 1 2:00:00 AM EST [facility] ([facility]) Individual psychotherapy (regime/therapy) 09/21/2020 1 2:00:[facility] DRUG SCREEN QUALITATIVE LITHIUM <td>LITHIUM LEVEL</td><td>Routine</td><td>09/15/2020 6:10 AM EDT</td><td></td><td> </td> 09/15/2020 06:10:00 AM [facility] COVID-19 PCR <td>COVID-19 PCR</td><td>Rou leah</td><td>09/14/2020 3:33 PM EDT</td><td></td><td> </td> 09/14/2020 03:33:00 PM EDT [facility] Evaluation AND/OR management - established patient (procedur e) 07/28/2020 12:00:00 AM EDT [facility] ([facility]) Evaluation AND/OR management - established patient (procedur e) 07/28/2020 12:00:00 AM EDT [facility] ([facility]) Results ID Date Data Source [id number] 09/17/2020 11:49:24 AM EDT [facility] Name Value Range Interpretation Code Description Data Angelina rce(s) Supporting Document(s) Discharge Summary [facility] RXKLDi1dBbIJJgZr34/ETFjeRHQnt8IfVGzmVNv4JDxzZZEaC2ElRGY5zU1iCBD7CEsJWtTeJuMbAALk lbm [file] ICAgICAgICAgICAgICAgICAgICAgICAgICAgICAgICAgICAgICAgICAgICAgICAgICAgICAgICAgICAg DXDiOHDnHRRbAOVmCNZaOYFcOJXtMY1FUXZiLNVfDOCiNXFuGKPxZJZwNNRfKAPtTZHaKCElQFRmCLZt ICAgICAgICAgICAgICAgICAgICAgICAgICAgICAgIC YgZUYcJYQxGOAlRTPeZWOgSUBdRIAcUARqDKSlTUAcPC4BCMXuOKOoLQUrOMJtOWXaJZPoSVPfGXCmMU AgICAgICAgICAgICAgICAgICAgICAgICAgICAgICAgICAgICAgICAgICAgICAgICAgICAgICAgICAgIC GoIJFpTKQhKLPvXXJbUC3XFUEgOPIyKRWmHNVrTAJn ICAgICAgICAgICAgICAgICAgICAgICAgICAgICAgICAgICAgICAgICAgICAgICAgICAgICAgICAgICAg EHRyGLOuRVYdCFJqQGIgCKMaYWMoBERiLN0ULLAmICBoZJZrEADlUXIyHLYhWXIsTWLaFMElQTBqZMQp ICAgICAgICAgICAgICAgICAgICAgICAgICAgICAgIC EaETElBJMzHBGjJGWqFUTdEYOcMYPfCHCjBVMiITWqZGOrXV1JCZYqTLExOKXnIHFsVDSpVJBiYTNdWE AgICAgICAgICAgICAgICAgICAgICAgICAgICAgICAgICAgICAgICAgICAgICAgICAgICAgICAgICAgIC HkWLToVAWqGVWjQOEaWYWzHG8CRTBxYGPoYKAgINUi ICAgICAgICAgICAgICAgICAgICAgICAgICAgICAgICAgICAgICAgICAgICAgICAgICAgICAgICAgICAg FOKwOLVrYZEjTIXfIFWtAARmDHFpQFWmUHItUN2DGFLeYNJaTLWjPTObKLWpSVPqGDTfFHOnDMClYDLh ICAgICAgICAgICAgICAgICAgICAgICAgICAgICAgIC WqFTEgEWJpLKBwWAGlPSDtWUIhSOOeYRUsJUTzHUAdJJRzWHPaFH8IMBIvKQMtLWVlEBHqHGBzNNLmMN AgICAgICAgICAgICAgICAgICAgICAgICAgICAgICAgICAgICAgICAgICAgICAgICAgICAgICAgICAgIC FrXSSxRQWeNAKoYZKiDOIyMZAsKE3NAMQwIWXuYQBv ICAgICAgICAgICAgICAgICAgICAgICAgICAgICAgICAgICAgICAgICAgICAgICAgICAgICAgICAgICAg EVArSSLlHPUaMLCzXZAdXSPoZSGpKCEdSHJrDYObRG0KTW97sWEie3V9OADwYS4bnez/Tb3JYLruroEv pTLtQE7IEwTfKK2prv7XYmVqMW8cnr3BBKcAVhMmH9 B7cIGjAQBmDVLDRkInP15iJEywKz58HDzeNAJkMjEgFHc5Lx1GIhDuV7qxGJQvAyR6SGQfQdG6NNFcFb U7YNQnBjTnJLRcDVJdTDTqPETSOPY2LYTpRjJdVrTbPXTzRSfaXTZMGFCeEUTuSyYkIwVmQCHgXM1CUT RvE902ilReNFBMQw1+XDcyqdFbEzvKOaM6HGQlg1Nr MXm6RM7OWZChTkjxk7ImHuRsKYFQNSzpOJ1QFCT3MAFnVLXyIg7TXSAdQ630beGuKP1LLc0UOgDsOA0l vv0VOyBjLRFvPunTNtt9SBocEK4JjOQfHAxTlEAqgIXtB8AeB6WltIJbzGLbhNPZuL4zSN3xFQGiNRdj TlAgYXQgMTAvMjkvMjAyMCAxMToyNCBBTSkNCiAgL0 Fzj3IiAxW9MNMtPaXmIKenBKQoViZ7FH32aYhrUT9WDJMdFDHzYL24QPX2MFNyFl6VMk3WZwWuIN9vqv 8UGiVoOVPrHysZKng7UAzpRP8XdGPgM9PmlVPex6hCByUtQ5LPEQJ4LNBtAd5ETYPySmOdZJYmOCgpGT 0wYJVhVQZRyXlufeI6LI7RTS1cylSbLI1ATgKjTm9s Re9QHgCcY7QnK1YhQOCrHSWILAdwAP7XNDflYN9eFP2Si4VSpNLniS8snu4YKXWgYMZtJjcbiu2FRajn D6F7mFtcOPTmPNblWVRLIJsaRK6FZRBbKWT9ACT5YFJcGOCMEcQlU08jAE3UR8Rws44aJkB2HCDhEbTw YMigWG29tMytdfJsoDOzsFkuEC2LUf5+DQplbmRvYm yOBefnBDGCXmXlHbTHKcPbVIPyRPWqJUDgDvH5LdXbOr5JRFQhUCYnGIHyRvMqFTFqPEXzTIswHILqER hpWfZdFFQoOQGaDJ2XOzTcFYDeMuZfXQcfHNYmFNEeva1ZURRnGONhJQZ9AaNrJOKgCFYzOJftZZXmVT Q9LOa8CRFlNMOpFD5XNjHoVEMiFYWeQFdnMKCmHGIm dr9WLFPpJZBmRxV7UyYhWRLeJAJmXKipZADvQZV6HOIyFQAgQEYiBX2NYfCjPZXcZQQ1CobjUXVxROCa yz3XCLKjCLXnFTYlDNYwVTMrTGMrDVoxHLVuOXW8XEf5BSRyYGKgPF2KUhLzLNLrHHYjTJNfOXWsFUPt jf3AOYZqSIWoSKb3ZbEnUKIpMNLuBDhhFOUzFYG3KE UjQMLxZNScIL5IMbCyXWPqKjJ6XBOvAOHuBGIilf3DBIGrHVFcKcrmAvFfBZSeAGOuTMqyLAYlKHW5Wc OjTYEiRFDzJP3LHxYaNQScJgB6RWXkZYHuHQLkun7TEXOeLEXjLSW4VVOtOIFbEPFlJRzfFTJnBPG4HH Q7IBLpUVYxUI3FArTcPAHlImE6FMrqMOOaRDSvrp3C MSLwFCRgQkxbZERaGTNgAHWpMAamGEEsFVIkMKdpAJKwYKAcDV9VDiGwNTFnBwI4TdgsYSBdWMWsfu9G JWQySYTtXVNqUKKvSGHzKHJhMCsmMINvZUI0DCX4APQbGCWpHL7TKeQaVCFoLaYdXCmtWDPwTSMsic2W NJNiIIFsXBj1SaUrKUVkBTLmIXvoJTQsNQJ0REy1UQ VgZEIfDP5WIgOkVBXdYuZkCuddDCMlCTBtrd1JSDOuRPHgHmZcLlTiUWQvZTTkNWdbSQEaPFO0TDF4SC ZjALIbQQ2JTgWhWDYdUvv2PSlfHNThUZVgav7OTRUmUDP5OMK7CzFwXKLwELQbCPiaZVWfTMW0XDQaJP MeARBqQC8YMcYhNOIsEWa7XIggLQGrCETgjr4QOQKs JXB9WZi2ETQlFOFkABMtNTknFCGxWAHfMWH7OKBpMRIaWX1EYfPcQJLtTTE7WVgrZSKyGQDiod5YWGRc QDS1IYWtXcHaYRDzZGXjQJkoKFUuITCbJuS4SLHcFSPaRH4BDiGnMHUhSzI2OQcyJEYlERXrsl6RTDFc PLM6TiZcPgNqHELvMTFtOUlfBMXyQPQzImT1RQXbZI MbTJ1UEmJmSYQkViQ9FpEnTMFtRLKxll9BBYSgRTK5WoQfWXZfKFMyAITuSOlcVEKvFZT2SFD9FOVaZU VeOB7WZcDfCRGuVnQ2RHmqJFJsEXAvqk5CWZYtOTF8UTnbYAEjSXWeNOKcIWjdHJWoKDB6Mal3ZIYtAK ClTN5NFnXdJUPhZmLxETocNVHhRREbya8BXYFrEIQ9 FROhJMHuJZMqBQGvHDuvSEMbGPfjNFuxAOUeBDWxPN3WHnFeHQRiUoA1LpUyZKFiRTXyyg8KIEJxLBX8 QQdwBIZsTCRwRGQdVNryINAcJBwbIGu1VRPlYXRkJE4JBhMpDJZzAkFhAiBlCGRjKAIrap9TVJMpBDY9 LBntXHOeAVLpTXGaQCarBAXoQYcpMdU3LYCeMPSsAL 0YNlDwVJChVhOoTAwgBLQiEEIyol6BRZLvUSP4KxWtRIOlSDSePKNwGHz0mcFeeRJlHYb1TP1SS7Dlcb SoBsNAXu2Xd265TIGcLJHiEv8VB0yfLg0dBEBmZTBKQg6CMTk1EHBtPZTwGcOyAVFhHME6LUKaYYLtVI LzH7C8Y2SlGOn+ZOdvPSS8JdOqL0K8AVF3KrPgSYYe ZkVuLjYpQCR7IpV8AT1cZGAVZn1+MAydbFZjmMhfEMCIOcvsBihuDDtwSVZUJw4U ID Date Data Source [id number] 09/15/2020 07:19:41 AM EDT [facility] Name Value Range Interpretation Code Description Data Angelina rce(s) Supporting Document(s) [place] [Moles/volume] in Serum or Plasma 0.52 mmol/L 0.60-1.20 L [facility] ID Date Data Source [id number] 09/14/2020 04:53:37 PM EDT [facility] Name Value Range Interpretation Code Description Data Angelina rce(s) Supporting Document(s) History and Physical [facility] BKCOYp6iJdTXClQn51/KFWmrOYQdr3WtTEtfUTk0NTnxLLAoA8EmKZZ1jS8wWPY8TDhHXuWiEpFfRUS3 lbm [file] ICAgICAgICAgICAgICAgICAgICAgICAgICAgICAgICAgICAgICAgICAgICAgICAgICAgICAgICAgICAg ICAgICAgICAgICANCiAgICAgICAgICAgICAgICAgIC AgICAgICAgICAgICAgICAgICAgICAgICAgICAgICAgICAgICAgICAgICAgICAgICAgICAgICAgICAgIC AgICAgICAgICAgICAgICAgICAgICANCiAgICAgICAgICAgICAgICAgICAgICAgICAgICAgICAgICAgIC AgICAgICAgICAgICAgICAgICAgICAgICAgICAgICAg ICAgICAgICAgICAgICAgICAgICAgICAgICAgICAgICANCiAgICAgICAgICAgICAgICAgICAgICAgICAg ICAgICAgICAgICAgICAgICAgICAgICAgICAgICAgICAgICAgICAgICAgICAgICAgICAgICAgICAgICAg ICAgICAgICAgICAgICANCiAgICAgICAgICAgICAgIC AgICAgICAgICAgICAgICAgICAgICAgICAgICAgICAgICAgICAgICAgICAgICAgICAgICAgICAgICAgIC AgICAgICAgICAgICAgICAgICAgICAgICANCiAgICAgICAgICAgICAgICAgICAgICAgICAgICAgICAgIC AgICAgICAgICAgICAgICAgICAgICAgICAgICAgICAg ICAgICAgICAgICAgICAgICAgICAgICAgICAgICAgICAgICANCiAgICAgICAgICAgICAgICAgICAgICAg ICAgICAgICAgICAgICAgICAgICAgICAgICAgICAgICAgICAgICAgICAgICAgICAgICAgICAgICAgICAg ICAgICAgICAgICAgICAgICANCiAgICAgICAgICAgIC AgICAgICAgICAgICAgICAgICAgICAgICAgICAgICAgICAgICAgICAgICAgICAgICAgICAgICAgICAgIC AgICAgICAgICAgICAgICAgICAgICAgICAgICANCiAgICAgICAgICAgICAgICAgICAgICAgICAgICAgIC AgICAgICAgICAgICAgICAgICAgICAgICAgICAgICAg ICAgICAgICAgICAgICAgICAgICAgICAgICAgICAgICAgICAgICANCiAgICAgICAgICAgICAgICAgICAg ICAgICAgICAgICAgICAgICAgICAgICAgICAgICAgICAgICAgICAgICAgICAgICAgICAgICAgICAgICAg ICAgICAgICAgICAgICAgICAgICANCjw/nKAyM1hlbE FgbqJ9D3qtGf2HNz4LKL0pg2AsMZLyHUfmhhHyWejJEkOsKDUhWmnJGyj1UYzkWE8ArTZlC3NmH1PsMU wtKH9XVYEuXDSbwCCnDRQrMBPoMhI6MIIcXUsgEM9PoNErOEqaFRIpCXOrVjQxLADdGJWpBMAmMQBxDL EOHHDeWOZeJzBlNCNcPCRgLLvqSWWYHXK5ROHvHjYy JITqWOCgEnVtDCWWNU0EWlRvJ7JctL66AYLgUKh+Ag7YNG4ld5VlVEg6VUEtYI8ggj6ZGKnNLcMvV9Qo gbL7GYN5YMMwOu6QAFPaZPZfgXF8RJIvZDHTZuLoJ9NgsG15IMYBLj5+OOomzjRgVdeAEtW4GOGxr5Jr GCs4QI1RVHPyEBr5iHRiSNDOMIQ9FQe9tk1uDMJZMP ipNOOJCDCkcHQxGD9qWf2jPTGcBWDoVeZ0BFDGPU2BWDJlIUGkyISyVQYrFHLBKL7AKHquFHJ6NWAbgz YpuHMkZUgpDM0MARMrvlSrVSUySSMQASy+Gp7WDD7ye3CpTLl9SwIeEM8flh6DGJgRSbAmD3Z6uNXxB0 S3PVtxGr0PDZCeUWHdZHAaGTYWQJjxVI3TND3cqvL0 FH2RxBHnVMTgEPLkoGTwNGk3J08rkRTaXTidXR5YCGY+Arturo+Wa8WYFWtSWRpNMQcOzQpRNGYWeDvH1Lt M4FVl0QwH9DcXW50hBplmmBpQYffBK7NKB5lKOAnQAGNXJ0OmXDtdB2msiR2KEFuOAZVOqPiP78kzSCx OAVbUAZoIHFmTb0ANZYtN3LdkdEftNmduzRoDGNgDC FERE2USZmybrXehNKpnYnxSI88zNnnHA5YHa4TUjHmKU5qjc4FyPSySz8WURV4Gc8BXJVmJRGoPZWyWS X3LEHoBqSsREsnEIVlLIYxEVC4KAQhWQMeGF3FAeOsSZLqEQqsFhacBQFsNQUoln4BADTuOTR8DYC0RC RhDPBrQPAgGLjhPFAcDALvIIG0YNUlCLItOJ5GHtZv UTXeBSE5NlivNTHgLVJiaj4XLEAbKOIcFcr1ViDyLPLzFFQcTTsgQIUyIRT1HcW8KNOiFCAgZO2RCnYm MCGuUYZ0ZRTrVPSvPPOciw6UUDApRPFsQVV2WoVlUHPhLYYvBFyjIZCcUVKlCce3AXGtUTNhIK1OYoRq EGPaBKOrEhclDMPyVXVnqr5CUKXuNOSrByP4FwVaKI VuCRLbRFxrEMJgDXO3Gaw1AEZdFTVbBU7XThHwSUTuBWS8DZErHXMbSPSyoe1HLBUfNBBsLBw8EFKxDH ZcYPNfXPiaVHGiVYIkABv2LSYbBVHoIF3DNgVvAAWmOiJ0SYtuSHXuCYJluc8DBDItMSBxKzuwWWIwFF EoBPTvGZsqWABhOJX9BTk2YWCpVVVjEG3TNdBePGGh Ope7ZKJoUTKiWRJeuo6EPYSzGKNdASH1IVMvYGLdVBQoNIffRUCiMKKcTrf6XVHtXIPjKJ9WJbLaOJJo XgS5XBEzFCHwPSTxul4DNNBrYTYqSoWhJZZvWHSoDYRyTBwyLGVaDFXyLQjfEJCjQABcFM1ZYgAlMAPh CxHzLjwoIUKaJCOgfh6DHQEuFHEfQOA0WLJdHZUsVS ItGGnfAYIeQTG5TuDzLDPzCXYdAN2DMyDtQMCxMuR8FYNgUSBkGVDzev3ZPVGdHTBePQyjBNDyCMTtQJ ChPKbtNTDrJBL5OrEkVVNrVVQcOF7USdJgPTUfTnG8LWlvAQEcXTLisf9ZDQCrJOBoYaV2ERGvKNCiXB CkYYczXYLfQUD3EWR2TJWoXZVrFG0RDsNcNFPiVYl7 WRCrVKQvVUBdvg9GREIjUUT2OTe6AgPmMLFyKAVcKOgzPHKpPKE7GFrwJJXgVUSlBW8BPgGbJJBuYMui BktpFAUcJMWqjk4SRSAhAYV9DYX0WFHoVZQfCGFtEExsIEHrEVUnDLG6JZJyKLAfOS2MQuBnWJIvJJI1 WVrwDJWrVGMpwq9CYHFhIKC7RMN2VAZvLWGlKSXeAG ugFWZtHSSoYlyjWEYdQXIuIZ6XPpRiKXOgJFB1UeNnTQEmNXZars8FTAAaQKZ6VenlFsNhDHAfKBLwBO zhVHSlGJU4XUE8VVUbTNSpHF2HCuAgDSWfAHuoLgIrYJKcSVNdmd5XIPAvYKM2BaDhGvSfWFRpHTWmES wfHKUtVJS1UaY3PFEwRUBuYC4UZkHcREBaOAf9BrXs VBFlQAFvot3CVMRaJXE3TPVfCYPvGWAnTPRyHVapVAKkFGF1BsA0CBUoJZYlVM4KPqQbHSHsLZd7Pfxs AYChNXBeva2XIJBhRGZ3FGIcIPYxVOApWORfPTlnGXKnXRJwMHY6EBKcCSVaLO3QFaLhPSCtHtN9RVVz IKPuMGRowo0TjLQhtNtqaw0LRIcDLy8VsGbqXZV6DE okXb1gzER2DqAzFKCJOz7TbwOxRVXeVWOYHWmeUFPvUPD1YsWuHBYqWkZ5OWM8KNKhF6ZeBaOtJEAyFx N9TUvtAuS8TVohKrJbRcQ2EaA9YgJkOvIbGWU0C2CsHNEaQKMgBNL+YG5qLKz+Gt2Lb7AbfxI1cbTlJY r7LEn8WO8GNBVJL1CQRa== ID Date Data Source [id number] 09/15/2020 06:07:53 AM EDT [facility] Name Value Range Interpretation Code Description Data Angelina rce(s) Supporting Document(s) Specimen source [Identifier] of Unspecified specimen [facility] SARS-CoV-2 RNA 2019 nCoV Real-Time RT-PCR: NOT DETECTED [facility] Assay Performed [facility] Patients first test for [facility] Patient employed in healthcare setting [facility] Patient has symptoms related to [facility] When did you start to experience these symptoms [Date and time] [Phen X] [facility] Patient was hospitalized because of this condition [facility] patient was admitted to ICU for [facility] Patient resides in a congregate care setting [facility] status [facility] ID Date Data Source [id number] 09/14/2020 03:33:00 PM EDT [facility] Name Value Range Interpretation Code Description Data Angelina rce(s) Supporting Document(s) SARS-CoV-2 RNA [facility] This lab was ordered by [facility] and reported by [facility]. ID Date Data Source [id number] 09/14/2020 01:56:32 PM EDT [facility] Name Value Range Interpretation Code Description Data Angelina rce(s) Supporting Document(s) History and Physical [facility] TUOXSj2yJeHBZyYc22/ZHAknWIUwl9UjOXjdNDa6RArwUYGhG6PjMCO3lI5xVSS0JQuVTzTyJcFlIWR4 [facility] [file] AgICAgICAgICAgICAgICAgICAgICAgICAgICAgICAgICAgICAgICAgICAgICAgICAgICAgICAgICAgIC AgICAgICAgDQogICAgICAgICAgICAgICAgICAgICAg ICAgICAgICAgICAgICAgICAgICAgICAgICAgICAgICAgICAgICAgICAgICAgICAgICAgICAgICAgICAg ICAgICAgICAgICAgICAgICAgDQogICAgICAgICAgICAgICAgICAgICAgICAgICAgICAgICAgICAgICAg ICAgICAgICAgICAgICAgICAgICAgICAgICAgICAgIC AgICAgICAgICAgICAgICAgICAgICAgICAgICAgDQogICAgICAgICAgICAgICAgICAgICAgICAgICAgIC AgICAgICAgICAgICAgICAgICAgICAgICAgICAgICAgICAgICAgICAgICAgICAgICAgICAgICAgICAgIC AgICAgICAgICAgDQogICAgICAgICAgICAgICAgICAg ICAgICAgICAgICAgICAgICAgICAgICAgICAgICAgICAgICAgICAgICAgICAgICAgICAgICAgICAgICAg ICAgICAgICAgICAgICAgICAgICAgDQogICAgICAgICAgICAgICAgICAgICAgICAgICAgICAgICAgICAg ICAgICAgICAgICAgICAgICAgICAgICAgICAgICAgIC AgICAgICAgICAgICAgICAgICAgICAgICAgICAgICAgDQogICAgICAgICAgICAgICAgICAgICAgICAgIC AgICAgICAgICAgICAgICAgICAgICAgICAgICAgICAgICAgICAgICAgICAgICAgICAgICAgICAgICAgIC AgICAgICAgICAgICAgDQogICAgICAgICAgICAgICAg ICAgICAgICAgICAgICAgICAgICAgICAgICAgICAgICAgICAgICAgICAgICAgICAgICAgICAgICAgICAg ICAgICAgICAgICAgICAgICAgICAgICAgDQogICAgICAgICAgICAgICAgICAgICAgICAgICAgICAgICAg ICAgICAgICAgICAgICAgICAgICAgICAgICAgICAgIC AgICAgICAgICAgICAgICAgICAgICAgICAgICAgICAgICAgDQogICAgICAgICAgICAgICAgICAgICAgIC AgICAgICAgICAgICAgICAgICAgICAgICAgICAgICAgICAgICAgICAgICAgICAgICAgICAgICAgICAgIC XnNZNmLIFkKYSjWERdFCThQQv3H6bpVUDsVYMfIE6l JRg9Bd1+YShNXeBpRCE8bsZwkU7SQH8tn2LxQQcuWBOhw9IrCAu8YS9ZZTBpRMxnYE1WKXlbxl3QKROm KZQfdXJBu4zkIbNxXBG5YSRnUeeyCZ3YJGJiW9hvtdKuPQZlGZYJVXpqIHHOAMveJGPRMQHhUGHkPkYx LNplDN3Ln5MlkVS7LOd+Pt7ZHL5rl1HdOFzbUSUtIR 8mke0URHbLPsPjV7QavdM6AZT2NBDbCf5PEYUmGRDcnPDlNEQuBPWNTdSoJ4WgiV13PSYEMv3+DQplbm MoCeoEYtX7TSSnq2MfWXd4GZ9TQMBtUGy9tCWgKJNOYMH5RTLpFA9iDHPKpCGvYDIlFPRJHUU6OKXyIu P8LyPpQnMpIMZ8VFYcZT2aUCxcLH7XAVR4CUrvTYVs FQJuB0wHGkGaSLYoAcDpgMsxZJ3CPeYeK4ZhpcCkkTWsLLJvOPZBVk6+NKzrzdNjSgcYXvD2UXVzj6Of IYr2DQ2XKJQaZUypNH1OGFVrqK3qSJbsPQ2TSxFsSmQfRKAAKkNmA01spVMpXEz7W8GxRtYnIOPmIwup ZXMgPDwvTmFtZXMgWyBdDQogID4+ID4+BKuoIS9SMY albzRmEXSsUc1FNUHmHNKyCG5cIBBwUXAvO8R7oNbyLSKMMdSiK2nnjewqYL5eFJPuX620rAphxcEqVO Y9CYEkCs5CKDAmNDQ3VOWcyWAvNqWzUHYZUSyyUR8ZcLQgLXL6cS2nVCdvTTPeHKBmS1fKNvEvdZvbIV 51bGwgbnVsbCBdDQo+Ut3OGL9yj2MaCVb3tyVqQEac KBW6HHpyRZTyUPLpFVVeKXR0VAP1HDPCWhLuVYDiUYOdXEshNTEkWZBhxr4ILTUrICPbDWV4NYLpCEWl PYIeAJkvSTTwELEyPYZ8ACZpFLAgFF9KAzEnZWWnAWOtWViqMVEpBNXgei8ICFMePRKxLyEnNtJnNFDy QDKdKBviTNUlHFYnDdNuCQRuOQPpUL0AJaGmFAVhYX TnIgcdAFTyPDRhqf1WXFNtGNQrNwZ7TsDnORVeIHVjHOsoVYLtVJM6WUatONMkUXNbFV8ARkSmPXWeKI k7MHHkCSFiCAIxir1OFWDxZDTcAeDkBxKsPEChITIhLZoiVIItWHCmNpTxYRYiBKBaJO4ZVmSmIUUwBY GuJmPaDGIlSLVmps3OWLLqCOGlZdW8CPAmUHIkWKYw TPhxXBYmNRYoHtEoKHDeVZVlOL1MUsHbRSFcFBY3CHKtXSEaZBPcle7NBTMkYMTbIJbuGbNgGWYaJNGe IMlnNVWhHKV6FMDlPLFyKAJpXT2ABfSjBSMdGGE8YwNkKNUfNQTbln6OXWLzPHGhDkE2GQFgVXViKAUs BSflYZZcBSR9ZcWePWMuVMCdMN5JXsSfVDNuQgm9Fg WjGAOqJTKvrm2RNIKuHSDvWRS9CHLeEZXwMVJnRKyoMHQzJPQ3UgMpBDGmGRGyJH2MFaWsSWWqOjf2BK KaYOCfTTHqwl3TDDSeINTxFRBoRHGbETRaEQPqJKaoXABvHTK8OMzaKFXoCNWpCZ4UQaNrKRYcSqm9Va UqFOZkARRkgg7UDXMmZGIePFm6SQAiBARmVHRzXQqh OSErVFBsIXiqVCIyGKViPL8NIhVjRDThOwMpUGKaXHAuWLUflv2TXKItOXLxNAP3FnUrDJGzZBLmNSsp PYIaHSCgHbR7AXWuAOEeMQ8XKmObTVBlMwEdIcRnZWTbFMAaug4DABTrRQJgDnL6WWOmJTLyUYMmDVvc SJDxJIRsWldlCPIyYXZpYI6MGpYpIOzsWQMEVfa5OE fiJ7p0KCWvIn4BJ8Zli4GnLiRzNSILLIhuRB8moeUtXXZqGp3YD8kMUgwfMPo6GMY6ArDnOgR4ICpmVC CeZvY8JqgxYxf5SHO4Sv9vIRWzCIL2RGDiKfZtVATpARQgJMMjKjWiQHAtASfyNjM4MkKpDK2QVl0NHv Y3JQM5qWAgGe3ZDsC7OpLEAzRePG4SWGp= ID Date Data Source [id number] 09/13/2020 09:57:00 PM EDT [facility]) Name Value Range Interpretation Code Description Data Angelina rce(s) Supporting Document(s) sars covid-19 amplification negative negative Sars Cov id-19 Amplification [facility]) ID Date Data Source [id number] 09/12/2020 04:05:00 PM EDT [facility]) Name Value Range Interpretation Code Description Data Angelina rce(s) Supporting Document(s) lithium level 0.89 mEq/L 0.60-1.20 [place] [facility]) ID Date Data Source [id number] 09/12/2020 04:05:00 PM EDT [facility]) Name Value Range Interpretation Code Description Data Angelina rce(s) Supporting Document(s) thyroid stimulating hormone 1.850 uIU/mL 0.358-3.740 Thyroid Stimulating Hormone [facility]) ID Date Data Source [id number] 09/12/2020 04:05:00 PM EDT [place] ([facility]) Name Value Range Interpretation Code Description Data Angelina rce(s) Supporting Document(s) acetaminophen level < 2.0 10.0-30.0 Below low normal Acetaminop hen Level [facility]) ID Date Data Source [id number] 09/12/2020 04:05:00 PM EDT [facility]) Name Value Range Interpretation Code Description Data Angelina rce(s) Supporting Document(s) salicylate level 1.9 mg/dL 5.0-30.0 Below low normal Salicylate [place] [facility]) ID Date Data Source [id number] 09/12/2020 04:05:00 PM EDT [place] ([facility]) Name Value Range Interpretation Code Description Data Angelina rce(s) Supporting Document(s) ethyl alcohol (ethanol) 0.372 % 0.000-0.010 Above high normal Ethyl Alcohol (Ethanol) [place] ([facility]) ID Date Data Source [id number] 09/12/2020 04:05:00 PM EDT [facility]) Name Value Range Interpretation Code Description Data Angelina rce(s) Supporting Document(s) blood urea nitrogen 10 mg/dL 7-18 Blood Urea Nitro gen RAY ([facility]) glomerular filtration rate > 60.0 >56 Glomerula r Filtration Rate RAY ([facility]) glucose, fasting 79 mg/dL 70-100 Glucose, Fasting AT BERTA ([facility]) creatinine for GFR 0.90 mg/dL 0.70-1.30 Creatinine for GF R RAY ([facility]) carbon dioxide level 24 mEq/L 21-32 Carbon Dioxide Level [place] ([facility]) potassium serum 4.1 mEq/L 3.5-5.1 Potassium Serum ATH NA ([facility]) sodium level 136 mEq/L 136-145 Sodium Level RAY (No [facility]) chloride level 104 mEq/L 98-107 Chloride Level RAY ([facility]) calcium level 8.6 mg/dL 8.5-10.1 Calcium Level RAY ( [facility]) anion gap 8 mEq/L 8-16 Anion Gap [facility] ([facility]) ID Date Data Source [id number] 09/12/2020 04:05:00 PM EDT [place] ([facility]) Name Value Range Interpretation Code Description Data Angelina rce(s) Supporting Document(s) alkaline phosphatase 81 U/L 45-117 Alkaline Phosph atase [facility] ([facility]) ALT/SGPT 53 U/L 12-78 ALT/SGPT [facility] ([facility]) AST/SGOT 19 U/L 7-37 AST/SGOT [facility] ([facility]) albumin 3.9 gm/dL 3.2-5.2 Albumin R[facility] ([facility]) bilirubin,total 0.4 mg/dL 0.2-1.0 Bilirubin,total ATHE ([facility]) bilirubin,direct 0.2 mg/dL 0.0-0.2 Bilirubin,direct AT BERTA [facility]) total protein 7.8 gm/dL 6.4-8.2 Total Protein RYA ( [facility]) albumin/globulin ratio Albumin/globu chidi Ratio RAY ([facility]) ID Date Data Source [id number] 09/12/2020 04:05:00 PM EDT [place] ([facility]) Name Value Range Interpretation Code Description Data Angelina rce(s) Supporting Document(s) amphetamines level urine negative negative Amphetamine s Level Urine R[facility] ([facility]) barbiturates urine negative negative Barbiturates Urin e RAY ([facility]) cannabinoids urine negative negative Cannabinoids Urin e RAY ([facility]) benzodiazepines urine negative negative Benzodiazepine s Urine RAY ([facility]) cocaine metabolite urine negative negative Cocaine Met abolite Urine RAY ([facility]) phencyclidine urine negative negative Phencyclidine Ur ine RAY ([facility]) opiates urine negative negative Opiates Urine RAY ( [facility]) methadone urine negative negative Methadone Urine ATHE ([facility]) ID Date Data Source [id number] 09/12/2020 04:05:00 PM EDT [place] ([facility]) Name Value Range Interpretation Code Description Data Angelina rce(s) Supporting Document(s) white blood count 9.9 10 4.0-10.0 White Blood Count R[facility] ([facility]) hemoglobin 13.1 g/dL 13.5-17.5 Below low normal Hemoglobin RAY ( [facility]) red blood count 3.89 10 4.30-6.10 Below low normal Red Blood Coun t RAY ([facility]) hematocrit 39.7 % 42.0-52.0 Below low normal Hematocrit RAY ( [facility]) mean corpuscular HGB conc 33.0 g/dL 32.0-36.5 Mean Corpu scular HGB Conc RAY ([facility]) mean corpuscular hemoglobin 33.7 pg 27.0-33.0 Above high no rmal Mean Corpuscular Hemoglobin RAY ([facility]) mean corpuscular volume 102.1 fL 80.0-96.0 Above high normal Mean Corpuscular Volume RAY ([facility]) red cell distribution width 12.0 % 11.5-14.5 Red Cell Distribution Width RAY ([facility]) nucleated red blood cell % 0.0 % 0-0 Nucleated Red Blood Cell % RAY ([facility]) platelet count, automated 200 10 150-450 Platelet C ount, Automated RAY ([facility]) ID Date Data Source [id number] 08/09/2020 09:33:00 AM EDT [facility] Name Value Range Interpretation Code Description Data Angelina rce(s) Supporting Document(s) HCT 38.6 % 42.0-52.0 L [facility] HGB 13.0 g/dL 13.5-17.5 L [facility] MCH 33.7 G/DL pg 32.0-36.5 N [facility] MCHC 34.5 PG % 27.0-33.0 H [facility] PLATELETS 199 10 10*3/mm3 150-450 N [facility] RBC 3.77 10 10*6/mm3 4.30-6.10 L [facility] RDW 12.3 % 11.5-14.5 N [facility] WBC TOTAL 5.4 4.0-10.0 N [facility] ID Date Data Source [id number] 08/09/2020 09:33:00 AM EDT [facility] Name Value Range Interpretation Code Description Data Angelina rce(s) Supporting Document(s) HGBA1C 4.7 % N [facility] ID Date Data Source [id number] 08/09/2020 09:33:00 AM EDT [facility] Name Value Range Interpretation Code Description Data Angelina rce(s) Supporting Document(s) VIT D25 TOT 54.0 ng/mL 30.0-100.0 N [facility] BG FASTING 83 mg/dL 70-100 N [facility] BG RANDOM 83 mg/dL LESS THAN 200 N [facility] TSH 2.350 microintl units/mL 0.358-3.740 N [facility] Procedure Social History Code Duration Value Status Description Data Source(s ) Alcohol intake 09/14/2020 12:00:00 AM EDT Current drinker of al cohol (finding) completed Current drinker of alcohol (finding) [facility] Cigarette pack-years 09/14/2020 12:00:00 AM EDT [facility] Cigarettes smoked current (pack per day) - Reported 10/27/20 20 12:00:00 AM EDT UNK completed [facility] Smoking 09/14/2020 12:00:00 AM EDT Current every day smoker co mpleted Current every day smoker [facility] Vital Signs ID Date Data Source [id number] 09/17/2020 11:49:24 AM T [facility] Name Value Range Interpretation Code Description Data Source(s) WEIGHT RECORDED 169.6 lb 169.6 lb [facility] Body height Measured 71 in 71 in [facility] TRANSFER FROM [facility] Patient Treatment Plan of Care Planned Activity Planned Date Details Description Data Source (s) Thiamine 100 MG Oral Tablet 09/16/2020 12:00:00 AM [facility] Tab-A-Alena/Beta Carotene Oral Tablet 09/16/2020 12:00:00 AM [facility] Hydroxyzine Hydrochloride 50 MG Oral Tablet 09/16/2020 12:00:00 AM [facility] Folic Acid 1 MG Oral Tablet 09/16/2020 12:00:00 AM [facility] buspirone hydrochloride 10 MG Oral Tablet 09/16/2020 12:00:00 AM [facility] acetaminophen (TYLENOL) tablet 650 mg 09/14/2020 02:19:58 AM [facility] 24 HR Nicotine 0.875 MG/HR Transdermal Patch [facility] buspirone hydrochloride 30 MG Oral Tablet [facility]
[2021-09-07 16:00] VITALS: BP 170/96
[2021-09-07] MEDS: FOLIC ACID 1 MG TAB PO SCH (16:12)
[2021-09-07] MEDS: THIAMINE 100 MG TAB PO SCH (16:12)
[2021-09-07] MEDS: MULTIVITAMINS/MINERALS THERAP 1 TAB PO SCH (16:12)
[2021-09-07] MEDS: NICOTINE 21MG/24HR 1 EA TRANSDERMAL TOP SCH (16:12)
[2021-09-07 16:15] VITALS: BP 170/96
[2021-09-07] MEDS: DOCUSATE SODIUM 100MG CAPSULE PO SCH ×2 (16:19→21:00)
[2021-09-07 16:24] LABS: ALBUMIN 3.4 GM/DL (3.2-5.2); BILIRUBIN,DIRECT 0.5 MG/DL (0.0-0.2); BILIRUBIN,TOTAL 1.5 MG/DL (0.2-1.0)
[2021-09-07] MEDS: CYCLOBENZAPRINE 10MG TABLET PO PRN (16:33)
[2021-09-07] MEDS: PROPRANOLOL 10 MG TAB PO SCH ×2 (16:34→21:00)
[2021-09-07 18:10] VITALS: BP 132/80
--- NOTE | 2021-09-07 19:41 | REP ---
INDICATION: Distended GB. COMPARISON: 06/18/2020. TECHNIQUE: Real-time sonographic evaluation of right upper quadrant performed. FINDINGS: The gallbladder demonstrates no evidence of intraluminal sludge or calculi, wall thickening or pericholecystic fluid. Gallbladder is moderately distended. There is no intrahepatic biliary dilatation, common bile duct measures 8 mm in maximum diameter, essentially at the upper limits of normal to minimally dilated. The liver demonstrates homogeneous echotexture with no gross mass. The pancreas demonstrates homogeneous echotexture with no gross mass. The right kidney demonstrates no hydronephrosis, with a normal size of cm in length. No free fluid is seen. IMPRESSION: Moderately distended gallbladder with no gallbladder wall thickening or gallstones. Common bile duct is minimally prominent at 8 mm in maximum diameter. No free fluid. <Electronically signed by Shreyas Whelan > 09/07/211936
[2021-09-07 20:00] VITALS: BP 138/84
[2021-09-07] MEDS: MIRTAZAPINE 15 MG TAB PO SCH (21:20)
[2021-09-07] MEDS: HEPARIN SOD (PORCINE) 5000UNITS/ML 1ML VIAL/SYRINGE SC SCH (21:20)
[2021-09-07] MEDS: LITHIUM CARBONATE 300 MG CAP PO SCH (21:21)
[2021-09-07] MEDS: traZODone 100 MG TAB PO SCH (21:21)
[2021-09-07] MEDS: busPIRone 10 MG TAB PO SCH (21:21)
[2021-09-07] MEDS: OLANZapine 10 MG TAB PO SCH (21:21)
[2021-09-07] MEDS: MORPHINE 15 MG SA TAB PO SCH (21:22)
[2021-09-08] VITALS (8 sets, daily range): BP systolic 116–161; BP diastolic 66–101
[2021-09-08 05:39] LABS: BASO # 0.1 10^3/uL (0.0-0.2); BASO % 1.3 % (0.0-1.0); EOS # 0.3 10^3/uL (0.0-0.5); EOS % 7.3 % (0.0-3.0); HEMOGLOBIN 13.8 g/dl (13.5-17.5); LYMPH # 1.9 10^3/uL (1.5-5.0); LYMPH % 39.8 % (24.0-44.0); MEAN CORPUSCULAR HEMOGLOBIN 32.9 pg (27.0-33.0); MEAN CORPUSCULAR HGB CONC 33.7 g/dl (32.0-36.5); MEAN CORPUSCULAR VOLUME 97.9 fl (80.0-96.0); MONO # 0.5 10^3/uL (0.0-0.8); MONO % 10.7 % (2.0-8.0); NEUTROPHILS # 1.9 10^3/uL (1.5-8.5); NEUTROPHILS % 40.7 % (36.0-66.0); PLATELET COUNT, AUTOMATED 110 10^3/uL (150-450); RED BLOOD COUNT 4.19 10^6/uL (4.30-6.10); WHITE BLOOD COUNT 4.7 10^3/uL (4.0-10.0)
[2021-09-08 05:58] LABS: BLOOD UREA NITROGEN 9 MG/DL (7-18); CARBON DIOXIDE LEVEL 28 MEQ/L (21-32); CHLORIDE LEVEL 105 MEQ/L (98-107); CREATININE FOR GFR 0.81 MG/DL (0.70-1.30); GLOMERULAR FILTRATION RATE > 60.0 (>56); GLUCOSE, FASTING 95 MG/DL (70-100); MAGNESIUM LEVEL 1.9 MG/DL (1.8-2.4); POTASSIUM SERUM 4.6 MEQ/L (3.5-5.1); SODIUM LEVEL 136 MEQ/L (136-145)
[2021-09-08] MEDS: HEPARIN SOD (PORCINE) 5000UNITS/ML 1ML VIAL/SYRINGE SC SCH ×3 (06:14→21:24)
--- NOTE | 2021-09-08 07:06 | HPEPDOC ---
[facility] Medical History & Physical Date of Admission Sep 07, 2021 Date of Service: Sep 07, 2021 History and Physical Chief complaint: Presented to the emergency room complaints of back pain History of present illness: Patient is a 55-year-old male with a PMHx of Bipolar disorder, Insomnia, HTN who presented to the ER with complaints of back pain. Patient reported that he woke up this morning complaining of significant back pain. Patient reports his pain as a 10/10, worse with movement, alleviated with morphine describes the pain as sharp and intermittent. Patient denies any urinary retention or difficulty with urination. Denies any loss of control of his bowels. Patient reports that he is constipated. Denies any recent fevers or chills. Patient reported that approximately 1 week ago, he was on a short step ladder and had fallen off. . He reported that he did have some ankle pain, which has since resolved. Patient denies chest pain, any change in his baseline shortness of breath or cough. Denies any palpitations. Has not experience any nausea, vomiting, abdominal pain, diarrhea, or urinary discomfort. Past Medical History: Bipolar disorder, Insomnia, HTN Past Surgical History: Hernia repair left and right (inguinal hernia) Allergies: See below Medications: See below Family History: - Mother and father both . Father with a history of heart attack Social History: - Patient reports that he is an active smoker since the age of 11 at 1 pack per day. Also reports the use of alcohol. Regularly. Scribes drinking 2-3 beers at least 4 times a week. 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 Review of Systems: 10 point review of systems complete, all negative otherwise stated in HPI Physical exam: - Vitals: BP [156/93], HR [62], RR [18], Sat [98%RA], Temp [98.7F] - General: Lying in bed, Speaking in full sentences, AAOx3 - HEENT: NC, AT, PERRLA, EOMI - CVS: RRR, +S1S2, - Murmurs / rubs / gallops - Lungs: Fair air entry bilaterally, No appreciable wheezing / rales / rhonchi - Abdomen: Soft, Non-distended, Non-tender - Extremities: 5/5 strength at upper / lower extremities bilaterally, sensation intact bilaterally - Neuro: No focal motor or sensory deficit - Skin: No visible rashes Labs: See below Imaging: See below EKG: See below Assessment and Plan: Acute on Chronic back pain - Patient reports that he has a long-standing history of back pain - Patient has had MRI imaging completed in the past; with evidence of multiple herniated disks - Physical does not reveal any focal neurologic deficits - Rectal exam completed in the ER did not reveal any loss of rectal tone - Patient denies any urinary retention of difficulty - Imaging pending - Will start PT / OT - Will start Long acting and Short acting pain control / Muscle relaxants HTN - BP moderately elevated - likely 2/2 pain - c/w Propranolol - Will place patient in PCU for potential need of IV medications if BP is uncontrolled Smoking dependence - c/w Nicotine patch Alcohol use - Patient denies any prior withdrawal episodes - Will start Thiamine / Folate / MVI - Will start CIWA protocol Bipolar disorder - c/w [place], Olanzapine, Buspirone, Mirtazapine Insomnia - c/w Trazodone DVT prophylaxis - Will start Heparin SQ Vital Signs Vital Signs Date Time Temp Pulse Resp B/P (MAP) Pulse Ox O2 Delivery O2 Flow Rate FiO2 09/08/21 04:00 98.4 65 16 126/78 (94) 97 [facility] Data Labs 24H Laboratory Tests 2 09/07/21 08:57: Neutrophils (%) (Auto) , Nucleated Red Blood Cells % (auto) 0.0, Neutrophils 47, Lymphocytes (Manual) 32, Monocytes (Manual) 11H, Eosinophils (Manual) 2, Basophils (Manual) 3H, Atypical Lymphocytes 5, Platelet Estimate DECREASED, Anion Gap 6L, Glomerular Filtration Rate > 60.0, Calcium Level 8.8, Total Creatine Kinase 79, Creatine Kinase MB 1.8, Creatine Kinase MB Relative Index 2.28, Troponin I < 0.02, [place] Level 0.35L 09/07/21 12:27: Coronavirus (COVID-19)(PCR) NEGATIVE, Influenza Type A (RT-PCR) NEGATIVE, Influenza Type B (RT-PCR) NEGATIVE, Respiratory Syncytial Virus (PCR) NEGATIVE 09/07/21 15:38: Total Bilirubin 1.5H, Direct Bilirubin 0.5H, Aspartate Amino Transf (AST/SGOT) 211H, Alanine Aminotransferase (ALT/SGPT) 224H, Alkaline Phosphatase 124H, Total Protein 8.0, Albumin 3.4, Albumin/Globulin Ratio 0.7 09/08/21 05:04: Neutrophils (%) (Auto) 40.7, Nucleated Red Blood Cells % (auto) 0.0, Anion Gap 3L, Glomerular Filtration Rate > 60.0, Calcium Level 9.0, Immature Granulocyte % (Auto) 0.2, Lymphocytes (%) (Auto) 39.8, Monocytes (%) (Auto) 10.7H, Eosinophils (%) (Auto) 7.3H, Basophils (%) (Auto) 1.3H, Neutrophils # (Auto) 1.9, Lymphocytes # (Auto) 1.9, Monocytes # (Auto) 0.5, Eosinophils # (Auto) 0.3, Basophils # (Auto) 0.1, Magnesium Level 1.9 CBC/BMP Laboratory Tests 09/07/21 08:57 09/08/21 05:04 Home Medications Scheduled Buspirone HCl (Buspirone HCl) 30 Mg Tablet, 30 MG PO BID [place] Carbonate ([place] Carbonate) 300 Mg Tablet, 600 MG PO BID Mirtazapine (Remeron) 15 Mg Tablet, 15 MG PO QHS Nicotine (Nicotine Patch) 21 Mg/24 Hr Patch.td24, 1 PATCH TOP DAILY for smoking cessation LEFT ARM Olanzapine (Olanzapine) 10 Mg Tablet, 10 MG PO QHS Propranolol HCl (Propranolol HCl) 10 Mg Tablet, 10 MG PO TID Trazodone HCl (Trazodone HCl) 100 Mg Tablet, 200 MG PO QHS Allergies Coded Allergies: No Known Allergies (Unverified , 12/16/20) JANELL CERVANTES MD Sep 08, 2021 07:06
[2021-09-08] MEDS: busPIRone 10 MG TAB PO SCH ×2 (08:21→20:37)
[2021-09-08] MEDS: CYCLOBENZAPRINE 10MG TABLET PO PRN ×2 (08:21→15:16)
[2021-09-08] MEDS: FOLIC ACID 1 MG TAB PO SCH (08:22)
[2021-09-08] MEDS: DOCUSATE SODIUM 100MG CAPSULE PO SCH ×2 (08:22→20:37)
[2021-09-08] MEDS: LITHIUM CARBONATE 300 MG CAP PO SCH ×2 (08:22→20:37)
[2021-09-08] MEDS: MORPHINE 15 MG SA TAB PO SCH ×2 (08:22→20:38)
[2021-09-08] MEDS: MULTIVITAMINS/MINERALS THERAP 1 TAB PO SCH (08:22)
[2021-09-08] MEDS: NICOTINE 21MG/24HR 1 EA TRANSDERMAL TOP SCH (08:23)
[2021-09-08] MEDS: THIAMINE 100 MG TAB PO SCH (08:23)
[2021-09-08] MEDS: PROPRANOLOL 10 MG TAB PO SCH ×3 (08:23→20:36)
[2021-09-08] MEDS ORDERED: FLUBLOK(EGG FREE)(QUAD)INFLUENZA VACC 0.5ML SYRINGE 18YRS & OLDER IM ONE (09:00)
--- NOTE | 2021-09-08 10:11 | IPNPDOC ---
Text Note Date of Service The patient was seen on 09/08/21. NOTE Subjective: Patient is a 55-year-old male with a PMHx of Bipolar disorder, Insomnia, HTN who presented to the ER with complaints of back pain. Patient r eported that he woke up this morning complaining of significant back pain. Patient reports his pain as a 10/10, worse with movement, alleviated with morphine, describes the pain as sharp and intermittent. Patient denies any urinary retention or difficulty with urination. Denies any loss of control of his bowels. Patient reports that he is constipated. Denies any recent fevers or chills. Patient reported that approximately 1 week ago, he was on a short step ladder and had fallen off. He reported that he did have some ankle pain, which has since resolved. Patient was admitted to the hospital service for further evaluation and treatment. Patient was seen and examined at the bedside. Currently he denies chest pain, shortness of breath, palpitations, nausea, vomiting, abdominal pain or diarrhea. Reports that he has not been out of bed to ambulate. However, he will be working with physical therapy later today. Objective: Vitals (See below) General: Lying in bed, appears comfortable, AAOx3 HEENT: NC, AT CVS: RRR, +S1S2 Lungs: Fair air entry b/l, no wheezing, rales or rhonchi Abdomen: Soft, ND, NT Extremities: No evidence edema, - Calf tenderness Imaging: CT L spine 09/07: 1. Mild degenerative changes of the lumbar spine 2. The gallbladder is severely distended or hydropic. No surrounding inflammation is seen. US Gallbladder 09/07: Moderately distended gallbladder with no gallbladder wall thickening or gallstones. Common bile duct is minimally prominent at 8 mm in maximum diameter. No free fluid. Assessment and plan: Acute on Chronic back pain - Patient reports that he has a long-standing history of back pain; has had improvement today and has been cleared for discharge home from physical therapy - Patient has had MRI imaging completed in the past; with evidence of multiple herniated disks - Physical again is without any focal neurologic deficits - Rectal exam completed in the ER did not reveal any loss of rectal tone - Again no difficulty with urination - Imaging noted below - Cleared PT / OT - c/w Long acting and Short acting pain control / Muscle relaxants on discharge - Will have outpatient follow-up with orthopedic surgery Distended gallbladder - Patient does not experience any nausea, vomiting, abdominal discomfort - Physicals without any abdominal tenderness - LFTs elevated - Will discuss with surgery HTN - BP well controlled - c/w Propranolol Smoking dependence - c/w Nicotine patch Alcohol use - Patient denies any prior withdrawal episodes - c/w Thiamine / Folate / MVI - Will DC CIOR protocol Bipolar disorder - c/w [place], Olanzapine, Buspirone, Mirtazapine Insomnia - c/w Trazodone DVT prophylaxis - c/w Heparin SQ Disposition: - Pending clinical improvement VS,Fishbone, I+O VS, Fishbone, I+O Laboratory Tests 09/08/21 05:04 Vital Signs Date Time Temp Pulse Resp B/P (MAP) Pulse Ox O2 Delivery O2 Flow Rate FiO2 09/08/21 08:23 68 161/90 09/08/21 08:22 18 09/08/21 08:18 99.4 98 Room Air I&O- Last 24 Hours up to 6 AM 09/08/21 06:00 Intake Total 720 ml Output Total 620 ml Balance 100 ml JANELL CERVANTES MD Sep 08, 2021 10:03
[2021-09-08 11:13] LABS: ALBUMIN 3.2 GM/DL (3.2-5.2); ALT/SGPT 216 U/L (12-78); BILIRUBIN,DIRECT 0.5 MG/DL (0.0-0.2); BILIRUBIN,TOTAL 1.4 MG/DL (0.2-1.0); TOTAL PROTEIN 7.6 GM/DL (6.4-8.2)
[2021-09-08 15:44] LABS: HEPATITIS B SURFACE ANTIGEN NEGATIVE (NEGATIVE)
[2021-09-08 15:53] LABS: HEPATITIS C VIRUS ABY INDEX > 11.0 INDEX (<0.8)
--- NOTE | 2021-09-08 20:19 | CR ---
CONSULTATION DATE: 09/08/2021 REASON FOR CONSULTATION: Distended gallbladder by ultrasound. HISTORY OF PRESENT ILLNESS: The patient is a 55-year-old man who presented to the hospital on the morning of September 07 with severe back pain. Patient has a history of longstanding back pain. He apparently awakened on the morning of September 07 with severe pain and reports that he could not get out of bed it hurt so much. He had no bowel or bladder issues. He was brought to the emergency department for evaluation and treatment. He underwent evaluation with a CT scan of the lumbar spine. This revealed no acute fracture. He had some mild degenerative changed noted in the lumbar spine. It was noted incidentally that he had a distended gallbladder with no surrounding inflammation. He has been receiving treatment for his back pain with MS Contin and Percocet as needed and apparently has also been seen by physical therapy. Because of the finding of a distended gallbladder on his spine CT, a gallbladder ultrasound was obtained, which revealed a moderately distended gallbladder with no gallbladder wall thickening and no gallstones. He does have some liver function test (LFT) elevations, which the patient reports have been noted previously. He does admit to heavy alcohol use. He reports drinking approximately three or four 24-ounce 8% alcohol beverages at least four times a week. He does admit to previous intravenous (IV) drug abuse on at least several occasions and reports that perhaps 9 months ago he was given a shot while he was intoxicated. I have now been asked to evaluate the patient regarding his distended gallbladder and elevated liver function tests. ALLERGIES: Patient reports no known drug allergies. MEDICATIONS: Prior to admission included: - lithium 600 mg twice daily - buspirone 30 mg by mouth twice daily - Remeron 15 mg by mouth nightly at bedtime - nicotine patches - olanzapine 10 mg by mouth every night - propranolol/hydrochloride 10 mg by mouth three times a day - trazodone 200 mg by mouth every night SURGICAL HISTORY: He has had surgery for a tibia/fibula fracture of the left lower extremity in the past. He reports that he had hardware in both bones, and this was removed from the tibia but not the fibula. He has also had bilateral inguinal hernia repairs. MEDICAL HISTORY: Significant for: 1. Bipolar disorder. 2. He has insomnia. 3. He has a history of hypertension. 4. He has a history of alcohol abuse. 5. He is an active smoker. FAMILY HISTORY: Father apparently had a heart attack. SOCIAL HISTORY: Patient is a smoker. He drinks alcohol heavily. He apparently is currently unemployed. He has used some intravenous drugs in the past. REVIEW OF SYSTEMS: Shows no history of chest pain or palpitations, cough, wheezing sputum production, dysuria, hematuria, melena, hematochezia, or other acute bone or joint issues other than his back pain. He denies any symptoms of upper abdominal pain to suggest biliary colic. He denies a history of hepatitis, pancreatitis, or jaundice. PHYSICAL EXAMINATION: Patient is a pleasant man, lying quietly propped up on the hospital bed when I saw him. Most recent temperature is 98.0 with a pulse of 76, respirations 18, and a blood pressure of 144/97. Room air oxygen saturation is normal. Patient is alert and appears oriented. Sclerae are anicteric. Skin is warm and dry. Patient has multiple tattoos, including the hands and fingers. Heart exam shows a regular rate and rhythm. The lungs are clear to auscultation bilaterally. The abdomen is mildly protuberant. He has active bowel sounds. The abdomen is soft and nontender without appreciable mass. LABORATORY STUDIES: Show CBC today with a white count of 5, hemoglobin of 14, hematocrit 41, and a platelet count of 110,000. differential count shows 41% neutrophils, 40% lymphocytes, 11% monocytes, and 7 % eosinophils. His chemistry profile today showed normal electrolytes, BUN, creatinine, and glucose. His total bilirubin is 1.4 with a direct of 0.5. AST is 202 with an ALT of 216, and the alkaline phosphatase is 111. His serologies during his admission include a SARS COVID test, which was negative. He had hepatitis A IgM antibodies negative, hepatitis B surface antigen negative, hepatitis B core IgM antibody, which was equivocal, and a hepatitis C antibody index greater than 11.0. Imaging is as noted previously. IMPRESSION: Patient was noted on back CT scan to have a distended gallbladder. He had an ultrasound that confirms some moderate distention of the gallbladder but no evidence of gallstones, no gallbladder wall thickening, and no pericholecystic inflammation. He has no history of any pain to suggest a biliary tract pathology. He does have elevations of his liver function tests. The elevated liver function tests could be related to his heavy alcohol intake. He is also noted to have a serology that is high for hepatitis C antibody. He had undergone a hepatitis C antibody index back in May 2020, which was also quite elevated. The record would suggest that that test was sent out for hepatitis C RNA testing to confirm or exclude hepatitis C virus infection, but I not identify the result of this test in his record. RECOMMENDATIONS: Patient has no indication for any operative intervention. His gallbladder was noted to be moderately distended, but there is no evident pathology. His liver function tests, I suspect, are related to either his alcohol or perhaps an underlying hepatitis infection. I would recommend that his medical issues be addressed as appropriate, but there is no indication for any intervention regarding his gallbladder. No further testing is required given his lack of symptoms.
[2021-09-08] MEDS: MIRTAZAPINE 15 MG TAB PO SCH (20:37)
[2021-09-08] MEDS: traZODone 100 MG TAB PO SCH (20:37)
[2021-09-08] MEDS: OLANZapine 10 MG TAB PO SCH (20:37)
[2021-09-09] MEDS: HEPARIN SOD (PORCINE) 5000UNITS/ML 1ML VIAL/SYRINGE SC SCH (05:29)
[2021-09-09 05:46] VITALS: BP 129/86
[2021-09-09 06:39] LABS: HEMATOCRIT 42.5 % (42.0-52.0); MEAN CORPUSCULAR HEMOGLOBIN 33.2 pg (27.0-33.0); MEAN CORPUSCULAR HGB CONC 32.9 g/dl (32.0-36.5); MEAN CORPUSCULAR VOLUME 100.7 fl (80.0-96.0); PLATELET COUNT, AUTOMATED 112 10^3/uL (150-450); RED BLOOD COUNT 4.22 10^6/uL (4.30-6.10); WHITE BLOOD COUNT 5.4 10^3/uL (4.0-10.0)
[2021-09-09 06:57] LABS: BLOOD UREA NITROGEN 7 MG/DL (7-18); CALCIUM LEVEL 8.8 MG/DL (8.5-10.1); CARBON DIOXIDE LEVEL 29 MEQ/L (21-32); CHLORIDE LEVEL 105 MEQ/L (98-107); GLOMERULAR FILTRATION RATE > 60.0 (>56); GLUCOSE, FASTING 90 MG/DL (70-100); POTASSIUM SERUM 4.5 MEQ/L (3.5-5.1); SODIUM LEVEL 136 MEQ/L (136-145)
[2021-09-09 07:18] LABS: ATYPICAL LYMPH 2 % (0-5); EOSINOPHILS 9 % (0-3); LYMPHOCYTES 34 % (16-44); MONOCYTES 5 % (0-5); NEUTROPHILS 50 % (28-66); PLATELET ESTIMATE NORMAL (NORMAL)
[2021-09-09] MEDS: DOCUSATE SODIUM 100MG CAPSULE PO SCH (09:00)
[2021-09-09] MEDS: NICOTINE 21MG/24HR 1 EA TRANSDERMAL TOP SCH (09:36)
[2021-09-09] MEDS: busPIRone 10 MG TAB PO SCH (09:37)
[2021-09-09] MEDS: MORPHINE 15 MG SA TAB PO SCH (09:37)
[2021-09-09] MEDS: LITHIUM CARBONATE 300 MG CAP PO SCH (09:38)
[2021-09-09] MEDS: MULTIVITAMINS/MINERALS THERAP 1 TAB PO SCH (09:38)
[2021-09-09 09:39] VITALS: BP 129/86
[2021-09-09] MEDS: PROPRANOLOL 10 MG TAB PO SCH (09:39)
[2021-09-09] MEDS: FOLIC ACID 1 MG TAB PO SCH (09:39)
[2021-09-09] MEDS: THIAMINE 100 MG TAB PO SCH (09:39)
[2021-09-09] MEDS ORDERED: CYCL-707 PO (11:04)
[2021-09-09] MEDS ORDERED: PERCOCET PO (11:04)
[2021-09-09] MEDS ORDERED: MORP15TASA PO (11:04)
--- NOTE | 2021-09-09 13:51 | DS.PDOC ---
Discharge Summary General Date of Admission Sep 07, 2021 at 14:37 Date of Discharge 09/09/2021 Discharge Summary PROCEDURES PERFORMED DURING STAY: [None]. ADMITTING DIAGNOSES / DISCHARGE DIAGNOSES: Acute on Chronic back pain Distended gallbladder Transaminitis - possibly 2/2 hepatitis C / Alcohol, less likely 2/2 distended GB HTN Smoking dependence Alcohol use Bipolar disorder Insomnia DVT prophylaxis COMPLICATIONS/CHIEF COMPLAINT: Back pain HISTORY OF PRESENT ILLNESS: Patient is a 55-year-old male with a PMHx of Bipolar disorder, Insomnia, HTN who presented to the ER with complaints of back pain. Patient reported that he woke up this morning complaining of significant back pain. Patient reports his pain as a 10/10, worse with movement, alleviated with morphine, describes the pain as sharp and intermittent. Patient denies any urinary retention or difficulty with urination. Denies any loss of control of his bowels. Patient reports that he is constipated. Denies any recent fevers or chills. Patient reported that approximately 1 week ago, he was on a short step ladder and had fallen off. He reported that he did have some ankle pain, which has since resolved. Patient was admitted to the hospital service for further evaluation and treatment. Patient was seen and examined at the bedside. Patient reports that this evening was uneventful. He denies any chest pain, shortness breath, palpitations, nausea, vomiting, abdominal pain, diarrhea, or urinary discomfort. He has been working with physical therapy and has been cleared for discharge home. HOSPITAL COURSE: Acute on Chronic back pain - Patient reports that he has a long-standing history of back pain - Patient reports that his back pain is tolerable. Currently - Patient has had MRI imaging completed in the past; with evidence of multiple herniated disks - No deficits noted on physical exam - Rectal exam completed in the ER did not reveal any loss of rectal tone / No difficulty with urination - Imaging noted below - Cleared PT / OT - c/w Long acting and Short acting pain control / Muscle relaxants on discharge - Will have outpatient follow-up with orthopedic surgery Distended gallbladder - Patient remains asymptomatic without any nausea, vomiting or abdominal discomfort - Again his abdomen does not reveal any evidence of tenderness - LFTs elevated / Alk phos has normalized - General surgery was called on consultation; we appreciate their input - will have outpatient follow-up within the next 7 days Transaminitis - possibly 2/2 hepatitis C / Alcohol, less likely 2/2 distended GB - Patient has been advised to abstain from the use of alcohol - Will have outpatient follow-up with primary care provider for potential referral to ID for treatment of Hepatitis C HTN - BP well controlled - c/w Propranolol Smoking dependence - c/w Nicotine patch Alcohol use - Patient denies any prior withdrawal episodes - Will DC Thiamine / Folate / MVI - s/p CIWA protocol Bipolar disorder - c/w [place], Olanzapine, Buspirone, Mirtazapine Insomnia - c/w Trazodone DVT prophylaxis - c/w Heparin SQ DISCHARGE MEDICATIONS: Please see below. ALLERGIES: Please see below. PHYSICAL EXAMINATION ON DISCHARGE: Vitals (See below) General: Patient is laying in bed, appears comfortable, not in any acute distress, is awake, alert, oriented 3 HEENT: Normocephalic and atraumatic CVS: RRR, +S1S2 Lungs: Appears to have fair air entry bilaterally without any auscultated evidence of crackles, wheezing, rhonchi Abdomen: Abdomen remains soft without any appreciated distention or tenderness Extremities: No edema Neuro: Strength remains 5/5 bilateral upper and lower extremities LABORATORY DATA: Please see below. IMAGING: CT L spine 09/07: 1. Mild degenerative changes of the lumbar spine 2. The gallbladder is severely distended or hydropic. No surrounding inflammation is seen. US Gallbladder 09/07: Moderately distended gallbladder with no gallbladder wall thickening or gallstones. Common bile duct is minimally prominent at 8 mm in maximum diameter. No free fluid. ACTIVITY: [As tolerated]. DISCHARGE PLAN: Advised to follow-up with primary care provider within the next 7 days Advised to follow-up with orthopedic surgery within the next 7 days Advised to follow-up with general surgery within the next 7 days Advised to remain compliant with treatment plan and medications Return to the ER if you experience any problems DISPOSITION: Home with services DISCHARGE CONDITION: [Stable]. TIME SPENT ON DISCHARGE: 35 minutes Vital Signs/I&Os Vital Signs Date Time Temp Pulse Resp B/P (MAP) Pulse Ox O2 Delivery O2 Flow Rate FiO2 09/08/21 08:23 68 161/90 09/08/21 08:22 18 09/08/21 08:18 99.4 98 Room Air I&O- Last 24 Hours up to 6 AM 09/08/21 06:00 Intake Total 720 ml Output Total 620 ml Balance 100 ml Laboratory Data Labs 24H Laboratory Tests 2 09/07/21 12:27: Coronavirus (COVID-19)(PCR) NEGATIVE, Influenza Type A (RT-PCR) NEGATIVE, Influenza Type B (RT-PCR) NEGATIVE, Respiratory Syncytial Virus (PCR) NEGATIVE 09/07/21 15:38: Total Bilirubin 1.5H, Direct Bilirubin 0.5H, Aspartate Amino Transf (AST/SGOT) 211H, Alanine Aminotransferase (ALT/SGPT) 224H, Alkaline Phosphatase 124H, Total Protein 8.0, Albumin 3.4, Albumin/Globulin Ratio 0.7 09/08/21 05:04: Immature Granulocyte % (Auto) 0.2, Neutrophils (%) (Auto) 40.7, Lymphocytes (%) (Auto) 39.8, Monocytes (%) (Auto) 10.7H, Eosinophils (%) (Auto) 7.3H, Basophils (%) (Auto) 1.3H, Neutrophils # (Auto) 1.9, Lymphocytes # (Auto) 1.9, Monocytes # (Auto) 0.5, Eosinophils # (Auto) 0.3, Basophils # (Auto) 0.1, Nucleated Red Blood Cells % (auto) 0.0, Anion Gap 3L, Glomerular Filtration Rate > 60.0, Calcium Level 9.0, Magnesium Level 1.9 CBC/BMP Laboratory Tests 09/08/21 05:04 Discharge Medications Scheduled Buspirone HCl (Buspirone HCl) 30 Mg Tablet, 30 MG PO BID, (Reported) [place] Carbonate ([place] Carbonate) 300 Mg Tablet, 600 MG PO BID, (Reported) Mirtazapine (Remeron) 15 Mg Tablet, 15 MG PO QHS, (Reported) Morphine Sulfate (Morphine Sulfate ER) 15 Mg Tablet.er, 15 MG PO BID Nicotine (Nicotine Patch) 21 Mg/24 Hr Patch.td24, 1 PATCH TOP DAILY for smoking cessation, (Reported) LEFT ARM Olanzapine (Olanzapine) 10 Mg Tablet, 10 MG PO QHS, (Reported) Propranolol HCl (Propranolol HCl) 10 Mg Tablet, 10 MG PO TID, (Reported) Trazodone HCl (Trazodone HCl) 100 Mg Tablet, 200 MG PO QHS, (Reported) Scheduled PRN Cyclobenzaprine HCl (Cyclobenzaprine HCl) 10 Mg Tablet, 10 MG PO Q8HP PRN for SPASMS Oxycodone/Acetaminophen (Oxycodone-Acetaminophen 5-325) 1 Each Tablet, 1 TAB PO Q8HP PRN for SEVERE PAIN (PS 8-10) Allergies Coded Allergies: No Known Allergies (Unverified , 12/16/20) JANELL CERVANTES MD Sep 08, 2021 10:11
== END 2021-09-09 15:10 | disposition home health service (06) | DRG 347 ==
LOC: M ED 08:28 → M ED INP 14:37 → ENRESERV 15:00 → M PCU 15:52 → M MS5PR 09-08 09:37
PROVIDERS: ADMIT Internal Medicine; ATTEND Internal Medicine
DX: M54.9 Dorsalgia, unspecified (principal); I10 Essential (primary) hypertension; G89.29 Other chronic pain; R74.01 Elevation of levels of liver transaminase levels; B19.20 Unspecified viral hepatitis C without hepatic coma; F17.210 Nicotine dependence, cigarettes, uncomplicated; F10.10 Alcohol abuse, uncomplicated; F31.9 Bipolar disorder, unspecified; G47.00 Insomnia, unspecified; K59.00 Constipation, unspecified; K82.8 Other specified diseases of gallbladder; F12.10 Cannabis abuse, uncomplicated; Z20.822 Contact with and (suspected) exposure to COVID-19; Z79.899 Other long term (current) drug therapy

== ENCOUNTER → 2021-10-05 | Outpatient (CLI) | payer MEDICAID ==
[~2021-10-05] MED LIST changes: +CYCL-707 PO; +MORP15TASA PO; +NICO1PAT15 TOP
== END ==
LOC: M OUTALCOH 07:37
PROVIDERS: ATTEND Psychiatry & Neurology Psychiatry
DX: F10.10 Alcohol abuse, uncomplicated (principal); F12.10 Cannabis abuse, uncomplicated

== ENCOUNTER 2021-10-17 09:00 | Outpatient (RCR) | payer MEDICAID ==
[~2021-10-17 09:00] MED LIST changes: -LISI-898 PO; +LISI5TAB11 PO; +OMEP-173 PO; -OMEP-218 PO
== END 2021-10-18 ==
LOC: M OUTALCOH 09:00
PROVIDERS: ATTEND Psychiatry & Neurology Psychiatry
DX: F10.10 Alcohol abuse, uncomplicated (principal); F12.10 Cannabis abuse, uncomplicated; F17.200 Nicotine dependence, unspecified, uncomplicated

== ENCOUNTER 2021-11-02 15:00 | Outpatient (RCR) | payer MEDICAID ==
[~2021-11-02 15:00] MED LIST changes: +LISI-898 PO; -LISI5TAB11 PO; -OMEP-173 PO; +OMEP-218 PO
== END 2021-11-18 ==
LOC: M OUTALCOH 15:00
PROVIDERS: ATTEND Psychiatry & Neurology Psychiatry
DX: F10.10 Alcohol abuse, uncomplicated (principal); F12.10 Cannabis abuse, uncomplicated; F17.200 Nicotine dependence, unspecified, uncomplicated

== ENCOUNTER 2022-02-15 14:31 | Emergency (ER) | payer OTHER ==
[~2022-02-15] VITALS: Ht 180.3 cm; Wt 98.0 kg
[~2022-02-15 14:31] MED LIST changes: +ALBU8.5H INH; +AMLO2.5T3 PO; +IBUP-1022 PO; -LISI-898 PO; +LISI5TAB11 PO; +OMEP-173 PO; -OMEP-218 PO; +OXYC1TAB23 PO; +TRIA0.5O TOP
[2022-02-15] MEDS ORDERED: KETOROLAC 60MG 2ML VIAL IM ONE (14:55)
[2022-02-15] MEDS ORDERED: LIDOCAINE 5% (LIDODERM) PATCH TD ONE (14:55)
[2022-02-15] MEDS ORDERED: KETOROLAC 30 MG/ML 1ML VIAL IV ONE (14:55)
[2022-02-15] MEDS ORDERED: MORPHINE 10 MG/ML 1ML VIAL IM ONE (14:55)
[2022-02-15] MEDS ORDERED: LIDO5TD TOP (15:31)
[2022-02-15 16:45] VITALS: BP 128/65
[2022-02-16] MEDS ORDERED: **NOTE PATIENT COMMENT** MISC XX ONE (03:00)
== END 2022-02-15 17:05 | disposition home or self-care (01) ==
LOC: EDBD 14:31 → M ED 14:31
DX: G89.29 Other chronic pain (principal); M54.50 Low back pain, unspecified; J44.9 Chronic obstructive pulmonary disease, unspecified; Z79.899 Other long term (current) drug therapy; F17.210 Nicotine dependence, cigarettes, uncomplicated
CPT/HCPCS: 96372; 99284; J1885; J2270

== ENCOUNTER → 2022-02-27 | Outpatient (CLI) | payer MEDICAID ==
[~2022-02-27] MED LIST changes: +LIDO5TD TOP
== END ==
LOC: M OUTALCOH 07:27
PROVIDERS: ATTEND Psychiatry & Neurology Psychiatry
DX: Z03.89 Encounter for observation for other suspected diseases and conditions ruled out (principal)

== ENCOUNTER 2022-03-14 16:00 | Outpatient (RCR) | payer MEDICAID | END 2022-03-18 | LOC: M OUTALCOH 16:00 | PROVIDERS: ATTEND Psychiatry & Neurology Psychiatry | DX: F10.10 Alcohol abuse, uncomplicated (principal); F12.10 Cannabis abuse, uncomplicated; F17.200 Nicotine dependence, unspecified, uncomplicated ==

== ENCOUNTER → 2022-06-06 | Outpatient (CLI) | payer OTHER ==
[2022-06-06 14:37] LABS: HEPATITIS B SURFACE ANTIBODY NEGATIVE (POSITIVE); HEPATITIS B SURFACE ANTIGEN NEGATIVE (NEGATIVE)
[2022-06-09 02:12] LABS: HEPATITIS A IgG TOTAL Positive (Negative); HEPATITIS B CORE ANTIBODY IGG Negative (Negative); HEPATITIS C QUANTITATION 9110000 IU/mL (.)
== END ==
LOC: M PLALAB 10:10
PROVIDERS: ATTEND Internal Medicine Infectious Disease
DX: B18.2 Chronic viral hepatitis C (principal)

== ENCOUNTER → 2022-07-31 | Outpatient (CLI) | payer OTHER | LOC: M PAIN 13:00 | PROVIDERS: ATTEND Nurse Practitioner Family | DX: M54.50 Low back pain, unspecified (principal); N52.9 Male erectile dysfunction, unspecified; F17.210 Nicotine dependence, cigarettes, uncomplicated; K21.9 Gastro-esophageal reflux disease without esophagitis; J44.9 Chronic obstructive pulmonary disease, unspecified; F31.9 Bipolar disorder, unspecified; I10 Essential (primary) hypertension; L40.9 Psoriasis, unspecified; B18.2 Chronic viral hepatitis C; Z79.899 Other long term (current) drug therapy ==

== ENCOUNTER 2022-09-14 10:31 | Outpatient (RCR) | payer OTHER | END 2022-09-18 23:59 | disposition home or self-care (01) | LOC: M PT 10:31 | PROVIDERS: ATTEND Anesthesiology | DX: G89.29 Other chronic pain (principal) ==

== ENCOUNTER 2022-09-25 09:15 | Outpatient (RCR) | payer OTHER | END 2022-10-18 | LOC: M PT 09:15 | PROVIDERS: ATTEND Anesthesiology | DX: G89.29 Other chronic pain (principal) ==

== ENCOUNTER → 2022-09-25 | Outpatient (REF) | payer OTHER | LOC: M LAB REF 16:24 | PROVIDERS: ATTEND Physician Assistant | DX: Z79.899 Other long term (current) drug therapy (principal) ==

== ENCOUNTER → 2022-10-05 | Outpatient (CLI) | payer OTHER | LOC: M PAIN 14:30 | PROVIDERS: ATTEND Nurse Practitioner Family | DX: M51.16 Intervertebral disc disorders with radiculopathy, lumbar region (principal); N52.9 Male erectile dysfunction, unspecified; K21.9 Gastro-esophageal reflux disease without esophagitis; J44.9 Chronic obstructive pulmonary disease, unspecified; F31.9 Bipolar disorder, unspecified; I10 Essential (primary) hypertension; L40.9 Psoriasis, unspecified; B18.2 Chronic viral hepatitis C; F17.210 Nicotine dependence, cigarettes, uncomplicated; Z79.891 Long term (current) use of opiate analgesic; Z79.899 Other long term (current) drug therapy ==

== ENCOUNTER → 2022-11-02 | Outpatient (CLI) | payer OTHER ==
[2022-11-02 12:22] LABS: LITHIUM LEVEL < 1.00 MEQ/L (0.60-1.20)
[2022-11-02 12:42] LABS: ALBUMIN 3.6 G/DL (3.2-5.2); ALKALINE PHOSPHATASE 85 U/L (46-116); ALT/SGPT 13 U/L (7.0-40); AST/SGOT 16 U/L (<34); BILIRUBIN,TOTAL 0.3 MG/DL (0.3-1.2); BLOOD UREA NITROGEN 14 MG/DL (9-23); CALCIUM LEVEL 9.5 MG/DL (8.5-10.1); CARBON DIOXIDE LEVEL 27 MMOL/L (20-31); CHLORIDE LEVEL 108 MMOL/L (98-107); CREATININE FOR GFR 0.91 MG/DL (0.70-1.30); GLOMERULAR FILTRATION RATE > 60.0 (>56); GLUCOSE, FASTING 88 MG/DL (60-100); POTASSIUM SERUM 4.7 MMOL/L (3.5-5.1); SODIUM LEVEL 136 MMOL/L (136-145); TOTAL PROTEIN 7.1 G/DL (5.7-8.2)
[2022-11-02 13:12] LABS: THYROID STIMULATING HORMONE 1.727 uIU/ML (0.55-4.78)
== END ==
LOC: M LAB 11:35
PROVIDERS: ATTEND Psychiatry & Neurology Psychiatry
DX: Z51.81 Encounter for therapeutic drug level monitoring (principal)

== ENCOUNTER → 2022-11-02 | Outpatient (CLI) | payer OTHER ==
[2022-11-02 12:05] LABS: HEMATOCRIT 41.8 % (42.0-52.0); HEMOGLOBIN 13.9 g/dl (13.5-17.5); MEAN CORPUSCULAR HGB CONC 33.3 g/dl (32.0-36.5); MEAN CORPUSCULAR VOLUME 96.3 fl (80.0-96.0); PLATELET COUNT, AUTOMATED 217 10^3/uL (150-450); RED BLOOD COUNT 4.34 10^6/uL (4.30-6.10); WHITE BLOOD COUNT 8.9 10^3/uL (4.0-10.0)
[2022-11-02 12:39] LABS: ANISOCYTOSIS 1+; ATYPICAL LYMPH 4 % (0-5); EOSINOPHILS 6 % (0-3); LYMPHOCYTES 49 % (16-44); MONOCYTES 11 % (0-5); NEUTROPHILS 30 % (28-66); PLATELET ESTIMATE NORMAL (NORMAL)
[2022-11-02 12:52] LABS: HEPATITIS B SURFACE ANTIBODY POSITIVE (POSITIVE); HIV 1&2 SCREEN CENTAUR NEGATIVE (NEGATIVE)
[2022-11-02 14:20] LABS: HEPATITIS B CORE ANTIBODY IGM NEGATIVE (NEGATIVE)
[2022-11-02 14:36] LABS: HEPATITIS B SURFACE ANTIGEN NEGATIVE (NEGATIVE)
[2022-11-02 14:45] LABS: HEPATITIS C VIRUS ABY INDEX > 11.0 INDEX (<0.8)
== END ==
LOC: M LAB 11:33
PROVIDERS: ATTEND Nurse Practitioner Family
DX: L40.9 Psoriasis, unspecified (principal)

== ENCOUNTER → 2022-11-03 | Outpatient (CLI) | payer OTHER | LOC: M PLAIMG 07:27 | PROVIDERS: ATTEND Nurse Practitioner Family | DX: M51.16 Intervertebral disc disorders with radiculopathy, lumbar region (principal); M48.061 Spinal stenosis, lumbar region without neurogenic claudication; M43.17 Spondylolisthesis, lumbosacral region ==

== ENCOUNTER → 2022-12-08 | Outpatient (CLI) | payer OTHER | LOC: M PAIN 09:15 | PROVIDERS: ATTEND Nurse Practitioner Family | DX: M79.10 Myalgia, unspecified site (principal); G89.29 Other chronic pain; F17.200 Nicotine dependence, unspecified, uncomplicated; Z86.59 Personal history of other mental and behavioral disorders; Z79.899 Other long term (current) drug therapy ==

== ENCOUNTER → 2023-01-22 | Outpatient (CLI) | payer OTHER, MEDICAID | LOC: M LABSMTC 07:35 | PROVIDERS: ATTEND Anesthesiology | DX: Z01.812 Encounter for preprocedural laboratory examination (principal) ==

== ENCOUNTER → 2023-01-25 | Outpatient (CLI) | payer OTHER ==
[~2023-01-25] MED LIST changes: +BUPIVACAINE HCL 0.25% 10ML VIAL As Ordered ONE; +BUPIVACAINE HCL 0.25% 30ML VIAL As Ordered ONE; +TRIAMCINOLONE ACETONIDE SUSP 40MG/ML 1ML VIAL As Ordered ONE
== END ==
LOC: M PAIN 15:00
PROVIDERS: ATTEND Anesthesiology
DX: M79.18 Myalgia, other site (principal); G89.29 Other chronic pain; G47.30 Sleep apnea, unspecified; F17.200 Nicotine dependence, unspecified, uncomplicated; Z86.59 Personal history of other mental and behavioral disorders; Z79.899 Other long term (current) drug therapy
CPT/HCPCS: 20552; J3301; S0020

== ENCOUNTER 2024-01-08 21:31 | Inpatient (IN) | payer MEDICAID, OTHER, SELFPAY ==
[~2024-01-08] VITALS: Ht 180.3 cm; Wt 77.3 kg
[2024-01-08] MEDS: THIAMINE 100 MG TAB PO SCH (21:00)
[~2024-01-08 21:31] MED LIST changes: -BUPIVACAINE HCL 0.25% 10ML VIAL As Ordered ONE; -BUPIVACAINE HCL 0.25% 30ML VIAL As Ordered ONE; -MIRT-62 PO; +MIRT-88 PO; -NICO1PAT15 TOP; +NICO21DI31 TOP; -TRIAMCINOLONE ACETONIDE SUSP 40MG/ML 1ML VIAL As Ordered ONE
[2024-01-08] MEDS ORDERED: LORazepam 2 MG TAB PO PRN (22:10)
[2024-01-08 22:29] LABS: HEMATOCRIT 38.2 % (42.0-52.0); HEMOGLOBIN 13.1 g/dl (13.5-17.5); MEAN CORPUSCULAR HEMOGLOBIN 33.4 pg (27.0-33.0); MEAN CORPUSCULAR HGB CONC 34.3 g/dl (32.0-36.5); MEAN CORPUSCULAR VOLUME 97.4 fl (80.0-96.0); PLATELET COUNT, AUTOMATED 235 10^3/uL (150-450); RED BLOOD COUNT 3.92 10^6/uL (4.30-6.10); WHITE BLOOD COUNT 12.8 10^3/uL (4.0-10.0)
[2024-01-08] MEDS ORDERED: BUSP15TA47 PO (22:51)
[2024-01-08] MEDS ORDERED: LITH150C PO (22:51)
[2024-01-08 22:55] LABS: AMPHETAMINES LEVEL URINE NEGATIVE (NEGATIVE); BARBITURATES URINE NEGATIVE (NEGATIVE); BENZODIAZEPINES URINE NEGATIVE (NEGATIVE); METHADONE URINE NEGATIVE (NEGATIVE); OPIATES URINE NEGATIVE (NEGATIVE)
[2024-01-08 22:56] LABS: CANNABINOIDS URINE POSITIVE (NEGATIVE); COCAINE METABOLITE URINE POSITIVE (NEGATIVE); PHENCYCLIDINE URINE NEGATIVE (NEGATIVE)
[2024-01-08 22:57] LABS: ETHYL ALCOHOL (ETHANOL) 0.079 % (0.000-0.010)
[2024-01-08] MEDS ORDERED: CLONI1TA PO (22:58)
[2024-01-08] MEDS ORDERED: GABA-284 PO (22:58)
[2024-01-08 22:59] LABS: ALBUMIN 3.7 G/DL (3.2-5.2); ALKALINE PHOSPHATASE 90 U/L (46-116); ALT/SGPT 194 U/L (7.0-40); AST/SGOT 83 U/L (<34); BILIRUBIN,DIRECT 0.2 MG/DL (<0.4); BILIRUBIN,TOTAL 0.5 MG/DL (0.3-1.2); BLOOD UREA NITROGEN 13 MG/DL (9-23); CALCIUM LEVEL 8.8 MG/DL (8.5-10.1); CARBON DIOXIDE LEVEL 21 MMOL/L (20-31); CHLORIDE LEVEL 107 MMOL/L (98-107); CREATININE FOR GFR 0.76 MG/DL (0.70-1.30); GLOMERULAR FILTRATION RATE > 60.0 (>56); GLUCOSE, FASTING 100 MG/DL (60-100); POTASSIUM SERUM 3.9 MMOL/L (3.5-5.1); SALICYLATE LEVEL < 3.0 MG/DL (<30); SODIUM LEVEL 137 MMOL/L (136-145); TOTAL PROTEIN 7.1 G/DL (5.7-8.2)
[2024-01-08 23:00] LABS: LITHIUM LEVEL 0.11 MMOL/L (1.0-1.20)
[2024-01-08 23:01] LABS: THYROID STIMULATING HORMONE 3.533 uIU/ML (0.55-4.78)
[2024-01-08] MEDS ORDERED: CYCL-707 PO (23:11)
[2024-01-08] MEDS ORDERED: HOME MED LIST COMPLETE! XX SCH (23:15)
[2024-01-09] MEDS ORDERED: MOM 30ML SUSPENSION UDC PO PRN (02:50)
[2024-01-09] MEDS ORDERED: diphenhydrAMINE 25MG CAP PO PRN (02:50)
[2024-01-09] MEDS ORDERED: ACETAMINOPHEN TAB 650MG DOSE (2X325MG) PO PRN (02:50)
[2024-01-09] MEDS ORDERED: MAALOX 30 ML SUSP *UDC PO PRN (02:50)
[2024-01-09] MEDS ORDERED: traZODone 50 MG TAB PO PRN (02:50)
[2024-01-09] MEDS ORDERED: IBUPROFEN 400MG TAB PO PRN (02:50)
[2024-01-09 06:34] VITALS: BP 140/78; TEMP 98.1; O2SAT 99
[2024-01-09] MEDS ORDERED: LORazepam 2 MG TAB PO PRN (08:05)
[2024-01-09] MEDS ORDERED: CYCLOBENZAPRINE 10MG TABLET PO PRN (08:05)
[2024-01-09] MEDS ORDERED: FLUT1BLS4 INH (08:40)
[2024-01-09] MEDS ORDERED: FOLIC ACID 1MG TAB PO SCH (09:00)
[2024-01-09] MEDS ORDERED: MULTIVITAMINS/MINERALS THERAP 1 TAB PO SCH (09:00)
[2024-01-09] MEDS: THIAMINE 100 MG TAB PO SCH (09:27)
[2024-01-09] MEDS: MULTIVITAMINS/MINERALS THERAP 1 TAB PO SCH (09:27)
[2024-01-09] MEDS: FOLIC ACID 1MG TAB PO SCH (09:27)
[2024-01-09] MEDS: GABAPENTIN 400MG CAP PO SCH (09:28)
[2024-01-09] MEDS: LITHIUM CARBONATE 150 MG CAP PO SCH (09:28)
[2024-01-09] MEDS: busPIRone 5 MG TAB PO SCH (09:28)
[2024-01-09 10:41] VITALS: BP 139/86
[2024-01-09] MEDS: NICOTINE 21MG/24HR 1 EA TRANSDERMAL TD SCH (11:44)
[2024-01-09 16:16] VITALS: BP 152/89; TEMP 97.6; O2SAT 100
[2024-01-09] MEDS: ALBUTEROL 90 MCG/ACT 8GM HFA INHALER INH PRN (16:46)
[2024-01-09 18:00] VITALS: BP 143/79
[2024-01-09 20:00] VITALS: BP 145/91; O2SAT 84
[2024-01-09] MEDS: OLANZapine 10 MG TAB PO SCH (20:04)
[2024-01-09] MEDS: ADVAIR HFA 45/21MCG INHALER INH SCH (20:04)
[2024-01-09] MEDS: cloNIDine 0.1MG TABLET PO SCH (20:05)
[2024-01-09] MEDS: traZODone 100 MG TAB PO SCH (20:05)
[2024-01-09] MEDS ORDERED: ADVAIR HFA 115/21MCG INHALER INH SCH (21:00)
[2024-01-10 06:19] VITALS: BP 115/60
[2024-01-10 06:21] VITALS: BP 115/60; TEMP 98.1; O2SAT 96
[2024-01-10 08:16] LABS: CHOLESTEROL RISK RATIO 3.75 (<5); HDL CHOLESTEROL 45.6 MG/DL (>40); NON-HDL-C 125.4 MG/DL
[2024-01-10] MEDS: IBUPROFEN 600MG TAB PO PRN (09:11)
[2024-01-10 14:30] VITALS: BP 127/66; TEMP 97.8
[2024-01-10 20:07] VITALS: BP 134/92
[2024-01-11 06:34] VITALS: BP 135/78; TEMP 98.3; O2SAT 98
[2024-01-11] MEDS ORDERED: OLAN1TAB20 PO (11:20)
[2024-01-11] MEDS ORDERED: BUSP15TA47 PO (11:20)
[2024-01-11] MEDS ORDERED: TRAZ-257 PO (11:20)
[2024-01-11] MEDS ORDERED: LITH150C PO (11:20)
[2024-01-11] MEDS ORDERED: CLONI1TA PO (11:20)
[2024-01-11] MEDS ORDERED: GABA-284 PO (11:20)
[2024-01-11] MEDS ORDERED: NICO21PAT TD (11:20)
[2024-01-11 14:00] VITALS: BP 134/78
== END 2024-01-11 13:14 | disposition home or self-care (01) | DRG 754 ==
LOC: M ED 21:31 → M ED INP 01-09 02:46 → M PSY 01-09 04:15
PROVIDERS: ADMIT Student in an Organized Health Care Education/Training Program; ATTEND Student in an Organized Health Care Education/Training Program
DX: F32.A Depression, unspecified (principal); I10 Essential (primary) hypertension; R45.851 Suicidal ideations; F41.1 Generalized anxiety disorder; F14.10 Cocaine abuse, uncomplicated; J44.9 Chronic obstructive pulmonary disease, unspecified; K21.9 Gastro-esophageal reflux disease without esophagitis; F17.210 Nicotine dependence, cigarettes, uncomplicated; L40.9 Psoriasis, unspecified; J45.909 Unspecified asthma, uncomplicated; G89.29 Other chronic pain; M54.9 Dorsalgia, unspecified; R74.01 Elevation of levels of liver transaminase levels; Z91.52 Personal history of nonsuicidal self-harm; Z81.1 Family history of alcohol abuse and dependence; Z62.819 Personal history of unspecified abuse in childhood; Z88.5 Allergy status to narcotic agent; Z79.899 Other long term (current) drug therapy

== ENCOUNTER → 2024-09-22 | Outpatient (REF) | payer MEDICAID, OTHER ==
[~2024-09-22] MED LIST changes: +BUSP15TA47 PO; +CLONI1TA PO; +FLUT1BLS4 INH; +GABA-284 PO; +LITH150C PO; +LITH450T11 PO; -LITH45TASA PO; +NICO21PAT TD
== END ==
LOC: M LAB REF 17:00
PROVIDERS: ATTEND Physician Assistant
DX: Z79.899 Other long term (current) drug therapy (principal)

== ENCOUNTER → 2025-01-23 | Outpatient (REF) | LOC: M PLAIMG 10:11 | PROVIDERS: ATTEND Internal Medicine | DX: M54.50 Low back pain, unspecified (principal); M54.6 Pain in thoracic spine; M47.814 Spondylosis without myelopathy or radiculopathy, thoracic region; M47.816 Spondylosis without myelopathy or radiculopathy, lumbar region; M43.16 Spondylolisthesis, lumbar region ==